=== PATIENT | male | born 1975 | race Caucasian/White ===

== ENCOUNTER 2019-12-23 08:14 | Outpatient (CLI) | payer OTHER, SELFPAY ==
[2019-12-23 08:33] LABS: Add Urine Microscopic? YES; Appearance Urine Clear (Clear); Bilirubin Urine Negative (Negative); Blood Urine 2+ (Negative); Color Urine Yellow (Yellow); Glucose Urine UA Negative (Negative); Ketones Urine Negative (Negative); Leukocyte Esterase Ur Negative (Negative); Nitrate Urine Negative (Negative); Protein Urine Negative (Negative); Specific Grav Ur >= 1.030 (1.010-1.020); pH Urine 5.5 (5.0-8.0)
[2019-12-23 08:33] LABS: Basophils Absolute Auto 0.05 K/mm3 (0.00-0.10); Basophils Percent Auto 0.6 % (0.0-1.0); Eosinophils Absolute Auto 0.37 K/mm3 (0.02-0.50); Eosinophils Percent Auto 4.7 % (1.0-6.0); Hematocrit 44.6 % (40.0-54.0); Hemoglobin 15.6 g/dL (14.0-18.0); Immature Granulocyte Absolute 0.03 K/mm3 (0.00-0.00); Immature Granulocyte Percent A 0.4 % (0.0-0.0); Lymphocytes Absolute Auto 2.55 K/mm3 (1.10-4.50); Lymphocytes Percent Auto 32.2 % (18.0-42.0); Mean Corpuscular Hemoglobin 30.8 pg (27.0-31.0); Mean Corpuscular Volume 88.1 fL (78.0-102.0); Mean Platelet Volume 10.9 fl (8.7-11.0); Monocytes Absolute Auto 0.53 K/mm3 (0.10-0.90); Monocytes Percent Auto 6.7 % (2.0-11.0); Neutrophils Absolute Auto 4.4 K/mm3 (1.7-7.2); Neutrophils Percent Auto 55.4 % (50.0-70.0); Platelet Count Result 232 K/mm3 (150-420); Red Blood Count 5.06 M/mm3 (4.70-6.10); Red Cell Distribution Width 12.3 % (11.6-14.4); White Blood Count 7.9 K/mm3 (4.8-10.8)
[2019-12-23 08:41] LABS: RBC Urine 21-50 /hpf (0-2); Squamous Epithelial Cell Urine Rare /hpf (Few); WBC Urine 0-3 /hpf (0-3)
[2019-12-23 08:46] LABS: Bacteria Urine Trace /hpf
[2019-12-23 10:01] LABS: Alanine Aminotransferase 41 U/L (16-63); Albumin Level 4.2 g/dL (3.4-5.0); Alkaline Phosphatase 90 U/L (46-116); Anion Gap 17.2 mmol/L (7-16); Aspartate Amino Transferase 23 U/L (15-37); Bilirubin,Total 0.9 mg/dL (0.00-1.00); Blood Urea Nitrogen 17 mg/dL (7-18); Carbon Dioxide 27 mmol/L (21-32); Chloride 104 mmol/L (98-108); Cholesterol 174 mg/dL (0-200); Estimated Glomerular Filt Rate > 60; Glucose 83 mg/dL (70-99); HDL Direct 51 mg/dL (40-60); LDL Cholesterol Calculated 111 mg/dL (<130); Osmolality Calculated 298 mOsm/kg (285-295); Potassium 4.2 mmol/L (3.5-5.1); Sodium 144 mmol/L (136-145); Thyroid Stimulating Hormone 2.29 uIU/mL (0.36-3.74); Total Protein 7.6 g/dL (6.4-8.2); Triglycerides 61 mg/dL (0-150)
== END 2019-12-23 08:15 | disposition home or self-care (01) ==
LOC: CHSLAB 08:19
PROVIDERS: PCP Internal Medicine; Visit Provider Internal Medicine
DX: Z00.00 Encounter for general adult medical examination without abnormal findings (principal)
CPT/HCPCS: 36415; 80053; 80061; 81001; 84443; 85025

== ENCOUNTER → 2020-07-19 10:34 | Outpatient (CLI) | payer OTHER, SELFPAY ==
--- NOTE | ~2020-07-19 | CT_ITS ---
EXAMINATION: CT abdomen pelvis wo/w con DATE: 07/19/2020 11:47 INDICATION: Microhematuria TECHNIQUE: Computed tomography (CT) of the abdomen and pelvis was performed without and subsequently with 130 cc Omnipaque 350 intravenous contrast. Automated exposure control and iterative reconstructi on technique were employed. Exam dose: 2355.12 mGy-cm total exam DLP. COMPARISON: None. FINDINGS: The lung bases are clear of infiltrate or consolidation. Normal heart size. No pericardial or pleural effusion. There is a small sliding hiatal hernia. There is postoperative change of the stomach. There is an approximately 5.5 x 6.5 x 7.5 mm lower pole nonobstructing right renal calculus. There is a pinpoint nonobstructing mid left renal calculus. There is an approximately 3.8 x 7.2 mm obstructing calculus of the left ureter at the L4-5 level, wit h moderately prominent proximal left hydroureteronephrosis. Normal appendix. No bowel obstruction, bowel wall thickening, pneumatosis or intraperitoneal free air . There is normal caliber of the abdominal aorta. No intraperitoneal or retroperitoneal or pelvic mass lesion or adenopathy or ascites. The prostate gland and urinary bladder are unremarkable. There is severe degenerative disc disease and mild retrolisthesis at L5-S1. IMPRESSION: 3.8 x 7.2 mm left ureteral obstructing calculus at L4-5 level with moderately prominent proximal left hydroureteronephrosis 5.5 x 6.5 x 7.5 mm lower pole nonobstructing right renal calculus Pinpoint nonobstructing mid left renal calculus Small sliding hiatal hernia Postoperative change of the stomach Reviewed, dictated and finalized at [facility]. Reviewed, dictated and finalized at location B.
--- NOTE | ~2020-07-19 | XR_ITS ---
XR abdomen/kub 1V DATE: 07/19/2020 10:56 INDICATION: Microhematuria TECHNIQUE: AP projection, 2 views COMPARISON: 07/19/2020 CT abdomen pelvis with and without IV contrast material 06/05/2018 KUB FINDINGS: Surgical clips of right upper quadrant, consistent with cholecystectomy. The psoas shadows are intact. No visceromegaly. No bowel obstruction. Degenerative disc disease at L5-S1. IMPRESSION: Status post cholecystectomy Reviewed, dictated and finalized at [facility]. Reviewed, dictated and finalized at location B. IMPRESSION: Status post cholecystectomy
[2020-07-19 11:00] LABS: Estimated Glomerular Filt Rate > 60
== END ==
PROVIDERS: Visit Provider Nurse Practitioner Adult Health
DX: R31.29 Other microscopic hematuria (principal); Z90.49 Acquired absence of other specified parts of digestive tract; K44.9 Diaphragmatic hernia without obstruction or gangrene; N20.2 Calculus of kidney with calculus of ureter
CPT/HCPCS: 74018; 74178; Q9967

== ENCOUNTER 2020-07-21 02:38 | Outpatient (CLI) | payer OTHER, SELFPAY ==
[2020-07-21 18:24] LABS: SARS-CoV-2 RNA PCR Negative
== END 2020-07-21 02:39 | disposition home or self-care (01) ==
LOC: ANHCOVIDDT 02:39
PROVIDERS: PCP Internal Medicine; Visit Provider Urology
DX: Z20.828 Contact with and (suspected) exposure to other viral communicable diseases (principal)
CPT/HCPCS: 87635; C9803; U0003

== ENCOUNTER 2020-07-23 00:29 | Day surgery (SDC) | payer OTHER, SELFPAY ==
[2020-07-21 08:27] VITALS: BMI 43.0
[2020-07-23] VITALS (7 sets, daily range): BP systolic 117–149; BP diastolic 57–102; PULSE 72–83; RESP 14–20; TEMP 36.4–36.5; O2SAT 96–100
--- NOTE | ~2020-07-23 | XR_ITS ---
EXAMINATION: XR retrograde pyelo w/stent LT EXAM DATE: 07/23/2020 12:33 INDICATION: Left ureteral stone. TECHNIQUE: Fluoroscopy used during XR retrograde pyelo w/stent LT performed by Dr. Orestes garcia MD. The DAP for this procedure was 1.1 mGym2. FINDINGS: Images demonstrate cannulation, injection of the left ureter, mild to moderate left hydron ephrosis or a left-sided double-J ureteral stent was placed. Correlate with procedure note. IMPRESSION: Mild to moderate left hydronephrosis. Stent in position. Reviewed, dictated and finalized at location A.
--- NOTE | 2020-07-23 10:43 | WPDHPUPDATE1 ---
History and Physical Update Update Date/Time: 07/23/20 10:43 History and Physical has been reviewed, including an updated exam of the patient. There are NO changes in the patient's condition. Risks, benefits, and alternatives have been discussed and questions answered. Patient agrees to proceed with procedure. Plan for cystoscopy, left retrograde, left ureteroscopy with holmium laser, stone extraction, stent placement
--- NOTE | 2020-07-23 11:14 | ECG_ITS ---
Measurements Intervals [place] Rate: 73 P: 22 UT: 181 QRS: -34 QRSD: 113 T: 50 QT: 386 QTc: 428 Interpretive Statements SINUS RHYTHM WITH SINUS ARRHYTHMIA LEFT AXIS DEVIATION INTRAVENTRICULAR CONDUCTION DELAY DELAYED PRECORDIAL R/S TRANSITION BASELINE ARTIFACT- I, III, AVR, AVL, V1 BORDERLINE ECG Electronically Signed On 07-23-2020 11:28:01 CDT by Darwin Peacock D.O.
--- NOTE | 2020-07-23 11:24 | WPDANESEPPF ---
Anes - Initial Pre Proc Eval Procedure: Operation Date: 07/23/20 13:00 Proposed Procedures p Cystoscopy, Left Ureteroscopy, Left Stone Extraction, Left Stent Placement, Possible Left Retrograde Pyelogram - Orestes Wheeler MD s Possible Holmium Laser Procedure - Orestes Wheeler MD Date/Time: 07/23/20 11:24 Surgeon: Orestes Wheeler MD Pre Op Diagnosis: Left Ureteral Stone Patient Data Age: 45 Gender: M Height: 5 ft 10 in Weight: 136 kg Allergies Allergy/AdvReac Type Severity Reaction Status Date / Time Clam Allergy Unknown Nausea Uncoded 07/21/20 08:21 Home Medications Medication Instructions Recorded Confirmed Type magnesium oxide 500 mg tablet 500 mg PO DAILY 12/29/19 07/21/20 History pyridoxine (vitamin B6) 100 mg 100 mg PO DAILY 12/29/19 07/21/20 History tablet verapamil 360 mg 24 hr 360 mg PO DAILY #1 cap 12/29/19 07/21/20 Rx capsule,extended release losartan 25 mg PO DAILY 07/21/20 07/21/20 History Patient hx anesthesia problems: none Family hx anesthesia problems: none [facility] Past Medical History Medical History (Updated 07/23/20 @ 11:24 by Pedro Marion MD) Hematemesis Hypertension Nausea & vomiting Obesity, morbid, BMI 40.0-49.9 JAMES (obstructive sleep apnea) Surgical History Surgical History Gastric bypass status for obesity Social History Social History Smoking status: Never smoker Alcohol intake: never Living arrangements: with family Anes - Eval Final PreProcedure Day of Procedure 07/23/20 11:24 Patient weight: morbidly obese Heart: regular rate and rhythm Lungs: clear to auscultation Airway: Mallampati scale class II and other (chipped front tooth) Neurological: alert and oriented Last oral intake: >/= 8 hours ASA classification: III Emergent: no Anesthetic plan: proceed Anesthesia type and monitoring: general LMA and standard monitoring Informed Consent: The patient's anesthetic plan and its attendant risks and benefits were discussed with the patient/family/POA. Questions were solicited and answers provided to the satisfaction of the patient/family/POA.
[2020-07-23] MEDS: LACTATED RINGERS 1,000 ML 30 ML IV CONT ×2 (11:25→12:46)
[2020-07-23] MEDS: ceFAZolin 3 GM/D5W 100 ML 100 ML IVPB (11:48)
[2020-07-23] MEDS: KETOROLAC 30 MG/ML VIAL (*BKC) IV PUSH (12:23)
[2020-07-23] MEDS: LIDOCAINE HCL 2% GEL UROJET 10 ML PKG MUCOUS MEM (12:29)
--- NOTE | 2020-07-23 12:31 | P.OP_ITS ---
Procedure Note - Detailed Date of procedure: 07/23/20 Pre-op diagnosis: Left Ureteral Stone Post-op diagnosis: same Procedure performed: Cystoscopy, left retrograde pyelogram, left ureteroscopy with holmium laser, left stone extraction, left ureteral stent placement 4.8 Sammarinese contour Description of procedure: Patient was taken to the operative suite and correctly identified. Once anesthesia was obtained he was placed in the dorsal lithotomy position and prepped and draped usual sterile fashion. Twenty-two Sammarinese scope was inserted into the urethra. The left ureteral orifice was can with a guidewire. The ureteral access sheath was placed. Mini flexible ureteral scope was inserted. The stone was too large to retrieve 1 piece. Using a 273 micron fiber we fragmented the stone in multiple pieces. Largest stone fragments were retrieved and sent for analysis. Reinspection revealed no residual stone calculi. Pyelogram was then performed to confirm placement of the stent. 4.8 Sammarinese contour stent was then placed with the proximal end coiled in the left renal pelvis and the distal in the bladder. 2% viscous lidocaine was inserted into urethra and patient is taken recovery stable condition. He will follow up in a week's time for stent removal. If develops any problems he will call us so we can deal with appropriately. Anesthesia: GLMA Surgeon: Orestes Wheeler MD Drains: Yes Packing: No Pathology: yes Complications: No immediate complications Condition: stable Disposition: PACU
[2020-07-23] MEDS: fentaNYL CITRATE INJ (*CRX) 100 MCG/2 ML VIAL 25 MCG IV PUSH (13:09)
== END 2020-07-23 14:20 | disposition home or self-care (01) ==
PROVIDERS: PCP Internal Medicine; Visit Provider Urology
PROC: (CPT 52352; principal; 2020-07-23 13:00)
PROC: (CPT 52356; 2020-07-23 13:00)
DX: N13.2 Hydronephrosis with renal and ureteral calculous obstruction (principal); I10 Essential (primary) hypertension; G47.33 Obstructive sleep apnea (adult) (pediatric); E66.01 Morbid (severe) obesity due to excess calories; Z68.41 Body mass index [BMI] 40.0-44.9, adult
CPT/HCPCS: 52356; 74420; 82365; 88300; 93005; A9270; C1758; C1769; C1894; C2617; J0690; J1100; J1885; J2250; J2405; J3010; J7120; Q9966

== ENCOUNTER 2020-08-03 09:26 | Outpatient (CLI) | payer OTHER, SELFPAY ==
--- NOTE | ~2020-08-03 | XR_ITS ---
EXAMINATION: XR abdomen/kub 1V INDICATION: Microscopic hematuria TECHNIQUE: Supine views of the abdomen were obtained on 2 radiographs. COMPARISON: 07/19/2020 FINDINGS: A right internal ureteral stent has been placed in expected position. The previously identi fied stone of the left mid ureter is not definitely seen. There is a 6 mm stone in the lower pole of the right kidney. Pelvic phleboliths are noted. The bowel gas pattern is normal. Cholecystectomy clip s are noted in the right upper quadrant. IMPRESSION: 1. Interval treatment or passage of the previously described left ureteral stone. Left internal urete ral stent in expected position. Reviewed, dictated and finalized at location A. IMPRESSION: 1. Interval treatment or passage of the previously described left ureteral ston e. Left internal ureteral stent in expected position.
== END 2020-08-03 09:27 | disposition home or self-care (01) ==
PROVIDERS: PCP Internal Medicine; Visit Provider Nurse Practitioner Adult Health
DX: R31.29 Other microscopic hematuria (principal); Z87.442 Personal history of urinary calculi
CPT/HCPCS: 74018

== ENCOUNTER 2020-10-21 18:46 | Emergency (ER) | payer OTHER, SELFPAY ==
--- NOTE | ~2020-10-21 | XR_ITS ---
EXAMINATION: XR chest 1V portable INDICATION: Diffuse chest tightness, cough, shortness of breath TECHNIQUE: Portable AP chest at 1929 hours COMPARISON: 10/25/2016 FINDINGS: There are minimal left basilar airspace opacities. No pleural effusion or pneumothorax is i dentified. The cardiomediastinal silhouette is normal. IMPRESSION: 1. Left basilar airspace opacities, consistent with atelectasis versus pneumonia. Reviewed, dictated and finalized at location A. [employer] IMPRESSION: 1. Left basilar airspace opacities, consistent with atelectasis versus pneumoni a.
--- NOTE | 2020-10-21 19:03 | ECG_ITS ---
Measurements Intervals [place] Rate: 122 P: 48 MI: 161 QRS: -61 QRSD: 94 T: 53 QT: 307 QTc: 438 Interpretive Statements SINUS TACHYCARDIA ATRIAL PREMATURE COMPLEXES LEFT ANTERIOR FASCICULAR BLOCK BASELINE ARTIFACT- II, III, AVR, AVL, AVF, V1-V6 ABNORMAL ECG Electronically Signed On 10-22-2020 8:16:07 [employer] by Darwin Peacock D.O.
[2020-10-21 19:05] VITALS: BP 154/107; PULSE 130; RESP 20; TEMP 36.3; O2SAT 97
--- NOTE | 2020-10-21 19:09 | ED.SOB ---
HPI - SOB/Dyspnea General Chief Complaint: Shortness of Breath/Dyspnea Stated Complaint: . Time Seen by Provider: 10/21/20 19:09 Source: patient Mode of arrival: ambulatory Limitations: no limitations History of Present Illness HPI Narrative: 45-year-old man comes in today complaining of 2 days of body aches, cough, growing shortness of breath and, starting this afternoon, having chest pressure. Chest pressure has been fairly constant is worse with movement. He has had dry heaves, diarrhea no bloody stools, blood in his vomitus, dysuria, hematuria, headache, fever or syncope. SO recently diagnosed with Covid-19 MD elicited complaint: shortness of breath, cough and chest pain Onset (ago): day(s) (2) Timing: constant Severity: moderate Exacerbating factors: exertion Relieving factors: rest Associated symptoms: chest pain, cough and lightheadedness Treatment prior to arrival: none Related Data Home oxygen amount: none Home Medications Medication Instructions Recorded Confirmed losartan 25 mg PO DAILY 07/21/20 10/21/20 Allergies Allergy/AdvReac Type Severity Reaction Status Date / Time Clam Allergy Unknown Nausea Uncoded 10/21/20 19:13 Review of Systems Constitutional: Constitutional: Denies chills, Reports fatigue and Denies fever(s) Eyes: Eyes: Denies change in vision and Denies photophobia ENT: Denies dysphagia, Denies nasal congestion and Denies sore throat Cardiovascular: Cardiovascular: Reports chest pain and Denies radiating jaw, neck or arm pain Respiratory: Respiratory: Reports cough and Reports dyspnea Gastrointestinal: Gastrointestinal: Denies abdominal pain, Reports diarrhea, Reports nausea and Reports vomiting Genitourinary: Genitourinary: Denies hematuria, Denies dysuria and Denies urinary frequency Musculoskeletal: Musculoskeletal: Denies back pain, Reports myalgias, Denies arthralgias and Denies joint swelling Integumentary/Breasts: Skin/Breast: Denies pruritus, Denies erythema and Denies rash Neurologic: Denies vertigo, Denies dizziness and Denies syncope Hematologic/Lymphatic: Hematologic/Lymphatic: Denies easy bleeding and Denies easy bruising Allergic/Immunologic: Allergic/Immunologic: Denies lip swelling and Denies tongue swelling PMFSH Past Medical History Medical History Hematemesis Hypertension Nausea & vomiting Obesity, morbid, BMI 40.0-49.9 JAMES (obstructive sleep apnea) Urolithiasis Surgical History Surgical History Gastric bypass status for obesity Hx of tonsillectomy Social History Social History (Updated 10/21/20 @ 19:33 by Jenaro Bennett MD) Smoking status: Never smoker Alcohol intake: never Substance use: never Living arrangements: with family Gender identity (if verbalized by the patient): Male Exam Const: General: alert Nutritional Appearance: obese Orientation/consciousness: patient oriented x3 Limitations: no limitations Other: mild acute distress HENMT: Head: normal to inspection Ears: external ears normal, TM's normal bilaterally and EAC's normal General nose exam: Normal nares present Face and sinus: normal facial exam Mouth: Yes moist mucous membranes Throat: posterior oropharynx normal Eyes: Conjunctivae: conjunctivae normal Pupils: Equal, round and reactive pupils present EOM: EOMs intact bilaterally Resp: Effort & Inspection: normal respiratory effort, not labored and tachypneic (mildly) Auscultation: clear to auscultation bilaterally, no rales, no rhonchi and no wheezes Cardio: Rate: regular rate and tachycardic GI: GI Palp: Yes Soft to palpation, No Tenderness to palpation present (GI) and No Guarding due to palpation present (GI) Auscultation: normal bowel sounds Skin: General skin exam: normal color, no jaundice and no pallor Rashes: no rashes Neuro: General: patient oriented x3, moves all extremities,
[2020-10-21] MEDS: ASPIRIN 81 MG CHEWABLE TABLET 324 MG PO (19:25)
[2020-10-21] MEDS: SODIUM CHLORIDE 0.9% IV 1,000 ML 999 ML IV CONT ×2 (19:34→20:40)
[2020-10-21] MEDS: ONDANSETRON INJ 4 MG/2 ML VIAL IV PUSH (19:35)
[2020-10-21 19:37] VITALS: PULSE 121
[2020-10-21] MEDS: METOPROLOL TARTRATE INJ 5 MG/5 ML VIAL IV PUSH (19:37)
[2020-10-21 19:39] VITALS: BP 164/116; PULSE 117; RESP 20; O2SAT 97
[2020-10-21 20:00] VITALS: BP 157/102; PULSE 99; RESP 20; O2SAT 95
[2020-10-21 20:01] LABS: Basophils Absolute Auto 0.02 K/mm3 (0.00-0.10); Basophils Percent Auto 0.2 % (0.0-1.0); Eosinophils Absolute Auto 0.02 K/mm3 (0.02-0.50); Eosinophils Percent Auto 0.2 % (1.0-6.0); Hematocrit 47.4 % (40.0-54.0); Hemoglobin 16.4 g/dL (14.0-18.0); Immature Granulocyte Absolute 0.03 K/mm3 (0.00-0.00); Immature Granulocyte Percent A 0.3 % (0.0-0.0); Lymphocytes Absolute Auto 1.77 K/mm3 (1.10-4.50); Lymphocytes Percent Auto 20.4 % (18.0-42.0); Mean Corpuscular HGB Conc 34.6 g/dL (32.0-36.0); Mean Corpuscular Hemoglobin 30.6 pg (27.0-31.0); Mean Corpuscular Volume 88.4 fL (78.0-102.0); Mean Platelet Volume 10.3 fl (8.7-11.0); Monocytes Absolute Auto 0.65 K/mm3 (0.10-0.90); Monocytes Percent Auto 7.5 % (2.0-11.0); Neutrophils Absolute Auto 6.2 K/mm3 (1.7-7.2); Neutrophils Percent Auto 71.4 % (50.0-70.0); Platelet Count Result 213 K/mm3 (150-420); Red Blood Count 5.36 M/mm3 (4.70-6.10); Red Cell Distribution Width 13.1 % (11.6-14.4); White Blood Count 8.7 K/mm3 (4.8-10.8)
[2020-10-21 20:13] LABS: INR 0.9; Partial Thromboplastin Time 25.1 SEC (23.90-30.70); Prothrombin Time 10.5 Seconds (9.50-12.10)
[2020-10-21 20:18] LABS: Influenza Control Valid (Valid); SARS-CoV-2 Ag Positive (Negative)
[2020-10-21 20:19] LABS: Alanine Aminotransferase 66 U/L (16-63); Albumin Level 4.1 g/dL (3.4-5.0); Alkaline Phosphatase 138 U/L (46-116); Anion Gap 9 mmol/L (8-16); Aspartate Amino Transferase 56 U/L (15-37); Blood Urea Nitrogen 16 mg/dL (7-18); Calcium 9.2 mg/dL (8.5-10.1); Carbon Dioxide 27 mmol/L (21-32); Chloride 103 mmol/L (98-108); D Dimer 0.52 mg/L (0.19-0.50); Estimated CRCL calculation 89 ml/min; Estimated Glomerular Filt Rate 59; Glucose 101 mg/dL (70-99); Osmolality Calculated 289 mOsm/kg (285-295); Potassium 3.9 mmol/L (3.5-5.1); Sodium 139 mmol/L (136-145); Total Protein 8.1 g/dL (6.4-8.2)
[2020-10-21 20:20] LABS: Troponin I 7.9 ng/L (0.00-60.4)
[2020-10-21 21:40] VITALS: BP 156/108; PULSE 103; RESP 20; O2SAT 98
== END 2020-10-21 21:45 | disposition home or self-care (01) ==
PROVIDERS: Emergency Provider Emergency Medicine; PCP Internal Medicine
DX: U07.1 COVID-19 (principal); E86.0 Dehydration
CPT/HCPCS: 36415; 71045; 80053; 84484; 85025; 85380; 85610; 85730; 87426; 87804; 93005; 96361; 96374; 96375; 99284; A9270; C9803; J2405; J7030

== ENCOUNTER 2021-04-26 12:33 | Outpatient (CLI) | payer OTHER, SELFPAY ==
--- NOTE | ~2021-04-26 | XR_ITS ---
XR abdomen/kub 1V 04/26/2021 12:49 Indication: Left renal stone Procedure: KUB Comparison: Comparison to multiple prior studies sequentially, with oldest reviewed study dated Findings: There is a 10 mm right ureteral stone at the L5 level. Bowel gas pattern nonobstructive. Th ere are cholecystectomy clips. There are pelvic phleboliths. No acute osseous abnormality. Impression: 1: Right proximal ureteral stone at the L5 level measuring 1 cm. Reviewed, dictated and finalized at location A. Impression: 1: Right proximal ureteral stone at the L5 level measuring 1 cm.
== END 2021-04-26 12:34 | disposition home or self-care (01) ==
LOC: ANHIMG 12:38
PROVIDERS: PCP Internal Medicine; Visit Provider Urology
DX: N20.2 Calculus of kidney with calculus of ureter (principal)
CPT/HCPCS: 74018

== ENCOUNTER 2021-04-29 02:17 | Day surgery (SDC) | payer OTHER, SELFPAY ==
[2021-04-28 10:55] VITALS: BMI 39.6
[2021-04-29] VITALS (8 sets, daily range): BP systolic 110–145; BP diastolic 64–93; PULSE 63–76; RESP 12–18; TEMP 36.4–37.1; O2SAT 95–100
--- NOTE | ~2021-04-29 | XR_ITS ---
XR abdomen/kub 1V DATE: 04/29/2021 06:35 INDICATION: Lithotripsy TECHNIQUE: AP projection, 2 views COMPARISON: 04/26/2021 KUB / CT abdomen pelvis without and subsequently with IV contrast material 07/19/2020 KUB FINDINGS: Approximately 5 x 9 mm calcification overlies the right ureter at the lower L4 level. This likely corresponds to a calcified calculus of the lower pole the right kidney on 07/19/2020, now situa stacey in the right ureter. No other apparent urinary tract calcification is noted. (Noncontrast CT abdomen pelvis examination wo uld be more sensitive for detection of urinary tract stones.) No bowel obstruction is evident. The psoas shadows are intact. IMPRESSION: Approximately 5 x 9 mm calcified right ureteral calculus at lower L4 level Reviewed, dictated and finalized at Location A. Reviewed, dictated and finalized at location A. IMPRESSION: Approximately 5 x 9 mm calcified right ureteral calculus at lower L 4 level
[2021-04-29] MEDS: LACTATED RINGERS 1,000 ML 30 ML IV CONT (07:21)
--- NOTE | 2021-04-29 07:28 | WPDHPUPDATE1 ---
History and Physical Update Update Date/Time: 04/29/21 07:28 History and Physical has been reviewed, including an updated exam of the patient. There are NO changes in the patient's condition. Risks, benefits, and alternatives have been discussed and questions answered. Patient agrees to proceed with procedure. Proceed with cysto, right retrograde, right ureteroscopy with stone extraction, stent placement.
[2021-04-29 07:36] LABS: Partial Thromboplastin Time 28.3 SECONDS (22.3-36.8); Prothrombin Time 13.3 Seconds (11.1-14.7)
--- NOTE | 2021-04-29 08:13 | WPDANESEPPF ---
Anes - Initial Pre Proc Eval Procedure: Operation Date: 04/29/21 08:30 Proposed Procedures p Right Extracorporeal Shock Wave Lithotripsy - Orestes Wheeler MD Date/Time: 04/29/21 08:13 Surgeon: Orestes Wheeler MD Pre Op Diagnosis: ureteral stone Patient Data Age: 46 Gender: M Height: 1.78 m Weight: 125.45 kg Allergies Allergy/AdvReac Type Severity Reaction Status Date / Time No Known Allergies Allergy Verified 04/28/21 10:36 Home Medications Medication Instructions Recorded Confirmed Type losartan 25 mg PO HS 07/21/20 04/28/21 History Multi For Him (no iron) 1 tab-cap PO DAILY 04/28/21 04/28/21 History alprazolam 0.25 mg PO PRN 04/28/21 04/28/21 History escitalopram oxalate 20 mg PO HS 04/28/21 04/28/21 History verapamil 360 mg PO HS 04/28/21 04/28/21 History Laboratory Tests 04/29/21 07:04 PT 13.3 Seconds Seconds (11.1-14.7) INR 1.0 APTT 28.3 SECONDS SECONDS (22.3-36.8) Patient hx anesthesia problems: none Family hx anesthesia problems: none PMFSH Past Medical History Medical History Hematemesis Hypertension Nausea & vomiting Obesity, morbid, BMI 40.0-49.9 JAMES (obstructive sleep apnea) Urolithiasis Surgical History Surgical History Gastric bypass status for obesity Hx of tonsillectomy Social History Social History (Updated 10/21/20 @ 19:33 by Jenaro Bennett MD) Smoking status: Never smoker Alcohol intake: never Substance use: never Living arrangements: with family Gender identity (if verbalized by the patient): Male Spiritual care concerns: No Anes - Eval Final PreProcedure Day of Procedure 04/29/21 08:13 Patient weight: morbidly obese Heart: regular rate and rhythm Lungs: clear to auscultation Airway: Mallampati scale class II Neurological: alert and oriented Last oral intake: >/= 8 hours ASA classification: III Emergent: no Anesthetic plan: proceed Anesthesia type and monitoring: general LMA and standard monitoring Informed Consent: The patient's anesthetic plan and its attendant risks and benefits were discussed with the patient/family/POA. Questions were solicited and answers provided to the satisfaction of the patient/family/POA.
--- NOTE | 2021-04-29 08:23 | WPDHPUPDATE1 ---
History and Physical Update Update Date/Time: 04/29/21 08:23 History and Physical has been reviewed, including an updated exam of the patient. There are NO changes in the patient's condition. Risks, benefits, and alternatives have been discussed and questions answered. Patient agrees to proceed with procedure. Proceed with right eswl
[2021-04-29] MEDS: ceFAZolin 2 GM/D5W 50 ML 2 GM/50 ML BAG IVPB (08:30)
--- NOTE | 2021-04-29 09:11 | W.PM.PROC2 ---
Procedure Note - Detailed Date of Procedure 04/29/21 Pre-op Diagnosis ureteral stone Post-op Diagnosis same Procedure Performed ESWL right ureteral calculus Surgeon Orestes Wheeler MD Anesthesia general Description of Procedure patient is taken the operative suite correctly identified. Once anesthesia was obtained stone was localized in both planes. Three thousand shocks was given to the stones in the right ureter. There appeared to be good fragmentation. Patient is taken recovery stable condition. He will follow up in 10-14 days with KUB. Drains No Packing No Pathology none sent Complications No immediate complications Condition stable Disposition PACU
--- NOTE | 2021-04-29 09:42 | SUR.PHASEI ---
0930- awake, denies presence of pain when asked.
[2021-04-29] MEDS: fentaNYL CITRATE INJ (*CRX) 100 MCG/2 ML VIAL 25 MCG IV PUSH (09:52)
[2021-04-29] MEDS: oxyCODONE HCL (*CRX) 5 MG TAB IR PO (11:03)
== END 2021-04-29 11:10 | disposition home or self-care (01) ==
PROVIDERS: PCP Internal Medicine; Visit Provider Urology
PROC: (CPT 50590; principal; 2021-04-29 08:30)
DX: N20.2 Calculus of kidney with calculus of ureter (principal); K92.0 Hematemesis; G47.33 Obstructive sleep apnea (adult) (pediatric); Z98.84 Bariatric surgery status; E66.01 Morbid (severe) obesity due to excess calories; Z68.41 Body mass index [BMI] 40.0-44.9, adult; Z46.6 Encounter for fitting and adjustment of urinary device; Z96.0 Presence of urogenital implants; I10 Essential (primary) hypertension
CPT/HCPCS: 50590; 36415; 74018; 85610; 85730; A9270; J0690; J1100; J2250; J2405; J2704; J3010; J7120

== ENCOUNTER 2021-05-30 12:53 | Outpatient (CLI) | payer OTHER, SELFPAY ==
--- NOTE | ~2021-05-30 | XR_ITS ---
EXAMINATION: XR abdomen/kub 1V DATE: 05/30/2021 13:19 INDICATION: Left renal stone. TECHNIQUE: A supine view of the abdomen on 2 radiographs was obtained. COMPARISON: 04/29/2021 FINDINGS: Residual 5 mm stone fragment or fragments in similar position in the proximal to mid right ureter pro jecting over the right transverse process of L4. Similar pattern of multiple phleboliths in the pelvi s. Cholecystectomy clips in the right upper quadrant. Normal bowel gas pattern. IMPRESSION: 1. Residual 5 mm stone fragment or fragments in the proximal to mid right ureter. Reviewed, dictated and finalized at location A. IMPRESSION: 1. Residual 5 mm stone fragment or fragments in the proximal to mid right urete r.
== END 2021-05-30 12:54 | disposition home or self-care (01) ==
PROVIDERS: PCP Internal Medicine; Visit Provider Urology
DX: N20.0 Calculus of kidney (principal)
CPT/HCPCS: 74018

== ENCOUNTER 2021-06-03 16:05 | Outpatient (CLI) | payer OTHER, SELFPAY ==
--- NOTE | 2021-06-03 16:08 | ECG_ITS ---
Measurements Intervals [place] Rate: 87 P: 38 UT: 186 QRS: -20 QRSD: 105 T: 3 QT: 350 QTc: 422 Interpretive Statements SINUS RHYTHM BORDERLINE R WAVE PROGRESSION, ANTERIOR LEADS BORDERLINE T WAVE ABNORMALITY- INFERIOR LEADS BASELINE ARTIFACT- II, III, AVR, AVL, AVF, V4-V6 BORDERLINE ECG Electronically Signed On 06-03-2021 20:21:19 CDT by Darwin Peacock D.O.
== END 2021-06-03 16:06 | disposition home or self-care (01) ==
LOC: CHSCARD 16:08
PROVIDERS: PCP Internal Medicine; Referring Provider Anesthesiology; Visit Provider Urology
DX: N20.1 Calculus of ureter (principal)
CPT/HCPCS: 87086; 93005

== ENCOUNTER 2021-06-07 00:55 | Day surgery (SDC) | payer OTHER, SELFPAY ==
[2021-06-03 14:52] VITALS: BMI 38.5
[2021-06-07] VITALS (9 sets, daily range): BP systolic 116–152; BP diastolic 72–98; PULSE 61–74; RESP 12–18; TEMP 36.3–36.5; O2SAT 97–100
--- NOTE | ~2021-06-07 | XR_ITS ---
EXAMINATION: XR retrograde pyelo w/stent RT DATE: 06/07/2021 10:58 INDICATION: Right internal ureteral stent placement TECHNIQUE: Fluoroscopic images from a right internal ureteral stent placement are submitted for leatha lockwood 32 seconds of fluoroscopy time. 6 fluoroscopic images. FINDINGS: There is a right double-J internal ureteral stent projecting in expected position, with proximal [place] loop at the level of the renal pelvis and distal loop in the pelvis within the bladder lumen. IMPRESSION: 1. Right internal ureteral stent placement. Please refer to real-time procedural findings for richard mcclelland. Reviewed, dictated and finalized at location A. IMPRESSION: 1. Right internal ureteral stent placement. Please refer to real-time procedu ral findings for details.
--- NOTE | 2021-06-07 08:02 | WPDHPUPDATE1 ---
History and Physical Update Update Date/Time: 06/07/21 08:02 History and Physical has been reviewed, including an updated exam of the patient. There are NO changes in the patient's condition. Risks, benefits, and alternatives have been discussed and questions answered. Patient agrees to proceed with procedure. Proceed with cystoscopy, right retrograde pyelogram, right ureteroscopy with stone extraction, possible laser, stent placement
[2021-06-07] MEDS: LACTATED RINGERS 1,000 ML 30 ML IV CONT (08:49)
--- NOTE | 2021-06-07 09:10 | WPDANESEPPF ---
Anes - Initial Pre Proc Eval Procedure: Operation Date: 06/07/21 10:00 Proposed Procedures p Cystoscopy Right Ureteroscopy, Possible Retrograde Pyelogram, Stone Extraction, Stent Placement, - Orestes Wheeler MD s Possible Holmium Laser Procedure - Orestes Wheeler MD Date/Time: 06/07/21 09:10 Surgeon: Orestes Wheeler MD Pre Op Diagnosis: right ureteral stone Patient Data Age: 46 Gender: M Height: 1.78 m Weight: 122 kg Allergies Allergy/AdvReac Type Severity Reaction Status Date / Time No Known Allergies Allergy Verified 04/29/21 08:27 Home Medications Medication Instructions Recorded Confirmed Type losartan 25 mg PO HS 07/21/20 06/03/21 History Multi For Him (no iron) 1 tab-cap PO DAILY 04/28/21 06/03/21 History alprazolam 0.25 mg PO PRN 04/28/21 06/03/21 History escitalopram oxalate 20 mg PO HS 04/28/21 06/03/21 History verapamil 360 mg PO HS 04/28/21 06/03/21 History Patient hx anesthesia problems: none Family hx anesthesia problems: none PMFSH Past Medical History Medical History Hematemesis Hypertension Nausea & vomiting Obesity, morbid, BMI 40.0-49.9 JAMES (obstructive sleep apnea) Urolithiasis Surgical History Surgical History Gastric bypass status for obesity Hx of tonsillectomy Social History Social History Smoking status: Never smoker Alcohol intake: never Substance use: never Substance use type: does not use Gender identity (if verbalized by the patient): Male Spiritual care concerns: No Anes - Eval Final PreProcedure Day of Procedure 06/07/21 09:10 Patient weight: morbidly obese Heart: regular rate and rhythm Lungs: clear to auscultation Airway: Mallampati scale class II Neurological: alert and oriented Last oral intake: >/= 8 hours ASA classification: III Emergent: no Anesthetic plan: proceed Anesthesia type and monitoring: general LMA and standard monitoring Informed Consent: The patient's anesthetic plan and its attendant risks and benefits were discussed with the patient/family/POA. Questions were solicited and answers provided to the satisfaction of the patient/family/POA.
[2021-06-07] MEDS: ceFAZolin 3 GM/D5W 100 ML 100 ML IVPB (10:22)
[2021-06-07] MEDS: LIDOCAINE HCL 2% GEL UROJET 10 ML PKG MUCOUS MEM (10:40)
--- NOTE | 2021-06-07 10:57 | W.PM.PROC2 ---
Procedure Note - Detailed Date of Procedure 06/07/21 Pre-op Diagnosis right ureteral stone Post-op Diagnosis same Procedure Performed Cystoscopy, right retrograde pyelogram, right ureteroscopy with holmium laser, stone extraction, right ureteral stent placement 4.8 Barbadian contour Surgeon Orestes Wheeler MD Anesthesia general Description of Procedure Patient is taken to the operative suite and correctly identified. Once anesthesia was obtained was placed in dorsal lithotomy position and prepped and draped usual sterile fashion. Nineteen Barbadian scope was inserted into the bladder. There is no tumors noted. The right ureteral orifice was cannulated with a guidewire. We dilated the OR orifice using an 8/10 dilator. Rigid ureteral scope was then inserted. The stone was visualized but was too large to grasp in 1 piece. Using an escape basket we placed around the stone and then used a 273 micron fiber to fragment stone in multiple pieces. The largest stones were sent for analysis. Reinspection revealed no residual calculi. Pyelogram was then performed to confirm placement of the stent. 4.8 Barbadian contour stent was then placed with the proximal end coiled in the renal pelvis and the distal end in the bladder. Bladder was drained. 2% viscous lidocaine was inserted into the urethra patient was taken recovery stable condition. He will follow up in a week's time for stent removal. Drains Yes Packing No Pathology yes Complications No immediate complications Condition stable Disposition PACU
[2021-06-07] MEDS: fentaNYL CITRATE INJ (*CRX) 100 MCG/2 ML VIAL 25 MCG IV PUSH ×4 (11:17→11:43)
[2021-06-07] MEDS: oxyCODONE HCL (*CRX) 5 MG TAB IR PO (12:14)
== END 2021-06-07 12:30 | disposition home or self-care (01) ==
PROVIDERS: PCP Internal Medicine; Visit Provider Urology
PROC: (CPT 52352; principal; 2021-06-07 10:00)
PROC: (CPT 52356; 2021-06-07 10:00)
DX: N20.1 Calculus of ureter (principal); I10 Essential (primary) hypertension; G47.33 Obstructive sleep apnea (adult) (pediatric); E66.01 Morbid (severe) obesity due to excess calories; Z68.39 Body mass index [BMI] 39.0-39.9, adult; Z98.84 Bariatric surgery status
CPT/HCPCS: 52356; 74420; 82365; 88300; A9270; C1758; C1769; C2617; J0690; J1100; J2250; J2405; J2704; J3010; J7120; Q9966

== ENCOUNTER 2021-08-10 11:44 | Emergency (ER) | payer OTHER, SELFPAY ==
--- NOTE | 2021-08-10 11:51 | ECG_ITS ---
Measurements Intervals [place] Rate: 75 P: 2 MO: 190 QRS: -32 QRSD: 96 T: 15 QT: 391 QTc: 438 Interpretive Statements SINUS RHYTHM LEFT AXIS DEVIATION BORDERLINE R WAVE PROGRESSION, ANTERIOR LEADS BASELINE ARTIFACT- II, III, AVF BORDERLINE ECG Electronically Signed On 08-10-2021 12:57:41 CDT by Darwin Peacock D.O.
--- NOTE | 2021-08-10 11:55 | ED.GENADULT ---
HPI - General Adult General Chief complaint: Alcohol Stated complaint: ambulane Source: patient and family Mode of arrival: ambulatory Limitations: no limitations History of Present Illness HPI narrative: Fabio is a 46M with a PMH of ureteral stones, obesity s/p gastric bypass, HTN that presented to the ED via EMS after reportedly drinking and taking Xanex and with SI. Fabio has been suffering from depression and PTSD and troubles with his spouse. He hit a low today and drank some 151 this morning. When his returned he said that he didn't care if he lived or so she called the ambulance. Currently he denies any thoughts of hurting himself or anyone else. He has an alprazolam Rx but denies taking any. Related Data Home Medications Medication Instructions Recorded Confirmed losartan 25 mg PO HS 07/21/20 06/07/21 Multi For Him (no iron) 1 tab-cap PO DAILY 04/28/21 06/07/21 alprazolam 0.25 mg PO PRN 04/28/21 06/07/21 escitalopram oxalate 20 mg PO HS 04/28/21 06/07/21 verapamil 360 mg PO HS 04/28/21 06/07/21 Allergies Allergy/AdvReac Type Severity Reaction Status Date / Time No Known Allergies Allergy Verified 06/07/21 09:14 Review of Systems Constitutional: Constitutional: Reports no additional constitutional complaints Eyes: Eyes: Reports no additional eye complaints ENT: Reports system reviewed and no additional complaints, except as documented Cardiovascular: Cardiovascular: Reports no additional cardiovascular complaints Respiratory: Respiratory: Reports no additional respiratory complaints Gastrointestinal: Gastrointestinal: Reports no additional gastrointestinal complaints Genitourinary: Genitourinary: Reports no additional male genitourinary complaints Musculoskeletal: Musculoskeletal: Reports no additional musculoskeletal complaints Integumentary/Breasts: Skin/Breast: Reports system reviewed and no additional complaints, except as docu Neurologic: Reports system reviewed and no additional complaints, except as documented Psychiatric: Psychiatric: Reports anxiety and Reports depression Endocrine: Endocrine: Reports no additional endocrine complaints Hematologic/Lymphatic: Hematologic/Lymphatic: Reports no additional hematologic/lymphatic complaints Allergic/Immunologic: Allergic/Immunologic: Reports no additional allergic/immunologic complaints [facility] Past Medical History Medical History Hematemesis Hypertension Nausea & vomiting Obesity, morbid, BMI 40.0-49.9 JAMES (obstructive sleep apnea) Urolithiasis Surgical History Surgical History Gastric bypass status for obesity Hx of tonsillectomy Social History Social History Smoking status: Never smoker Alcohol intake: never Substance use: never Substance use type: does not use Gender identity (if verbalized by the patient): Male Spiritual care concerns: No Exam Const: General: no acute distress and alert Orientation/consciousness: patient oriented x3 HENMT: Head: normal to inspection Other: normocephalic, atraumatic Eyes: Conjunctivae: conjunctivae normal Pupils: Equal, round and reactive pupils present Neck: Neck: normal visual inspection Chest: Chest palpation & inspection: normal inspection of the chest Resp: Effort & Inspection: normal respiratory effort Auscultation: clear to auscultation bilaterally Cardio: Rate: regular rate Rhythm: regular rhythm GI: Inspection: non-distended GI Palp: Yes Soft to palpation, No Tenderness to palpation present (GI) and No Guarding due to palpation present (GI) Back/Spine/Pelvis: Back: no CVA tenderness Skin: General skin exam: normal color Neuro: General: patient oriented x3, moves all extremities and CN's II-XI intact bilaterally Extrem: General: normal to inspection Psych: Appearance: dishevele
[2021-08-10 12:00] VITALS: BP 138/89; PULSE 83; RESP 18; TEMP 36.6; O2SAT 99
[2021-08-10 12:34] LABS: Amphetamine Screen Urine Negative (Negative); Barbiturate Screen Urine Negative (Negative); Benzodiazepines Screen Urine Negative (Negative); Cannabinoid Screen Urine Negative (Negative); Cocaine Screen Urine Negative (Negative); Methadone Screen Urine Negative (Negative); Opiate Screen Urine Negative (Negative); Phencyclidine Screen Urine Negative (Negative)
[2021-08-10 12:42] LABS: Alanine Aminotransferase 65 U/L (16-63); Albumin Level 3.8 g/dL (3.4-5.0); Alkaline Phosphatase 140 U/L (46-116); Anion Gap 12 mmol/L (8-16); Aspartate Amino Transferase 43 U/L (15-37); Bilirubin,Total 0.7 mg/dL (0.00-1.00); Blood Urea Nitrogen 10 mg/dL (7-18); Calcium 8.4 mg/dL (8.5-10.1); Carbon Dioxide 27 mmol/L (21-32); Chloride 104 mmol/L (98-108); Estimated CRCL calculation 89 ml/min; Estimated Glomerular Filt Rate > 60; Glucose 104 mg/dL (70-99); Osmolality Calculated 295 mOsm/kg (285-295); Potassium 3.3 mmol/L (3.5-5.1); Salicylate 0.9 mg/dL (2.8-20.0); Sodium 143 mmol/L (136-145); Thyroid Stimulating Hormone 0.69 uIU/mL (0.36-3.74); Total Protein 7.4 g/dL (6.4-8.2)
[2021-08-10 12:43] LABS: Acetaminophen < 2 ug/mL (10-30); Ethanol 239 mg/dL (0-6)
--- NOTE | 2021-08-10 12:45 | PC.NURSE ---
Lab called with Blood Alcohol of 239
[2021-08-10 17:20] LABS: Ethanol 161 mg/dL (0-6)
--- NOTE | 2021-08-10 18:07 | PC.NURSE ---
Juli with [facility] at bedside.
[2021-08-10 19:05] VITALS: BP 137/99; PULSE 97; RESP 20; TEMP 36.9; O2SAT 97
== END 2021-08-10 19:07 | disposition home or self-care (01) ==
PROVIDERS: Emergency Provider Family Medicine; PCP Internal Medicine
DX: F10.129 Alcohol abuse with intoxication, unspecified (principal); F32.A Depression, unspecified
CPT/HCPCS: 36415; 80053; 80307; 84443; 93005; 99282; 99283

== ENCOUNTER 2022-10-18 08:12 | Outpatient (CLI) | payer OTHER, SELFPAY ==
[2022-10-18 08:30] LABS: Basophils Absolute Auto 0.04 K/mm3 (0.00-0.10); Basophils Percent Auto 0.5 % (0.0-1.0); Eosinophils Absolute Auto 0.39 K/mm3 (0.02-0.50); Eosinophils Percent Auto 4.5 % (1.0-6.0); Hematocrit 42.9 % (40.0-54.0); Hemoglobin 14.8 g/dL (14.0-18.0); Immature Granulocyte Absolute 0.04 K/mm3 (0.00-0.00); Immature Granulocyte Percent A 0.5 % (0.0-0.0); Lymphocytes Absolute Auto 2.24 K/mm3 (1.10-4.50); Mean Corpuscular HGB Conc 34.5 g/dL (32.0-36.0); Mean Corpuscular Hemoglobin 31.8 pg (27.0-31.0); Mean Corpuscular Volume 92.3 fL (78.0-102.0); Mean Platelet Volume 10.5 fl (8.7-11.0); Monocytes Absolute Auto 0.63 K/mm3 (0.10-0.90); Monocytes Percent Auto 7.3 % (2.0-11.0); Neutrophils Absolute Auto 5.3 K/mm3 (1.7-7.2); Neutrophils Percent Auto 61.2 % (50.0-70.0); Platelet Count Result 207 K/mm3 (150-420); Red Blood Count 4.65 M/mm3 (4.70-6.10); Red Cell Distribution Width 12.8 % (11.6-14.4); White Blood Count 8.6 K/mm3 (4.8-10.8)
[2022-10-18 08:33] LABS: Add Urine Microscopic? YES; Appearance Urine Clear (Clear); Bilirubin Urine Negative (Negative); Blood Urine Trace-Intact (Negative); Color Urine Yellow (Yellow); Glucose Urine UA Negative (Negative); Ketones Urine Negative (Negative); Leukocyte Esterase Ur Negative (Negative); Nitrate Urine Negative (Negative); Protein Urine Negative (Negative); Specific Grav Ur >= 1.030 (1.010-1.020); Urobilinogen Urine 0.2 mg/dL (0.2-1.0)
[2022-10-18 08:38] LABS: Bacteria Urine None seen /hpf; Hemoglobin A1C 5.6 % (<5.7); Mucus Urine Few /lpf; RBC Urine 0-2 /hpf (0-2); Squamous Epithelial Cell Urine Rare /hpf (Few); WBC Urine None seen /hpf (0-3)
[2022-10-18 09:20] LABS: Alanine Aminotransferase 81 U/L (16-63); Alkaline Phosphatase 97 U/L (46-116); Anion Gap 8 mmol/L (8-16); Aspartate Amino Transferase 40 U/L (15-37); Bilirubin,Total 0.6 mg/dL (0.00-1.00); Blood Urea Nitrogen 14 mg/dL (7-18); Carbon Dioxide 31 mmol/L (21-32); Chloride 104 mmol/L (98-108); Cholesterol 178 mg/dL (0-200); Estimated Glomerular Filt Rate > 60; Glucose 112 mg/dL (70-99); HDL Direct 70 mg/dL (40-60); LDL Cholesterol Calculated 96 mg/dL (<130); Osmolality Calculated 297 mOsm/kg (285-295); Potassium 4.1 mmol/L (3.5-5.1); Sodium 143 mmol/L (136-145); Thyroid Stimulating Hormone 2.29 uIU/mL (0.36-3.74); Total Protein 7.3 g/dL (6.4-8.2); Triglycerides 62 mg/dL (0-150)
== END 2022-10-18 08:13 | disposition home or self-care (01) ==
LOC: CHSLAB 08:15
PROVIDERS: PCP Internal Medicine
DX: I10 Essential (primary) hypertension (principal)
CPT/HCPCS: 36415; 80053; 80061; 81001; 83036; 84443; 85025

== ENCOUNTER 2022-11-07 09:02 | Outpatient (CLI) | payer OTHER, SELFPAY ==
--- NOTE | ~2022-11-07 | XR_ITS ---
XR knee RT 3V DATE: 11/07/2022 10:11 INDICATION: Chronic medial and anterior knee pain TECHNIQUE: AP, lateral and sunrise views COMPARISON: None FINDINGS: No fracture or dislocation or joint effusion. Joint spaces are well preserved. Slight peria rticular spurring of the patella. No radiopaque intra-articular loose body or chondrocalcinosis. IMPRESSION: Slight patellofemoral osteoarthritis. Reviewed, dictated and finalized at location L. OCK MAKER
--- NOTE | ~2022-11-07 | XR_ITS ---
XR knee LT 3V DATE: 11/07/2022 10:10 INDICATION: Chronic medial knee pain TECHNIQUE: AP, lateral, sunrise views COMPARISON: None FINDINGS: No fracture or dislocation or joint effusion. No periosteal reaction or bone destruction. J oint spaces appear well preserved. No radiopaque intra-articular loose body or chondrocalcinosis. IMPRESSION: No significant abnormality Reviewed, dictated and finalized at location L. T CAN ROUTER IMPRESSION: No significant abnormality
--- NOTE | ~2022-11-07 | XR_ITS ---
XR chest 2V DATE: 11/07/2022 10:11 INDICATION: Dyspnea for 4 months TECHNIQUE: 2 views COMPARISON: 10/21/2020 portable AP chest FINDINGS: Normal heart size. No hilar or mediastinal enlargement. No pulmonary infiltrate or consolid ation, pleural effusion or pulmonary vascular congestion or pneumothorax is detected. Surgical clips overlie the upper abdomen on lateral view, likely due to cholecystectomy. IMPRESSION: No active cardiopulmonary disease Reviewed, dictated and finalized at location L. L ENGINEERING TECHNICIAN
--- NOTE | 2022-11-07 09:30 | ECG_ITS ---
Measurements Intervals [place] Rate: 79 P: 16 NV: 187 QRS: 1 QRSD: 108 T: -9 QT: 365 QTc: 420 Interpretive Statements SINUS RHYTHM BORDERLINE R WAVE PROGRESSION, ANTERIOR LEADS BORDERLINE T WAVE ABNORMALITY- INFERIOR LEADS BORDERLINE ECG COMPARED TO ECG 08/10/2021 12:25:42 NO SIGNIFICANT CHANGES Electronically Signed On 11-07-2022 9:53:33 TOOL GRINDER SET UP OPERATOR GEAR by Darwin Peacock D.O.
[2022-11-08 09:51] LABS: Basophils Absolute Auto 0.06 K/mm3 (0.00-0.10); Basophils Percent Auto 0.5 % (0.0-1.0); Eosinophils Absolute Auto 0.37 K/mm3 (0.02-0.50); Eosinophils Percent Auto 3.3 % (1.0-6.0); Hematocrit 47.1 % (40.0-54.0); Hemoglobin 15.6 g/dL (14.0-18.0); Immature Granulocyte Absolute 0.02 K/mm3 (0.00-0.00); Immature Granulocyte Percent A 0.2 % (0.0-0.0); Lymphocytes Absolute Auto 2.42 K/mm3 (1.10-4.50); Lymphocytes Percent Auto 21.8 % (18.0-42.0); Mean Corpuscular HGB Conc 33.1 g/dL (32.0-36.0); Mean Corpuscular Volume 96.5 fL (78.0-102.0); Mean Platelet Volume 11.7 fl (8.7-11.0); Monocytes Absolute Auto 0.62 K/mm3 (0.10-0.90); Monocytes Percent Auto 5.6 % (2.0-11.0); Neutrophils Absolute Auto 7.6 K/mm3 (1.7-7.2); Neutrophils Percent Auto 68.6 % (50.0-70.0); Platelet Count Result 259 K/mm3 (150-420); Red Blood Count 4.88 M/mm3 (4.70-6.10); Red Cell Distribution Width 12.5 % (11.6-14.4); White Blood Count 11.1 K/mm3 (4.8-10.8)
[2022-11-08 10:03] LABS: Alanine Aminotransferase 71 U/L (16-63); Albumin Level 4.4 g/dL (3.4-5.0); Alkaline Phosphatase 123 U/L (46-116); Anion Gap 8 mmol/L (8-16); Aspartate Amino Transferase 34 U/L (15-37); Bilirubin,Total 0.5 mg/dL (0.00-1.00); Blood Urea Nitrogen 13 mg/dL (7-18); Calcium 9.5 mg/dL (8.5-10.1); Carbon Dioxide 29 mmol/L (21-32); Chloride 102 mmol/L (98-108); Estimated Glomerular Filt Rate > 60; Glucose 103 mg/dL (70-99); NT Pro B Type Natriuretic Pept 25 pg/mL (0-125); Osmolality Calculated 288 mOsm/kg (285-295); Potassium 4.2 mmol/L (3.5-5.1); Sodium 139 mmol/L (136-145); Total Protein 7.8 g/dL (6.4-8.2)
[2022-11-11 03:18] LABS: Hepatitis A Antibody IgM Nonreactive; Hepatitis B Core Antibody Nonreactive (Nonreactive); Hepatitis B Surface Antigen Nonreactive (Nonreactive); Hepatitis C Signal to Cutoff 0.01 ratio (<1.00); Hepatitis C Virus Antibody Nonreactive (Nonreactive)
== END 2022-11-07 09:03 | disposition home or self-care (01) ==
LOC: CHSLAB 09:06
PROVIDERS: PCP Internal Medicine; Visit Provider Internal Medicine
DX: I10 Essential (primary) hypertension (principal); R06.00 Dyspnea, unspecified; R94.5 Abnormal results of liver function studies; M25.569 Pain in unspecified knee; M17.11 Unilateral primary osteoarthritis, right knee
CPT/HCPCS: 36415; 71046; 73562; 80053; 80074; 83880; 85025; 93005

== ENCOUNTER 2022-11-21 10:18 | Outpatient (CLI) | payer OTHER, SELFPAY | END 2022-11-21 10:19 | disposition home or self-care (01) | LOC: CHSCARD 10:21 | PROVIDERS: PCP Internal Medicine; Visit Provider Internal Medicine | DX: R06.02 Shortness of breath (principal) | CPT/HCPCS: 94060; 94726; 94729 ==

== ENCOUNTER 2023-06-07 08:03 | Outpatient (CLI) | payer OTHER, SELFPAY ==
[2023-06-07 08:22] LABS: Basophils Absolute Auto 0.05 K/mm3 (0.00-0.10); Basophils Percent Auto 0.6 % (0.0-1.0); Eosinophils Percent Auto 1.2 % (1.0-6.0); Hematocrit 43.3 % (40.0-54.0); Immature Granulocyte Absolute 0.02 K/mm3 (0.00-0.00); Immature Granulocyte Percent A 0.2 % (0.0-0.0); Lymphocytes Absolute Auto 1.96 K/mm3 (1.10-4.50); Lymphocytes Percent Auto 24.4 % (18.0-42.0); Mean Corpuscular HGB Conc 34.6 g/dL (32.0-36.0); Mean Corpuscular Hemoglobin 31.4 pg (27.0-31.0); Mean Corpuscular Volume 90.6 fL (78.0-102.0); Mean Platelet Volume 10.8 fl (8.7-11.0); Monocytes Absolute Auto 0.47 K/mm3 (0.10-0.90); Monocytes Percent Auto 5.9 % (2.0-11.0); Neutrophils Absolute Auto 5.4 K/mm3 (1.7-7.2); Neutrophils Percent Auto 67.7 % (50.0-70.0); Platelet Count Result 273 K/mm3 (150-420); Red Blood Count 4.78 M/mm3 (4.70-6.10); Red Cell Distribution Width 12.8 % (11.6-14.4)
[2023-06-07 09:01] LABS: Alanine Aminotransferase 52 U/L (16-63); Albumin Level 4.3 g/dL (3.4-5.0); Alkaline Phosphatase 157 U/L (46-116); Anion Gap 13 mmol/L (8-16); Aspartate Amino Transferase 37 U/L (15-37); Bilirubin,Total 1.4 mg/dL (0.00-1.00); Blood Urea Nitrogen 16 mg/dL (7-18); Calcium 9.6 mg/dL (8.5-10.1); Carbon Dioxide 26 mmol/L (21-32); Chloride 102 mmol/L (98-108); Cholesterol 189 mg/dL (0-200); Estimated Glomerular Filt Rate > 60; Glucose 112 mg/dL (70-99); HDL Direct 60 mg/dL (40-60); LDL Cholesterol Calculated 111 mg/dL (<130); Osmolality Calculated 294 mOsm/kg (285-295); Potassium 3.9 mmol/L (3.5-5.1); Sodium 141 mmol/L (136-145); Thyroid Stimulating Hormone 1.67 uIU/mL (0.36-3.74); Total Protein 7.7 g/dL (6.4-8.2); Triglycerides 91 mg/dL (0-150)
== END 2023-06-07 08:04 | disposition home or self-care (01) ==
LOC: CHSLAB 08:04
PROVIDERS: PCP Internal Medicine; Visit Provider Internal Medicine
DX: I10 Essential (primary) hypertension (principal); E78.5 Hyperlipidemia, unspecified
CPT/HCPCS: 36415; 80053; 80061; 84443; 85025

== ENCOUNTER 2023-11-20 00:33 | Day surgery (SDC) | payer OTHER, SELFPAY ==
[2023-10-24 10:49] VITALS: BMI 43.2
--- NOTE | 2023-11-16 12:36 | SUR.PREOP ---
Patient called regarding upcoming procedure. Message left on pt's voicemail regarding appointment times.
[2023-11-20 09:49] VITALS: BP 138/82; PULSE 75; RESP 18; TEMP 36.4; O2SAT 98
[2023-11-20] MEDS: LACTATED RINGERS 1,000 ML 150 ML IV CONT (09:58)
--- NOTE | 2023-11-20 10:37 | P.PNAN_ITS ---
Anes - Initial Pre Proc Eval Procedure: Operation Date: 11/20/23 11:00 Proposed Procedures p Screening Colonoscopy - Med David MD Date/Time: 11/20/23 10:37 Surgeon: Med David MD Pre Op Diagnosis: neoplasm screening Patient Data Age: 48 Gender: M Height: 1.78 m Weight: 136.4 kg Last Vital Signs Temp 97.5 F L 11/20/23 09:49 Pulse 75 11/20/23 09:49 Resp 18 11/20/23 09:49 BP 138/82 11/20/23 09:49 Pulse Ox 98 11/20/23 09:49 O2 Del Method Room Air 11/20/23 09:49 Allergies Allergy/AdvReac Type Severity Reaction Status Date / Time No Known Allergies Allergy Verified 11/20/23 09:48 Home Medications Medication Instructions Recorded Confirmed Type Multi For Him (no iron) 1 tab-cap PO DAILY 04/28/21 10/24/23 History alprazolam 0.25 mg tablet 0.25 mg PO PRN PRN Anxiety 04/28/21 10/24/23 History escitalopram oxalate 20 mg tablet 20 mg PO HS 04/28/21 10/24/23 History verapamil 360 mg 24 hr 360 mg PO HS 04/28/21 10/24/23 History capsule,extended release lamotrigine 25 mg tablet 25 mg PO DAILY 10/24/23 10/24/23 History olmesartan 5 mg tablet 20 mg PO DAILY 10/24/23 10/24/23 History Patient hx anesthesia problems: none Family hx anesthesia problems: none Results Review: All pre-operative results and documents have been reviewed as part of the pre-operative evaluation. [facility] Past Medical History Medical History Hematemesis Hypertension Nausea & vomiting Obesity, morbid, BMI 40.0-49.9 JAMES (obstructive sleep apnea) Urolithiasis Surgical History Surgical History Gastric bypass status for obesity Hx of tonsillectomy Social History Social History Smoking status: Never smoker Alcohol intake: never Substance use: never Substance use type: does not use Living arrangements: other Additional living arrangements comments: with sp Gender identity (if verbalized by the patient): Male Spiritual care concerns: No Anes - Eval Final PreProcedure Day of Procedure 11/20/23 10:37 Patient weight: morbidly obese Heart: regular rate and rhythm Lungs: clear to auscultation Airway: Mallampati scale class II Neurological: alert and oriented Last oral intake: >/= 8 hours ASA classification: III Emergent: no Anesthetic plan: proceed Anesthesia type and monitoring: general GIVS and standard monitoring Results Review: All pre-operative results and documents have been reviewed as part of the pre- operative evaluation. Informed Consent: The patient's anesthetic plan and its attendant risks and benefits were discussed with the patient/family/POA. Questions were solicited and answers provided to the satisfaction of the patient/family/POA.
--- NOTE | 2023-11-20 10:43 | PM.HPGS ---
History of Present Illness History of Present Illness Consent: Risks, benefits, and alternatives have been discussed and questions answered. Patient agrees to proceed with procedure. Chief complaint: neoplasm screening Narrative: Jorge Cotter is a 48 year old male here for first screening colonoscopy Review of Systems Constitutional: Constitutional: Denies headache(s) and Denies weakness Eyes: Eyes: Denies blurry vision ENT: Reports Normal hearing present, Denies headache(s) and Denies neck pain Cardiovascular: Cardiovascular: Denies chest pain and Denies dyspnea Respiratory: Respiratory: Denies dyspnea Gastrointestinal: Gastrointestinal: Reports no additional gastrointestinal complaints Genitourinary: Genitourinary: Denies dysuria Musculoskeletal: Musculoskeletal: Denies neck pain Integumentary/Breasts: Skin/Breast: Denies dry skin Neurologic: Reports Normal hearing present, Denies headache(s) and Denies weakness Psychiatric: Psychiatric: Denies anxiety Endocrine: Endocrine: Denies change in body appearance Hematologic/Lymphatic: Hematologic/Lymphatic: Denies easy bleeding Allergic/Immunologic: Allergic/Immunologic: Denies urticaria [facility] Past Medical History Medical History (Updated 11/20/23 @ 10:43 by Med David MD) Colon cancer screening Hematemesis Hypertension Nausea & vomiting Obesity, morbid, BMI 40.0-49.9 JAMES (obstructive sleep apnea) Urolithiasis Surgical History Surgical History Gastric bypass status for obesity Hx of tonsillectomy Social History Social History Smoking status: Never smoker Alcohol intake: never Substance use: never Substance use type: does not use Living arrangements: other Additional living arrangements comments: with sp Gender identity (if verbalized by the patient): Male Spiritual care concerns: No Meds Home Medications and Allergies Home Medications Medication Instructions Recorded Confirmed Type Multi For Him (no iron) 1 tab-cap PO DAILY 04/28/21 10/24/23 History alprazolam 0.25 mg tablet 0.25 mg PO PRN PRN Anxiety 04/28/21 10/24/23 History escitalopram oxalate 20 mg tablet 20 mg PO HS 04/28/21 10/24/23 History verapamil 360 mg 24 hr 360 mg PO HS 04/28/21 10/24/23 History capsule,extended release lamotrigine 25 mg tablet 25 mg PO DAILY 10/24/23 10/24/23 History olmesartan 5 mg tablet 20 mg PO DAILY 10/24/23 10/24/23 History Allergies Allergy/AdvReac Type Severity Reaction Status Date / Time No Known Allergies Allergy Verified 11/20/23 09:48 Vital Signs Vital Signs - 24 hr 11/20/23 09:49 Temperature 97.5 F L Pulse Rate 75 Respiratory Rate 18 Blood Pressure 138/82 Pulse Oximetry 98 Oxygen Delivery Room Air Exam Const: General: comfortable and no acute distress HENMT: Face/Nose/Sinus: Normal nares present Eyes: General: appearance normal, both eyes and all related structures Neck: Neck: no JVD Resp: Auscultation: clear to auscultation bilaterally Cardio: Rate: regular rate Rhythm: regular rhythm GI: Inspection: non-distended GI Palp: Yes Soft to palpation Skin: General skin exam: normal color Neuro: General: gait normal Speech: normal speech Extrem: General: normal to inspection Psych: Mental Status: mental status grossly normal Assessment and Plan Assessment and plan (1) Colon cancer screening: Code(s): Z12.11 - Encounter for screening for malignant neoplasm of colon Status: Acute Assessment and Plan: colonoscopy
[2023-11-20 11:06] VITALS: BP 109/76; PULSE 63; RESP 16; O2SAT 97
[2023-11-20 11:16] VITALS: BP 103/62; PULSE 79; RESP 16; O2SAT 97
[2023-11-20 11:26] VITALS: BP 115/82; PULSE 72; RESP 14; O2SAT 98
== END 2023-11-20 11:40 | disposition home or self-care (01) ==
PROVIDERS: PCP Internal Medicine; Visit Provider Internal Medicine Gastroenterology
PROC: 0DJD8ZZ Inspection of Lower Intestinal Tract, Via Natural or Artificial Opening Endoscopic (ICD-10-PCS; CPT 45378; principal; 2023-11-20 11:00)
DX: Z12.11 Encounter for screening for malignant neoplasm of colon (principal); D12.0 Benign neoplasm of cecum; K57.30 Diverticulosis of large intestine without perforation or abscess without bleeding; I10 Essential (primary) hypertension; E66.01 Morbid (severe) obesity due to excess calories; Z68.41 Body mass index [BMI] 40.0-44.9, adult; G47.33 Obstructive sleep apnea (adult) (pediatric)
CPT/HCPCS: 45385; 88305; J2704; J7120

== ENCOUNTER 2024-05-12 07:04 | Outpatient (CLI) | payer OTHER, SELFPAY ==
[2024-05-12 08:04] LABS: Alanine Aminotransferase 57 U/L (16-63); Albumin Level 3.9 g/dL (3.4-5.0); Alkaline Phosphatase 112 U/L (46-116); Anion Gap 9 mmol/L (4-12); Aspartate Amino Transferase 31 U/L (15-37); Bilirubin,Total 0.5 mg/dL (0.00-1.00); Blood Urea Nitrogen 13 mg/dL (7-18); Calcium 8.9 mg/dL (8.5-10.1); Carbon Dioxide 27 mmol/L (21-32); Chloride 103 mmol/L (98-108); Estimated Glomerular Filt Rate > 60; Glucose 93 mg/dL (70-99); Osmolality Calculated 288 mOsm/kg (285-295); Sodium 139 mmol/L (136-145); Total Protein 7.3 g/dL (6.4-8.2)
== END 2024-05-12 07:05 | disposition home or self-care (01) ==
LOC: CHSLAB 07:07
PROVIDERS: PCP Internal Medicine
DX: Z79.899 Other long term (current) drug therapy (principal)
CPT/HCPCS: 36415; 80053

== ENCOUNTER 2024-07-14 05:30 | Emergency (ER) | payer OTHER, SELFPAY ==
--- NOTE | ~2024-07-14 | CT_ITS ---
Non-contrast CT scan of the Abdomen and Pelvis Clinical indication: Left flank pain Technique: 2.5 mm axial scans were obtained through the abdomen and pelvis without intravenous or or al contrast. Dose reduction technique was used on this scan by utilizing automated exposure control a nd iterative reconstruction technique. The dose-length product (DLP) was 736.99 mGy-cm. COMPARISON: 07/19/2020 Findings: Images through the lung bases reveal no abnormalities. There is a 6 mm distal left ureteral stone. There is moderate left hydronephrosis, especially proxima lly. There is an additional 6 mm nonobstructing left lower pole renal stone. No right renal or right ureteral stone. No right hydronephrosis. The liver, spleen, pancreas, and adrenals appear normal. Cholecystectomy clips are present. There is no aortic aneurysm. There is no evidence of bowel obstruction. There is evidence of prior bariatric surgery. Images through the pelvis were performed. There is no evidence of ascites or lymphadenopathy. Urinary bladder unremarkable. No pelvic mass seen. Impression: 6 mm distal left ureteral stone with moderate left hydronephrosis. Additional 6 mm nonobstructing lef t lower pole renal stone. Reviewed, dictated and finalized at location . Impression: 6 mm distal left ureteral stone with moderate left hydronephrosis. Additional 6 mm nonobstructing left lower pole renal stone.
[2024-07-14 05:39] VITALS: BP 158/113; PULSE 114; RESP 22; TEMP 36.8; O2SAT 97
--- NOTE | 2024-07-14 05:50 | PC.NURSE ---
patient transported to ct
[2024-07-14] MEDS: ONDANSETRON INJ 4 MG/2 ML VIAL IV PUSH (05:57)
[2024-07-14] MEDS: KETOROLAC 30 MG/ML VIAL (*BKC) IM (05:57)
[2024-07-14] MEDS: SODIUM CHLORIDE 0.9% IV 1,000 ML 999 ML IV CONT (05:57)
--- NOTE | 2024-07-14 06:00 | PC.NURSE ---
urine given to lab. lab at the bedside to draw blood
--- NOTE | 2024-07-14 06:02 | PC.NURSE ---
patient reports pain 8/10 at this time. states pain comes in waves.
[2024-07-14 06:11] LABS: Add Urine Microscopic? YES; Appearance Urine Clear (Clear); Bilirubin Urine Negative (Negative); Blood Urine 3+ (Negative); Color Urine Light Yellow (Yellow); Glucose Urine UA Negative (Negative); Ketones Urine Negative (Negative); Leukocyte Esterase Ur Negative LEU/UL (Negative); Nitrate Urine Negative (Negative); Protein Urine Negative (Negative); Specific Grav Ur >= 1.030 (1.010-1.020); pH Urine 5.5 (5.0-8.0)
[2024-07-14 06:12] LABS: Hematocrit 40.5 % (40.0-54.0); Hemoglobin 13.5 g/dL (14.0-18.0); Mean Corpuscular HGB Conc 33.3 g/dL (32-36); Mean Corpuscular Hemoglobin 29.5 pg (27.0-31.0); Mean Corpuscular Volume 88.6 fL (78.0-102.0); Mean Platelet Volume 9.9 fl (8.7-11.0); Platelet Count Result 249 K/mm3 (150-420); Red Blood Count 4.57 M/mm3 (4.70-6.10); Red Cell Distribution Width 15.8 % (11.6-14.4); White Blood Count 9.9 K/mm3 (4.8-10.8)
--- NOTE | 2024-07-14 06:12 | PC.NURSE ---
Dr Tavares at the bedside
--- NOTE | 2024-07-14 06:14 | WPDEDEXPGENP ---
HPI - General Ped General Chief complaint: Urogenital-Male Stated complaint: Rafy Ramirez Time Seen by Provider: 07/14/24 05:39 Source: patient Mode of arrival: ambulatory Limitations: no limitations History of Present Illness HPI narrative: 49-year-old white male with history kidney stones multiple have had any ink left lower quadrant pain off and on for the past 5 days. This morning it increased to a 10 over 10 burning pain similar to his previous kidney stones unable to get in a comfortable position. He is not taking anything for pain. was diaphoretic and had some nausea without vomiting this morning. He has a sensation like he has to have a bowel movement and void but when he does this morning it does not change anything otherwise he has no problems voiding or stooling no diarrhea or constipation no blood in his stool or bleeding anywhere. He denies any cough fever sore throat runny nose lumps or bumps or swelling testicle pain or pain elsewhere. He rates his pain as a 8/10 now after Toradol. Denies any rash or itching weakness or fatigue or numbness or Problems eating or drinking or any other complaints. Past medical history: Multiple kidney stones, nightmares, posttraumatic stress disorder hypertension. Related Data Home Medications Medication Instructions Recorded Confirmed Multi For Him (no iron) 1 tab-cap PO DAILY 04/28/21 07/14/24 alprazolam 0.25 mg tablet 0.25 mg PO PRN PRN Anxiety 04/28/21 07/14/24 verapamil 360 mg 24 hr 360 mg PO HS 04/28/21 07/14/24 capsule,extended release olmesartan 5 mg tablet 20 mg PO DAILY 10/24/23 07/14/24 prazosin 1 mg capsule 1 mg PO DAILY 07/14/24 07/14/24 Allergies Allergy/AdvReac Type Severity Reaction Status Date / Time No Known Allergies Allergy Verified 11/20/23 09:48 Pediatric Review of Systems All systems ED: reviewed and negative except as stated PMF Past Medical History Medical History (Updated 07/15/24 @ 00:00 by Daniel Hilario) Colon cancer screening Hematemesis Hypertension Nausea & vomiting Obesity, morbid, BMI 40.0-49.9 JAMES (obstructive sleep apnea) Urolithiasis Surgical History Surgical History Gastric bypass status for obesity Hx of tonsillectomy Social History Social History Smoking status: Never smoker Alcohol intake: never Substance use: never Substance use type: does not use Living arrangements: other Additional living arrangements comments: with sp Gender identity (if verbalized by the patient): Male Spiritual care concerns: No Pediatric Exam Narrative: Physical exam: White male patient with no apparent distress.? Blood pressure 158/113 pulse 114 respirations 22 afebrile O2 sat 97% on room air. Head normocephalic, atraumatic.? Eyes conjunctiva pink sclera nonicteric.? Extraocular movements are intact.? Ears externally normal.? Oropharynx is clear with moist mucous membranes without exudates.? Neck is supple nontender no lymphadenopathy.? Back is nontender.? Lungs are clear.? Heart is regular rate and rhythm without murmurs gallops or rubs.? Chest wall nontender. Abdomen is soft and nontender no hepatosplenomegaly or masses no CVA tenderness no abdominal bruits.? Penis and testes were normal no inguinal hernias. Extremities no cyanosis clubbing or edema.? Skin is warm and dry without rashes or lesions.? Neurological patient is alert and oriented x4.? Motor and sensory grossly intact.? Gait is normal. Course Vital Signs Vital signs: Vital Signs Temperature 36.8 C 07/14/24 05:39 Pulse Rate 114 H 07/14/24 05:39 Respiratory Rate 22 H 07/14/24 05:39 Blood Pressure 158/113 H 07/14/24 05:39 Pulse Oximetry 97 07/14/24 05:39 Oxygen Delivery Room Air 07/14/24 05:39 Temperature 36.8 C 07/14/24 05:39 Pulse Rate 106 H 07/14/24 06:18 Respiratory Rate 20 07/14/24 06:18 Blood Pres
[2024-07-14 06:18] VITALS: BP 145/98; PULSE 106; RESP 20; O2SAT 98
[2024-07-14 06:19] LABS: Bacteria Urine Trace /hpf; RBC Urine 21-50 /hpf (0-2); WBC Urine None seen /hpf (0-3)
[2024-07-14 06:28] LABS: Alanine Aminotransferase 48 U/L (16-63); Alkaline Phosphatase 102 U/L (46-116); Anion Gap 12 mmol/L (4-12); Aspartate Amino Transferase 37 U/L (15-37); Bilirubin,Total 0.4 mg/dL (0.00-1.00); Blood Urea Nitrogen 15 mg/dL (7-18); Calcium 8.5 mg/dL (8.5-10.1); Carbon Dioxide 25 mmol/L (21-32); Chloride 104 mmol/L (98-108); Estimated CRCL calculation 82 ml/min; Estimated Glomerular Filt Rate 56; Glucose 100 mg/dL (70-99); Osmolality Calculated 292 mOsm/kg (285-295); Potassium 4.1 mmol/L (3.5-5.1); Sodium 141 mmol/L (136-145); Total Protein 7.6 g/dL (6.4-8.2)
--- NOTE | 2024-07-14 06:43 | PC.NURSE ---
dr belcher at the bedside
[2024-07-14] MEDS: ONDANSETRON HCL ODT 4 MG TABLET PO (06:52)
[2024-07-14] MEDS: HYDROcodone/acetaminophen (*CRX) 7.5-325 MG TABLET 1 TAB PO (06:57)
== END 2024-07-14 07:05 | disposition home or self-care (01) ==
PROVIDERS: Emergency Provider Emergency Medicine; PCP Internal Medicine
DX: N20.1 Calculus of ureter (principal); N20.0 Calculus of kidney; I10 Essential (primary) hypertension; Z79.899 Other long term (current) drug therapy
CPT/HCPCS: 36415; 74176; 80053; 81001; 85027; 96361; 96372; 96374; 99284; A9270; J1885; J2405; J7030

== ENCOUNTER 2024-07-21 08:05 | Outpatient (CLI) | payer OTHER, SELFPAY ==
--- NOTE | ~2024-07-21 | XR_ITS ---
XR abdomen/kub 1V Ordering provider: Shabnam Teixeira PA-C History: . Hx of kidney stones, 2 stones X 1 week, only passed one . Comparison: None. FINDINGS: BOWEL: Nonobstructive bowel gas pattern. ORGANOMEGALY: None. SIGNIFICANT PATHOLOGIC CALCIFICATIONS: None. OTHER: No free air is seen under the diaphragm. IMPRESSION: NO ACUTE ABDOMINAL FINDINGS. Reviewed, dictated and finalized at location A.
== END 2024-07-21 08:06 | disposition home or self-care (01) ==
LOC: CHSIMG 08:07
PROVIDERS: PCP Internal Medicine; Visit Provider Physician Assistant
DX: N20.0 Calculus of kidney (principal)
CPT/HCPCS: 74018

== ENCOUNTER 2024-08-15 15:31 | Emergency (ER) | payer OTHER, SELFPAY ==
--- NOTE | ~2024-08-15 | CT_ITS ---
CT abdomen pelvis wo con Ordering provider: Barrington Blackwell MD History: 49 years Male with . LT FLANK PAIN,KNOWN LT KIDNEY STONE . Comparison: July 14, 2024 Technique: CT abdomen and pelvis without IV and without oral contrast. Automated exposure control and iterative reconstruction technique were employed. The dose-length product was 1549.13 mGy-cm. Findings: VISUALIZED LOWER CHEST: Normal. UPPER ABDOMINAL ORGANS: Liver: Mild fat infiltration. Gallbladder: Normal. Spleen: Normal. Stomach/duodenum: Postoperative changes of the stomach.. Pancreas: Normal. Adrenals: Normal. Kidneys: stone in the left kidney lower pole unchanged. Previously seen stone in the left lower ureter is not demonstrated. No hydronephrotic changes seen bilaterally. Hypodensity in the right kidney lower pole most likely a cyst. Ultrasound confirmation advised. PELVIC ORGANS: The bladder is . BOWEL AND MESENTERY: Colon: No evidence of diverticulitis. Normal appendix. Small Bowel: Normal. No obstruction. Peritoneum/mesentery: No free air or free fluid. No mesenteric lymphadenopathy. RETROPERITONEUM: Normal aorta. No retroperitoneal lymphadenopathy. MUSCULOSKELETAL: Superficial soft tissues: The superficial soft tissues are normal. Bones: Age appropriate degenerative changes of the spine. IMPRESSION: 1. No evidence of appendicitis, diverticulitis or intestinal obstruction. 2. Left kidney stone. 3. Previously seen left lower ureteric stone is not demonstrated at this time. Reviewed, dictated and finalized at location A.
[2024-08-15 15:33] VITALS: BP 154/109; PULSE 119; RESP 18; TEMP 36.3; O2SAT 97
--- NOTE | 2024-08-15 15:42 | ED.ABDPAIN ---
HPI - Abdominal Pain General Chief Complaint: Urogenital-Male Stated Complaint: flank pain Time Seen by Provider: 08/15/24 15:35 Source: patient Mode of arrival: ambulatory Limitations: no limitations History of Present Illness HPI narrative: Patient is a 49-year-old male with left flank pain last night. He is not having any pain at this time. He has history of kidney stones on the left. He passed stone a few months ago. Primary doctor sent into the ER for further workup with pain last night. Blood in the urine last night. MD elicited complaint: abdominal pain Pertinent past history: kidney stones Onset (ago): day(s) (1) Pain Consistency: now resolved Location: L flank Severity: mild Pain scale (0-10): 3 Quality: sharp Radiation: none Migration to: no migration Exacerbating factors: nothing Relieving factors: nothing Context: confirms history of similar episodes and confirms other ( History of kidney stones) Associated symptoms: denies other symptoms Related Data Home Medications Medication Instructions Recorded Confirmed Multi For Him (no iron) 1 tab-cap PO DAILY 04/28/21 08/15/24 alprazolam 0.25 mg tablet 0.25 mg PO PRN PRN Anxiety 04/28/21 08/15/24 verapamil 360 mg 24 hr 360 mg PO HS 04/28/21 08/15/24 capsule,extended release olmesartan 5 mg tablet 20 mg PO DAILY 10/24/23 08/15/24 prazosin 1 mg capsule 1 mg PO DAILY 07/14/24 08/15/24 Allergies Allergy/AdvReac Type Severity Reaction Status Date / Time No Known Allergies Allergy Verified 08/15/24 15:37 Review of Systems Review of Systems: All systems reviewed & are unremarkable except as noted in HPI and below Constitutional: Constitutional: Reports no additional constitutional complaints Eyes: Eyes: Reports no additional eye complaints ENT: Reports system reviewed and no additional complaints, except as documented Cardiovascular: Cardiovascular: Reports no additional cardiovascular complaints Respiratory: Respiratory: Reports no additional respiratory complaints Gastrointestinal: Gastrointestinal: Reports no additional gastrointestinal complaints Genitourinary: Genitourinary: Reports no additional male genitourinary complaints Musculoskeletal: Musculoskeletal: Reports no additional musculoskeletal complaints Integumentary/Breasts: Skin/Breast: Reports system reviewed and no additional complaints, except as docu Neurologic: Reports system reviewed and no additional complaints, except as documented Psychiatric: Psychiatric: Reports no additional psychiatric complaints Endocrine: Endocrine: Reports no additional endocrine complaints Hematologic/Lymphatic: Hematologic/Lymphatic: Reports no additional hematologic/lymphatic complaints Allergic/Immunologic: Allergic/Immunologic: Reports no additional allergic/immunologic complaints PMFSH Past Medical History Medical History Colon cancer screening Hematemesis Hypertension Nausea & vomiting Obesity, morbid, BMI 40.0-49.9 JAMES (obstructive sleep apnea) Urolithiasis Surgical History Surgical History Gastric bypass status for obesity Hx of tonsillectomy Social History Social History Smoking status: Never smoker Alcohol intake: never Substance use: never Substance use type: does not use Living arrangements: other Additional living arrangements comments: with sp Gender identity (if verbalized by the patient): Male Spiritual care concerns: No Exam Const: General: healthy appearing Nutritional Appearance: well nourished Orientation/consciousness: patient oriented x3 HENMT: Head: normal to inspection Ears: external ears normal Face/Nose/Sinus: Normal external nose present Eyes: Conjunctivae: conjunctivae normal Pupils: Equal, round and reactive pupils present EOM: EOMs intact bilaterally Neck: Neck: normal visual inspection Chest: Chest palpation & inspection: normal inspection of the chest Resp: Effort & Inspection: normal respiratory effort and not labored Auscultation: clear to auscultation bilaterally and no crackles Cardio: Rate: regular rate Rhythm: regular rhythm Heart sounds: no murmurs GI: Inspection: non-distended GI Palp: Yes Soft to palpation, No Tenderness to palpation present (GI) and No Guarding due to palpation present (GI) Auscultation: normal bowel sounds : General: Yes bladder normal to palpation Back/Spine/Pelvis: Back: no CVA tenderness Skin: General skin exam: normal color Rashes: no rashes Wounds: no wounds Neuro: General: patient oriented x3 Cranial nerves: Yes Nystagmus not present Speech: normal speech Extrem: General: normal to inspection Psych: Mental Status: mental status grossly normal Affect: normal affect Attitude: cooperative Course Vital Signs Vital signs: Vital Signs Temperature 36.3 C L 08/15/24 15:33 Pulse Rate 119 H 08/15/24 15:33 Respiratory Rate 18 08/15/24 15:33 Blood Pressure 154/109 H 08/15/24 15:33 Pulse Oximetry 97 08/15/24 15:33 Oxygen Delivery Room Air 08/15/24 15:33 Temperature 36.3 C L 08/15/24 15:33 Pulse Rate 119 H 08/15/24 15:33 Respiratory Rate 18 08/15/24 15:33 Blood Pressure 154/109 H 08/15/24 15:33 Pulse Oximetry 97 08/15/24 15:33 Oxygen Delivery Room Air 08/15/24 15:33 MDM - Abdominal Pain MDM Narrative Medical decision making narrative: patient is a 49-year-old male with left flank pain last night and history of kidney stones. He is here for further workup from his primary medical doctor. We will do a kidney stone workup. It appears patient has passed the kidney stone. No further workup needed at this time. Lab Data Attestation: I reviewed the patient's lab results. 08/15/24 16:25 08/15/24 16:25 Labs: Lab Results 08/15/24 08/15/24 Range/Units 16:15 16:25 WBC 11.0 H (4.8-10.8) K/mm3 RBC 4.77 (4.70-6.10) M/mm3 Hgb 15.0 (14.0-18.0) g/dL Hct 42.5 (40.0-54.0) % MCV 89.1 (78.0-102.0) fL MCH 31.4 H (27.0-31.0) pg MCHC 35.3 (32-36) g/dL RDW 13.9 (11.6-14.4) % Plt Count 264 (150-420) K/mm3 MPV 10.0 (8.7-11.0) fl Immature Gran % (Auto) 0.2 H (0.0-0.0) % Neut % (Auto) 68.3 (50.0-70.0) % Lymph % (Auto) 20.9 (18.0-42.0) % [place] % (Auto) 9.6 (2.0-11.0) % Eos % (Auto) 0.2 L (1.0-6.0) % Baso % (Auto) 0.8 (0.0-1.0) % Lymph # (Auto) 2.30 (1.10-4.50) K/mm3 [place] # (Auto) 1.06 H (0.10-0.90) K/mm3 Eos # (Auto) 0.02 (0.02-0.50) K/mm3 Baso # (Auto) 0.09 (0.00-0.10) K/mm3 Abs Immat Gran (auto) 0.02 H (0.00-0.00) K/mm3 Absolute Neuts (auto) 7.52 H (1.70-7.20) K/mm3 Absolute Nucleated RBC 0.00 (0.00-0.00) K/mm3 Nucleated RBC % 0.0 (0-0.0) % Sodium 140 (136-145) mmol/L Potassium 3.6 (3.5-5.1) mmol/L Chloride 101 (98-108) mmol/L Carbon Dioxide 25 (21-32) mmol/L Anion Gap 14 H (4-12) mmol/L BUN 7 (7-18) mg/dL Creatinine 1.19 (0.70-1.30) mg/dL Estim Creat Clear Calc 92 ml/min Estimated GFR > 60 (59 - ) Glucose 124 H (70-99) mg/dL Calculated Osmolality 289 (285-295) mOsm/kg Calcium 9.9 (8.5-10.1) mg/dL Total Bilirubin 0.7 (0.00-1.00) mg/dL AST 41 H (15-37) U/L ALT 51 (16-63) U/L Alkaline Phosphatase 100 (46-116) U/L Total Protein 8.0 (6.4-8.2) g/dL Albumin 3.9 (3.4-5.0) g/dL Urine Color Yellow (Yellow) Urine Appearance Clear (Clear) Urine pH 6.0 (5.0-8.0) Ur Specific [place] 1.025 H (1.010-1.020) Urine Protein Trace H (Negative) Urine Glucose (UA) Trace H (Negative) Urine Ketones Trace H (Negative) Ur Blood (Man) 3+ H (Negative) Urine Nitrate Negative (Negative) Urine Bilirubin Negative (Negative) Urine Urobilinogen 1.0 (0.2-1.0) mg/dL Leukocyte Esterase Rfl Negative (Negative) NATE/UL Urine RBC 21-50 H (0-2) /hpf Urine WBC None seen (0-3) /hpf Ur Squamous Epith Cells Rare (Few) /hpf Urine Bacteria Trace (None) /hpf Imaging Data Attestation: I personally reviewed and interpreted this imaging study as follows: Radiologist's impression: ITS Impressions Abdomen/Pelvis CT 08/15/24 15:55 IMPRESSION: 1. No evidence of appendicitis, diverticulitis or intestinal obstruction. 2. Left kidney stone. 3. Previously seen left lower ureteric stone is not demonstrated at this time. Discharge Plan Discharge Clinical Impression: Kidney stone Patient Disposition: Home, Self-Care Condition: Stable Instructions: Kidney Stones (ED) Prescriptions: No Action prazosin 1 mg capsule 1 mg PO DAILY tamsulosin [Flomax] 0.4 mg capsule 0.4 mg PO DAILY Qty: 30 0RF ondansetron 4 mg tablet,disintegrating 4 mg PO Q4H PRN (Reason: nausea and vomiting) Qty: 14 0RF Rx Instructions: give 1st dose 30min before emetogenic chemo hydrocodone-acetaminophen 7.5-325 mg tablet 1 tablet PO QID PRN (Reason: pain) Qty: 15 0RF Multi For Him (no iron) 1 tab-cap PO DAILY verapamil 360 mg capsule,ext rel. pellets 24 hr 360 mg PO HS alprazolam 0.25 mg tablet 0.25 mg PO PRN PRN (Reason: Anxiety) olmesartan 5 mg tablet 20 mg PO DAILY Follow-up/Referrals: Gerald Coronado MD [Primary Care Provider] - Time of Disposition: 16:49
[2024-08-15 16:29] LABS: Basophils Absolute Auto 0.09 K/mm3 (0.00-0.10); Basophils Percent Auto 0.8 % (0.0-1.0); Eosinophils Absolute Auto 0.02 K/mm3 (0.02-0.50); Eosinophils Percent Auto 0.2 % (1.0-6.0); Hematocrit 42.5 % (40.0-54.0); Immature Granulocyte Absolute 0.02 K/mm3 (0.00-0.00); Immature Granulocyte Percent A 0.2 % (0.0-0.0); Lymphocytes Percent Auto 20.9 % (18.0-42.0); Mean Corpuscular HGB Conc 35.3 g/dL (32-36); Mean Corpuscular Hemoglobin 31.4 pg (27.0-31.0); Mean Corpuscular Volume 89.1 fL (78.0-102.0); Monocytes Absolute Auto 1.06 K/mm3 (0.10-0.90); Monocytes Percent Auto 9.6 % (2.0-11.0); Neutrophils Absolute Auto 7.52 K/mm3 (1.70-7.20); Neutrophils Percent Auto 68.3 % (50.0-70.0); Platelet Count Result 264 K/mm3 (150-420); Red Blood Count 4.77 M/mm3 (4.70-6.10); Red Cell Distribution Width 13.9 % (11.6-14.4)
[2024-08-15 16:33] LABS: Add Urine Microscopic? YES; Appearance Urine Clear (Clear); Bilirubin Urine Negative (Negative); Blood Urine 3+ (Negative); Color Urine Yellow (Yellow); Glucose Urine UA Trace (Negative); Ketones Urine Trace (Negative); Leukocyte Esterase Ur Negative LEU/UL (Negative); Nitrate Urine Negative (Negative); Protein Urine Trace (Negative); Specific Grav Ur 1.025 (1.010-1.020)
[2024-08-15 16:39] LABS: Bacteria Urine Trace /hpf; RBC Urine 21-50 /hpf (0-2); Squamous Epithelial Cell Urine Rare /hpf (Few); WBC Urine None seen /hpf (0-3)
[2024-08-15 16:41] LABS: Alanine Aminotransferase 51 U/L (16-63); Albumin Level 3.9 g/dL (3.4-5.0); Alkaline Phosphatase 100 U/L (46-116); Anion Gap 14 mmol/L (4-12); Aspartate Amino Transferase 41 U/L (15-37); Bilirubin,Total 0.7 mg/dL (0.00-1.00); Blood Urea Nitrogen 7 mg/dL (7-18); Calcium 9.9 mg/dL (8.5-10.1); Carbon Dioxide 25 mmol/L (21-32); Chloride 101 mmol/L (98-108); Estimated CRCL calculation 92 ml/min; Estimated Glomerular Filt Rate > 60; Glucose 124 mg/dL (70-99); Osmolality Calculated 289 mOsm/kg (285-295); Potassium 3.6 mmol/L (3.5-5.1); Sodium 140 mmol/L (136-145)
[2024-08-15 17:02] VITALS: BP 158/126; PULSE 115; RESP 16; TEMP 36.3; O2SAT 98
== END 2024-08-15 17:02 | disposition home or self-care (01) ==
PROVIDERS: Emergency Provider Emergency Medicine; PCP Internal Medicine
DX: N20.0 Calculus of kidney (principal); I10 Essential (primary) hypertension; Z79.899 Other long term (current) drug therapy
CPT/HCPCS: 36415; 74176; 80053; 81001; 85025; 99284

== ENCOUNTER 2024-09-22 11:51 | Emergency (ER) | payer OTHER, SELFPAY ==
[2024-09-22] VITALS (26 sets, daily range): BP systolic 117–124; BP diastolic 64–98; PULSE 95–118; RESP 20; TEMP 36.6–36.7; O2SAT 91–100
--- NOTE | ~2024-09-22 | XR_ITS ---
EXAMINATION: XR chest 2V DATE: 09/22/2024 12:37 INDICATION: Cough. Upper respiratory infection. TECHNIQUE: Frontal and lateral views of the chest were obtained. COMPARISON: Chest 2 views 11/07/22 FINDINGS: There is no pneumonia, pleural effusion, or pneumothorax. The heart size is normal. There a re surgical clips in the abdomen. IMPRESSION: 1. No acute cardiopulmonary disease. Reviewed, dictated and finalized at location A. 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
--- NOTE | 2024-09-22 12:24 | ED_ITS ---
HPI - SOB/Dyspnea General Chief Complaint: Shortness of Breath/Dyspnea Stated Complaint: shortness of breath Source: patient Mode of arrival: ambulatory Limitations: no limitations History of Present Illness HPI Narrative: 49 years old white male came to the ED by private car complaining of shortness of breath on exertion, feeling tired and weak, started few days ago. Patient report having upper respiratory infection symptoms started 9 days ago include sore throat, coughing, wheezing, shortness of breath, nasal and postnasal discharge, was seen by his family physician and started on doxycycline and Z- John. Patient finish post courses yesterday and still feeling tired and weak. He denies any fever or chills or nausea or vomiting or chest pain. History of hypertension, hyperlipidemia, does not smoke or drink or use drugs. Does not take anti-platelet or anticoagulant medication. Patient is telling me that his son had pneumonia over 10 days ago and his daughter diagnosed of pneumonia 4 days ago. Patient main complaint at this time is shortness of breath with light activities Patient is not on anticoagulant or anti-platelet medications. Related Data Home Medications Medication Instructions Recorded Confirmed Multi For Him (no iron) 1 tab-cap PO DAILY 04/28/21 09/22/24 alprazolam 0.25 mg tablet 1 mg PO BID PRN Anxiety 04/28/21 09/22/24 verapamil 360 mg 24 hr 360 mg PO HS 04/28/21 09/22/24 capsule,extended release olmesartan 5 mg tablet 20 mg PO DAILY 10/24/23 09/22/24 prazosin 1 mg capsule 1 mg PO DAILY 07/14/24 09/22/24 desvenlafaxine succinate 100 mg 125 mg PO DAILY 09/22/24 09/22/24 tablet,extended release 24 hr hydroxyzine pamoate 50 mg capsule 50 mg PO HS 09/22/24 09/22/24 ramelteon 8 mg tablet 8 mg PO HS 09/22/24 09/22/24 trazodone 100 mg tablet 100 mg PO HS 09/22/24 09/22/24 Allergies Allergy/AdvReac Type Severity Reaction Status Date / Time No Known Allergies Allergy Verified 08/15/24 15:37 Review of Systems Review of Systems: All systems reviewed & are unremarkable except as noted in HPI and below PMFSH Past Medical History Medical History Colon cancer screening Hematemesis Hypertension Nausea & vomiting Obesity, morbid, BMI 40.0-49.9 JAMES (obstructive sleep apnea) Urolithiasis Surgical History Surgical History Gastric bypass status for obesity Hx of tonsillectomy Social History Social History Smoking status: Never smoker Alcohol intake: never Substance use: never Substance use type: does not use Living arrangements: other Additional living arrangements comments: with sp Gender identity (if verbalized by the patient): Male Spiritual care concerns: No Exam Narrative: General appearance: Well-developed, well-nourished Skin: Normal color Head: Normocephalic, nontraumatic Eyes: Clear conjunctiva ENT: Oropharynx normal, ears normal, nose normal Neck: Supple, nontender Chest and respiratory: Airway patent, no respiratory distress, no accessory muscle use Heart: Regular rate/rhythm Abdomen: Soft, nontender, no organomegaly, quiet bowel sounds Vascular: Normal peripheral pulses, normal capillary refill. Musculoskeletal: Normal range of motion, nontender back Neurologic: Alert and oriented ?3, KITCHEN MANAGER is normal as tested, no gross motor deficit Course Consultations Consultation #1: Anne /hospitalist nurse-practitioner would like to get CT scan of the abdomen and pelvis before accepting patient transfer. Patient denies any nausea, vomiting, abdominal pain or back pain. there is no indications for CT abdomen and pelvis at this time. I did call Dr. Montgomery, who requested that the nurse practitioner to give him a call for discussion. Date: 09/22/24 Time: 17:06 Vital Signs Vital signs: Vital Signs Temperature 36.7 C 09/22/24 11:54 Pulse Rate 118 H 09/22/24 11:54 Respiratory Rate 20 09/22/24 11:54 Blood Pressure 122/98 H 09/22/24 11:54 Pulse Oximetry 100 09/22/24 11:54 Oxygen Delivery Room Air 09/22/24 11:54 Temperature 36.6 C 09/22/24 17:53 Pulse Rate 95 09/22/24 17:53 Respiratory Rate 20 09/22/24 17:53 Blood Pressure 117/64 09/22/24 17:53 Pulse Oximetry 100 09/22/24 17:53 Oxygen Delivery Room Air 09/22/24 17:53 MDM - SOB/Dyspnea MDM Narrative Medical decision making narrative: Patient presents with upper respiratory viral infection symptoms And shortness of breath on exertion Vital signs on arrival showed tachycardia at 118 beats per minute, Physical examination showing pale skin, tachycardia, rectal exam dark blackish stools, guaiac positive Differential diagnosis include anemia, GI bleed, electrolyte imbalance, dehydration, congestive heart failure, pulmonary embolism, pneumonia, respiratory viral infection blood workup today showed hemoglobin 8.0 compared to August 15, [id number], Patient tested negative for COVID, flu and RSV Chest x-ray showed no acute abnormalities Differential Diagnosis Differential diagnosis: Likely other (Respiratory viral infection, pneumonia, bronchitis, congestive heart failure, pulmonary embolism) Medical Records Attestation: I reviewed the patient's medical records. Lab Data Attestation: I reviewed the patient's lab results. 09/22/24 13:21 09/22/24 13:21 Labs: Lab Results 09/22/24 09/22/24 09/22/24 Range/Units 12:34 13:21 13:47 WBC 8.6 (4.8-10.8) K/mm3 RBC 2.45 L (4.70-6.10) M/mm3 Hgb 8.0 L (14.0-18.0) g/dL Hct 22.9 L (40.0-54.0) % MCV 93.5 (78.0-102.0) fL MCH 32.7 H (27.0-31.0) pg MCHC 34.9 (32-36) g/dL RDW 13.8 (11.6-14.4) % Plt Count 215 (150-420) K/mm3 MPV 9.3 (8.7-11.0) fl Immature Gran % (Auto) 0.9 H (0.0-0.0) % Neut % (Auto) 58.5 (50.0-70.0) % Lymph % (Auto) 27.8 (18.0-42.0) % [place] % (Auto) 11.6 H (2.0-11.0) % Eos % (Auto) 0.6 L (1.0-6.0) % Baso % (Auto) 0.6 (0.0-1.0) % Lymph # (Auto) 2.38 (1.10-4.50) K/mm3 [place] # (Auto) 0.99 H (0.10-0.90) K/mm3 Eos # (Auto) 0.05 (0.02-0.50) K/mm3 Baso # (Auto) 0.05 (0.00-0.10) K/mm3 Abs Immat Gran (auto) 0.08 H (0.00-0.00) K/mm3 Absolute Neuts (auto) 5.01 (1.70-7.20) K/mm3 Absolute Nucleated RBC 0.00 (0.00-0.00) K/mm3 Nucleated RBC % 0.0 (0-0.0) % PT 10.6 (9.50-12.1) Seconds INR 1.0 APTT 22.7 L (23.9-30.70) Sec D-Dimer 0.27 (0.19-0.50) mg/L Sodium 136 (136-145) mmol/L Potassium 4.3 (3.5-5.1) mmol/L Chloride 101 (98-108) mmol/L Carbon Dioxide 30 (21-32) mmol/L Anion Gap 5 (4-12) mmol/L BUN 38 H (7-18) mg/dL Creatinine 1.77 H (0.70-1.30) mg/dL Estim Creat Clear Calc 62 ml/min Estimated GFR 41 L (59 - ) Glucose 112 H (70-99) mg/dL Calculated Osmolality 292 (285-295) mOsm/kg Calcium 9.2 (8.5-10.1) mg/dL Total Bilirubin 0.8 (0.00-1.00) mg/dL AST 73 H (15-37) U/L ALT 66 H (16-63) U/L Alkaline Phosphatase 65 (46-116) U/L Troponin I 18.1 (0.00-60.4) ng/L NT-Pro-B Natriuret Pep 89 (0-125) pg/mL Total Protein 6.2 L (6.4-8.2) g/dL Albumin 3.0 L (3.4-5.0) g/dL Stool Occult Blood Positive A (Negative) Influenza A (RT-PCR) Negative (Negative) Influenza B (RT-PCR) Negative (Negative) RSV (RT-PCR) Negative (Negative) SARS-CoV-2 RNA (RT-PCR) Negative (Negative) Imaging Data Radiologist's impression: Impressions Chest X-Ray 09/22/24 12:42 IMPRESSION: 1. No acute cardiopulmonary disease. ECG Data EKG #1: Attestation: I personally reviewed and interpreted this ECG as follows: ECG completion date: 09/22/24 Interpretation: sinus tachycardia at 100 beats per minute with occasional PVCs, poor R-wave progression, septal myocardial infarction of indeterminate age, left axis deviation, abnormal EKG Critical Care Time Critical Care Time Critical Care Time: No Discharge Plan Discharge Clinical Impression: Acute dyspnea, Anemia, GI bleed Patient Disposition: Acute Care Hospital Condition: Stable Additional Instructions: transferred to [facility] Prescriptions: No Action prazosin 1 mg capsule 1 mg PO DAILY hydroxyzine pamoate 50 mg capsule 50 mg PO HS trazodone 100 mg tablet 100 mg PO HS ramelteon 8 mg tablet 8 mg PO HS desvenlafaxine succinate 100 mg tablet extended release 24 hr 125 mg PO DAILY Multi For Him (no iron) 1 tab-cap PO DAILY verapamil 360 mg capsule,ext rel. pellets 24 hr 360 mg PO HS alprazolam 0.25 mg tablet 1 mg PO BID PRN (Reason: Anxiety) olmesartan 5 mg tablet 20 mg PO DAILY Follow-up/Referrals: UNKNOWN,DOCTOR [Non-Staff] -
--- NOTE | 2024-09-22 13:07 | ECG_ITS ---
Test Date: 2024-09-22 13:17:20 Measurements Intervals [place] Rate: 100 P: 47 IN: 166 QRS: -24 QRSD: 96 T: 31 QT: 348 QTc: 450 Interpretive Statements SINUS TACHYCARDIA WITH OCCASIONAL VENTRICULAR PREMATURE COMPLEXES WITH OCCASIONAL SUPRAVENTRICULAR PREMATURE COMPLEXES BORDERLINE LEFT AXIS DEVIATION [QRS AXIS < -20] No previous ECG available for comparison Electronically Signed On 09-23-2024 14:55:36 PIPE FITTER SUPERVISOR MAINTENANCE by Celine Smith M.D.
[2024-09-22 13:15] LABS: SARS-CoV-2 RNA PCR Negative (Negative)
[2024-09-22 13:21] LABS: Influenza A QL RT-PCR Negative (Negative); Influenza B QL RT-PCR Negative (Negative); RSV RNA, RT-PCR Negative (Negative)
[2024-09-22 13:28] LABS: Basophils Absolute Auto 0.05 K/mm3 (0.00-0.10); Basophils Percent Auto 0.6 % (0.0-1.0); Eosinophils Absolute Auto 0.05 K/mm3 (0.02-0.50); Eosinophils Percent Auto 0.6 % (1.0-6.0); Hematocrit 22.9 % (40.0-54.0); Immature Granulocyte Absolute 0.08 K/mm3 (0.00-0.00); Immature Granulocyte Percent A 0.9 % (0.0-0.0); Lymphocytes Absolute Auto 2.38 K/mm3 (1.10-4.50); Lymphocytes Percent Auto 27.8 % (18.0-42.0); Mean Corpuscular HGB Conc 34.9 g/dL (32-36); Mean Corpuscular Hemoglobin 32.7 pg (27.0-31.0); Mean Corpuscular Volume 93.5 fL (78.0-102.0); Mean Platelet Volume 9.3 fl (8.7-11.0); Monocytes Absolute Auto 0.99 K/mm3 (0.10-0.90); Monocytes Percent Auto 11.6 % (2.0-11.0); Neutrophils Absolute Auto 5.01 K/mm3 (1.70-7.20); Neutrophils Percent Auto 58.5 % (50.0-70.0); Platelet Count Result 215 K/mm3 (150-420); Red Blood Count 2.45 M/mm3 (4.70-6.10); Red Cell Distribution Width 13.8 % (11.6-14.4); White Blood Count 8.6 K/mm3 (4.8-10.8)
[2024-09-22 13:43] LABS: D Dimer 0.27 mg/L (0.19-0.50); Partial Thromboplastin Time 22.7 Sec (23.9-30.70); Prothrombin Time 10.6 Seconds (9.50-12.1)
--- NOTE | 2024-09-22 13:50 | PC.NURSE ---
stool sample sent to lab
[2024-09-22 13:51] LABS: Alanine Aminotransferase 66 U/L (16-63); Alkaline Phosphatase 65 U/L (46-116); Anion Gap 5 mmol/L (4-12); Aspartate Amino Transferase 73 U/L (15-37); Bilirubin,Total 0.8 mg/dL (0.00-1.00); Blood Urea Nitrogen 38 mg/dL (7-18); Calcium 9.2 mg/dL (8.5-10.1); Carbon Dioxide 30 mmol/L (21-32); Chloride 101 mmol/L (98-108); Estimated CRCL calculation 62 ml/min; Estimated Glomerular Filt Rate 41; Glucose 112 mg/dL (70-99); NT Pro B Type Natriuretic Pept 89 pg/mL (0-125); Osmolality Calculated 292 mOsm/kg (285-295); Potassium 4.3 mmol/L (3.5-5.1); Sodium 136 mmol/L (136-145); Total Protein 6.2 g/dL (6.4-8.2)
[2024-09-22 13:53] LABS: Troponin I 18.1 ng/L (0.00-60.4)
[2024-09-22 13:54] LABS: Occult Blood Positive (Negative)
== END 2024-09-22 19:11 | disposition short-term general hospital (02) ==
PROVIDERS: Emergency Provider Emergency Medicine; PCP Internal Medicine
DX: D64.9 Anemia, unspecified (principal); K92.2 Gastrointestinal hemorrhage, unspecified; R06.00 Dyspnea, unspecified; Z79.899 Other long term (current) drug therapy; Z20.822 Contact with and (suspected) exposure to COVID-19
CPT/HCPCS: 36415; 71046; 80053; 82272; 83880; 84484; 85025; 85380; 85610; 85730; 87637; 93005; 99285

== ENCOUNTER 2024-09-22 19:56 | Inpatient (IN) | payer OTHER, SELFPAY ==
[2024-09-22 19:44] VITALS: BP 118/82; PULSE 97; RESP 20; TEMP 36.2; O2SAT 96; BMI 38.9
[2024-09-22 20:04] VITALS: PULSE 97; BMI 39.4
--- NOTE | 2024-09-22 20:04 | ADMGEN ---
This patient, Jorge Cotter, was admitted to IMU Room 206-02. Patient/family oriented to hospital policies and general routines including ID bracelet, bed and alarms, visiting hours, pain management, procedures, bathroom and other care routines, personal items, smoking policy, room service/diet, and visiting hours. Information on how to activate the Rapid Response Team has been discussed. Patient/Family are encouraged to report perceived risks to care and to ask questions if they do not understand what they are told or what they should do.
--- NOTE | 2024-09-22 20:34 | PC.NURSE ---
Admission report to [facility] Santamaria.
[2024-09-22 22:00] VITALS: PULSE 102
[2024-09-22 23:46] VITALS: O2SAT 98
[2024-09-23] VITALS (23 sets, daily range): BP systolic 90–134; BP diastolic 54–89; PULSE 73–100; RESP 16–20; TEMP 36.6–37.5; O2SAT 92–100
--- NOTE | 2024-09-23 00:33 | PM.IMHP ---
H&P: HPI History of Present Illness Date/Time: 09/23/24 00:33 Chief Complaint: 1. Fatigue 2. Melena Narrative: Jorge Cotter is a 49 yo M with a mHx significant for obesity, HTN, JAMES, PTSD, depression w/Anxiety Over the last 10-14 days, he had developed malaise, fatigue and dyspnea on exertion; he on visiting an outpatient health center was placed on Azithromycin and Doxycycline with minimal to no effect; with his symptoms aggravated by exertion, alleviated by rest; associated with melenic stools, anorexia, somnolence and poor performance of her ADLs. He denies previous similar experience, dysuria, flank pain, fevers, chills, nausea or vomiting. 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 Transferred from [place] [facility], Jorge Cotter will be admitted, evaluated and managed for acute blood loss anemia 2/2 GIB Review of Systems Constitutional: Constitutional: Reports fatigue, Denies night sweats and Denies weakness Eyes: Eyes: Reports no additional eye complaints ENT: Reports Normal hearing present, Denies dysphagia, Denies epistaxis, Denies nasal congestion and Denies nasal discharge Cardiovascular: Cardiovascular: Denies chest pain, Denies leg edema and Denies lightheadedness Respiratory: Respiratory: Reports no additional respiratory complaints Gastrointestinal: Gastrointestinal: Reports melena and Denies vomiting Genitourinary: Genitourinary: Denies flank pain, Denies urinary frequency, Denies urinary hesitancy and Denies urinary incontinence Musculoskeletal: Musculoskeletal: Denies no additional musculoskeletal complaints Neurologic: Denies Abnormal speech present, Denies abnormal gait, Denies confusion, Denies vertigo and Denies headache(s) Psychiatric: Psychiatric: Reports no additional psychiatric complaints PMFSH Past Medical History Medical History Colon cancer screening Hematemesis Hypertension Nausea & vomiting Obesity, morbid, BMI 40.0-49.9 JAMES (obstructive sleep apnea) Urolithiasis Surgical History Surgical History Gastric bypass status for obesity Hx of tonsillectomy Family History Family History (Updated 09/22/24 @ 20:14 by Lyric Lobato RN) Mother Pulmonary embolism Cardiac arrest Father Pulmonary embolism Cardiac arrest Social History Social History Smoking status: Never smoker Alcohol intake: never Substance use: never Substance use type: does not use Do You Feel Safe in your Home?: Yes Lack of Transportation: No Lack of Food: Never True Current Housing: I Have Housing Concerned About Future Housing: No Difficulty Paying Gas/Electric Bills: No Difficulty Paying for Meds: No Currently Unemployed: No Education: Master's Degree or Higher Difficulty w/ Childcare or Family Care: No Living arrangements: other Additional living arrangements comments: with sp Gender identity (if verbalized by the patient): Male Spiritual care concerns: No Meds Home Medications and Allergies Home Medications Medication Instructions Recorded Confirmed Type alprazolam 0.25 mg tablet 1 mg PO BID PRN Anxiety 04/28/21 09/22/24 History verapamil 360 mg 24 hr 360 mg PO DAILY 04/28/21 09/22/24 History capsule,extended release olmesartan 5 mg tablet 20 mg PO DAILY 10/24/23 09/22/24 History prazosin 1 mg capsule 1 mg PO HS 07/14/24 09/22/24 History desvenlafaxine succinate 100 mg 125 mg PO HS 09/22/24 09/22/24 History tablet,extended release 24 hr hydroxyzine pamoate 50 mg capsule 50 mg PO HS 09/22/24 09/22/24 History ramelteon 8 mg tablet 8 mg PO HS 09/22/24 09/22/24 History trazodone 100 mg tablet 100 mg PO HS 09/22/24 09/22/24 History Allergies Allergy/AdvReac Type Severity Reaction Status Date / Time No Known Allergies Allergy Verified 09/22/24 20:22 Vital Signs Vital Signs - 24 hr 09/22/24 19:44 09/22/24 20:04 09/22/24 22:00 Temperature 97.2 F L Pulse Rate 97 97 102 H Respiratory Rate 20 Blood Pressure 118/82 Pulse Oximetry 96 Oxygen Delivery 09/22/24 23:46 09/23/24 00:00 09/23/24 00:00 Temperature 98.1 F Pulse Rate 80 100 Respiratory Rate 16 Blood Pressure 111/72 Pulse Oximetry 98 100 Oxygen Delivery Room Air Exam Const: General: comfortable and no acute distress HENMT: Face/Nose/Sinus: Normal nares present Mouth: Yes moist mucous membranes Eyes: General: appearance normal, both eyes and all related structures Sclera: sclerae normal EOM: EOMs intact bilaterally Neck: Neck: supple Thyroid: thyroid normal Resp: Effort & Inspection: normal respiratory effort Auscultation: clear to auscultation bilaterally Cardio: Rate: regular rate Rhythm: regular rhythm GI: Inspection: distended GI Palp: Yes Soft to palpation Auscultation: normal bowel sounds Skin: General skin exam: normal color Neuro: General: gait normal Extrem: General: normal to inspection, no edema and no pedal edema Psych: Mental Status: mental status grossly normal Affect: Anxious affect present Assessment and Plan Assessment and plan (1) Acute blood loss anemia: Code(s): D62 - Acute posthemorrhagic anemia Status: Acute (2) Gastrointestinal hemorrhage with melena: Code(s): K92.1 - Melena Status: Acute (3) Acute renal insufficiency: Code(s): N28.9 - Disorder of kidney and ureter, unspecified Status: Acute Plan Acute and Principal conditions 1. Acute blood loss anemia 2. Symptomatic anemia 3. Melena 4. Probable UGiB; probable Doxycycline induced injury 5. Acute renal insufficiency IVFs; Type and screen; Transfuse 1U PRBC Monitor Hb with goal >7 GI consulted CTA abdomen if Hb continues to drop Avoid nephrotoxins; monitor renal function Chronic and Stable conditions 1. Recurrent depression w/Anxiety. 2. Hypertension. on [place] 3. Obesity, BMI 39 4. Insomnia. on Ramelteon, Trazodone 5. PTSD. on Prazosin 6. JAMES. on CPAP Code status. Full Nutrition. NPO VTE prophylaxis. SCDs; holding pharmacologic VTE till cleared Hospitalist MIPS Advance Care Plan I have confirmed that the patient's Advanced Care Plan is present, code status is documented, or surrogate decision maker is listed in patient medical record.: Yes Medication Reconciliation I have utilized all available resources to obtain, update and review the patients current medications (includes all prescriptions, OTC, herbals, cannabis, and nutritional supplements).: Yes
[2024-09-23 00:47] LABS: Hematocrit 21.8 % (42.0-52.0); Hemoglobin 7.4 g/dL (14.0-18.0)
[2024-09-23] MEDS: SODIUM CHLORIDE 0.9% IV 1,000 ML 100 ML IV CONT ×3 (01:05→20:41)
[2024-09-23] MEDS: PANTOPRAZOLE SODIUM IV 80 MG in SODIUM CHLORIDE 0.9% IV 500 ML 50 MG IV CONT ×3 (01:07→22:01)
[2024-09-23 05:05] LABS: Basophils Absolute Auto 0.1 K/mm3 (0.0-0.1); Basophils Percent Auto 0.7 % (0.2-1.2); Eosinophils Absolute Auto 0.1 K/mm3 (0-0.3); Eosinophils Percent Auto 1.4 % (0-4.4); Immature Granulocyte Absolute 0.11 K/mm3 (0.00-0.031); Immature Granulocyte Percent A 1.5 % (0-0.5); Lymphocytes Absolute Auto 2.39 K/mm3 (0.9-3.2); Lymphocytes Percent Auto 33.5 % (18.3-44.2); Mean Corpuscular HGB Conc 32.3 g/dl (32-36); Mean Corpuscular Hemoglobin 31.6 pg (26-34); Mean Corpuscular Volume 97.6 fl (80-100); Mean Platelet Volume 10.1 fl (7.4-10.4); Monocytes Absolute Auto 0.9 K/mm3 (0.1-0.6); Monocytes Percent Auto 12.5 % (2.6-8.5); Neutrophils Absolute Auto 3.6 K/mm3 (1.3-6.7); Neutrophils Percent Auto 50.4 % (45.5-73.1); Nucleated Red Blood Cells Perc 0.3 % (0.0-0.2); Platelet Count Result 191 k/mm3 (150-375); Red Blood Count 2.06 M/mm3 (4.6-6.20); Red Cell Distribution Width 13.9 % (11.5-14.5); White Blood Count 7.1 K/mm3 (4.5-10.0)
[2024-09-23 05:08] LABS: Hematocrit 20.1 % (42.0-52.0); Hemoglobin 6.5 g/dL (14.0-18.0)
[2024-09-23 05:25] LABS: Alanine Aminotransferase 53 U/L (6-50); Albumin Level 2.9 g/dL (3.5-5.1); Alkaline Phosphatase 52 U/L (38-126); Anion Gap 2 mmol/L (4-12); Aspartate Amino Transferase 88 U/L (17-59); Bilirubin,Total 0.9 mg/dL (0.2-1.3); Blood Urea Nitrogen 37 mg/dL (9-20); Calcium 8.6 mg/dL (8.4-10.2); Carbon Dioxide 29 mmol/L (22-30); Chloride 103 mmol/L (98-107); Estimated CRCL calculation 73 ml/min; Estimated Glomerular Filt Rate 50; Glucose 92 mg/dL (65-110); Potassium 4.3 mmol/L (3.4-5.0); Sodium 134 mmol/L (137-145)
--- NOTE | 2024-09-23 07:17 | WPDGICN ---
Assessment and Plan Assessment and plan (1) Gastrointestinal hemorrhage with melena: Code(s): K92.1 - Melena Status: Acute Assessment and Plan: Patient with acute blood loss probably from an upper gastrointestinal source. Differential diagnosis includes peptic ulcer disease related to H pylori vs. anastomotic ulcer(s) in the gastro jejunal bypass which could occur year later. BUN/creatinine ratio is suggestive of an upper source as well. Will wait for transfusion to be given and will keep patient monitored. Will schedule EGD for tomorrow. Keep PPI IV and pt NPO. (2) Acute blood loss anemia: Code(s): D62 - Acute posthemorrhagic anemia Status: Acute GI Consult Note Consult date/time: 09/23/24 07:17 HPI: Jorge Cotter is a 49 year old male with a history of [place] en Y gastric bypass in 2018, sleep apnea and HTN. He was in his usual state of health until 2 weeks ago when he had an upper respiratory infection, with fever, nasal congestion, cough and general malaise. He was prescribed antibiotics including doxycycline, but denies any aspirin or NSAIDS. However, he noticed black stools which he atributed to antibiotics. He continued to have malaise and got progressively worse, to the point that he was having orthostatic symptoms, weakness and dyspnea on minimal efforts. He was found to have a Hb of around 6 and was advised to come to the hospital. He denies hematemesis, nausea, abdominal pain or hematoquezia. Review of Systems Review of Systems: All systems reviewed & are unremarkable except as noted in HPI and below PMFSH Past Medical History Medical History Colon cancer screening Hematemesis Hypertension Nausea & vomiting Obesity, morbid, BMI 40.0-49.9 JAMES (obstructive sleep apnea) Urolithiasis Surgical History Surgical History Gastric bypass status for obesity Hx of tonsillectomy Family History Family History (Updated 09/22/24 @ 20:14 by Lyric Lobato RN) Mother Pulmonary embolism Cardiac arrest Father Pulmonary embolism Cardiac arrest Social History Social History Smoking status: Never smoker Alcohol intake: never Substance use: never Substance use type: does not use Do You Feel Safe in your Home?: Yes Lack of Transportation: No Lack of Food: Never True Current Housing: I Have Housing Concerned About Future Housing: No Difficulty Paying Gas/Electric Bills: No Difficulty Paying for Meds: No Currently Unemployed: No Education: Master's Degree or Higher Difficulty w/ Childcare or Family Care: No Living arrangements: other Additional living arrangements comments: with sp Gender identity (if verbalized by the patient): Male Spiritual care concerns: No Meds Home Medications and Allergies Home Medications Medication Instructions Recorded Confirmed Type alprazolam 0.25 mg tablet 1 mg PO BID PRN Anxiety 04/28/21 09/22/24 History verapamil 360 mg 24 hr 360 mg PO DAILY 04/28/21 09/22/24 History capsule,extended release olmesartan 5 mg tablet 20 mg PO DAILY 10/24/23 09/22/24 History prazosin 1 mg capsule 1 mg PO HS 07/14/24 09/22/24 History desvenlafaxine succinate 100 mg 125 mg PO HS 09/22/24 09/22/24 History tablet,extended release 24 hr hydroxyzine pamoate 50 mg capsule 50 mg PO HS 09/22/24 09/22/24 History ramelteon 8 mg tablet 8 mg PO HS 09/22/24 09/22/24 History trazodone 100 mg tablet 100 mg PO HS 09/22/24 09/22/24 History Allergies Allergy/AdvReac Type Severity Reaction Status Date / Time No Known Allergies Allergy Verified 09/22/24 20:22 Vital Signs Vital Signs - 24 hr 09/22/24 19:44 09/22/24 20:04 09/22/24 22:00 Temperature 97.2 F L Pulse Rate 97 97 102 H Respiratory Rate 20 Blood Pressure 118/82 Pulse Oximetry 96 Oxygen Delivery 09/22/24 23:46 09/23/24 00:00 09/23/24 00:00 Temperature 98.1 F Pulse Rate 80 100 Respiratory Rate 16 Blood Pressure 111/72 Pulse Oximetry 98 100 Oxygen Delivery Room Air 09/23/24 01:50 09/23/24 02:00 09/23/24 04:00 Temperature Pulse Rate 98 84 98 Respiratory Rate 16 Blood Pressure Pulse Oximetry 97 Oxygen Delivery Room Air 09/23/24 04:00 09/23/24 04:00 09/23/24 06:00 Temperature 97.8 F Pulse Rate 87 87 79 Respiratory Rate 16 Blood Pressure 108/66 Pulse Oximetry 99 Oxygen Delivery Exam Const: General: comfortable and no acute distress HENMT: Face/Nose/Sinus: Normal nares present Mouth: Yes moist mucous membranes Eyes: General: appearance normal, both eyes and all related structures Sclera: sclerae normal EOM: EOMs intact bilaterally Neck: Neck: supple Thyroid: thyroid normal Resp: Effort & Inspection: normal respiratory effort Auscultation: clear to auscultation bilaterally Cardio: Rate: regular rate Rhythm: regular rhythm GI: Inspection: distended GI Palp: Yes Soft to palpation Auscultation: normal bowel sounds Skin: General skin exam: normal color Neuro: General: gait normal Extrem: General: normal to inspection, no edema and no pedal edema Psych: Mental Status: mental status grossly normal Affect: Anxious affect present Results Labs 09/23/24 04:03 09/23/24 04:03 Labs: Short CBC 09/23/24 09/23/24 Range/Units 00:25 04:03 WBC 7.1 (4.5-10.0) K/mm3 Hgb 7.4 L 6.5 L* (14.0-18.0) g/dL Hct 21.8 L 20.1 L* (42.0-52.0) % Plt Count 191 (150-375) k/mm3 [facility] 09/23/24 04:03 Sodium 134 L Potassium 4.3 Chloride 103 Carbon Dioxide 29 BUN 37 H Creatinine 1.50 H Glucose 92 Calcium 8.6 Liver Function 09/23/24 Range/Units 04:03 Total Bilirubin 0.9 (0.2-1.3) mg/dL AST 88 H (17-59) U/L ALT 53 H (6-50) U/L Alkaline Phosphatase 52 (38-126) U/L Albumin 2.9 L (3.5-5.1) g/dL
[2024-09-23] MEDS: SODIUM CHLORIDE 0.9% IV 250 ML 30 ML IV CONT (08:45)
[2024-09-23] MEDS: TUBING, BLOOD PLUM PUMP TUBING 1 EACH XX (09:16)
[2024-09-23] MEDS: VERAPAMIL HCL 180 MG TABLET ER 360 MG PO (09:16)
[2024-09-23] MEDS: OLMESARTAN MEDOXOMIL 20 MG TABLET PO (09:16)
[2024-09-23] MEDS: ALPRAZolam (*CRX) 0.5 MG TABLET 1 MG PO (09:19)
[2024-09-23 14:32] LABS: Hematocrit 22.9 % (42.0-52.0); Hemoglobin 7.8 g/dL (14.0-18.0)
--- NOTE | 2024-09-23 17:10 | P.PNIM_ITS ---
Progress Note: A&P Assessment and Plan (1) Acute blood loss anemia: Code(s): D62 - Acute posthemorrhagic anemia Status: Acute (2) Gastrointestinal hemorrhage with melena: Code(s): K92.1 - Melena Status: Acute (3) Acute renal insufficiency: Code(s): N28.9 - Disorder of kidney and ureter, unspecified Status: Acute Plan Acute and Principal conditions 1. Acute blood loss anemia 2. Symptomatic anemia 3. Melena 4. Probable UGiB; probable Doxycycline induced injury 5. Acute renal insufficiency IVFs; Type and screen; Transfuse 1U PRBC Monitor Hb with goal >7 GI consulted CTA abdomen if Hb continues to drop Avoid nephrotoxins; monitor renal function Chronic and Stable conditions 1. Recurrent depression w/Anxiety. 2. Hypertension. on [place] 3. Obesity, BMI 39 4. Insomnia. on Ramelteon, Trazodone 5. PTSD. on Prazosin 6. JAMES. on CPAP Code status. Full Nutrition. NPO VTE prophylaxis. SCDs; holding pharmacologic VTE till cleared Subjective Date/time seen: 09/23/24 17:10 Interval history: Transfused 1 U PRBC. Repeat HgB shows 7.8. EGD tomorrow. Denies taking any NSAIDs. Remote history of taking aspirin. Patient also denies hematochezia or hematemesis. Review of Systems Constitutional: Constitutional: Reports fatigue, Denies headache(s), Denies night sweats and Denies weakness Eyes: Eyes: Reports no additional eye complaints ENT: Reports Normal hearing present, Denies dysphagia, Denies vertigo, Denies headache(s), Denies epistaxis, Denies nasal congestion and Denies nasal discharge Cardiovascular: Cardiovascular: Denies chest pain, Denies leg edema and Denies lightheadedness Respiratory: Respiratory: Reports no additional respiratory complaints Gastrointestinal: Gastrointestinal: Reports melena, Denies dysphagia and Denies vomiting Genitourinary: Genitourinary: Denies flank pain, Denies urinary frequency, Denies urinary hesitancy and Denies urinary incontinence Musculoskeletal: Musculoskeletal: Denies no additional musculoskeletal complaints and Denies abnormal gait Neurologic: Reports Normal hearing present, Denies Abnormal speech present, Denies abnormal gait, Denies confusion, Denies vertigo, Denies headache(s) and Denies weakness Psychiatric: Psychiatric: Reports no additional psychiatric complaints and Denies confusion Endocrine: Endocrine: Reports fatigue Exam Const: General: comfortable and no acute distress; No confusion Orientation/consciousness: No confusion HENMT: Face/Nose/Sinus: Normal nares present Mouth: Yes moist mucous membranes Eyes: General: appearance normal, both eyes and all related structures Sclera: sclerae normal EOM: EOMs intact bilaterally Neck: Neck: supple Thyroid: thyroid normal Resp: Effort & Inspection: normal respiratory effort Auscultation: clear to auscultation bilaterally Cardio: Rate: regular rate Rhythm: regular rhythm GI: Inspection: distended Auscultation: normal bowel sounds Skin: General skin exam: normal color Neuro: General: gait normal and No confusion Cranial nerves: Yes Normal hearing present Speech: No Abnormal speech present Extrem: General: normal to inspection, no edema and no pedal edema Psych: Mental Status: mental status grossly normal Affect: Anxious affect present Objective Data Vital Signs Vital Signs: Vital Signs - 24 hr 09/22/24 19:44 09/22/24 20:04 09/22/24 22:00 Temperature 97.2 F L Pulse Rate 97 97 102 H Respiratory Rate 20 Blood Pressure 118/82 Pulse Oximetry 96 Oxygen Delivery 09/22/24 23:46 09/23/24 00:00 09/23/24 00:00 Temperature 98.1 F Pulse Rate 80 100 Respiratory Rate 16 Blood Pressure 111/72 Pulse Oximetry 98 100 Oxygen Delivery Room Air 09/23/24 01:50 09/23/24 02:00 09/23/24 04:00 Temperature Pulse Rate 98 84 98 Respiratory Rate 16 Blood Pressure Pulse Oximetry 97 Oxygen Delivery Room Air 09/23/24 04:00 09/23/24 04:00 09/23/24 06:00 Temperature 97.8 F Pulse Rate 87 87 79 Respiratory Rate 16 Blood Pressure 108/66 Pulse Oximetry 99 Oxygen Delivery 09/23/24 08:00 09/23/24 09:10 09/23/24 09:25 Temperature 98.2 F 98.3 F 98.2 F Pulse Rate 94 85 98 Respiratory Rate 16 18 20 Blood Pressure 119/69 118/72 120/89 Pulse Oximetry 94 92 99 Oxygen Delivery 09/23/24 09:47 09/23/24 10:25 09/23/24 10:59 Temperature 98.2 F 98.2 F 98 F Pulse Rate 92 93 91 Respiratory Rate 18 18 18 Blood Pressure 100/74 90/59 L 103/63 Pulse Oximetry 98 98 98 Oxygen Delivery 09/23/24 11:25 09/23/24 11:25 09/23/24 08:00 Temperature 98.4 F 98.4 F Pulse Rate 86 86 96 Respiratory Rate 16 16 Blood Pressure 106/60 106/60 Pulse Oximetry 98 98 Oxygen Delivery 09/23/24 12:30 09/23/24 16:00 Temperature 98.6 F 98.1 F Pulse Rate 87 89 Respiratory Rate 18 16 Blood Pressure 101/54 L 107/63 Pulse Oximetry 97 98 Oxygen Delivery Intake/Output Intake/Output: Intake & Output 09/20/24 09/21/24 09/22/24 09/23/24 23:59 23:59 23:59 23:59 Intake Total 1107.5 Output Total 875 Balance 232.5 Meds/Results Medications: Active Medications Generic Name Dose Route Start Last Admin Trade Name Freq PRN Reason Stop Dose Admin Acetaminophen 650 mg 09/23/24 00:32 Acetaminophen 325 Mg Tablet PO Q4H PRN Mild Pain (1-3) or Fever Alprazolam 1 mg 09/23/24 05:46 09/23/24 09:19 Alprazolam (*Crx) 0.5 Mg Tablet PO 1 mg BID PRN Administration Anxiety Desvenlafaxine Succinate 100 mg 09/23/24 21:00 Desvenlafaxine Succinate 50 Mg Tab.Er.24h PO 10/23/24 20:59 HS DOLORES Hydroxyzine Pamoate 50 mg 09/23/24 21:00 Hydroxyzine Pamoate 25 Mg Capsule PO HS DOLORES Pantoprazole Sodium 80 mg/ 500 mls @ 50 mls/hr 09/23/24 00:30 09/23/24 09:16 Sodium Chloride IV CONT 50 mls/hr .Q10H DOLORES Administration Sodium Chloride 1,000 mls @ 100 mls/hr 09/23/24 00:35 09/23/24 01:05 Normal Saline Iv IV CONT 100 mls/hr .Q10H DOLORES Administration Miscellaneous Information 0 each 09/23/24 00:01 09/23/24 09:24 Ramelteon 8mg Nonform Can Pt Bring From Home? XX 10/23/24 00:00 Not Given CLARIFY DOLORES Non-Formulary Medication 8 mg 09/23/24 21:00 Ramelteon PO 10/23/24 20:59 HS [facility] Nonformulary Drug ( 1 each 09/23/24 21:00 Desvenlafaxine 25mg) BY MOUTH 10/23/24 20:59 HS [facility] Olmesartan 20 mg 09/23/24 09:00 09/23/24 09:16 Olmesartan Medoxomil 20 Mg Tablet PO 20 mg DAILY [facility] Administration Ondansetron HCl 4 mg 09/23/24 00:32 Ondansetron Inj 4 Mg/2 Ml Vial IV PUSH Q6H PRN Nausea And Vomiting Prazosin HCl 1 mg 09/23/24 21:00 Prazosin Hcl 1 Mg Capsule PO HS [facility] Trazodone HCl 100 mg 09/23/24 21:00 Trazodone Hcl 50 Mg Tablet PO HS [facility] Verapamil HCl 360 mg 09/23/24 09:00 09/23/24 09:16 Verapamil Hcl 180 Mg Tablet Er PO 360 mg DAILY DOLORES Administration Labs Labs: Laboratory Results - last 24 hr 09/23/24 09/23/24 09/23/24 00:24 00:25 04:03 WBC 7.1 RBC 2.06 L Hgb 7.4 L 6.5 L* Hct 21.8 L 20.1 L* MCV 97.6 MCH 31.6 MCHC 32.3 RDW 13.9 Plt Count 191 MPV 10.1 Immature Gran % (Auto) 1.5 H Neut % (Auto) 50.4 Lymph % (Auto) 33.5 [place] % (Auto) 12.5 H Eos % (Auto) 1.4 Baso % (Auto) 0.7 Lymph # (Auto) 2.39 [place] # (Auto) 0.9 H Eos # (Auto) 0.1 Baso # (Auto) 0.1 Abs Immat Gran (auto) 0.11 H Absolute Neuts (auto) 3.6 Absolute Nucleated RBC 0.020 H Nucleated RBC % 0.3 H Sodium 134 L Potassium 4.3 Chloride 103 Carbon Dioxide 29 Anion Gap 2 L BUN 37 H Creatinine 1.50 H Estim Creat Clear Calc 73 Estimated GFR 50 L Glucose 92 Calcium 8.6 Total Bilirubin 0.9 AST 88 H ALT 53 H Alkaline Phosphatase 52 Total Protein 5.0 L Albumin 2.9 L Blood Type AB Positive Antibody Screen Negative Crossmatch See Detail 09/23/24 14:22 WBC RBC Hgb 7.8 L Hct 22.9 L MCV MCH MCHC RDW Plt Count MPV Immature Gran % (Auto) Neut % (Auto) Lymph % (Auto) [place] % (Auto) Eos % (Auto) Baso % (Auto) Lymph # (Auto) [place] # (Auto) Eos # (Auto) Baso # (Auto) Abs Immat Gran (auto) Absolute Neuts (auto) Absolute Nucleated RBC Nucleated RBC % Sodium Potassium Chloride Carbon Dioxide Anion Gap BUN Creatinine Estim Creat Clear Calc Estimated GFR Glucose Calcium Total Bilirubin AST ALT Alkaline Phosphatase Total Protein Albumin Blood Type Antibody Screen Crossmatch Hospitalist MIPS Advance Care Plan I have confirmed that the patient's Advanced Care Plan is present, code status is documented, or surrogate decision maker is listed in patient medical record.: Yes Medication Reconciliation I have utilized all available resources to obtain, update and review the patients current medications (includes all prescriptions, OTC, herbals, cannabis, and nutritional supplements).: Yes
[2024-09-23] MEDS: traZODone HCL 50 MG TABLET 100 MG PO (20:42)
[2024-09-23] MEDS: PRAZOSIN HCL 1 MG CAPSULE PO (20:42)
[2024-09-23] MEDS: DESVENLAFAXINE SUCCINATE 50 MG TAB.ER.24H 100 MG PO (20:42)
[2024-09-23] MEDS: hydrOXYzine pamoate 25 MG CAPSULE 50 MG PO (20:43)
[2024-09-24] VITALS (14 sets, daily range): BP systolic 106–151; BP diastolic 59–89; PULSE 62–112; RESP 16–22; TEMP 35.8–37.1; O2SAT 97–100
[2024-09-24 04:58] LABS: Basophils Percent Auto 0.6 % (0.2-1.2); Eosinophils Absolute Auto 0.1 K/mm3 (0-0.3); Eosinophils Percent Auto 1.6 % (0-4.4); Hematocrit 23.2 % (42.0-52.0); Hemoglobin 7.8 g/dL (14.0-18.0); Lymphocytes Absolute Auto 1.63 K/mm3 (0.9-3.2); Lymphocytes Percent Auto 32.4 % (18.3-44.2); Mean Corpuscular HGB Conc 33.6 g/dl (32-36); Mean Corpuscular Hemoglobin 32.8 pg (26-34); Mean Corpuscular Volume 97.5 fl (80-100); Mean Platelet Volume 9.5 fl (7.4-10.4); Monocytes Absolute Auto 0.6 K/mm3 (0.1-0.6); Monocytes Percent Auto 12.5 % (2.6-8.5); Neutrophils Absolute Auto 2.6 K/mm3 (1.3-6.7); Neutrophils Percent Auto 50.9 % (45.5-73.1); Platelet Count Result 194 k/mm3 (150-375); Red Blood Count 2.38 M/mm3 (4.6-6.20); Red Cell Distribution Width 15.2 % (11.5-14.5)
[2024-09-24 05:17] LABS: Alanine Aminotransferase 58 U/L (6-50); Albumin Level 2.9 g/dL (3.5-5.1); Alkaline Phosphatase 56 U/L (38-126); Anion Gap 4 mmol/L (4-12); Aspartate Amino Transferase 94 U/L (17-59); Bilirubin,Total 1.1 mg/dL (0.2-1.3); Blood Urea Nitrogen 19 mg/dL (9-20); Calcium 8.4 mg/dL (8.4-10.2); Carbon Dioxide 25 mmol/L (22-30); Chloride 106 mmol/L (98-107); Estimated CRCL calculation 98 ml/min; Estimated Glomerular Filt Rate > 60; Glucose 82 mg/dL (65-110); Potassium 3.7 mmol/L (3.4-5.0); Sodium 135 mmol/L (137-145)
[2024-09-24] MEDS: SODIUM CHLORIDE 0.9% IV 1,000 ML 100 ML IV CONT (06:46)
[2024-09-24] MEDS: VERAPAMIL HCL 180 MG TABLET ER 360 MG PO (08:08)
[2024-09-24] MEDS: OLMESARTAN MEDOXOMIL 20 MG TABLET PO (08:09)
[2024-09-24] MEDS: ALPRAZolam (*CRX) 0.5 MG TABLET 1 MG PO (08:11)
[2024-09-24] MEDS: PANTOPRAZOLE SODIUM IV 80 MG in SODIUM CHLORIDE 0.9% IV 500 ML 50 MG IV CONT (08:33)
[2024-09-24] MEDS: LACTATED RINGERS 1,000 ML 150 ML IV CONT (09:12)
--- NOTE | 2024-09-24 09:47 | P.PNAN_ITS ---
Anes - Initial Pre Proc Eval Procedure: Operation Date: 09/24/24 14:00 Proposed Procedures p Esophagogastroduodenoscopy - Shahid Cornejo MD Date/Time: 09/24/24 09:47 Surgeon: Matthew Francois MD Pre Op Diagnosis: GI Bleed Patient Data Age: 49 Gender: M Height: 1.78 m Weight: 124.8 kg Last Vital Signs Temp 35.8 C L 09/24/24 09:07 Pulse 112 H 09/24/24 09:07 Resp 16 09/24/24 09:07 BP 133/82 09/24/24 09:07 Pulse Ox 100 09/24/24 09:07 O2 Del Method Room Air 09/24/24 09:07 Allergies Allergy/AdvReac Type Severity Reaction Status Date / Time No Known Allergies Allergy Verified 09/22/24 20:22 Home Medications Medication Instructions Recorded Confirmed Type alprazolam 0.25 mg tablet 1 mg PO BID PRN Anxiety 04/28/21 09/22/24 History verapamil 360 mg 24 hr 360 mg PO DAILY 04/28/21 09/22/24 History capsule,extended release olmesartan 5 mg tablet 20 mg PO DAILY 10/24/23 09/22/24 History prazosin 1 mg capsule 1 mg PO HS 07/14/24 09/22/24 History desvenlafaxine succinate 100 mg 125 mg PO HS 09/22/24 09/22/24 History tablet,extended release 24 hr hydroxyzine pamoate 50 mg capsule 50 mg PO HS 09/22/24 09/22/24 History ramelteon 8 mg tablet 8 mg PO HS 09/22/24 09/22/24 History trazodone 100 mg tablet 100 mg PO HS 09/22/24 09/22/24 History Laboratory Tests 09/23/24 09/23/24 09/24/24 00:24 14:22 04:39 WBC 5.0 K/mm3 (4.5-10.0) RBC 2.38 L M/mm3 (4.6-6.20) Hgb 7.8 L g/dL 7.8 L g/dL (14.0-18.0) (14.0-18.0) Hct 22.9 L % 23.2 L % (42.0-52.0) (42.0-52.0) MCV 97.5 fl (80-100) MCH 32.8 pg (26-34) MCHC 33.6 g/dl (32-36) RDW 15.2 H % (11.5-14.5) Plt Count 194 k/mm3 (150-375) MPV 9.5 fl (7.4-10.4) Immature Gran % (Auto) 2.0 H % (0-0.5) Neut % (Auto) 50.9 % (45.5-73.1) Lymph % (Auto) 32.4 % (18.3-44.2) [place] % (Auto) 12.5 H % (2.6-8.5) Eos % (Auto) 1.6 % (0-4.4) Baso % (Auto) 0.6 % (0.2-1.2) Lymph # (Auto) 1.63 K/mm3 (0.9-3.2) [place] # (Auto) 0.6 K/mm3 (0.1-0.6) Eos # (Auto) 0.1 K/mm3 (0-0.3) Baso # (Auto) 0.0 K/mm3 (0.0-0.1) Abs Immat Gran (auto) 0.10 H K/mm3 (0.00-0.031) Absolute Neuts (auto) 2.6 K/mm3 (1.3-6.7) Absolute Nucleated RBC 0.000 K/mm3 (0.0-0.012) Nucleated RBC % 0.0 % (0.0-0.2) Sodium 135 L mmol/L (137-145) Potassium 3.7 mmol/L (3.4-5.0) Chloride 106 mmol/L (98-107) Carbon Dioxide 25 mmol/L (22-30) Anion Gap 4 mmol/L (4-12) BUN 19 D mg/dL (9-20) Creatinine 1.10 mg/dL (0.7-1.3) Estim Creat Clear Calc 98 ml/min Estimated GFR > 60 (59 - ) Glucose 82 mg/dL (65-110) Calcium 8.4 mg/dL (8.4-10.2) Total Bilirubin 1.1 mg/dL (0.2-1.3) AST 94 H U/L (17-59) ALT 58 H U/L (6-50) Alkaline Phosphatase 56 U/L (38-126) Total Protein 6.0 L g/dL (6.3-8.2) Albumin 2.9 L g/dL (3.5-5.1) Crossmatch See Detail Patient hx anesthesia problems: none Family hx anesthesia problems: none Results Review: All pre-operative results and documents have been reviewed as part of the pre- operative evaluation. [facility] Past Medical History Medical History Colon cancer screening Hematemesis Hypertension Nausea & vomiting Obesity, morbid, BMI 40.0-49.9 JAMES (obstructive sleep apnea) Urolithiasis Surgical History Surgical History Gastric bypass status for obesity Hx of tonsillectomy Family History Family History Mother Pulmonary embolism Cardiac arrest Father Pulmonary embolism Cardiac arrest Social History Social History Smoking status: Never smoker Alcohol intake: never Substance use: never Substance use type: does not use Do You Feel Safe in your Home?: Yes Lack of Transportation: No Lack of Food: Never True Current Housing: I Have Housing Concerned About Future Housing: No Difficulty Paying Gas/Electric Bills: No Difficulty Paying for Meds: No Currently Unemployed: No Education: Master's Degree or Higher Difficulty w/ Childcare or Family Care: No Living arrangements: other Additional living arrangements comments: with sp Gender identity (if verbalized by the patient): Male Spiritual care concerns: No Anes - Eval Final PreProcedure Day of Procedure 09/24/24 09:47 Patient weight: morbidly obese Heart: tachycardia Lungs: clear to auscultation Airway: Mallampati scale class II Neurological: alert and oriented Last oral intake: >/= 8 hours ASA classification: IV Emergent: no Anesthetic plan: proceed Anesthesia type and monitoring: general GIVS and standard monitoring Results Review: All pre-operative results and documents have been reviewed as part of the pre- operative evaluation. Informed Consent: The patient's anesthetic plan and its attendant risks and benefits were discussed with the patient/family/POA. Questions were solicited and answers provided to the satisfaction of the patient/family/POA.
--- NOTE | 2024-09-24 09:58 | WPDGIPROGNO ---
Progress Note: A&P Assessment and Plan (1) Gastrointestinal hemorrhage with melena: Code(s): K92.1 - Melena Status: Acute Plan The patient is deemed a good candidate for the procedure. Consent signed. Will proceed. Subjective Date/time seen: 09/24/24 09:58 Interval history: Patient feels much better after blood transfusion. He is here for EGD, there was no further melena hematemesis or even any stool output. Objective Data Vital Signs Vital Signs: Vital Signs - 24 hr 09/23/24 10:25 09/23/24 10:59 09/23/24 11:25 Temperature 98.2 F 98 F 98.4 F Pulse Rate 93 91 86 Respiratory Rate 18 18 16 Blood Pressure 90/59 L 103/63 106/60 Pulse Oximetry 98 98 98 Oxygen Delivery 09/23/24 11:25 09/23/24 12:30 09/23/24 16:00 Temperature 98.4 F 98.6 F 98.1 F Pulse Rate 86 87 89 Respiratory Rate 16 18 16 Blood Pressure 106/60 101/54 L 107/63 Pulse Oximetry 98 97 98 Oxygen Delivery 09/23/24 10:00 09/23/24 12:00 09/23/24 14:00 Temperature Pulse Rate 92 83 84 Respiratory Rate Blood Pressure Pulse Oximetry Oxygen Delivery 09/23/24 16:00 09/23/24 18:00 09/23/24 19:52 Temperature Pulse Rate 86 87 87 Respiratory Rate 16 Blood Pressure Pulse Oximetry 98 Oxygen Delivery Room Air 09/23/24 20:00 09/23/24 20:00 09/23/24 22:35 Temperature 99.5 F Pulse Rate 93 92 73 Respiratory Rate 16 Blood Pressure 128/86 Pulse Oximetry 100 Oxygen Delivery 09/23/24 22:00 09/23/24 23:33 09/24/24 00:00 Temperature 98.5 F Pulse Rate 93 89 89 Respiratory Rate 16 16 Blood Pressure 134/59 L Pulse Oximetry 98 98 Oxygen Delivery Room Air 09/24/24 00:00 09/24/24 02:00 09/24/24 04:00 Temperature Pulse Rate 91 83 83 Respiratory Rate 16 Blood Pressure Pulse Oximetry 98 Oxygen Delivery Room Air 09/24/24 04:00 09/24/24 04:00 09/24/24 06:00 Temperature 98.4 F Pulse Rate 92 88 85 Respiratory Rate 18 Blood Pressure 115/59 L Pulse Oximetry 98 Oxygen Delivery 09/24/24 07:59 09/24/24 09:07 Temperature 98.3 F 96.5 F L Pulse Rate 94 112 H Respiratory Rate 20 16 Blood Pressure 151/89 H 133/82 Pulse Oximetry 97 100 Oxygen Delivery Room Air Intake/Output Intake/Output: Intake & Output 09/21/24 09/22/24 09/23/24 09/24/24 23:59 23:59 23:59 23:59 Intake Total 2914.2 1620 Output Total 1375 1000 Balance 1539.2 620 Meds/Results Medications: Active Medications Generic Name Dose Route Start Last Admin Trade Name Freq PRN Reason Stop Dose Admin Acetaminophen 650 mg 09/23/24 00:32 Acetaminophen 325 Mg Tablet PO Q4H PRN Mild Pain (1-3) or Fever Alprazolam 1 mg 09/23/24 05:46 09/24/24 08:11 Alprazolam (*Crx) 0.5 Mg Tablet PO 1 mg BID PRN Administration Anxiety Desvenlafaxine Succinate 100 mg 09/23/24 21:00 09/23/24 20:42 Desvenlafaxine Succinate 50 Mg Tab.Er.24h PO 10/23/24 20:59 100 mg HS DOLORES Administration Hydroxyzine Pamoate 50 mg 09/23/24 21:00 09/23/24 20:43 Hydroxyzine Pamoate 25 Mg Capsule PO 50 mg HS DOLORES Administration Pantoprazole Sodium 80 mg/ 500 mls @ 50 mls/hr 09/23/24 00:30 09/24/24 08:33 Sodium Chloride IV CONT 50 mls/hr .Q10H DOLORES Administration Sodium Chloride 1,000 mls @ 100 mls/hr 09/23/24 00:35 09/24/24 06:46 Normal Saline Iv IV CONT 100 mls/hr .Q10H DOLORES Administration Lactated Ringer's 1,000 mls @ 150 mls/hr 09/24/24 09:10 09/24/24 09:12 Lr - Lactated Ringers Iv IV CONT 150 mls/hr .Q6H40M DOLORES Administration Miscellaneous Information 0 each 09/23/24 00:01 09/23/24 09:24 Ramelteon 8mg Nonform Can Pt Bring From Home? XX 10/23/24 00:00 Not Given [facility] Non-Formulary Medication 8 mg 09/23/24 21:00 Ramelteon PO 10/23/24 20:59 HS [facility] Nonformulary Drug ( 1 each 09/23/24 21:00 09/23/24 22:34 Desvenlafaxine 25mg) BY MOUTH 10/23/24 20:59 Not Given HS [facility] Olmesartan 20 mg 09/23/24 09:00 09/24/24 08:09 Olmesartan Medoxomil 20 Mg Tablet PO 20 mg DAILY DOLORES Administration Ondansetron HCl 4 mg 09/23/24 00:32 Ondansetron Inj 4 Mg/2 Ml Vial IV PUSH Q6H PRN Nausea And Vomiting Prazosin HCl 1 mg 09/23/24 21:00 09/23/24 20:42 Prazosin Hcl 1 Mg Capsule PO 1 mg HS [facility] Administration Trazodone HCl 100 mg 09/23/24 21:00 09/23/24 20:42 Trazodone Hcl 50 Mg Tablet PO 100 mg HS [facility] Administration Verapamil HCl 360 mg 09/23/24 09:00 09/24/24 08:08 Verapamil Hcl 180 Mg Tablet Er PO 360 mg DAILY DOLORES Administration Labs Labs: Laboratory Results - last 24 hr 09/23/24 09/23/24 09/24/24 00:24 14:22 04:39 WBC 5.0 RBC 2.38 L Hgb 7.8 L 7.8 L Hct 22.9 L 23.2 L MCV 97.5 MCH 32.8 MCHC 33.6 RDW 15.2 H Plt Count 194 MPV 9.5 Immature Gran % (Auto) 2.0 H Neut % (Auto) 50.9 Lymph % (Auto) 32.4 [place] % (Auto) 12.5 H Eos % (Auto) 1.6 Baso % (Auto) 0.6 Lymph # (Auto) 1.63 [place] # (Auto) 0.6 Eos # (Auto) 0.1 Baso # (Auto) 0.0 Abs Immat Gran (auto) 0.10 H Absolute Neuts (auto) 2.6 Absolute Nucleated RBC 0.000 Nucleated RBC % 0.0 Sodium 135 L Potassium 3.7 Chloride 106 Carbon Dioxide 25 Anion Gap 4 BUN 19 D Creatinine 1.10 Estim Creat Clear Calc 98 Estimated GFR > 60 Glucose 82 Calcium 8.4 Total Bilirubin 1.1 AST 94 H ALT 58 H Alkaline Phosphatase 56 Total Protein 6.0 L Albumin 2.9 L Crossmatch See Detail
--- NOTE | 2024-09-24 10:29 | WPDGIPROGNO ---
Progress Note: A&P Assessment and Plan (1) Peptic ulcer: Code(s): K27.9 - Peptic ulcer, site unspecified, unspecified as acute or chronic, without hemorrhage or perforation Status: Acute Assessment and Plan: See EGD report. Patient can take regular diet from now. Biopsies for H pylori is still pending. We can follow those as an outpatient and treat accordingly if positive. Suggest giving 500 mg of Venofer prior to discharge, and administer an equal 2nd dose in 2 weeks in the outpatient infusion center. The patient could be safely discharged on pantoprazole 40 mg b.i.d. for 8 weeks. We can follow him up in our clinic as outpatient. Subjective Date/time seen: 09/24/24 10:29 Objective Data Vital Signs Vital Signs: Vital Signs - 24 hr 09/23/24 10:59 09/23/24 11:25 09/23/24 11:25 Temperature 98 F 98.4 F 98.4 F Pulse Rate 91 86 86 Respiratory Rate 18 16 16 Blood Pressure 103/63 106/60 106/60 Pulse Oximetry 98 98 98 Oxygen Delivery 09/23/24 12:30 09/23/24 16:00 09/23/24 12:00 Temperature 98.6 F 98.1 F Pulse Rate 87 89 83 Respiratory Rate 18 16 Blood Pressure 101/54 L 107/63 Pulse Oximetry 97 98 Oxygen Delivery 09/23/24 14:00 09/23/24 16:00 09/23/24 18:00 Temperature Pulse Rate 84 86 87 Respiratory Rate Blood Pressure Pulse Oximetry Oxygen Delivery 09/23/24 19:52 09/23/24 20:00 09/23/24 20:00 Temperature 99.5 F Pulse Rate 87 93 92 Respiratory Rate 16 16 Blood Pressure 128/86 Pulse Oximetry 98 100 Oxygen Delivery Room Air 09/23/24 22:35 09/23/24 22:00 09/23/24 23:33 Temperature 98.5 F Pulse Rate 73 93 89 Respiratory Rate 16 Blood Pressure 134/59 L Pulse Oximetry 98 Oxygen Delivery 09/24/24 00:00 09/24/24 00:00 09/24/24 02:00 Temperature Pulse Rate 89 91 83 Respiratory Rate 16 Blood Pressure Pulse Oximetry 98 Oxygen Delivery Room Air 09/24/24 04:00 09/24/24 04:00 09/24/24 04:00 Temperature 98.4 F Pulse Rate 83 92 88 Respiratory Rate 16 18 Blood Pressure 115/59 L Pulse Oximetry 98 98 Oxygen Delivery Room Air 09/24/24 06:00 09/24/24 07:59 09/24/24 09:07 Temperature 98.3 F 96.5 F L Pulse Rate 85 94 112 H Respiratory Rate 20 16 Blood Pressure 151/89 H 133/82 Pulse Oximetry 97 100 Oxygen Delivery Room Air 09/24/24 08:00 Temperature Pulse Rate 81 Respiratory Rate Blood Pressure Pulse Oximetry Oxygen Delivery Intake/Output Intake/Output: Intake & Output 09/21/24 09/22/24 09/23/24 09/24/24 23:59 23:59 23:59 23:59 Intake Total 2914.2 1792.5 Output Total 1375 1000 Balance 1539.2 792.5 Meds/Results Medications: Active Medications Generic Name Dose Route Start Last Admin Trade Name Freq PRN Reason Stop Dose Admin Acetaminophen 650 mg 09/23/24 00:32 Acetaminophen 325 Mg Tablet PO Q4H PRN Mild Pain (1-3) or Fever Alprazolam 1 mg 09/23/24 05:46 09/24/24 08:11 Alprazolam (*Crx) 0.5 Mg Tablet PO 1 mg BID PRN Administration Anxiety Desvenlafaxine Succinate 100 mg 09/23/24 21:00 09/23/24 20:42 Desvenlafaxine Succinate 50 Mg Tab.Er.24h PO 10/23/24 20:59 100 mg HS DOLORES Administration Hydroxyzine Pamoate 50 mg 09/23/24 21:00 09/23/24 20:43 Hydroxyzine Pamoate 25 Mg Capsule PO 50 mg HS DOLORES Administration Pantoprazole Sodium 80 mg/ 500 mls @ 50 mls/hr 09/23/24 00:30 09/24/24 08:33 Sodium Chloride IV CONT 50 mls/hr .Q10H DOLORES Administration Sodium Chloride 1,000 mls @ 100 mls/hr 09/23/24 00:35 09/24/24 06:46 Normal Saline Iv IV CONT 100 mls/hr .Q10H DOLORES Administration Lactated Ringer's 1,000 mls @ 150 mls/hr 09/24/24 09:10 09/24/24 10:21 Lr - Lactated Ringers Iv IV CONT 150 mls/hr .Q6H40M DOLORES Titration Miscellaneous Information 0 each 09/23/24 00:01 09/23/24 09:24 Ramelteon 8mg Nonform Can Pt Bring From Home? XX 10/23/24 00:00 Not Given [facility] Non-Formulary Medication 8 mg 09/23/24 21:00 Ramelteon PO 10/23/24 20:59 HS [facility] Nonformulary Drug ( 1 each 09/23/24 21:00 09/23/24 22:34 Desvenlafaxine 25mg) BY MOUTH 10/23/24 20:59 Not Given HS [facility] Olmesartan 20 mg 09/23/24 09:00 09/24/24 08:09 Olmesartan Medoxomil 20 Mg Tablet PO 20 mg DAILY DOLORES Administration Ondansetron HCl 4 mg 09/23/24 00:32 Ondansetron Inj 4 Mg/2 Ml Vial IV PUSH Q6H PRN Nausea And Vomiting Prazosin HCl 1 mg 09/23/24 21:00 09/23/24 20:42 Prazosin Hcl 1 Mg Capsule PO 1 mg HS DOLORES Administration Trazodone HCl 100 mg 09/23/24 21:00 09/23/24 20:42 Trazodone Hcl 50 Mg Tablet PO 100 mg HS DOLORES Administration Verapamil HCl 360 mg 09/23/24 09:00 09/24/24 08:08 Verapamil Hcl 180 Mg Tablet Er PO 360 mg DAILY DOLORES Administration Labs Labs: Laboratory Results - last 24 hr 09/23/24 09/23/24 09/24/24 00:24 14:22 04:39 WBC 5.0 RBC 2.38 L Hgb 7.8 L 7.8 L Hct 22.9 L 23.2 L MCV 97.5 MCH 32.8 MCHC 33.6 RDW 15.2 H Plt Count 194 MPV 9.5 Immature Gran % (Auto) 2.0 H Neut % (Auto) 50.9 Lymph % (Auto) 32.4 [place] % (Auto) 12.5 H Eos % (Auto) 1.6 Baso % (Auto) 0.6 Lymph # (Auto) 1.63 [place] # (Auto) 0.6 Eos # (Auto) 0.1 Baso # (Auto) 0.0 Abs Immat Gran (auto) 0.10 H Absolute Neuts (auto) 2.6 Absolute Nucleated RBC 0.000 Nucleated RBC % 0.0 Sodium 135 L Potassium 3.7 Chloride 106 Carbon Dioxide 25 Anion Gap 4 BUN 19 D Creatinine 1.10 Estim Creat Clear Calc 98 Estimated GFR > 60 Glucose 82 Calcium 8.4 Total Bilirubin 1.1 AST 94 H ALT 58 H Alkaline Phosphatase 56 Total Protein 6.0 L Albumin 2.9 L Crossmatch See Detail
[2024-09-24] MEDS: IRON SUCROSE COMPLEX 400 MG, IRON SUCROSE COMPLEX 100 MG in SODIUM CHLORIDE 0.9% IV 250 ML 78.57 MG IVPB (11:48)
--- NOTE | 2024-09-24 17:01 | P.DS_ITS ---
DS: Admitting Diagnosis Discharge Date 09/24/2024 Admitting Diagnosis Low hemoglobin DS: Discharge Diagnosis Discharge Diagnosis (1) Acute blood loss anemia: Code(s): D62 - Acute posthemorrhagic anemia Status: Acute Assessment and Plan: Please refer to hospital course for brief summary (2) Gastrointestinal hemorrhage with melena: Code(s): K92.1 - Melena Status: Acute (3) Acute renal insufficiency: Code(s): N28.9 - Disorder of kidney and ureter, unspecified Status: Acute Plan Please refer to hospital course for brief summary Acute and Principal conditions 1. Acute blood loss anemia 2. Symptomatic anemia 3. Melena 4. Probable UGiB; probable Doxycycline induced injury 5. Acute renal insufficiency IVFs; Type and screen; Transfuse 1U PRBC Monitor Hb with goal >7 GI consulted CTA abdomen if Hb continues to drop Avoid nephrotoxins; monitor renal function Chronic and Stable conditions 1. Recurrent depression w/Anxiety. 2. Hypertension. on [place] 3. Obesity, BMI 39 4. Insomnia. on Ramelteon, Trazodone 5. PTSD. on Prazosin 6. JAMES. on CPAP Code status. Full Nutrition. NPO VTE prophylaxis. SCDs; holding pharmacologic VTE till cleared DS: Summary Hospital Course Hospital Course: Jorge Cotter is a 49 yo M with a mHx significant for obesity, HTN, JAMES, PTSD, depression w/Anxiety Over the last 10-14 days, he had developed malaise, fatigue and dyspnea on exertion; he on visiting an outpatient health center was placed on Azithromycin and Doxycycline with minimal to no effect; with his symptoms aggravated by exertion, alleviated by rest; associated with melenic stools, anorexia, somnolence and poor performance of her ADLs. He denies previous similar experience, dysuria, flank pain, fevers, chills, nausea or vomiting. During the course of hospitalization patient received 1 unit of packed red blood cells. Patient underwent EGD please refer to the full report. Patient was identified ulcers. H pylori biopsy still pending. After the EGD patient received IV Venofer 500 mg. Advised to administer any Quill 2nd dose in 2 weeks in the outpatient infusion center. Patient needs to take pantoprazole 40 mg p.o. b.i.d. for 8 weeks and needs follow-up with the GI in a week upon discharge. Patient is to follow-up with the PCP upon week discharge and check his hemoglobin as well. Status at Discharge Cognitive/behavioral status at discharge: Stable Time Spent with Patient Time attestation: Total time spent providing and/or coordinating discharge services: 45 minute Exam Const: General: comfortable and no acute distress; No confusion Orientation/consciousness: No confusion HENMT: Face/Nose/Sinus: Normal nares present Mouth: Yes moist mucous membranes Eyes: General: appearance normal, both eyes and all related structures Sclera: sclerae normal EOM: EOMs intact bilaterally Neck: Neck: supple Thyroid: thyroid normal Resp: Effort & Inspection: normal respiratory effort Auscultation: clear to auscultation bilaterally Cardio: Rate: regular rate Rhythm: regular rhythm GI: Inspection: distended Auscultation: normal bowel sounds Skin: General skin exam: normal color Neuro: General: gait normal and No confusion Cranial nerves: Yes Normal hearing present Speech: No Abnormal speech present Extrem: General: normal to inspection, no edema and no pedal edema Psych: Mental Status: mental status grossly normal Affect: Anxious affect present DS: Data Data Completed and Pending Pending studies at discharge: Pending at discharge 09/24/24 10:18 Surgical [PTH] Routine Labs on day of discharge: Labs from last 24 hours 09/24/24 04:39 WBC 5.0 RBC 2.38 L Hgb 7.8 L Hct 23.2 L MCV 97.5 MCH 32.8 MCHC 33.6 RDW 15.2 H Plt Count 194 MPV 9.5 Immature Gran % (Auto) 2.0 H Neut % (Auto) 50.9 Lymph % (Auto) 32.4 [place] % (Auto) 12.5 H Eos % (Auto) 1.6 Baso % (Auto) 0.6 Lymph # (Auto) 1.63 [place] # (Auto) 0.6 Eos # (Auto) 0.1 Baso # (Auto) 0.0 Abs Immat Gran (auto) 0.10 H Absolute Neuts (auto) 2.6 Absolute Nucleated RBC 0.000 Nucleated RBC % 0.0 Sodium 135 L Potassium 3.7 Chloride 106 Carbon Dioxide 25 Anion Gap 4 BUN 19 D Creatinine 1.10 Estim Creat Clear Calc 98 Estimated GFR > 60 Glucose 82 Calcium 8.4 Total Bilirubin 1.1 AST 94 H ALT 58 H Alkaline Phosphatase 56 Total Protein 6.0 L Albumin 2.9 L Discharge Plan Discharge Attending physician on discharge: Edson Avila Consulting providers: Ron Mccain Discharging Clinician: Edson Avila Patient Disposition: Home, Self-Care Activity: as tolerated Diet: other - see discharge instructions Discharge Instructions: Avoid spicy food. Patient received Venofer (IV Iron) and advised to get equal 2nd dose in 2 weeks in the outpatient infusion center. Patient needs to follow-up with the PCP and GI within 1 week upon discharge and check his hemoglobin. Patient can see Dr. Armas the electrolytic etcher if necessary. Patient Instructions: Antibiotic Form, Pain Management (DC) Stand Alone Forms: General Discharge Information Follow-up/Referrals: Gerald Coronado MD [Primary Care Provider] - 1 Week (Patient received IV Venofer and advised to get the 2nd dose in 2 weeks in the outpatient infusion center) Shahid Cornejo MD [Physician] - 2 Weeks Discharge Medications: New pantoprazole 40 mg tablet,delayed release (DR/EC) 40 mg PO BID Qty: 60 0RF Continued prazosin 1 mg capsule 1 mg PO HS hydroxyzine pamoate 50 mg capsule 50 mg PO HS trazodone 100 mg tablet 100 mg PO HS ramelteon 8 mg tablet 8 mg PO HS desvenlafaxine succinate 100 mg tablet extended release 24 hr 125 mg PO HS verapamil 360 mg capsule,ext rel. pellets 24 hr 360 mg PO DAILY alprazolam 0.25 mg tablet 1 mg PO BID PRN (Reason: Anxiety) olmesartan 5 mg tablet 20 mg PO DAILY Date of admission: 09/23/24 00:01 Primary Care Provider: Gerald Coronado Admitting Provider: Matthew Francois Attending physician on admission: Matthew Francois Condition: Stable
--- NOTE | 2024-09-25 13:46 | WPDANESPN ---
Anes - Prog Note Post-Op Date/Time: 09/25/24 13:46 Cardiovascular status: normal Respiratory status: normal Airway patency: baseline Mental status: baseline Post-Op hydration status: normal Vital Signs: Last Vital Signs Temp 37.1 C 09/24/24 16:27 Pulse 90 09/24/24 16:27 Resp 20 09/24/24 16:27 BP 123/80 09/24/24 16:27 Pulse Ox 98 09/24/24 16:27 O2 Del Method Room Air 09/24/24 16:00 Pain Score (VAS): 0 I/O: Intake & Output 09/24/24 09/25/24 09/25/24 23:59 07:59 15:59 Intake Total 440 Balance 440 Laboratory Tests 09/24/24 04:39 09/24/24 04:39 Post-procedural complaints: none Patient Feedback: Patient satisfied with anesthetic care.
== END 2024-09-24 17:27 | disposition home or self-care (01) | DRG 378 ==
PROVIDERS: Internal Medicine Gastroenterology; Admitting Provider Internal Medicine; PCP Internal Medicine; Visit Provider General Practice
PROC: 0DJ08ZZ Inspection of Upper Intestinal Tract, Via Natural or Artificial Opening Endoscopic (ICD-10-PCS; CPT 43235; principal; 2024-09-24 14:00)
DX: K92.1 Melena (principal); D62 Acute posthemorrhagic anemia; K28.9 Gastrojejunal ulcer, unspecified as acute or chronic, without hemorrhage or perforation; K29.30 Chronic superficial gastritis without bleeding; T36.4X5A Adverse effect of tetracyclines, initial encounter; I10 Essential (primary) hypertension; E66.01 Morbid (severe) obesity due to excess calories; G47.33 Obstructive sleep apnea (adult) (pediatric); F43.10 Post-traumatic stress disorder, unspecified; F41.8 Other specified anxiety disorders; G47.00 Insomnia, unspecified; N28.9 Disorder of kidney and ureter, unspecified; Z68.39 Body mass index [BMI] 39.0-39.9, adult; Z98.84 Bariatric surgery status
CPT/HCPCS: 36415; 36430; 80053; 85014; 85018; 85025; 86850; 86900; 86901; 86920; 88305; 94002; A9270; J1756; J2003; J2470; J2704; J7030; J7040; J7050; J7120; P9016

== ENCOUNTER 2024-10-03 16:16 | Outpatient (CLI) | payer OTHER, SELFPAY ==
[2024-10-03 16:43] LABS: Hematocrit 27.8 % (40.0-54.0); Mean Corpuscular HGB Conc 32.4 g/dL (32-36); Mean Corpuscular Hemoglobin 30.7 pg (27.0-31.0); Mean Corpuscular Volume 94.9 fL (78.0-102.0); Mean Platelet Volume 9.8 fl (8.7-11.0); Platelet Count Result 446 K/mm3 (150-420); Red Blood Count 2.93 M/mm3 (4.70-6.10); Red Cell Distribution Width 14.5 % (11.6-14.4); White Blood Count 7.7 K/mm3 (4.8-10.8)
[2024-10-03 17:18] LABS: Alanine Aminotransferase 61 U/L (16-63); Albumin Level 3.2 g/dL (3.4-5.0); Alkaline Phosphatase 93 U/L (46-116); Anion Gap 11 mmol/L (4-12); Aspartate Amino Transferase 45 U/L (15-37); Bilirubin,Total 0.4 mg/dL (0.00-1.00); Blood Urea Nitrogen 12 mg/dL (7-18); Carbon Dioxide 23 mmol/L (21-32); Chloride 107 mmol/L (98-108); Estimated Glomerular Filt Rate > 60; Ferritin 99 ng/mL (26-388); Glucose 136 mg/dL (70-99); Iron 18 ug/dL (65-175); Osmolality Calculated 293 mOsm/kg (285-295); Percent Iron Saturation 6 % (12-57); Potassium 4.3 mmol/L (3.5-5.1); Sodium 141 mmol/L (136-145); Total Protein 6.2 g/dL (6.4-8.2)
--- OUTSIDE RECORDS SUMMARY | 2024-10-07 04:42 | XMS_ITS | Encounter Summary ---
Author Organization [facility] Address [address] [place] [address] Care Team Providers Care Dictating Transcribing Machine Servicer Name Role Phone Unavailable Primary Care Provider Unavailabl e Reason for Visit * Reason Comments Post-Op 1 mo rygb Encounter Details Date Type Department Care Team (Late st Contact Info) Description 03/19/2018 12:30 PM CDT Office Visit [facility] Weight Management Services [id number] [place] [address] Ira Navarrete, [facility] [address] [address] Bariatric surgery status (Primary Dx); Morbid obesity (HCC) Social History Tobacco Use Types Packs/Day Years Used Date Smoking Tobacco: Never Smokeless Tobacco: Never Alcohol Use Standard Drinks/Week Comments No 0 (1 standard drink = 0.6 oz pur e alcohol) Sex and Gender Information Value Date Recorded Sex Assigned at Not on file Gender Identity Not on file Sexual Orientation Not on file documented as of this encounter Last Filed Vital Signs Vital Sign Reading Time Taken Comments Blood Pressure 125/86 03/19/2018 12:33 PM CDT Pulse 69 03/19/2018 12:33 PM CDT Temperature - - Respiratory Rate - - Oxygen Saturation - - Inhaled Oxygen Concentration - - Weight 127.5 kg (281 lb) 03/19/2018 12:33 PM CDT Height 177.8 cm (5' 10 ) 03/19/2018 12:33 PM CDT Body Mass Index 40.32 03/19/2018 12:33 PM CDT documented in this encounter Functional Status Functional Status Response Date of Assess ment Is person deaf or have serious hearing difficult y? No 02/13/2018 Is person blind or have serious difficulty seein g? No 02/13/2018 Does person have serious dif ficulty walking/climbing stairs? No 02/13/2018 Does person have difficulty dressing/bathing? No 02/13/2018 Does person have difficulty doing errands alone? No 02/13/2018 Cognitive Status Response Date of Assessm ent Does person have difficulty concentrating/remembering/making decisions? No 02/13/2018 documented as of this encounter Patient Instructions * Patient Instructions* Ira Navarrete, LAYOUT OPERATOR-ZIPPER MACHINE OPERATOR - 03/19/2018 12:49 PM CDT POST OPERATIVE VISIT INSTRUCTIONS 1 Month Dietary ?? Journaling helps keep you honest and on track! Calculate your protein grams every day. ?? It is important that you are learning to eat to live and not live to eat. Food likely does not give you as much pleasure as it has in the past. Eating protein is not optional. Failure to follow the guidelines laid out in your dietary booklet can result in serious health problems. ?? For Cortez en-Y divided gastric bypass patients; females should have a minimum of 60 grams per day, men 80 grams of protein per day. You should be able to tolerate anywhere from 2 bites to 1/2 cup of food per meal. At least half of your meal should be protein. If you cannot keep fluids down, please contact our office. ?? For adjustable gastric band patients; you should be eating your protein first. ?? You should be getting 64 ounces of water per day. Liquids from your protein supplementation can count toward your fluid goals. ?? Advance diet as outlined in your nutrition booklet. Do not advance any faster than what has beenrecommended. ?? Limit coffee to 1 to 2 cups per day. ?? Meals should take a minimum of 30 minutes to consume. ?? Do not graze on cheese, peanut butter and nuts to meet your protein goals. ?? Drink liquid protein between meals for hunger. For band patients, protein bars are acceptable. ?? Dietary indiscretion can be fatal. Contact our office if this occurs. Vitamins ?? Use only vitamins recommended by our program. Please refer back to your booklet and handouts forthe most current list. Exercise ?? There are no restrictions of any kind. ?? Take one more step tomorrow than what you took today. ?? If you have not started resistance activity do so. Muscle mass will help you burn calories more efficiently. Behavior Modification ?? Make a list of behaviors that got you here in the first place. Put that list in a place you visit often. ?? Please don't weigh daily or monthly. Weighing once a week is a healthy habit. Wound Care ?? You may swim and take tub baths provided all of your incisions are healed. General Medical ?? If you begin finding your CPAP on the floor in the mornings, please contact your PCP to have a second night sleep study completed. It is possible that you need to have the pressures within your machine reduced. You should not stop wearing your CPAP without consulting your doctor. ?? Your pain levels should be greatly improved. If they are not, please let us know. ?? Vomiting is not normal. If you cannot attribute vomiting to something that you have done, pleasenotify our office. ?? For females control is strongly recommended for the first 18 months after surgery. Medications--General Information ?? You do not have to crush your pills. Please take whole pills. ?? If the pill is large, cut it into 2 pieces. ?? You may take a couple of small pills at a time. ?? You should not vomit after taking medications. If this consistently occurring, please notify ouroffice. Ulcer Prevention ?? Ulcer medications should be taken for a minimum of 6 months after surgery. ?? DO NOT SMOKE. If you return to smoking notify our office immediately. Blood Pressure Medication ?? If you consistently find yourself getting light headed when you go from a laying positions to a sitting position OR from a sitting position to a standing position, contact your primary care physician for a medication adjustment. Diabetic Medication ?? Continue to monitor your blood sugars as previously required. ?? Once your fasting blood sugar is less than 120 mg/dl for 3 consecutive mornings please notify your primary care physician for a medication adjustment. Psychiatric Medication ?? If not restarted, please do so immediately. ?? If you do not feel well controlled on your current medication regimen, please call your primary care physician or psychiatrist for a medication adjustment. Follow-up ?? For a Cortez-en-Y divided gastric bypass, vertical sleeve gastrectomy or revision your next appointment will be in 2 months. ?? Adjustable gastric band patients will be directed to the next appropriate band fill clinic. documented in this encounter Progress Notes * Ira Navarrete APRN-CNP - 03/19/2018 12:45 PM CDT 1 Month Bariatric Surgery Follow up Date of Surgery: 02/13/2018 Laparoscopic Cortez en Y gastric bypass 2. Laparoscopic adhesiolysis, 30 min (Neli) Initial weight: 310 Today's weight: 281 Total weight loss: 29 IBW: 180 EBW: 130 % of EBW loss: 7% Jorge Cotter is here today for a 1 month postoperative follow up visit. He is doing ok overall. He is still having some RUQ abdominal pain with movement or lifting. 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 Discussedthat he should not return to work until 6 weeks after surgery to allow for additional healing of the abdomen from surgery. Patient may return to work with no restrictions on March 29, 2018. Patient to continue 15 lb lifting restriction until 03/29/18 He is getting in most of his protein and all of his fluids He is not having any N/V, reflux, or abdominal pain He is moving his bowels normally. He has had increased bloating and gas with milk and some of his shakes. Portions are about 1/2 cup per meal. He is tolerating phase 2 foods well. He denies dysphagia Patient has been taken off of lisinopril Review of symptoms as above, rest of the systems were reviewed and are negative. BP 125/86 Pulse 69 Ht 5' 10 (1.778 m) Wt 281 lb (127.5 kg) BMI 40.32 kg/m2 Current Outpatient Prescriptions Medication ??? cyclobenzaprine (FLEXERIL) 10 MG tablet ??? HYDROcodone-acetaminophen 7.5-325 MG/15ML solution ??? senna-docusate (SENOKOT-S) 8.6-50 MG tablet ??? pantoprazole EC (PROTONIX) 40 MG tablet ??? [place]-3 Fatty Acids (FISH OIL PO) ??? Verapamil HCl CR 360 MG ??? divalproex DR (DEPAKOTE) 250 MG tablet ??? ALPRAZolam (XANAX) 0.25 MG tablet ??? SUMAtriptan Succinate 6 MG/0.5ML ??? Multiple Vitamin (MULTI VITAMIN PO) ??? magnesium 500 MG tablet ??? pyridoxine (VITAMIN B-6) 100 MG tablet No current facility-administered medications for this visit. Past Medical History: Diagnosis Date ??? Anesthesia complication difficulty waking ??? 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 HTN (hypertension) ??? Kidney stones ??? Migraines ??? Sleep apnea CPAP Review of Systems: HEENT: Normal Cardiovascular: Normal Respiratory: Normal Gastrointestinal: Normal Genitourinary: Normal Musculoskeletal: Right sided abdominal discomfort with lifting or movement Skin / Breast / Axillae: Normal Endocrine: Normal Allergic / Immuno: Normal Neuro / Psych: Normal Has the patient been readmitted to the hospital since the last follow up ? No Has the patient had any post bariatric surgical operations or interventions performed since the last follow up? No Physical Exam: General: Awake, alert, oriented to person,place and time. In no distress Neck: Supple, no JVD Lungs: Clear to ascultation, no wheezes or crackles Heart: RRR, S1S2 Abdomen: Soft, nontender, no hernias, BS + X all four quad Extremities: No edema x4, no erythema Assessment / Plan: S/P Laparoscopic Cortez en Y gastric bypass 2. Laparoscopic adhesiolysis, 30 min: Morbid Obesity: Discussed phase 3 diet and advancing through the phases as directed, discussed portions, protein, exercise, keeping a food journal JAMES: continued on CPAP HTN: He has been taken off of lisinopril Diet: Continue with 60 gms of protein, 64 oz fluid daily Eat slowly, taking 30 minutes to finish a meal Drink liquid protein between meals for hunger Follow dietary restrictions and progress through the diet phases as instructed Support Groups: Encouraged to attended Vitamins: Continue with bariatric multivitamin, - Ca with D, [id number] mg daily - prilosec 20 mg daily Exercise: No restrictions General medical: continue to follow up with your PCP for medication adjustments if needed. Labs: Will be checked at 6 months, 1 year and then annually Follow up: In 5 months with routine labs or PRN Total time of visit: 15 minutes documented in this encounter Plan of Treatment Not on file documented as of this encounter Visit Diagnoses Diagnosis Bariatric surgery status- Primary Morbid obesity (HCC) Morbid obesity documented in this encounter
--- OUTSIDE RECORDS SUMMARY | 2024-10-07 04:42 | XMS_ITS | Encounter Summary ---
Author Organization [facility] Address [address] [place] [address] Care Team Providers Care Dwarf Tree Grower Name Role Phone Unavailable Primary Care Provider Unavailabl e Reason for Visit * Reason Comments Post-Op 1 wk po rygb Encounter Details Date Type Department Care Team (Late st Contact Info) Description 02/20/2018 9:45 AM CDT Office Visit [facility] Weight Management Services [id number] [address] Ira Navarrete, BARTENDER SERVERSA[facility] [address] [address] Bariatric surgery status (Primary Dx); [...] Sign Reading Time Taken Comments Blood Pressure 132/82 02/20/2018 9:46 AM CDT Pulse 78 02/20/2018 9:46 AM CDT Temperature - - Respiratory Rate - - Oxygen Saturation - - Inhaled Oxygen Concentration - - Weight 133.8 kg (295 lb) 02/20/2018 9:46 AM CDT Height 177.8 cm (5' 10 ) 02/20/2018 9:46 AM CDT Body Mass Index 42.33 02/20/2018 9:46 AM CDT documented in this encounter Functional Status [...] Patient Instructions * Patient Instructions* Ira Navarrete, BARTENDER SERVER-AUTOMOBILE SERVICE STATION MANAGER - 02/20/2018 10:22 AM CDT POST OPERATIVE VISIT INSTRUCTIONS 1 WEEK Dietary ?? Journaling helps keep you honest and on track! Calculate your protein grams every day. ?? For Cortez en-Y divided gastric bypass patients; females should have a minimum of 60 grams per day, men 80 grams of protein per day. ?? For adjustable gastric band patients; you should be eating your protein first. ?? You should be getting 64 ounces of water per day. Liquids from your protein supplementation can count toward your fluid goals. ?? Advance diet as outlined in your nutrition booklet. ?? Limit coffee to 1 to 2 cups per day. ?? Meals should take a minimum of 30 minutes to consume. ?? Once you can start eating don't graze on cheese, peanut butter and nuts to meet your protein goals. ?? Drink liquid protein between meals for hunger. ?? Dietary indiscretion can be fatal. Contact our office if this occurs. Vitamins ?? Use only vitamins recommended by our program. Please refer back to your booklet and handouts forthe most current list. Exercise ?? There are no restrictions of any kind. ?? Take one more step tomorrow than what you took today. Behavior Modification ?? Make a list of behaviors that got you here in the first place. Put that list in a place you visit often. ?? Please don't weigh daily or monthly. Weighing once a week is a healthy habit. Wound Care ?? No swimming or tub baths until we see you again. ?? As long as you have drainage, keep your incision site covered as you have been. ?? Continue to remove the bandage and get soap and water over your drain site in the shower. ?? No peroxide or antibiotic ointment to any of the incision sites. ?? Once the drainage has stopped, please leave the wound open to air. ?? Look for pus, redness, warmth or food particulate at the drain site until it closes up. Contact us immediately should this occur. ?? Call us for a temperature greater than 100.5. General Medical ?? You should restart your CPAP no later than 3 weeks from now. If you are having difficulty sleeping you may restart it now. ?? Rest and pain medicine should help alleviate pain, if it does not, please let us know. ?? Vomiting is not normal. If you cannot attribute vomiting to something that you have done, pleasenotify our office. ?? For females control is strongly recommended for the first 18 months after surgery. ?? Support groups are helpful and important in dealing with your disease, please attend them. Medications--General Information ?? You do not have to crush your pills. Please take whole pills, if smaller than a regular size aspirin. ?? If the pill is large, cut it into 2 pieces. You may take a couple of small pills at a time. ?? If you feel the pulling and stretching on the pouch when you take your pills that is ok. Take fewer pills at a time or consume less water the next time you take your medicines. Walking will also help medications to go through the pouch. ?? You should not vomit after taking medications. Ulcer Prevention ?? Ulcer medications should be [...] monitor your blood sugars as previously required. Once your fasting blood sugar is less [...] revision your next appointment will be in 3 weeks. ?? Adjustable gastric band patients will be directed to the next appropriate band fill clinic. documented in this encounter Progress Notes * Ira Navarrete APRN-CNP - 02/20/2018 10:18 AM CDT Bariatric Surgery Clinic Note Jorge Cotter Previous Procedure: Laparoscopic Cortez en Y gastric bypass 2. Laparoscopic adhesiolysis, 30 min (Neli) Date of Procedure: 02/13/2018 Initial Weight: 310 Todays Weight: 295 Weight Lost: 15 IBW: 180 EBW: 130 % of EBW loss 12% Subjective: Patient is here today for their 1 week post surgery follow up He reports overall he is doing well He is getting in all of his fluids and protein He has started on the recommended daily vitamins as instructed He denies any fevers, CP or SOB He denies any nausea, vomiting or reflux. He continues to have right sided abdominal pain-worse at night with laying down and repositioning. He has tried tylenol, but this did not help. He took his last dose of pain medications last night. He is asking for a refill. Will trial Flexeril as needed. He is to call if this does not seem to help. He has had some constipation. Taking Senokot-S BID and has tried MOM. He used an enema yesterday and this seemed to help Has been taken off of lisinopril/HCTZ Data Vitals: 02/20/18 0946 BP: 132/82 Pulse: 78 Weight: 295 lb (133.8 kg) MEDICATIONS FOR CURRENT ENCOUNTER: ?? SCHEDULED MEDICATIONS: ?? No current facility-administered medications for this visit. ?? CONTINUOUS MEDICATIONS: ?? No current facility-administered medications for this visit. ?? PRN MEDICATIONS: ?? No current facility-administered medications for this visit. Recent Labs Component Name 02/15/18 0510 02/14/18 0602 02/13/18 1036 01/29/18 1058 SODIUM 141 135* - 141 POTASSIUM 4.1 3.8 4.1 3.9 CHLORIDE 105 100 - 104 CO2 29 29 - 30 BUN 14 21 - 22* CREATININE 1.00 1.20 - 1.20 GLUCOSE 107* 106 - 86 CALCIUM 8.5 8.6 - 9.7 Recent Labs Component Name 02/15/18 0510 02/14/18 1316 02/14/18 0602 01/29/18 1058 WBC 8.2 - 10.5 8.2 HGB 13.4 13.3 12.7 15.0 HCT 39.4 37.7 37.4 44.2 PLTCOUNT 194 - 196 225 Physical Exam A+O x 3, NAD CTA B/L RRR ABD soft, ND, NT, incisions C/D/I, no e/o hernias Neg BLE edema Assessment/Plan: Pt s/p Laparoscopic Cortez en Y gastric bypass 2. Laparoscopic adhesiolysis, 30 min Patient is to advance to phase 2 of the diet Patient is to advance activity to include light cardio,light weights and no heavy lifting over 15 lbs for the next 3 weeks until seen in the office. Patient is to continue on the recommended daily vitamins, chewable MVI or patient is to open up capsule. He is to continue on the calcium citrate and this is to be powder . Patient is to follow up with PCP in 1-2 week Patient is to RTC in 3 weeks or PRN. ION Ventura documented in this encounter Plan of Treatment Not on file documented as of this encounter Visit Diagnoses Diagnosis Bariatric surgery status- Primary Morbid obesity (HCC) Morbid obesity documented in this encounter
--- OUTSIDE RECORDS SUMMARY | 2024-10-07 04:42 | XMS_ITS | Encounter Summary ---
Author Organization [facility] Address [address] [place] [address] Care Team Providers Care Night Club Manager Name Role Phone Unavailable Primary Care Provider Unavailabl e Encounter Details Date Type Department Care Team (Late st Contact Info) Description 01/29/2018 12:00 PM CDT Office Visit [facility] Weight Management Services [address] [place] [id number] Morbid obesity (HCC) (Primary Dx) Social History Tobacco Use Types Packs/Day Years Used Date Smoking Tobacco: Never Smokeless Tobacco: Never Alcohol Use Standard Drinks/Week Comments No 0 (1 standard drink = 0.6 oz pur e alcohol) Sex and Gender Information Value Date Recorded Sex Assigned at Not on file Gender Identity Not on file Sexual Orientation Not on file documented as of this encounter Progress Notes * Tory Crump - 01/29/2018 3:02 PM CDT Patient has completed the following the educational class with the Health Educator and/or another qualified S staff. Reviewed items include: 1. Surgical risk factors 2. Pre-operative high protein liquid diet and rationale reviewed 3. Reviewed topic of weight gain at pre op class visit: that this may result in: completing more dietary education or increasing the number of weeks for the high protein liquid diet and /or worst case scenario,surgery cancellation and have another consult with the surgeon. 4. Pre-operative bathing instructions with antibacterial wash as directed by SEC 5. Required items to bring with patient day of surgery 6. Pre-operative admission 7. Operating room process 8. Recovery room process 9. Post-operative care on the nursing floor 10. Discharge instruction for home care: ambulation, IS, activity level 11. Phase 1 and 2 diet discussed 12. Vitamin supplements 13. Follow up appointments scheduled- 1 week, 1 month and 6 month 14. Support group, Facebook and resources discussed 15. When to call the office, Signs and symptoms of complications provided and the numbers to call. 16. Weight Managements Surgical Pre-operative Questionnaire reviewed discussed and collected 17. Weight Managements contract reviewed, signed and collected. 18. ENERGY questionnaire distributed to those whom it applies, signed and collected 19. Information on Medic Alert bracelet in binder discussed. 20. Discussed causes of nausea, vomiting and dumping 21. ENERGY protocol discussed and questions answered. Surgery date and pre op diet reviewed individually with patient. Instructed to get [facility] appointment as soon as possible, if not already completed- notified patient of failure to get labs could postpone surgery. Pt denies questions at this time. Pt is given contact information for the [facility] Weight Management Services to call for any questions orconcerns. Supplement samples offered documented in this encounter Plan of Treatment Not on file documented as of this encounter Visit Diagnoses Diagnosis Morbid obesity (HCC)- Primary Morbid obesity documented in this encounter
--- OUTSIDE RECORDS SUMMARY | 2024-10-07 04:42 | XMS_ITS | Encounter Summary ---
Author Organization [facility] Address [address] [place] [address] Care Team Providers Care Maintenance Apprentice Name Role Phone Unavailable Primary Care Provider Unavailabl e Reason for Visit * Reason Onset Date Comments Surgery Scheduling 01/09/2018 Encounter Details Date Type Department Care Team ([facility] st Contact Info) Description 01/09/2018 Telephone [facility] [id number] [facility] [address] [place] [address] Shravan Quinteros MD [address] [facility] [address] [place], [place] [id number] Surgery Scheduling Social History Tobacco Use Types Packs/Day Years Used Date Smoking Tobacco: Never Smokeless Tobacco: Never Alcohol Use Standard Drinks/Week Comments No 0 (1 standard drink = 0.6 oz pur e alcohol) Sex and Gender Information Value Date Recorded Sex Assigned at Not on file Gender Identity Not on file Sexual Orientation Not on file documented as of this encounter Miscellaneous Notes * Telephone Encounter - Elaine Oneill RN - 01/09/2018 10:31 AM CDT Called to discuss surgery dates and verify surgery type with patient. Patient is now scheduled for laparoscopic conversion to RnY by Dr Quinteros on 02/13/18 at [facility]. Patient to schedule SEC appointmentfor evaluation and testing, given centralized scheduling phone number: [phone]. Patient is scheduled to attend preoperative education class presented by bariatric team on 01/29/18. Instructed of 1 week liquid diet requirement- to start 02/06/18 . Instructed patient to start bariatric MVI with liquid diet or 1 week before surgery. Reminded pt to stop any blood thinners to include plavix, asa, coumadin, omega3, fish oil, NSAIDS 5-7 days prior to surgery, except for prescribed daily dose of asa 81mg. Instructed pt to write 1- 4 (or 5 if needs 2nd consult) 1. Surgery date 02/13/18 2. Pre op class date 01/29/18 3. SEC date to be made by pt 4. Pre op liquid diet start date 02/06/18 *5. 2nd consult if required 01/29/18 Pt denies questions at this time. documented in this encounter Plan of Treatment Not on file documented as of this encounter Visit Diagnoses Not on filedocumented in this encounter
--- OUTSIDE RECORDS SUMMARY | 2024-10-07 04:42 | XMS_ITS | Clinical Summary ---
Author Organization [facility] Address [address] [place] [address] Care Team Providers Care Seo Specialist Name Role Phone Gerald Coronado MD Primary Care Provider [phone] Source Comments [facility],non-owned Affiliates and Associated Physician Practices is amultiple site organization consisting of ambulatory clinics and hospital sitesin [place], [place], [place] and [place]. This disclosure is being madepursuant to the Care Everywhere program and may not contain all information available regarding this patient. Last updated 18.[facility] Allergies No known active allergies Medications * Be aware that medications may not be up to date on this document. Alwaysverify current medications with the patient. Medication Sig Dispensed Refills Start Date End Date Status Verapamil HCl CR 360 MG Take 360 mg by mouth once daily 6 08/27/[address] (DEPAKOTE) 250 MG tablet Take 250 mg by mouth 2 times daily 0 08/27/2017 Active ALPRAZolam (XANAX) 0.25 MG tablet Take 0.25 mg by mouth as needed (Only takes when flying) 2 06/06/2017 Active SUMAtriptan Succinate 6 MG/0.5ML INJECT 1 CARTRIDGE NEEDED FOR MIGRAINE. MAY REPEAT IN 1 HOUR IF NEEDED. MAX 2/24 HOURS 3 06/06/2017 Active Multiple Vitamin (MULTI VITAMIN PO) Take 1 tablet by mouth once daily Active magnesium 500 MG tablet Take 500 mg by mouth once daily Active pyridoxine (VITAMIN B-6) 100 MG tablet Take 100 mg by mouth once daily Active [place]-3 Fatty Acids (FISH OIL PO) Take 1,000 mg by mouth once daily Active HYDROcodone-acetami nophen 7.5-325 MG/15ML solution Take 10 mL by mouth every 4 hours as needed for Pain 240 mL 02/14/2018 Active Additional Information Patient not taking.Reported on 03/19/2018 senna-docusate (SENOKOT-S) 8.6-50 MG tablet Take 1 tablet by mouth 2 times daily 02/14/2018 Active Additional Information Patient not taking.Reported on 03/19/2018 pantoprazole EC (PROTONIX) 40 MG tablet Take 40 mg by mouth once daily Active cyclobenzaprine (FLEXERIL) 10 MG tablet Take 1 tablet by mouth 3 times daily as needed for Muscle Spasms 15 tablet 02/20/2018 Active Additional Information Patient not taking.Reported on 03/19/2018 Active Problems Problem Noted Date Diagnosed Date Morbid obesity with BMI of 40.0-44.9, adult 01/21 Family History Medical History Relation Name Comments CAD (Coronary Artery Disease) Father ID Hypertension Father Relation Name Status Comments Father Social History Tobacco Use Types Packs/Day Years Used Date Smoking Tobacco: Never Smokeless Tobacco: Never Alcohol Use Standard Drinks/Week Comments No 0 (1 standard drink = 0.6 oz pur e alcohol) Sex and Gender Information Value Date Recorded Sex Assigned at Not on file Gender Identity Not on file Sexual Orientation Not on file Last Filed Vital Signs Vital Sign Reading Time Taken Comments Blood Pressure 119/76 10/02/2018 10:34 AM 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 Pulse 96 10/02/2018 10:34 AM 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 OPERATOR Temperature 36.4 ??C (97.5 ??F) 02/15/2018 1 0:53 AM CDT Respiratory Rate 18 02/15/2018 10:5 3 AM CDT Oxygen Saturation 97% 02/15/2018 10: 53 AM CDT Inhaled Oxygen Concentration - - Weight 117.4 kg (258 lb 12.8 oz) 2017 10:34 AM 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 OPERATOR Height 177.8 cm (5' 10 ) 10/02/2018 10: 34 AM 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 OPERATOR Body Mass Index 37.13 10/02/2018 10:34 AM 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 OPERATOR Plan of Treatment Health Maintenance Due Date Last Done Comments DREW (AGES 45-75) - COLON CA SCREENING 1977 COLON MONITORING 1977 COLONOSCOPY - COLON CA SCREENING 1977 CT COLONOGRAPHY - COLON CA SCREENING 1977 Colorectal Cancer Screening 1977 FIT - COLON CA SCREENING 1977 FLEX SIG - COLON CA SCREENING 1977 LIPID TESTING 1977 HIV SCREENING 1992 HEPATITIS C SCREENING 03/06/1995 DTAP/TDAP/TD VACCINES (1 - Tdap) 1996 HEPATITIS B VACCINE (1 of 3 - 19+ 3-dose series) 1996 SCREENING FOR DIABETES 02/15/2021 8, 02/14/2018, 02/13/2018, Additional history exists DEPRESSION SCREENING 10/22/2023 COVID-19 VACCINE ( - 2023- season) 2024 INFLUENZA VACCINE (#1) 2024 09/04/2016 ZOSTER VACCINE (1 of 2) 2027 HIB VACCINE Aged Out No longer eligi ble based on patient's age to complete this topic HPV VACCINE Aged Out No longer eligi ble based on patient's age to complete this topic MENINGOCOCCAL VACCINE Aged Out No melody alberto eligible based on patient's age to complete this topic PNEUMOCOCCAL VACCINE Aged Out No long er eligible based on patient's age to complete this topic Procedures Procedure Name Priority Date/Time Associated Diagnosis Comments BASIC METABOLIC PANEL (CALCIUM TOTAL) AM Draw 02/15/2018 5:10 AM CDT from Last 3 Months or Most Recently Relevant to Health Maintenance Results * (ABNORMAL) BASIC METABOLIC PANEL (CALCIUM TOTAL) (02/15/2018 5:10 AM CDT) Pathologist [facility] Glucose 107(H) 74 - 106 mg/dL 02/15/2018 5:42 AM CDT [facility] Sodium 141 136 - 145 mmol/L 02/15/2018 5:42 AM CDT [facility] Potassium 4.1 3.5 - 5.1 mmol/L 02/15/2018 5:42 AM CDT [facility] Chloride 105 98 - 107 mmol/L 02/15/2018 5:42 AM CDT [facility] CO2 29 22 - 31 mmol/L 02/15/2018 5:42 AM CDT [facility] Calcium 8.5 8.5 - 10.1 mg/dL 02/15/2018 5:42 AM CDT [facility] Anion Gap 7(L) 8 - 16 mmol/L 02/15/2018 5:42 AM CDT [facility] BUN 14 7 - 21 mg/dL 02/15/2018 5:42 AM CDT [facility] Creatinine 1.00 0.50 - 1.30 mg/dL 02/15/2018 5:42 AM CDT [facility] eGFR by MDRD >60 >60 mL/min/1.7 3m2 02/15/2018 5:42 AM CDT [facility] eGFR by MDRD >60 >60 mL/min/1.7 3m2 02/15/2018 5:42 AM CDT [facility] Blood BLOOD SPECIMEN / Unknown Venipuncture / Unknown 02/15/2018 5:10 AM CDT 02/15/2018 5:24 AM CDT Shravan Quinteros MD LAB - CHEMISTRY LAURA AVILA [facility] Organization Address City/State/[facility] Co de Phone Number [facility] [address] [place] [address] from Last 3 Months or Most Recently Relevant to Health Maintenance Advance Directives * Full Code (Latest Code Status on File) Date Activated Date Inactivated Comments 02/13/2018 8:46 PM 02/15/2018 1:20 PM Care Teams Seo Specialist Relationship Specialty Start Date End Date Gerald Coronado MD [address] [place] [address] PCP - General 06/21/21
--- OUTSIDE RECORDS SUMMARY | 2024-10-07 04:42 | XMS_ITS | Encounter Summary ---
Author Organization [facility] Address [address] [address] Care Team Providers Care Historic Sites Supervisor Name Role Phone Unavailable Primary Care Provider Unavailabl e Reason for Visit * Reason Onset Date Comments Diet 02/07/2018 Encounter Details Date Type Department Care Team (Late st Contact Info) Description 02/07/2018 Telephone [facility] Nutrition Services [address] [place] [id number]/DILL[place] Diet Social History Tobacco Use Types Packs/Day Years [...] encounter Miscellaneous Notes * Telephone Encounter - Ira Rowell RD/DILLAN - 02/07/2018 11:30 AM CDT Called patient to check on status of the pre-operative high protein liquid diet for 1 week prior tothe scheduled Weight Loss [place] surgery planned for 02/13/18. Reviewed the pre-operative high protein liquid diet, recommended bariatric vitamins per the Weight Loss [place], and the daily fluidrequirement of 64 ounces. Patient drank 2 Premier shakes and 3 Windsor shakes yesterday along with broth and water. He is taking the Procare MVI and Upcal calcium citrate. Patient verbalized understanding. documented in this encounter Plan of Treatment Not on file documented as of this encounter Visit Diagnoses Not on filedocumented in this encounter
--- OUTSIDE RECORDS SUMMARY | 2024-10-07 04:42 | XMS_ITS | Encounter Summary ---
Author Organization [facility] Address [address] [place] [address] Care Team Providers Care Proposal Consultant Name Role Phone Unavailable Primary Care Provider Unavailabl e Encounter Details Date Type Department Care Team (Latest Contact Info) Description 01/29/2018 10:29 AM CDT - 01/29/2018 11:59 PM CDT [facility] [address] [place] [address] Shravan Quinteros MD [address] [place] [address] Discharge Disposition: Home or Self Care Social History Tobacco Use Types Packs/Day Years Used Date Smoking Tobacco: Never Smokeless Tobacco: Never Alcohol Use Standard Drinks/Week Comments No 0 (1 standard drink = 0.6 oz pur e alcohol) Sex and Gender Information Value Date Recorded Sex Assigned at Not on file Gender Identity Not on file Sexual Orientation Not on file documented as of this encounter Medications at Time of Discharge Medication Sig Dispensed Refills Start Date End Date ALPRAZolam (XANAX) 0.25 MG tablet Take 0.25 mg by mouth as needed (Only takes when flying) 2 06/06/2017 divalproex (DEPAKOTE) 250 MG tablet Take 250 mg by mouth 2 times daily 0 08/27/2017 HYDROcodone-acetaminop hen 7.5-325 MG/15ML solution Take 10 mL by mouth every 4 hours as needed for Pain 240 mL 02/14/2018 magnesium 500 MG tablet Take 500 mg by mouth once daily Multiple Vitamin (MULTI VITAMIN PO) Take 1 tablet by mouth once daily [place]-3 Fatty Acids (FISH OIL PO) Take 1,000 mg by mouth once daily pantoprazole EC (PROTONIX) 40 MG tablet Take 40 mg by mouth once daily pyridoxine (VITAMIN B-6) 100 MG tablet Take 100 mg by mouth once daily senna-docusate (SENOKOT-S) 8.6-50 MG tablet Take 1 tablet by mouth 2 times daily 02/14/2018 SUMAtriptan Succinate 6 MG/0.5ML INJECT 1 CARTRIDGE NEEDED FOR MIGRAINE. MAY REPEAT IN 1 HOUR IF NEEDED. MAX 2/24 HOURS 3 06/06/2017 Verapamil HCl CR 360 MG Take 360 mg by mouth once daily 6 08/27/2017 lisinopril-hydroCHLORO thiazide (PRINZIDE; ZESTORETIC) 20-12.5 MG tablet Take 1 tablet by mouth once daily 05/27/2017 02/15/2018 oxyCODONE-acetaminophe n (PERCOCET) 5-325 MG tablet Take 1-2 tablets by mouth every 4 hours as needed for Pain 45 tablet 10/03/2017 02/12/2018 documented as of this encounter Plan of Treatment Not on file documented as of this encounter Procedures Procedure Name Priority Date/Time Associated Diagnosis Comments VITAMIN B1 Routine 01/29/2018 10:58 AM CDT Preop examination CBC W AUTO DIFFERENTIAL Routine 01/29/2018 10:58 AM CDT Preop examination COMPREHENSIVE METABOLIC PANEL Routine 01/29/2018 10:58 AM CDT Preop examination VITAMIN B12 Routine 01/29/2018 10:58 AM CDT Preop examination documented in this encounter Results * VITAMIN B12 (01/29/2018 10:58 AM CDT) Pathologist [facility] Vitamin B12 649 211 - 911 pg/mL 01/29/2018 1:29 PM CDT [facility] Blood BLOOD SPECIMEN / Unknown Venipuncture / Unknown 01/29/2018 10:58 AM CDT 01/29/2018 12:40 PM CDT Shravan Quinteros MD LAB - CHEMISTRY LAURA AVILA Performing Organization Address [facility]/ZIP Co de Phone Number [facility] [address] [place] [address] * VITAMIN B1 (01/29/2018 10:58 AM CDT) Pathologist [facility] Vitamin B1 Whole Blood 171.3 66.5 - 200.0 nmol/L 02/01/2018 4:15 AM CDT [facility] ([facility]) Comment: This test was developed and its performance characteristics determined by [facility]. It has not been cleared or approved by the Food and Drug Administration. Blood BLOOD SPECIMEN / Unknown Venipuncture / Unknown 01/29/2018 10:58 AM CDT 01/29/2018 12:41 PM CDT Narrative [facility] ([facility]) - 02/01/2018 4:15 AM CDT Performed at: ??01 - [address] ??[id number] Supervisor [employer]: Baldomero Mack MD, Phone: ??[phone] Shravan Quinteros MD LAB - CHEMISTRY LAURA AVILA Performing Organization Address [facility] Co de Phone Number [facility] ([facility]) [address] [place] [address] * (ABNORMAL) COMPREHENSIVE METABOLIC PANEL (01/29/2018 10:58 AM CDT) [facility] Glucose 86 74 - 106 mg/dL 01/29/2018 1:06 PM CDT [facility] Sodium 141 136 - 145 mmol/L 01/29/2018 1:06 PM CDT [facility] Potassium 3.9 3.5 - 5.1 mmol/L 01/29/2018 1:06 PM CDT [facility] Chloride 104 98 - 107 mmol/L 01/29/2018 1:06 PM CDT [facility] CO2 30 22 - 31 mmol/L 01/29/2018 1:06 PM CDT [facility] Calcium 9.7 8.5 - 10.1 mg/dL 01/29/2018 1:06 PM CDT [facility] Anion Gap 7(L) 8 - 16 mmol/L 01/29/2018 1:06 PM CDT [facility] BUN 22(H) 7 - 21 mg/dL 01/29/2018 1:06 PM CDT [facility] Creatinine 1.20 0.50 - 1.30 mg/dL 01/29/2018 1:06 PM CDT [facility] Alkaline Phosphatase 65 38 - 126 U/L 01/29/2018 1:06 PM CDT [facility] ALT 48 13 - 61 U/L 01/29/2018 1:06 PM CDT [facility] AST 21 5 - 40 U/L 01/29/2018 1:06 PM CDT [facility] Protein Total 7.9 6.4 - 8.2 gm/dL 01/29/2018 1:06 PM CDT [facility] Albumin 4.0 3.4 - 5.0 gm/dL 01/29/2018 1:06 PM CDT [facility] Bilirubin Total 0.9 0.2 - 1.0 mg/dL 01/29/2018 1:06 PM CDT [facility] eGFR by MDRD >60 >60 mL/min/1.7 3m2 01/29/2018 1:06 PM CDT [facility] eGFR by MDRD >60 >60 mL/min/1.7 3m2 01/29/2018 1:06 PM CDT [facility] Blood BLOOD SPECIMEN / Unknown Venipuncture / Unknown 01/29/2018 10:58 AM CDT 01/29/2018 12:40 PM CDT Shravan Quinteros MD LAB - CHEMISTRY LAURA AIVLA [facility] Organization Address City/State/ZIP Co de Phone Number [facility] [address] [place] [address] * CBC W AUTO DIFFERENTIAL (01/29/2018 10:58 AM CDT) WBC 8.2 4.4 - 10.7 x10E9/L 01/29/2018 12:46 PM CDT [facility] WBC Corrected x10E9/L 01/29/2018 12:46 PM CDT [facility] RBC 4.93 3.80 - 5.40 x10E12/L 01/29/2018 12:46 PM CDT [facility] Hemoglobin 15.0 12.0 - 17.6 gm/dL 01/29/2018 12:46 PM CDT [facility] Hematocrit 44.2 35.2 - 51.7 % 01/29/2018 12:46 PM CDT [facility] MCV 89.7 80.7 - 98.3 fl 01/29/2018 12:46 PM CDT [facility] MCH 30.4 26.7 - 34.0 pg 01/29/2018 12:46 PM CDT [facility] MCHC 33.9 30.8 - 35.9 gm/dL 01/29/2018 12:46 PM CDT [facility] Platelet Count 225 153 - 416 x10E9/L 01/29/2018 12:46 PM CDT [facility] RDW-CV 12.4 12.1 - 14.9 % 01/29/2018 12:46 PM CDT [facility] MPV 11.2 9.4 - 12.9 fl 01/29/2018 12:46 PM CDT [facility] Neutrophils % 51.1 44.0 - 73.0 % 01/29/2018 12:46 PM CDT [facility] Lymphocytes % 38.0 20.0 - 43.0 % 01/29/2018 12:46 PM CDT [facility] Monocytes % 8.0 5.0 - 13.0 % 01/29/2018 12:46 PM CDT [facility] Eosinophils % 2.1 0.0 - 6.0 % 01/29/2018 12:46 PM CDT [facility] Basophils % 0.6 0.0 - 2.0 % 01/29/2018 12:46 PM CDT [facility] Immature Granulocytes 0.2 0 - 1 % 01/29/2018 12:46 PM CDT [facility] Neutrophil Absolute 4.17 2.01 - 7.14 x10E9/L 01/29/2018 12:46 PM CDT [facility] Lymphocytes Absolute 3.10 1.07 - 3.94 x10E9/L 01/29/2018 12:46 PM CDT [facility] Monocytes Absolute 0.65 0.26 - 1.07 x10E9/L 01/29/2018 12:46 PM CDT [facility] Eosinophils Absolute 0.17 0 - 0.47 x10E9/L 01/29/2018 12:46 PM CDT [facility] Basophils Absolute 0.05 0 - 0.08 x10E9/L 01/29/2018 12:46 PM CDT [facility] Immature Granulocytes Absolute 0.02 0.00 - 0.06 x10E9/L 01/29/2018 12:46 PM CDT [facility] nRBC Auto 0 /100 WBC 01/29/2018 12:46 PM CDT [facility] Blood BLOOD SPECIMEN / Unknown Venipuncture / Unknown 01/29/2018 10:58 AM CDT 01/29/2018 12:40 PM CDT Shravan Quinteros MD LAB - HEMATOLOGY ORD ERABLES Performing Organization Address City/State/[facility] Co de Phone Number [facility] [address] [place] [address] documented in this encounter Visit Diagnoses Diagnosis Preop examination- Primary Preoperative examination, unspecified documented in this encounter
--- OUTSIDE RECORDS SUMMARY | 2024-10-07 04:42 | XMS_ITS | Referral Summary ---
Author Organization [facility] Address [address] [place] [address] Care Team Providers Care Audio/Video Engineer Name Role Phone Gerald Coronado MD Primary Care Provider Source Comments [facility],non-owned Affiliates and Associated Physician Practices is amultiple site organization consisting of ambulatory clinics and hospital sitesin [place], [place], [place] and [place]. This disclosure is being madepursuant to the Care Everywhere program and may not contain all information available regarding this patient. 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 No 02/13/2018 Plan of Treatment Not on file Procedures Procedure Name Priority Date/Time Associated Diagnosis Comments BASIC METABOLIC PANEL (CALCIUM TOTAL) AM Draw 02/15/2018 5:10 AM CDT from Last 3 Months or Most Recently Relevant to Health Maintenance Results * (ABNORMAL) BASIC METABOLIC PANEL (CALCIUM TOTAL) (02/15/2018 5:10 AM CDT) [facility] Glucose 107(H) 74 - 106 mg/dL 02/15/2018 5:42 AM CDT [facility] Sodium 141 136 - 145 mmol/L 02/15/2018 5:42 AM CDT [facility] Potassium 4.1 3.5 - 5.1 mmol/L 02/15/2018 5:42 AM CDT [facility] Chloride 105 98 - 107 mmol/L 02/15/2018 5:42 AM CDT [facility] CO2 29 22 - 31 mmol/L 02/15/2018 5:42 AM CDT [facility] Calcium 8.5 8.5 - 10.1 mg/dL 02/15/2018 5:42 AM CDT [facility] Anion Gap 7(L) 8 - 16 mmol/L 02/15/2018 5:42 AM CDT [facility] BUN 14 7 - 21 mg/dL 02/15/2018 5:42 AM CDT [facility] Creatinine 1.00 0.50 - 1.30 mg/dL 02/15/2018 5:42 AM CDT [facility] eGFR by MDRD >60 >60 mL/min/1.7 3m2 02/15/2018 5:42 AM CDT [facility] eGFR by MDRD >60 >60 mL/min/1.7 3m2 02/15/2018 5:42 AM CDT [facility] Blood BLOOD SPECIMEN / Unknown Venipuncture / Unknown 02/15/2018 5:10 AM CDT 02/15/2018 5:24 AM CDT Shravan Quinteros MD LAB - CHEMISTRY LAURA AVILA [facility] Organization Address City/State/ZIP Co de Phone Number [facility] [address] [place] [address] from Last 3 Months or Most Recently Relevant to Health Maintenance Advance Directives * Full Code (Latest Code Status on File) Date Activated Date Inactivated Comments 02/13/2018 8:46 PM 02/15/2018 1:20 PM Care Teams Audio/Video Engineer Relationship Specialty Start Date End Date Gerald Coronado MD [address] [place] [address] PCP - General 06/21/21
--- OUTSIDE RECORDS SUMMARY | 2024-10-07 04:42 | XMS_ITS | Patient Health Summary ---
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 This disclosure is being madepursuant to the Care Everywhere program and may not contain all information available regarding this patient. Last updated 18.[facility] Allergies No known active allergies Medications * Be aware that medications may not be up to date on this document. Alwaysverify current medications with the patient. * Verapamil HCl CR 360 MG(Started 08/27/2017) Take 360 mg by mouth once daily 6 refills left * divalproex DR (DEPAKOTE) 250 MG tablet(Started 08/27/2017) Take 250 mg by mouth 2 times daily * ALPRAZolam (XANAX) 0.25 MG tablet(Started 06/06/2017) Take 0.25 mg by mouth as needed (Only takes when flying) 2 refills left * SUMAtriptan Succinate 6 MG/0.5ML(Started 06/06/2017) INJECT 1 CARTRIDGE NEEDED FOR MIGRAINE. MAY REPEAT IN 1 HOUR IF NEEDED. MAX 2/24 HOURS 3 refills left * Multiple Vitamin (MULTI VITAMIN PO) Take 1 tablet by mouth once daily * magnesium 500 MG tablet Take 500 mg by mouth once daily * pyridoxine (VITAMIN B-6) 100 MG tablet Take 100 mg by mouth once daily * [place]-3 Fatty Acids (FISH OIL PO) Take 1,000 mg by mouth once daily * HYDROcodone-acetaminophen 7.5-325 MG/15ML solution(Started 02/14/2018) Take 10 mL by mouth every 4 hours as needed for Pain * senna-docusate (SENOKOT-S) 8.6-50 MG tablet(Started 02/14/2018) Take 1 tablet by mouth 2 times daily * pantoprazole EC (PROTONIX) 40 MG tablet Take 40 mg by mouth once daily * cyclobenzaprine (FLEXERIL) 10 MG tablet(Started 02/20/2018) Take 1 tablet by mouth 3 times daily as needed for Muscle Spasms Active Problems Problem Noted Date Diagnosed Date [...] Comments Blood Pressure 119/76 10/02/2018 10:34 AM [facility] Pulse 96 10/02/2018 10:34 AM [facility] Temperature 36.4 ??C (97.5 ??F) 02/15/2018 1 0:53 AM CDT Respiratory Rate 18 02/15/2018 10:5 3 AM CDT Oxygen Saturation 97% 02/15/2018 10: 53 AM CDT Inhaled Oxygen Concentration - - Weight 117.4 kg (258 lb 12.8 oz) 2017 10:34 AM [facility] Height 177.8 cm (5' 10 ) 10/02/2018 10: 34 AM [facility] Body Mass Index 37.13 10/02/2018 10:34 AM [facility] Procedures * VITAMIN B1 PLASMA(Performed 10/17/2018) * PTH INTACT(Performed 10/17/2018) Performed for Bariatric surgery status, Class 2 obesity with body mass index (BMI) of 37.0 to 37.9 in adult, unspecified obesity type, unspecified whether serious comorbidity present, Vitamin deficiency, Mineral deficiency, Vitamin D deficiency, Intestinal malabsorption, unspecified type (HCC) * MAGNESIUM BLOOD(Performed 10/17/2018) Performed for Bariatric surgery status, Class 2 obesity with body mass index (BMI) of 37.0 to 37.9 in adult, unspecified obesity type, unspecified whether serious comorbidity present, Vitamin deficiency, Mineral deficiency, Vitamin D deficiency, Intestinal malabsorption, unspecified type (HCC) * IRON BLOOD(Performed 10/17/2018) Performed for Bariatric surgery status, Class 2 obesity with body mass index (BMI) of 37.0 to 37.9 in adult, unspecified obesity type, unspecified whether serious comorbidity present, Vitamin deficiency, Mineral deficiency, Vitamin D deficiency, Intestinal malabsorption, unspecified type (HCC) * FOLATE RBC(Performed 10/17/2018) Performed for Bariatric surgery status, Class 2 obesity with body mass index (BMI) of 37.0 to 37.9 in adult, unspecified obesity type, unspecified whether serious comorbidity present, Vitamin deficiency, Mineral deficiency, Vitamin D deficiency, Intestinal malabsorption, unspecified type (HCC) * FERRITIN(Performed 10/17/2018) Performed for Bariatric surgery status, Class 2 obesity with body mass index (BMI) of 37.0 to 37.9 in adult, unspecified obesity type, unspecified whether serious comorbidity present, Vitamin deficiency, Mineral deficiency, Vitamin D deficiency, Intestinal malabsorption, unspecified type (HCC) * COPPER BLOOD(Performed 10/17/2018) Performed for Bariatric surgery status, Class 2 obesity with body mass index (BMI) of 37.0 to 37.9 in adult, unspecified obesity type, unspecified whether serious comorbidity present, Vitamin deficiency, Mineral deficiency, Vitamin D deficiency, Intestinal malabsorption, unspecified type (HCC) * MAGNESIUM BLOOD(Performed 02/15/2018) * PHOSPHORUS BLOOD(Performed 02/15/2018) * CBC W AUTO DIFFERENTIAL(Performed 02/15/2018) * BASIC METABOLIC PANEL (CALCIUM TOTAL)(Performed 02/15/2018) * HGB HCT PANEL(Performed 02/14/2018) * FL FLUORO UPPER GI TRACT + KUB(Performed 02/14/2018) Performed for H/O gastric bypass * VITAMIN D 25-HYDROXY(Performed 02/14/2018) * CBC W AUTO DIFFERENTIAL(Performed 02/14/2018) * BASIC METABOLIC PANEL (CALCIUM TOTAL)(Performed 02/14/2018) * HOME CPAP/BIPAP FOR HOSP USE: NOCTURNAL 02(Performed 02/14/2018) * GLUCOSE - POINT OF CARE(Performed 02/13/2018) * LAPAROSCOPIC GASTRIC BYPASS(Performed 02/13/2018) * HOME CPAP/BIPAP FOR HOSP USE: NOCTURNAL 02(Performed 02/13/2018) * HOME CPAP/BIPAP FOR HOSP USE: NOCTURNAL 02(Performed 02/13/2018) * POTASSIUM BLOOD(Performed 02/13/2018) Performed for Preop examination * VITAMIN B12(Performed 01/29/2018) Performed for Preop examination * VITAMIN B1(Performed 01/29/2018) Performed for Preop examination * COMPREHENSIVE METABOLIC PANEL(Performed 01/29/2018) Performed for Preop examination * CBC W AUTO DIFFERENTIAL(Performed 01/29/2018) Performed for Preop examination * ENDOTRACHEAL TUBE NOTE(Performed 10/03/2017) * LAPAROSCOPIC REMOVAL/REPLACEMENT GASTRIC BAND(Performed 10/03/2017) * EKG 12-LEAD(Performed 10/03/2017) Performed for Pre-op testing * BASIC METABOLIC PANEL (CALCIUM TOTAL)(Performed 10/03/2017) Performed for Pre-op testing * PATHOLOGY TISSUE EXAM (STL)(Performed 09/20/2017) Performed for Diagnosis unknown * EGD(Performed 09/20/2017) * HELICOBACTER PYLORI UREASE (STL)(Performed 09/20/2017) Performed for Diagnosis unknown * ESOPHAGOSCOPY/ESOPHAGOGASTRODUODENOSCOPY WITH DILATION(Performed 09/20/2017) Results * VITAMIN B1 PLASMA (10/17/2018 8:30 AM [facility]) Vitamin B1 16 8 - 30 nmol/L [facility] Comment: Vitamin supplementation within 24 hours prior to blood draw may affect the accuracy of results. This test was developed and its analytical performance characteristics have been determined by [facility]. It has not been cleared or approved by FDA. This assay has been validated pursuant to the CLIA regulations and is used for clinical purposes. Test Performed at: [facility] [address] ??[id number] DEEPAK VEGA MD,PHD 10/17/2018 8:30 AM [facility] 10/18/2018 3:48 AM [facility] Ira Navarrete STEAM PRESS OPERATOR-CREDIT COLLECTIONS SPECIALIST LAB - JOEY CLAUS ORDERABLES [facility] [address] [place] [address] * PTH INTACT (10/17/2018 8:30 AM [facility]) PTH Intact TNP pg/mL [facility] Comment: * Test not performed. ?* * No suitable specimen received. * Test Performed at: [facility] [address] [place] ??[id number] NACHO CASTLE DO,MPH Blood BLOOD SPECIMEN / Unknown 10/17/2018 8:30 AM [facility] 10/18/2018 3:48 AM [facility] Ira Cindy Navarrete STEAM PRESS OPERATOR-CREDIT COLLECTIONS SPECIALIST LAB - JOEY CLAUS ORDERABLES Performing Organization Address [facility] de Phone Number [facility] [phone] [place] [address] * COPPER BLOOD (10/17/2018 8:30 AM [facility]) Pathologist [facility] Copper 127 70 - 175 mcg/dL [facility] Comment: This test was developed and its analytical performance characteristics have been determined by [facility]. It has not been cleared or approved by the US Food and Drug Administration. This assay has been validated pursuant to the CLIA regulations and is used for clinical purposes. Test Performed at: [facility] [address] [place], [place] ??[id number] DEEPAK VEGA MD,PHD Blood BLOOD SPECIMEN / Unknown 10/17/2018 8:30 AM [facility] 10/18/2018 3:48 AM [facility] Ira Parrishchantel Navarrete STEAM PRESS OPERATOR-CREDIT COLLECTIONS SPECIALIST LAB - JOEY CLAUS ORDERABLES Performing Organization Address [facility] Co de Phone Number [facility] [phone] [place] [address] * FOLATE RBC (10/17/2018 8:30 AM [facility]) Folate RBC 557 >280 ng/mL RBC [facility] Comment: Test Performed at: [place] ??[phone] NACHO CASTLE DO,MPH Blood BLOOD SPECIMEN / Unknown 10/17/2018 8:30 AM [facility] 10/18/2018 3:48 AM [facility] Ira White Rosalba STEAM PRESS OPERATOR-CREDIT COLLECTIONS SPECIALIST LAB - JOEY CLAUS ORDERABLES Performing Organization Address [facility] Co de Phone Number [facility] [phone] [place] [address] * MAGNESIUM BLOOD (10/17/2018 8:30 AM [facility]) Only the most recent of2 resultswithin the time period is included. Magnesium 2.2 1.5 - 2.5 mg/dL [facility] Comment: Test Performed at: [place] ??[phone] NACHO CASTLE DO,MPH Blood BLOOD SPECIMEN / Unknown 10/17/2018 8:30 AM [facility] 10/18/2018 3:48 AM [facility] Ira White Rosalba STEAM PRESS OPERATOR-CREDIT COLLECTIONS SPECIALIST LAB - JOEY CLAUS ORDERABLES Performing Organization Address [facility] Co de Phone Number [facility] [phone] [place] [address] * IRON BLOOD (10/17/2018 8:30 AM [facility]) Iron 137 50 - 180 mcg/dL [facility] Comment: Test Performed at: [place] ??[phone] NACHO CASTLE DO,MPH Blood BLOOD SPECIMEN / Unknown 10/17/2018 8:30 AM [facility] 10/18/2018 3:48 AM [facility] Ira White Rosalba STEAM PRESS OPERATOR-CREDIT COLLECTIONS SPECIALIST LAB - JOEY CLAUS ORDERABLES Performing Organization Address City/[facility] Co de Phone Number [facility] [phone] [place] [address] * FERRITIN (10/17/2018 8:30 AM [facility]) Pathologist [facility] Ferritin 45 20 - 380 ng/mL [facility] Comment: Test Performed at: [facility] [address] [place] ??[phone] NACHO CASTLE DO,MPH Blood BLOOD SPECIMEN / Unknown 10/17/2018 8:30 AM [facility] 10/18/2018 3:48 AM [facility] Ira White Rosalba STEAM PRESS OPERATOR-CREDIT COLLECTIONS SPECIALIST LAB - JOEY CLAUS ORDERABLES [facility] [address] [place] [address] * CBC W AUTO DIFFERENTIAL (02/15/2018 5:10 AM CDT) Only the most recent of3 resultswithin the time period is included. Pathologist [facility] WBC 8.2 4.4 - 10.7 x10E9/L 02/15/2018 5:35 AM CDT [facility] WBC Corrected x10E9/L 02/15/2018 5:35 AM CDT [facility] RBC 4.43 3.80 - 5.40 x10E12/L 02/15/2018 5:35 AM CDT [facility] Hemoglobin 13.4 12.0 - 17.6 gm/dL 02/15/2018 5:35 AM CDT [facility] Hematocrit 39.4 35.2 - 51.7 % 02/15/2018 5:35 AM CDT [facility] MCV 88.9 80.7 - 98.3 fl 02/15/2018 5:35 AM CDT [facility] MCH 30.2 26.7 - 34.0 pg 02/15/2018 5:35 AM CDT [facility] MCHC 34.0 30.8 - 35.9 gm/dL 02/15/2018 5:35 AM CDT [facility] Platelet Count 194 153 - 416 x10E9/L 02/15/2018 5:35 AM CDT [facility] RDW-CV 12.3 12.1 - 14.9 % 02/15/2018 5:35 AM CDT [facility] MPV 11.4 9.4 - 12.9 fl 02/15/2018 5:35 AM CDT [facility] Neutrophils % 64.6 44.0 - 73.0 % 02/15/2018 5:35 AM CDT [facility] Lymphocytes % 22.0 20.0 - 43.0 % 02/15/2018 5:35 AM CDT [facility] Monocytes % 9.4 5.0 - 13.0 % 02/15/2018 5:35 AM CDT [facility] Eosinophils % 3.4 0.0 - 6.0 % 02/15/2018 5:35 AM CDT [facility] Basophils % 0.4 0.0 - 2.0 % 02/15/2018 5:35 AM CDT [facility] Immature Granulocytes 0.2 0 - 1 % 02/15/2018 5:35 AM CDT [facility] Neutrophil Absolute 5.26 2.01 - 7.14 x10E9/L 02/15/2018 5:35 AM CDT [facility] Lymphocytes Absolute 1.79 1.07 - 3.94 x10E9/L 02/15/2018 5:35 AM CDT [facility] Monocytes Absolute 0.77 0.26 - 1.07 x10E9/L 02/15/2018 5:35 AM CDT [facility] Eosinophils Absolute 0.28 0 - 0.47 x10E9/L 02/15/2018 5:35 AM CDT [facility] Basophils Absolute 0.03 0 - 0.08 x10E9/L 02/15/2018 5:35 AM CDT [facility] Immature Granulocytes Absolute 0.02 0.00 - 0.06 x10E9/L 02/15/2018 5:35 AM CDT [facility] nRBC Auto 0 /100 WBC 02/15/2018 5:35 AM CDT [facility] Blood BLOOD SPECIMEN / Unknown Venipuncture / Unknown 02/15/2018 5:10 AM CDT 02/15/2018 5:23 AM CDT Shravan Quinteros MD LAB - HEMATOLOGY ORD ERABLES [facility] [address] [place] [address] * (ABNORMAL) BASIC METABOLIC PANEL (CALCIUM TOTAL) (02/15/2018 5:10 AM CDT) Only the most recent of3 resultswithin the time period is included. Glucose 107(H) 74 - 106 mg/dL 02/15/2018 5:42 AM CDT [facility] Sodium 141 136 - 145 mmol/L 02/15/2018 5:42 AM CDT [facility] Potassium 4.1 3.5 - 5.1 mmol/L 02/15/2018 5:42 AM CDT [facility] Chloride 105 98 - 107 mmol/L 02/15/2018 5:42 AM CDT [facility] CO2 29 22 - 31 mmol/L 02/15/2018 5:42 AM CDT [facility] Calcium 8.5 8.5 - 10.1 mg/dL 02/15/2018 5:42 AM CDT [facility] Anion Gap 7(L) 8 - 16 mmol/L 02/15/2018 5:42 AM CDT [facility] BUN 14 7 - 21 mg/dL 02/15/2018 5:42 AM CDT [facility] Creatinine 1.00 0.50 - 1.30 mg/dL 02/15/2018 5:42 AM CDT [facility] eGFR by MDRD >60 >60 mL/min/1.7 3m2 02/15/2018 5:42 AM CDT [facility] eGFR by MDRD >60 >60 mL/min/1.7 3m2 02/15/2018 5:42 AM CDT [facility] Blood BLOOD SPECIMEN / Unknown Venipuncture / Unknown 02/15/2018 5:10 AM CDT 02/15/2018 5:24 AM CDT Shravan Quinteros MD LAB - CHEMISTRY LAURA AVILA [facility] [address] [place] [address] * PHOSPHORUS BLOOD (02/15/2018 5:10 AM CDT) Phosphorus 2.5 2.5 - 4.9 mg/dL 02/15/2018 5:42 AM CDT [facility] Blood BLOOD SPECIMEN / Unknown Venipuncture / Unknown 02/15/2018 5:10 AM CDT 02/15/2018 5:24 AM CDT Shan Owen MD LAB - CHEMISTRY ORDChantel AVILA Performing Organization Address [facility]/ZIP Co de Phone Number [facility] [address] [place] [address] * HGB HCT PANEL (02/14/2018 1:16 PM CDT) Pathologist [facility] Hemoglobin 13.3 12.0 - 17.6 gm/dL 02/14/2018 1:22 PM CDT [facility] Hematocrit 37.7 35.2 - 51.7 % 02/14/2018 1:22 PM CDT [facility] Blood BLOOD SPECIMEN / Unknown Venipuncture / Unknown 02/14/2018 1:16 PM CDT 02/14/2018 1:20 PM CDT Ira Cindy Navarrete STEAM PRESS OPERATOR-CREDIT COLLECTIONS SPECIALIST LAB - HEM ATOLOGY ORDERABLES Performing Organization Address [facility] Co de Phone Number [facility] [address] [place] [address] * FL FLUORO UPPER GI TRACT + KUB (02/14/2018 11:58 AM CDT) Anatomical Region Laterality Modality Abdomen Radiographic Tish ging 02/14/2018 2:36 PM CDT Impressions 02/14/2018 2:37 PM CDT No evidence of ??leak or obstruction. Narrative 02/14/2018 2:37 PM CDT Fluoroscopic upper GI with KUB Indication: Morbid obesity, status post Cortez-en-Y gastric bypass surgery, gastric leak. Findings: Multiple fluoroscopic images of the upper GI tract were obtained following ingestion of water-soluble oral contrast media. There is no evidence of leak. There is prompt emptying into the jejunal anastomosis. The total fluoroscopy time was 41 seconds. 2 fluoroscopic images were obtained. Cineradiography was also performed. Procedure Note Dolores Wallace MD - 02/14/2018 Fluoroscopic upper GI with KUB Indication: Morbid obesity, status post Cortez-en-Y gastric bypass surgery, gastric leak. Findings: Multiple fluoroscopic images of the upper GI tract were obtained following ingestion of water-soluble oral contrast media. There is no evidence of leak. There is prompt emptying into the jejunal anastomosis. The total fluoroscopy time was 41 seconds. 2 fluoroscopic images were obtained. Cineradiography was also performed. IMPRESSION No evidence of leak or obstruction. Shravan Quinteros MD FLUOROSCOPY ORDERABL ES * VITAMIN D 25-HYDROXY (02/14/2018 6:02 AM CDT) Pathologist [facility] Vitamin D, 25 Hydroxy 36.34 30 - 100 ng/mL 02/14/2018 10:19 AM CDT [facility] Blood BLOOD SPECIMEN / Unknown Venipuncture / Unknown 02/14/2018 6:02 AM CDT 02/14/2018 6:09 AM CDT Narrative [facility] - 02/14/2018 10:19 AM CDT Vitamin D Status: ?Deficiency ? <20 ? ng/mL ?Insufficiency ?? 20-30 ??ng/mL ?Sufficiency ? 30-100 ng/mL ?Toxicity ? >100 ?ng/mL Shravan Quinteros MD LAB - CHEMISTRY [place]el [facility] Performing Organization Address City/State/[facility] Co de Phone Number [facility] [address] [place] [address] * GLUCOSE - POINT OF CARE (02/13/2018 4:18 PM CDT) [facility] Glucose WB/POC 98 70 - 106 mg/dL 02/14/2018 7:46 AM CDT [facility] Blood BLOOD SPECIMEN / Unknown 02/13/2018 4:18 PM CDT 02/14/2018 7:46 AM CDT Shravan Quinteros MD LAB - POINT OF CARE ORDERABLES Performing Organization Address City/[facility]/ZIP Co de Phone Number [facility] [address] [place] [address] * POTASSIUM BLOOD (02/13/2018 10:36 AM CDT) [facility] Potassium 4.1 3.5 - 5.1 mmol/L 02/13/2018 11:13 AM CDT [facility] Blood BLOOD SPECIMEN / Unknown Venipuncture / Unknown 02/13/2018 10:36 AM CDT 02/13/2018 10:56 AM CDT Jojo Gaytan DO LAB - CHEMISTRY LAURA AVILA Performing Organization Address [facility] Co de Phone Number [facility] [address] [place] [address] * VITAMIN B1 (01/29/2018 10:58 AM CDT) [facility] Vitamin B1 Whole Blood 171.3 66.5 - 200.0 nmol/L 02/01/2018 4:15 AM CDT [facility] ([facility]) Comment: This test was developed and its performance characteristics determined by [facility]. It has not been cleared or approved by the Food and Drug Administration. Blood BLOOD SPECIMEN / Unknown Venipuncture / Unknown 01/29/2018 10:58 AM CDT 01/29/2018 12:41 PM CDT Narrative [facility] ([facility]) - 02/01/2018 4:15 AM CDT Performed at: ??01 - [facility] ??[id number] [facility] Specialist: Nacho Mack MD, Phone: ??[phone] Shravan Quinteros MD LAB - CHEMISTRY LAURA AVILA Performing Organization Address City/[facility] Co de Phone Number [facility] ([facility]) [address] [place] [address] * (ABNORMAL) COMPREHENSIVE METABOLIC PANEL (01/29/2018 10:58 AM CDT) [facility] Glucose 86 74 - 106 mg/dL 01/29/2018 1:06 PM CDT [facility] Sodium 141 136 - 145 mmol/L 01/29/2018 1:06 PM CDT [facility] Potassium 3.9 3.5 - 5.1 mmol/L 01/29/2018 1:06 PM CDT [facility] Chloride 104 98 - 107 mmol/L 01/29/2018 1:06 PM CDT [facility] CO2 30 22 - 31 mmol/L 01/29/2018 1:06 PM CDT [facility] Calcium 9.7 8.5 - 10.1 mg/dL 01/29/2018 1:06 PM [facility] Anion Gap 7(L) 8 - 16 mmol/L 01/29/2018 1:06 PM T [facility] BUN 22(H) 7 - 21 mg/dL 01/29/2018 1:06 PM CDT [facility] Creatinine 1.20 0.50 - 1.30 mg/dL 01/29/2018 1:06 PM [facility] Alkaline Phosphatase 65 38 - 126 U/L 01/29/2018 1:06 PM CDT [facility] ALT 48 13 - 61 U/L 01/29/2018 1:06 PM T [facility] AST 21 5 - 40 U/L 01/29/2018 1:06 PM T [facility] Protein Total 7.9 6.4 - 8.2 gm/dL 01/29/2018 1:06 PM T [facility] Albumin 4.0 3.4 - 5.0 gm/dL 01/29/2018 1:06 PM T [facility] Bilirubin Total 0.9 0.2 - 1.0 mg/dL 01/29/2018 1:06 PM CDT [facility] eGFR by MDRD >60 >60 mL/min/1.7 3m2 01/29/2018 1:06 PM T [facility] eGFR by MDRD >60 >60 mL/min/1.7 3m2 01/29/2018 1:06 PM [facility] Blood BLOOD SPECIMEN / Unknown Venipuncture / Unknown 01/29/2018 10:58 AM CDT 01/29/2018 12:40 PM CDT Shravan Quinteros MD LAB - CHEMISTRY LAURA AVILA [facility] Organization Address City/State/ZIP Co de Phone Number [facility] [address] [place] [address] * VITAMIN B12 (01/29/2018 10:58 AM CDT) Vitamin B12 649 211 - 911 pg/mL 01/29/2018 1:29 PM CDT [facility] Blood BLOOD SPECIMEN / Unknown Venipuncture / Unknown 01/29/2018 10:58 AM CDT 01/29/2018 12:40 PM CDT Shravan Quinteros MD LAB - CHEMISTRY LAURA AVILA Performing Organization Address [facility] de Phone Number [facility] [address] [place] [address] * EKG 12-LEAD (10/03/2017 7:36 AM [facility]) Ventricular Rate 75 BPM [facility] Atrial Rate 75 BPM [facility] P-R Interval 178 ms [facility] QRS Duration ms 112 ms [facility] Q-T Interval ms 376 ms [facility] QTC Calculation (Bezet) 419 ms [facility] Calculated P [place] 3 degrees [facility] Calculated R [place] -24 degrees [facility] Calculated T [place] 10 degrees [facility] Interpretation EKG Normal sinus rhythm Normal ECG No previous ECGs available Confirmed by ELISABETH THOMPSON, [facility] ([id number]) on 10/04/2017 12:10:30 PM [facility] 10/03/2017 7:36 AM [facility] 10/04/2017 12:10 PM [facility] Jojo Gaytan DO ECG ORDERABLES Performing Organization Address [facility] Co de Phone Number [facility] MUSE * GROSS + MICRO EXAM (STL) (09/20/2017 8:28 AM [facility]) Case Report Surgical Pathology Report ? Case: [id number] ? Authorizing Provider: ??Shravan Quinteros MD ?Collected: ? 09/20/2017 08:28 AM ? Ordering Location: ? [facility]OSCOPY [facility] ?Received: ?09/20/2017 09:08 AM ? Pathologist: ? Jermaine Liz MD ? Specimens: ?? A) - Antrum Biopsy ? B) - Esophageal Biopsy, Z line ? 09/21/2017 3:22 PM [facility] Final Diagnosis 1. Gastric endoscopic biopsy: -- No significant abnormality 2. Esophagus, endoscopic biopsy: -- Acute and chronic esophagitis, moderate -- Negative for dysplasia -- No fungal organisms detected AB/na 09/21/2017 3:22 PM [facility] Gross Description The specimens are received fixed in formalin in 2 containers. Both containers are labeled with the patient's name, Jorge Cotter. Specimen A, antrum biopsy consists of 1 soft pink-babin tissue fragment measuring 0.3 cm in greatest dimension The specimen is submitted in toto in cassette A1. Specimen B, esophageal Z line biopsy consists of 1 soft pink-babin tissue fragment measuring 0.5 cm in greatest dimension The specimen is submitted in toto in cassette B1. /vishnu 09/21/2017 3:22 PM [facility] Microscopic Description The gastric biopsy shows gastric body mucosa without significant inflammation. There are no goblet cells and no dysplasia is seen. The H. Pylori immunostain is negative for microorganisms. The esophageal biopsy consists of acanthotic and inflamed squamous mucosa. No columnar mucosa is seen or detected by PAS-Alcian Blue stain. The inflammation is acute and chronic and moderate. Intraepithelial eosinophils are not seen. No convincing dysplasia is found. There are no viral cytopathic changes. The fungal stain is negative for microorganisms. Focally, there appears to be some ulcer exudate although the mucosal fragments themselves in the biopsy do not appear to be ulcerated. AB/na 09/21/2017 3:22 PM [facility] Disclaimer All histochemical and/or immunohistochemical results are interpreted with controls that demonstrate appropriate staining reactions before reporting results. Note on use of immunocytochemistry reagents: This test was developed and its performance characteristic determined by [facility], Department of Laboratory Medicine. It has not been cleared or approved by the U.S. Food and Drug Administration (FDA). The FDA has determined that such clearance or approval is not necessary. The test is used for clinical purpose. It should not be regarded as investigational or for research. This laboratory is certified to perform high complexity testing. 09/21/2017 3:22 PM [facility] Embedded Images 09/21/2017 3:22 PM [facility] Pathology/Cytology GASTRIC ANTRAL BIOPSY SPECIMEN / Unknown 09/20/2017 8:28 AM [facility] 09/20/2017 9:08 AM [facility] Miscellaneous samples (specimen) ESOPHAGEAL BIOPSY SPECIMEN / Unknown 09/20/2017 8:28 AM [facility] 09/20/2017 9:08 AM [facility] Shravan Quinteros MD LAB - PATHOLOGY/CYTO LOGY ORDERABLES [facility] [address] [place] [address] * EGD (09/20/2017 8:27 AM [facility]) Narrative [facility] ENDOSCOPY - 09/20/2017 8:27 AM [facility] Shravan Quinteros MD ? 09/20/2017 ??8:27 AM [facility] Operative Report OPERATIVE REPORT PATIENT:Jorge Cotter MR#: ADMIT DATE: 09/20/2017 ??7:06 AM [facility]#: DATE OF SURGERY: 09/20/2017 : 1975 PHYSICIAN: Shravan Quinteros MD 42 yrs Body mass index is 41.7 kg/(m^2). PREOPERATIVE DIAGNOSES: Dysphagia n/v POSTOPERATIVE DIAGNOSES: SAME Gastric band prolapse LA grade A esophagitis gastritis Surgeon: Shravan Quinteros MD PAD MACHINE FEEDER: none PROCEDURES PERFORMED: Esophagogastroduodenoscopy w/ biopsy of antrum and Z line ANESTHESIA: MAC by anesthesia department PROCEDURE: The patient was brought to the GI suite and placed in standard position. MAC anesthesia was administered. The gastroscope was inserted into the oral pharynx and passed through the upper esophagus then advanced to the GE junction and into the stomach pouch. The Z line was identified at 40 cm. There was no hiatal hernia present. The scope was further advanced through the pylorus into the second portion of the duodenum. The scope was then brought back into the stomach which was thoroughly inspected showing mild gastritis. Biopsies were taken for ??JUVENTINO testing and ?? H and E. The scope was then retroflexed. The band was visualized. There was no erosion present. The scope was then brought back to the level of the GE junction above the band. The GE junction also was examined. There was LA grade A evidence of inflammatory changes and biopsy taken. The distal esophagus showed no dilation present. The stomach above the band was inspected. There was moderate slip/prolapse present with tight os to band. There were 5 cm of stomach above the uppermost aspect of the band. The gastroscope was withdrawn examining the esophagus during removal. The patient tolerated the procedure well and was taken to recovery room in stable condition. COMPLICATIONS: None. Plan: unfill now. Proceed with verification of insurance coverage for band removal and then LRYGB after 3 monts Shravan Quinteros MD ?? Shravan Quinteros MD GI PROCEDURE ORDERAB LES [facility] [place] [address] * HELICOBACTER PYLORI UREASE (STL) (09/20/2017 8:25 AM [facility]) Helicobacter pylori Urease Initial Negative Negative 09/21/2017 5:41 PM [facility] Helicobacter pylori Urease Final Negative Negative 09/21/2017 5:41 PM [facility] Comment:This is an appended report. These results have been appended to a previously preliminary verified report. 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
--- OUTSIDE RECORDS SUMMARY | 2024-10-07 04:42 | XMS_ITS | Encounter Summary ---
Author Organization [facility] Address [address] [place] [address] Care Team Providers Care Cat Cracker Operator Name Role Phone Unavailable Primary Care Provider Unavailabl e Reason for Visit * Reason Comments Post-Op 6 mo rygb Encounter Details Date Type Department Care Team (Late st Contact Info) Description 10/02/2018 10:45 AM BRACELET FORMER Office Visit [facility] Management Services [id number] [place] [id number] Ira Navarrete, DISTRICT WIRE CHIEF-[facility] [id number] [facility] [address] [place] [address] Bariatric surgery status (Primary Dx); Class 2 obesity with body mass index (BMI) of 37.0 to 37.9 in adult, unspecified obesity type, unspecified whether serious comorbidity present; Vitamin deficiency; Mineral deficiency; Vitamin D deficiency; Intestinal malabsorption, unspecified type (HCC) Social History Tobacco Use Types Packs/Day [...] Comments Blood Pressure 119/76 10/02/2018 10:34 AM BRACELET FORMER Pulse 96 10/02/2018 10:34 AM BRACELET FORMER Temperature - - Respiratory Rate - - Oxygen Saturation - - Inhaled Oxygen Concentration - - Weight 117.4 kg (258 lb 12.8 oz) 2017 10:34 AM BRACELET FORMER Height 177.8 cm (5' 10 ) 10/02/2018 10: 34 AM BRACELET FORMER Body Mass Index 37.13 10/02/2018 10:34 AM BRACELET FORMER documented in this encounter Functional Status Functional [...] Patient Instructions * Patient Instructions* Ira Navarrete, DISTRICT WIRE CHIEF-MINESWEEPING OFFICER - 10/02/2018 11:32 AM BRACELET FORMER POST OPERATIVE VISIT INSTRUCTIONS 6 Months Dietary ?? Journaling helps keep you honest and on track! Calculate your protein grams every day. Females should have a minimum of 60 grams per day and men 80 grams per day. ?? It is important that you are learning to eat to live and not live to eat. Food likely does not give you as much pleasure as it has in the past. Eating protein is not optional. Failure to follow the guidelines laid out in your dietary booklet can result in serious health problems. ?? You should be getting close to tolerating 1 cup of food per meal. At least half of your meal should be protein. You will notice that you can eat more soft foods (carbohydrates) than protein. Please be sure you are meeting your protein goals first before adding in many carbohydrates. ?? You should be getting 64 ounces of water per day. ?? Limit coffee to 1 to 2 cups per day. ?? Meals should take a minimum of 30 minutes to consume. ?? Do not graze on cheese, peanut butter and nuts to meet your protein goals. ?? Drink liquid protein between meals for hunger. Protein bars are acceptable, however, make sure they are not high in carbohydrates. For a list of acceptable supplements, please see the tick eradicator. For band patients, protein bars are recommended. ?? May have gum and popcorn. Vitamins ?? A current list of our vitamin recommendations will be provided to you at your request. Our recommendations do periodically change, if it is not provided at the time of your visit, please request an updated list at your next visit. Exercise ?? There are no restrictions of any kind. ?? Take one more step tomorrow than what you took today. ?? If you find your weight loss slowing, consider changing your exercise routine. As your cardiovascular health improves, cross training will help you through any plateaus you may incur. Behavior Modification ?? Visit the list of behaviors that helped contribute to your morbid obesity. Assess yourself or visit with a friend on a regular basis to assure that the bad habits are not returning to your daily lives. ?? Continue weighing weekly. General Medical ?? If you begin finding your CPAP on the floor in the mornings, please contact your PCP to have a second night sleep study completed. It is possible that you need to have the pressures within your machine reduced. You should not stop wearing your CPAP without consulting your doctor. ?? Vomiting is not normal. If you cannot attribute vomiting to something that you have done, pleasenotify our office. ?? For females control is strongly recommended for the first 18 months after surgery. ?? Support groups are helpful and important in dealing with your disease, please attend them. ?? Average weight loss is 1 to 2 pounds per week. Expect plateaus. Medications--General Information ?? You should be able to tolerate your medications without difficulty. ?? You should not vomit after taking medications. If this consistently occurring, please notify ouroffice. Ulcer Prevention ?? DO NOT SMOKE. If your return to smoking notify our office immediately. ?? DO NOT TAKE NSAIDS. ?? LIMIT ALCOHOL. Blood Pressure Medication ?? If you consistently find yourself getting light headed when you go from a laying positions to a sitting position OR from a sitting position to a standing position, contact your primary care physician for a medication adjustment. Diabetic Medication ?? Once your fasting blood sugar is less than 120 mg/dl for 3 consecutive mornings please notify your primary care physician for a medication adjustment. Psychiatric Medication ?? If you do not feel well controlled on your current medication regimen, please call your primary care physician or psychiatrist for a medication adjustment. ?? Depression after weight loss surgery is not uncommon even if you have never had problems with itin the past. If you are experiencing problems, please contact someone for assistance. Follow-up ?? For a Cortez-en-Y divided gastric bypass, vertical sleeve gastrectomy or revision your next appointment will be in 6 months. Please notify us if you have any problems before your next appointment. ?? Have labs drawn 2 weeks before your next visit. ELET FORMER documented in this encounter Progress Notes * Ira Navarrete APRN-CNP - 10/02/2018 11:22 AM CST Bariatric Surgery Clinic Note Jorge Cotter CC: morbid obesity Previous Procedure: Laparoscopic Cortez en Y gastric bypass 2. Laparoscopic adhesiolysis, 30 min (Neli) Date of Procedure: 02/13/2018 Initial Weight: 310 Last Weight: 281 Todays Weight: Weight: 258 lb 12.8 oz (117.4 kg); Body mass index is 37.13 kg/(m^2). Total Weight Loss: 52 IBW: 180 lbs over ideal body weight from beginning wt: 130 %EBWL: 40%; BMI point reduction: 6 Subjective: Pt doing ok overall. Fell off track for a while and was snacking more and eating more unhealthy foods. He is now back on track and getting in all of his protein Dumping symptoms: none Adequate protein Adequate fluid Dietary History: Amount of food at time: 1 cup per meal; hunger b/w meals: sometimes Snacking: minimally-healthy protein-nuts; grazing: none Appropriate amount of carbs: minimal Food Journaling: yes Calories per day: average of about 1200 calories Exercise: minimal Taking appropriate vitamin regimen: yes ROS: Nausea or vomiting: no Abdominal pain: no Dysphagia: no; tolerates meat: yes Heartburn: no Constipation: no Night blindness: no Paraesthesias: no Comorbidities present: -HTN: off medications -Sleep Apnea: Continued on CPAP Has the patient been readmitted to the hospital since the last follow up ? No Has the patient had any post bariatric surgical operations or interventions performed since the last follow up? No Past Medical History: Diagnosis Date ??? Anesthesia complication difficulty waking ??? 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 HTN (hypertension) ??? Kidney stones ??? Migraines ??? Sleep apnea CPAP Outpatient Prescriptions Marked as Taking for the 10/02/18 encounter (Office Visit) with Ira Navarrete APRN-CNP Medication Sig ??? pantoprazole EC (PROTONIX) 40 MG tablet Take 40 mg by mouth once daily ??? Verapamil HCl CR 360 MG Take 360 mg by mouth once daily ??? divalproex DR (DEPAKOTE) 250 MG tablet Take 250 mg by mouth 2 times daily ??? Multiple Vitamin (MULTI VITAMIN PO) Take 1 tablet by mouth once daily ??? magnesium 500 MG tablet Take 500 mg by mouth once daily ??? pyridoxine (VITAMIN B-6) 100 MG tablet Take 100 mg by mouth once daily Data Physical Exam BP 119/76 Pulse 96 Ht 5' 10 (1.778 m) Wt 258 lb 12.8 oz (117.4 kg) BMI 37.13 kg/m2 A+O x 3, NAD Assessment/Plan: Pt s/p Laparoscopic Cortez en Y gastric bypass 2. Laparoscopic adhesiolysis, 30 min, 7 months post op -f/u in 5 months and annually -instructions given to pt -discuss food journaling and exercise -bariatric post op labs today Morbid Obesity: -Discussed protein, carbs, keeping a food journal, portions, making healthy food choices Diet: Encourage proper eating behaviors. Cont to follow dietary handbook Vitamins: Continue with prescribed regimen Exercise: Increase as tolerated General medical: continue to follow up with your PCP for medication adjustments if needed. Labs: Will be checked today, ordered, and annually. ION Ventura ELET FORMER documented in this encounter Plan of Treatment Scheduled Orders Name Type Priority Associated Diagnoses Orde r Schedule CBC W/O DIFFERENTIAL Lab Routine Bariatric surgery status Class 2 obesity with body mass index (BMI) of 37.0 to 37.9 in adult, unspecified obesity type, unspecified whether serious comorbidity present Vitamin deficiency Mineral deficiency Vitamin D deficiency Intestinal malabsorption, unspecified type (HCC) Ordered: 10/02/2018 COMPREHENSIVE METABOLIC PANEL Lab Routine Bariatric surgery status Class 2 obesity with body mass index (BMI) of 37.0 to 37.9 in adult, unspecified obesity type, unspecified whether serious comorbidity present Vitamin deficiency Mineral deficiency Vitamin D deficiency Intestinal malabsorption, unspecified type (HCC) Ordered: 10/02/2018 VITAMIN B1 Lab Routine Bariatric surgery status Class 2 obesity with body mass index (BMI) of 37.0 to 37.9 in adult, unspecified obesity type, unspecified whether serious comorbidity present Vitamin deficiency Mineral deficiency Vitamin D deficiency Intestinal malabsorption, unspecified type (HCC) Ordered: 10/02/2018 VITAMIN B12 Lab Routine Bariatric surgery status Class 2 obesity with body mass index (BMI) of 37.0 to 37.9 in adult, unspecified obesity type, unspecified whether serious comorbidity present Vitamin deficiency Mineral deficiency Vitamin D deficiency Intestinal malabsorption, unspecified type (HCC) Ordered: 10/02/2018 VITAMIN D 25-HYDROXY Lab Routine Bariatric surgery status Class 2 obesity with body mass index (BMI) of 37.0 to 37.9 in adult, unspecified obesity type, unspecified whether serious comorbidity present Vitamin deficiency Mineral deficiency Vitamin D deficiency Intestinal malabsorption, unspecified type (HCC) Ordered: 10/02/2018 ZINC BLOOD Lab Routine Bariatric surgery status Class 2 obesity with body mass index (BMI) of 37.0 to 37.9 in adult, unspecified obesity type, unspecified whether serious comorbidity present Vitamin deficiency Mineral deficiency Vitamin D deficiency Intestinal malabsorption, unspecified type (HCC) Ordered: 10/02/2018 VITAMIN A Lab Routine Bariatric surgery status Class 2 obesity with body mass index (BMI) of 37.0 to 37.9 in adult, unspecified obesity type, unspecified whether serious comorbidity present Vitamin deficiency Mineral deficiency Vitamin D deficiency Intestinal malabsorption, unspecified type (HCC) Ordered: 10/02/2018 VITAMIN E Lab Routine Bariatric surgery status Class 2 obesity with body mass index (BMI) of 37.0 to 37.9 in adult, unspecified obesity type, unspecified whether serious comorbidity present Vitamin deficiency Mineral deficiency Vitamin D deficiency Intestinal malabsorption, unspecified type (HCC) Ordered: 10/02/2018 VITAMIN K1 Lab Routine Bariatric surgery status Class 2 obesity with body mass index (BMI) of 37.0 to 37.9 in adult, unspecified obesity type, unspecified whether serious comorbidity present Vitamin deficiency Mineral deficiency Vitamin D deficiency Intestinal malabsorption, unspecified type (HCC) Ordered: 10/02/2018 documented as of this encounter Procedures Procedure Name Priority Date/Time Associated Diagnosis Comments PTH INTACT Routine 10/17/2018 8:30 AM BRACELET FORMER Bariatric surgery status Class 2 obesity with body mass index (BMI) of 37.0 to 37.9 in adult, unspecified obesity type, unspecified whether serious comorbidity present Vitamin deficiency Mineral deficiency Vitamin D deficiency Intestinal malabsorption, unspecified type (HCC) COPPER BLOOD Routine 10/17/2018 8:30 AM BRACELET FORMER Bariatric surgery status Class 2 obesity with body mass index (BMI) of 37.0 to 37.9 in adult, unspecified obesity type, unspecified whether serious comorbidity present Vitamin deficiency Mineral deficiency Vitamin D deficiency Intestinal malabsorption, unspecified type (HCC) FOLATE RBC Routine 10/17/2018 8:30 AM BRACELET FORMER Bariatric surgery status Class 2 obesity with body mass index (BMI) of 37.0 to 37.9 in adult, unspecified obesity type, unspecified whether serious comorbidity present Vitamin deficiency Mineral deficiency Vitamin D deficiency Intestinal malabsorption, unspecified type (HCC) MAGNESIUM BLOOD Routine 10/17/2018 8:30 AM BRACELET FORMER Bariatric surgery status Class 2 obesity with body mass index (BMI) of 37.0 to 37.9 in adult, unspecified obesity type, unspecified whether serious comorbidity present Vitamin deficiency Mineral deficiency Vitamin D deficiency Intestinal malabsorption, unspecified type (HCC) IRON BLOOD Routine 10/17/2018 8:30 AM BRACELET FORMER Bariatric surgery status Class 2 obesity with body mass index (BMI) of 37.0 to 37.9 in adult, unspecified obesity type, unspecified whether serious comorbidity present Vitamin deficiency Mineral deficiency Vitamin D deficiency Intestinal malabsorption, unspecified type (HCC) FERRITIN Routine 10/17/2018 8:30 AM BRACELET FORMER Bariatric surgery status Class 2 obesity with body mass index (BMI) of 37.0 to 37.9 in adult, unspecified obesity type, unspecified whether serious comorbidity present Vitamin deficiency Mineral deficiency Vitamin D deficiency Intestinal malabsorption, unspecified type (HCC) documented in this encounter Results * PTH INTACT (10/17/2018 8:30 AM BRACELET FORMER) PTH Intact TNP pg/mL [facility] Comment: * Test not performed. ?* * No suitable specimen received. * Test Performed at: [facility] [address] ??[phone] NACHO CASTLE DO,MPH Blood BLOOD SPECIMEN / Unknown 10/17/2018 8:30 AM BRACELET FORMER 10/18/2018 3:48 AM BRACELET FORMER Ira Navarrete DISTRICT WIRE CHIEF-MINESWEEPING OFFICER LAB - [facility] ORDERABLES Performing Organization Address [facility] de Phone Number [facility] [id number] [place] [address] * MAGNESIUM BLOOD (10/17/2018 8:30 AM BRACELET FORMER) Magnesium 2.2 1.5 - 2.5 mg/dL [facility] Comment: Test Performed at: [facility] [address] ??[phone] NACHO CASTLE DO,MPH Blood BLOOD SPECIMEN / Unknown 10/17/2018 8:30 AM BRACELET FORMER 10/18/2018 3:48 AM BRACELET FORMER Ira Navarrete APRN-MINESWEEPING OFFICER LAB - [facility] ORDERABLES Performing Organization Address [facility] [place] [address] * IRON BLOOD (10/17/2018 8:30 AM BRACELET FORMER) Iron 137 50 - 180 mcg/dL [facility] Comment: Test Performed at: [facility] ??[phone] NACHO CASTLE DO,MPH Blood BLOOD SPECIMEN / Unknown 10/17/2018 8:30 AM BRACELET FORMER 10/18/2018 3:48 AM BRACELET FORMER Ira Navarrete DISTRICT WIRE CHIEF-MINESWEEPING OFFICER LAB - [facility] ORDERABLES Performing Organization Address [facility] [place] [address] * FOLATE RBC (10/17/2018 8:30 AM BRACELET FORMER) Folate RBC 557 >280 ng/mL RBC [facility] Comment: Test Performed at: [facility] [place] [address] [place] ??[phone] NACHO CASTLE DO,MPH Blood BLOOD SPECIMEN / Unknown 10/17/2018 8:30 AM BRACELET FORMER 10/18/2018 3:48 AM BRACELET FORMER Ira Nvaarrete DISTRICT WIRE CHIEF-MINESWEEPING OFFICER LAB - [facility] ORDERABLES Performing Organization Address [facility] [place] [address] * FERRITIN (10/17/2018 8:30 AM BRACELET FORMER) Ferritin 45 20 - 380 ng/mL [facility] Comment: Test Performed at: [facility] [place] [address] [place] ??[phone] NACHO CASTLE DO,MPH Blood BLOOD SPECIMEN / Unknown 10/17/2018 8:30 AM BRACELET FORMER 10/18/2018 3:48 AM BRACELET FORMER Ira Navarrete DISTRICT WIRE CHIEF-MINESWEEPING OFFICER LAB - [facility] ORDERABLES Performing Organization Address [facility] [place] [address] * COPPER BLOOD (10/17/2018 8:30 AM BRACELET FORMER) Copper 127 70 - 175 mcg/dL [facility] Comment: This test was developed and its analytical performance characteristics have been determined by [facility]. It has not been cleared or approved by the [place] Food and Drug Administration. This assay has been validated pursuant to the CLIA regulations and is used for clinical purposes. Test Performed at: [facility] [id number] [place] [address] ??[phone] DEEPAK VEGA MD,PHD Blood BLOOD SPECIMEN / Unknown 10/17/2018 8:30 AM BRACELET FORMER 10/18/2018 3:48 AM BRACELET FORMER Ira Navarrete DISTRICT WIRE CHIEF-MINESWEEPING OFFICER LAB - [facility] ORDERABLES [facility] [address] [place] [address] documented in this encounter Visit Diagnoses Diagnosis Bariatric surgery status- Primary Class 2 obesity with body mass index (BMI) of 37.0 to 37.9 in adult, unspecified obesity type, unspecified whether serious comorbidity present Vitamin deficiency Unspecified vitamin deficiency Mineral deficiency Mineral deficiency, not elsewhere classified Vitamin D deficiency Intestinal malabsorption, unspecified type (HCC) documented in this encounter
--- OUTSIDE RECORDS SUMMARY | 2024-10-07 04:42 | XMS_ITS | Encounter Summary ---
Author Organization [facility] Address [address] [place] [address] Care Team Providers Care Wax Bleacher Name Role Phone Unavailable Primary Care Provider Unavailabl e Reason for Visit * Reason Comments Pre-op Consult consult Encounter Details Date Type Department Care Team ([facility] st Contact Info) Description 01/29/2018 9:40 AM CDT Office Visit [facility] [address] [facility] [address] [place], [place] [id number] Shravan Quinteros MD [address] [facility] [address] [place] [address] Morbid obesity with BMI of 40.0-44.9, adult (HCC) (Primary Dx); Complication of gastric banding Social History Tobacco Use Types Packs/Day Years [...] Sign Reading Time Taken Comments Blood Pressure 129/92 01/29/2018 9:39 AM CDT Pulse 76 01/29/2018 9:39 AM CDT Temperature - - Respiratory Rate - - Oxygen Saturation - - Inhaled Oxygen Concentration - - Weight 140.6 kg (310 lb) 01/29/2018 9:39 AM CDT Height 179.1 cm (5' 10.5 ) 01/29/2018 9:39 AM CD T Body Mass Index 43.85 01/29/2018 9:39 AM CDT documented in this encounter Progress Notes * Shravan Quinteros MD - 01/29/2018 10:13 AM CDT Bariatric Surgery Evaluation History and Physical Chief Complaint: Vomiting/dysphagia Height: 5' 10.5 (179.1 cm) Weight: (!) 310 lb (140.6 kg) BMI (Calculated): 43.84 HPI: Pt is a 42 y.o. yo male who presents after previous weight loss surgery interested in pursuingrevisional surgery for vomiting and dysphagia. These side effects have developed after the weight loss operation. Severity: Severe. Duration: 7 years, since Lap Band was placed. Medical conditions present initially included Benign Essential Hypertension, Dyspnea on exertion, Sleep apnea and Morbid Obesity. Pt has now developed or redeveloped multiple comorbid conditions that include Benign Essential Hypertension, Dyspnea on exertion, Multiple arthropathies, Sleep apnea and Morbid Obesity. Pt has now attained a BMI (Calculated): 43.84 and has developed complications and/or side effects from weight loss surgery. Referred by: Checked with insurance Prior weight loss surgery includes: Lap Band by Dr. Lindquist. Date of prior weight loss surgery: 2009 Highest weight: 327 lbs Lowest weight: 270 lbs Wt loss from weight loss surgery to current weight: 28 lbs Complications since weight loss surgery: started having vomiting since fluid was placed in the band, this occurs with liquids, soft foods, and solid foods. Vomiting and dysphagia usually occur in themorning and then able to tolerate foods better throughout the day Reoperations after weight loss surgery: none. Here for final visit. Denies changes, new problems to below history. Completed diet and mental health program Past Medical History: Diagnosis Date ??? Anesthesia complication difficulty waking ??? 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 HTN (hypertension) ??? Kidney stones ??? Migraines ??? Sleep apnea CPAP Past Surgical History: Procedure Laterality Date ? ? ADJ GASTRIC BAND & SUBCU PORT, LAP REMOVAL 10/03/2017 ??? ADJUSTABLE GASTRIC BAND, LAP PLACEMENT 2009 Dr. Lindquist ??? ADJUSTABLE GASTRIC BAND, LAP REMOVAL 10/03/2017 LAPAROSCOPIC GASTRIC BAND REMOVAL ??? Cholecystectomy [id number] ??? ENDOSCOPY, UPPER 09/20/2017 EGD WITH DILATION ??? Lithotripsy x2 ??? Tonsillectomy 2002 PATIENT MEDICAL HISTORY SCREENING: Diabetes............................................No Hypertension.....................................Yes Gastroesophageal reflux disease.....No Heartburn.........................................No Chest pain.........................................No Heart trouble......................................No Dyspnea on exertion.........................Yes mild Sleep apnea......................................Yes -snoring no -fatigued during day yes -falls asleep during normal daily activities no -stops breathing at night no Morbid Obesity..................................Yes Blood clots........................................No FAMILY HISTORY SCREENING: Blood clots........................................ No Outpatient Prescriptions Marked as Taking for the 01/29/18 encounter (Office Visit) with Quinteros, Shravan A, MD Medication Sig ??? ondansetron, disintegrating, (ZOFRAN ODT) 4 MG tablet Dissolve 1 tablet under the tongue every 6 hours as needed for Nausea/Vomiting Allow tablet to dissolve on the tongue ??? oxyCODONE-acetaminophen (PERCOCET) 5-325 MG tablet Take 1-2 tablets by mouth every 4 hours as needed for Pain ??? [place]-3 Fatty Acids (FISH OIL PO) Take 1,000 mg by mouth once daily ??? naproxen (NAPROSYN) 500 MG tablet Take by mouth as needed ??? Verapamil HCl CR 360 MG Take 360 mg by mouth once daily ??? lisinopril-hydroCHLOROthiazide (PRINZIDE; ZESTORETIC) 20-12.5 MG tablet Take 1 tablet by mouth once daily ??? divalproex DR (DEPAKOTE) 250 MG tablet Take 250 mg by mouth 2 times daily ??? ALPRAZolam (XANAX) 0.25 MG tablet Take 0.25 mg by mouth as needed Only takes when flying. ??? SUMAtriptan Succinate 6 MG/0.5ML INJECT 1 CARTRIDGE NEEDED FOR MIGRAINE. MAY REPEAT IN 1 HOUR IF NEEDED. MAX 2/24 HOURS ??? Multiple Vitamin (MULTI VITAMIN PO) ??? magnesium 500 MG tablet Take 500 mg by mouth once daily ??? pyridoxine (VITAMIN B-6) 100 MG tablet Take 100 mg by mouth once daily No Known Allergies Social History Smoking status: Never Smoker Smokeless status: Never Used Alcohol use: No Drug use: No Sexual activity: Not on file Family History Problem Relation Age of Onset ??? Hypertension Father ??? Coronary Artery Disease Father [place] Review of Systems: : neg urinary difficulties Cardiovascular: Denies chest pain, palpitations Respiratory: Neg sob, neg home oxygen use, + SOB with activity Physical Examination: VS: BP 129/92 Pulse 76 Ht 5' 10.5 (1.791 m) Wt 310 lb (140.6 kg) BMI 43.85 kg/m2 Constitutional: Well nourished, NAD CV: non tachy Resp: non labored Labs: na Risk / Benefits Risks and benefits were reviewed with patient including but not limited to: (prev d/w pt) Cortez-en-Y gastric bypass: , enteral leak, stricture or marginal ulcer, DVT/PE, hemorrhage, bowel obstructions, damage to organs, infection, malnutrition, vitamin deficiency necessitating life long use of vitamin supplementation, internal hernias, need for reoperation, requirement to be off NSAIDs for life, possibility for regaining weight or losing inadequate weight, etc. I also discussed the possible necessity of hiatal hernia repair.. Questions were answered. Pt expressed understanding of these risks. Bariatric Surgery Patient Education: The patient was/will be informed of other factors that are necessary to achieve resolution of symptoms in addition to surgery. I have informed the patient today of the different surgical procedures, as options for revisional weight loss surgery. It was/will be explained that bariatric surgery is part of the overall program which includes a low calorie nutritional program with nutritional and vitamin supplementation, a frequent and consistent exercise program and a social support program or network. The patient has had/will have the above discussions with multiple program team members including surgeon, dramatic director, bariatric nurse and mental health resource specialist teacher. Impression: Obesity (BMI: Body mass index is 43.85 kg/(m^2).) with above listed comorbidities with the following complications/side effects after weight loss surgery -morbid obesity -complications of adjustable gastric banding -dysphagia -n/v Plan: I previously discussed LRYGB as options for revisional weight loss surgery as treatment for failed prior weight loss surgical procedure and dysphagia and n/v as complications/side effects of weight loss surgery. After discussion and consideration pt has decided on the below course of treatment. LRYGB for weight loss surgery. Further preoperative workup/interventions include: -counselor at least once-done 3 Preop dramatic director visits-done 1 Counselor visit(s)-done Liquid Diet: Yes Liquid Protein Diet: Yes1 Week Patient's Weight Goal: 200 lbs Weight goal prior tosurgery: No Surgeon Assist: No Additional Testing: Yes Comments: EGD-complete Robot candidate: No Weigh at Class: No Shravan Quinteros MD 01/29/2018 documented in this encounter Plan of Treatment Not on file documented as of this encounter Visit Diagnoses Diagnosis Morbid obesity with BMI of 40.0-44.9, adult (HCC)- Primary Complication of gastric banding Other complications of gastric band procedure documented in this encounter
--- OUTSIDE RECORDS SUMMARY | 2024-10-07 04:42 | XMS_ITS | Encounter Summary ---
Author Organization [facility] Address [address] [place] [address] Care Team Providers Care Supervisor Fireworks Assembly Name Role Phone Unavailable Primary Care Provider Unavailabl e Reason for Visit * Auth/Cert Specialty Diagnoses / Procedures Referred By Jaime worley Referred To Contact Procedures LAPAROSCOPIC GASTRIC BYPASS Referral ID Status Reason Start Date Expiration Date Visits Re quested Visits Authorized [id number] 1 1 Encounter Details Date Type Department Care Team (Late st Contact Info) Description 02/13/2018 1:05 PM CDT Anesthesia Event [facility] - Perioperative Surgery [address] [place] [id number] Wyatt Bolden, DO [address] [facility] [address] [id number] Anesthesia Record Procedure Summary Procedure Name Responsible Anesthesiologist Anesthesia Start Time Anesthesia Stop Time LAPAROSCOPIC GASTRIC BYPASS AND INTROPERATIVE ENDO (Abdomen) 02/13/18 1305 02/13/18 1615 Events Date Time Event Comment 02/13/2018 1110 1305 An Start 1305 An Start Data 1305 PT Reassessment 1310 An Induction 1315 An Intubation 1346 Time Out Anesthesia part icipated in timeout at the time documented in the record by nursing 1551 An Emergence 1559 Extubation 1559 Electnc Sig 1607 an stop data 1607 ANPTO2 1615 An Stop Meds Name Total midazolam 2 mg/2mL injection 2 mg fentaNYL 100 mcg/2mL injection 200 mcg lidocaine 2% (PF) injection (20 mg/mL) 5 0 mg propofol 200 mg/20mL injection 200 mg ondansetron 4 mg/2mL injection 8 mg dexamethasone 4 mg/mL injection 8 mg ceFAZolin (ANCEF) 3,000 mg in 115 mL IVP B 3 g vecuronium 10 mg/10mL injection 10 mg ePHEDrine 50 mg/mL injection 10 mg diphenhydrAMINE 50 mg/mL injection 25 mg lactated ringers infusion 1,800 mL * Agents Name Exp. Sevoflurane O2 Air Insp. Sevoflurane * Blood No blood administrations on file. Lines, Drains, and Airways Type Details Placement Removal Procedural Site (Incision) 02/13/18; Abdomen; Laparoscopic; 02/15/18; 1815 02/13/18 0000 by Baldomero Burnett RN 02/15/18 1815 by Generic, Auto Release Urethral Catheter 02/13/18; Madi mc RN; Temperature probe; 16; Well; 02/13/18; 1603; Per protocol; Zaida Taylor, OUTDOOR STUDIES DIRECTOR 02/13/18 0000 by Baldomero Burnett RN 02/13/18 1603 by Jane Pickard RN Peripheral IV Date: 02/13/18; Time : 1057; Orientation: Right; Tolerance: Well 02/13/18 1057 by Mariya Adam RN 02/15/18 1130 by Alize Diaz RN ETT Date: 02/13/18; Time : 1315; Placed By: rgp; Vent: easy with oral airway mask; Induction: Standard IV; Blade Type: Moreno; Blade Size: 4; Laryngoscopy View: Grade 1 (full cords); Intubation Adjuncts: Stylet; Tube: Endotracheal Tube; Placement: Oral; Tube Type: Cuffed-inflated; Tube Size(mm): 8 MM; Depth of Insertion: 24 CM; Measured From: lips; Attempts: 1; Cuff Infated: Air; Cuff Vol(mL): 7 mL; Verified By: Direct visualization, Bilateral breath sounds, CO2 Monitor 02/13/18 1315 by Murali Zamora APRN-CRNA 02/13/18 1559 by Murali Zamora APRN-CRNA documented in this encounter Social History Tobacco Use Types Packs/Day Years Used Date Smoking Tobacco: Never Smokeless Tobacco: Never Alcohol Use Standard Drinks/Week Comments No 0 (1 standard drink = 0.6 oz pur e alcohol) Sex and Gender Information Value Date Recorded Sex Assigned at Not on file Gender Identity Not on file Sexual Orientation Not on file documented as of this encounter Progress Notes * [employer] Murali Akhtar, KEVIN-LAND MANAGEMENT FORESTER - 02/13/2018 4:14 PM CDT ANESTHESIA POSTOP EVALUATION NOTE Procedure: LAPAROSCOPIC GASTRIC BYPASS AND INTROPERATIVE ENDO (N/A Abdomen) Jorge Cotter is a 42 y.o. male Patient Vitals for the past 6 hrs: BP Temp Pulse Resp SpO2 SP02 Frequency O2 DEVICE Pain Scale/Observation Pain Rating Score #1 Functional Goal # Sedation Level Additional pain sites? 02/13/18 1039 147/86 97.4 ??F (36.3 ??C) 79 17 96 % Spot Check Room Air No/denies pain;N 0 6 1-Awake and alert No Anesthesia Type: general * No Diagnosis Codes entered * Postop Diagnosis: See Surgeon Note Mental Status: arousable Neuro Status: No numbess, tingling or visual disturbances Respiratory Function: natural Cardiac Function: stable Postop Pain: acceptable to the patient Postop Hydration: adequate Postop Nausea: none Assessment: no apparent anesthetic complications, patient tolerated procedure well and no evidence of recall Patient Disposition: Release from Anesthesia Care documented in this encounter Consult Notes * Noah Murali Akhtar, KEVIN-LAND MANAGEMENT FORESTER - 02/13/2018 11:09 AM CDT ANESTHESIA PREOPERATIVE EVALUATION NOTE Procedure: CONVERSION TO LAPAROSCOPIC ROUEN Y GASTRIC DIVIDED BYPASS POSSIBLE OPEN AND INTROPERATIVE ENDO (Abdomen) Vitals: Patient Vitals for the past 6 hrs: BP Temp Pulse Resp SpO2 SP02 Frequency O2 DEVICE Pain Scale/Observation Pain Rating Score #1 Functional Goal # Sedation Level Additional pain sites? 02/13/18 1039 147/86 97.4 ??F (36.3 ??C) 79 17 96 % Spot Check Room Air No/denies pain;N 0 6 1-Awake and alert No ANESTHESIA PRE-EVALUATION NOTE Physical Exam: Orientation: Orientation X3 Airway/Mallampati Score: III Mouth Opening Distance: 2.5 fingerwidths Neck ROM: full TM Distance: > 3 FB Teeth: poor dentition and chipped Heart: regular rate rhythm Lungs: normal Abdomen Exam: obese Review of Systems: History of anesthetic complications: No GERD: GERD: No Poor Exercise Tolerance: Yes Recent Chest Pain: No Shortness of Breath: No AICD/Pacemaker: No Renal Disease: No Diagnostic Tests: ECG(s) reviewed: Yes Lab(s) reviewed: Yes. Other Findings: Anesthesia pre op re evaluation by Murali Zamora APRN-JOSE ANTONIO 02/13/2018 12:28 PM ANESTHESIA PLAN ASA Score: 3 NPO Status: No solids since midnight and No liquids within 2 hours Anesthesia Plan: general Planned Induction: intravenous Planned Postop Destination: PACU Anesthetic plan was discussed with: patient Anesthetic Plan discussion was: Consented The patient's procedural Anesthetic Plan with discussed with the anesthesiologist. BMI, Height, Weight Tobacco History Estimated body mass index is 43.45 kg/(m^2) as calculated from the following: Height as of this encounter: 1.778 m (5' 10 ). Weight as of this encounter: 137.3 kg (302 lb 12.8 oz). History Smoking Status ??? Never Smoker Smokeless Tobacco ??? Never Used Alcohol History Drug History History Alcohol Use No History Drug Use No Outpatient Medications: Inpatient Medications: No current outpatient prescriptions on file. Current Facility-Administered Medications Medication Dose Last Dose ??? lactated ringers ??? ceFAZolin 3 g ??? metoclopramide 10 mg 10 mg at 02/13/18 1037 ??? scopolamine 1 mg 1 mg at 02/13/18 1037 ??? lactated ringers ??? lidocaine 0.5 mL 0.5 mL at 02/13/18 1037 Allergies: No Known Allergies Problem List: There are no active problems to display for this patient. Medical History: Past Medical History: Diagnosis Date ??? Anesthesia complication difficulty waking ??? 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 HTN (hypertension) ??? Kidney stones ??? Migraines ??? Sleep apnea CPAP Surgical History: Past Surgical History: Procedure Laterality Date ? ? ADJ GASTRIC BAND & SUBCU PORT, LAP REMOVAL 10/03/2017 ??? ADJUSTABLE GASTRIC BAND, LAP PLACEMENT 2009 Dr. Lindquist ??? ADJUSTABLE GASTRIC BAND, LAP REMOVAL 10/03/2017 LAPAROSCOPIC GASTRIC BAND REMOVAL ??? Cholecystectomy [id number] ??? ENDOSCOPY, UPPER 09/20/2017 EGD WITH DILATION ??? Lithotripsy x2 ??? Tonsillectomy 2002 Lab Tests: Recent Labs Component Name 01/29/18 1058 WBC 8.2 HGB 15.0 HCT 44.2 PLTCOUNT 225 Recent Labs Component Name 01/29/18 1058 SODIUM 141 POTASSIUM 3.9 CHLORIDE 104 CO2 30 BUN 22* CREATININE 1.20 Recent Labs Component Name 01/29/18 1058 GLUCOSE 86 CALCIUM 9.7 ALT 48 AST 21 No results for input(s): HCG in the last 31344 hours. documented in this encounter Miscellaneous Notes * Anesthesia Transfer of Care - Murali Zamora APRN-LAND MANAGEMENT FORESTER - 02/13/2018 4:15 PM CDT ANESTHESIA TRANSFER OF CARE NOTE Today's Date: 02/13/2018 Date of : 1975 Patient: Jorge Serranoalexandrojessica Procedure(s) with comments: LAPAROSCOPIC GASTRIC BYPASS AND INTROPERATIVE ENDO - LAPAROSCOPIC GASTRIC BYPASS AND INTROPERATIVE ENDO Surgeon(s): Primary: Shravan Quinteros MD Preop Diagnosis: * No Diagnosis Codes entered * * No Diagnosis Codes entered * . No Known Allergies Vitals: No data found. Lines, Drains, and Airways Type Details Placement Removal Peripheral IV 02/13/18; 1057; Right; Forearm; 20 Gauge; Anatomical Landmarks; 1; Injectable; Well 02/13/18 1057 by Mariya Adam RN ETT 02/13/18; 1315; rgp; easy with oral airway mask; Standard IV; Moreno; 4; Grade 1 (full cords); Stylet; Endotracheal Tube; Oral; Cuffed-inflated; 8 MM; 24 CM; lips; 1; Air; 7 mL; Direct visualization, Bilateral breath sounds, CO2 Monitor; 02/13/18; 1559 02/13/18 1315 by Murali Zamora, JULIO CLAND MANAGEMENT FORESTER 02/13/18 1559 by Murali Zamora APRN-CRNA Intraprocedure I/O Totals Intake I.V. 1800 mL Anesthesia Other Output Estimated Blood Loss 50 mL lactated ringers infusion Volume infused 1800 ml Patient Transfer Location: PACU Transport Airway: supplemental O2 and spontaneous respirations Complications: None Handoff Given? Yes Checklist or Protocol - The diaz handoff elements that must be included in the transfer of care checklist include: 1. Identification of patient. 2. Identification of responsible practitioner (PACU nurse or advanced practitioner). 3. Discussion of pertinent medical history. 4. Discussion of the surgical/procedure course (procedure, reason for surgery, procedure performed). 5. Intraoperative anesthetic management and issue/concerns. 6. Expectations/Plans for the early post-procedure period. 7. Opportunity for questions and acknowledgement of understanding of report from the receiving PACUteam. DIONI Moahmud documented in this encounter Plan of Treatment Not on file documented as of this encounter Visit Diagnoses Not on filedocumented in this encounter Administered Medications Inactive Administered Medications - up to 3 most recent administrations Medication Order MAR Action Action Date Dose Rate Site ceFAZolin (ANCEF) 3,000 mg in 115 mL IVPB 3,000 mg (3 g), at 230 mL/hr, Intravenous, PRE-OP ONCE, On Sun02/13/18 at 1036, Administer 30 minutes prior to surgical incision. Refrigerate, Indication for anti-infective therapy: Surgical prophylaxis, Site of anti-infective therapy: Other, Other site of infection (free text): Bariatric surgery, Pre-op $ Given 02/13/2018 1:10 PM CDT 3 g dexamethasone (DECADRON) injection PRN, Nausea/Vomiting, Starting on Sun02/13/18 at 1327, Until Sun02/13/18 at 1615, Anesthesia Intra-op $ Given 02/13/2018 1:27 PM CDT 8 mg diphenhydrAMINE (BENADRYL) injection PRN, Itching, Starting on Sun02/13/18 at 1411, Until Sun02/13/18 at 1615, Anesthesia Intra-op $ Given 02/13/2018 2:11 PM CDT 25 mg ePHEDrine injection PRN, Starting on Sun02/13/18 at 1410, Until Sun02/13/18 at 1615, Anesthesia Intra-op $ Given 02/13/2018 2:10 PM CDT 10 mg fentaNYL (PF) (SUBLIMAZE) injection PRN, Starting on Sun02/13/18 at 1307, Until Sun02/13/18 at 1615, Anesthesia Intra-op $ Given 02/13/2018 2:54 PM CDT 50 mcg $ Given 02/13/2018 1:07 PM CDT 150 mcg lactated ringers infusion at 20 mL/hr, Intravenous, PRE-OP CONTINUOUS, Starting on Sun02/13/18 at 1045, Until Sun02/13/18 at 2021, Pre-op $ New Bag/Syringe 02/13/2018 2:34 PM CDT $ New Bag/Syringe 02/13/2018 10:38 AM CDT 20 mL /hr lidocaine hcl (PF) (XYLOCAINE MPF) 2 % injection PRN, Starting on Sun02/13/18 at 1310, Until Sun02/13/18 at 1615, Anesthesia Intra-op $ Given 02/13/2018 1:10 PM CDT 50 mg midazolam (VERSED) injection PRN, Starting on Sun02/13/18 at 1305, Until Sun02/13/18 at 1615, Anesthesia Intra-op $ Given 02/13/2018 1:05 PM CDT 2 m g Ondansetron HCl (ZOFRAN) injection PRN, Nausea/Vomiting, Starting on Sun02/13/18 at 1530, Until Sun02/13/18 at 1615, Anesthesia Intra-op $ Given 02/13/2018 3:30 PM CDT 8 mg propofol (DIPRIVAN) injection PRN, Starting on Sun02/13/18 at 1310, Until Sun02/13/18 at 1615, Anesthesia Intra-op $ Given 02/13/2018 1:10 PM CDT 200 mg vecuronium (NORCURON) injection PRN, Starting on Sun02/13/18 at 1310, Until Sun02/13/18 at 1615, Anesthesia Intra-op $ Given 02/13/2018 1:10 PM CDT 10 mg documented in this encounter
--- OUTSIDE RECORDS SUMMARY | 2024-10-07 04:42 | XMS_ITS | Encounter Summary ---
Author Organization [facility] Address [address] [address] Care Team Providers Care Trial Lawyer Name Role Phone Unavailable Primary Care Provider Unavailabl e Encounter Details Date Type Department Care Team (Late st Contact Info) Description 10/17/2018 Orders Only [facility] Management Services [address] [facility] [address] [place] [address] Ira Navarrete, MARKETING SUPPORT COORDINATOR-WATER RESOURCE CONSULTANT [address] [facility] [address] [place] [address] Social History Tobacco Use Types Packs/Day Years Used Date Smoking Tobacco: Never Smokeless Tobacco: Never Alcohol Use Standard Drinks/Week Comments No 0 (1 standard drink = 0.6 oz pur e alcohol) Sex and Gender Information Value Date Recorded Sex Assigned at Not on file Gender Identity Not on file Sexual Orientation Not on file documented as of this encounter Functional Status Functional Status Response [...] No 02/13/2018 documented as of this encounter Plan of Treatment Not on file documented as of this encounter Procedures Procedure Name Priority Date/Time Associated Diagnosis Comments VITAMIN B1 PLASMA 10/17/2018 8:3 0 AM GARAGE DOOR INSTALLER documented in this encounter Results * VITAMIN B1 PLASMA (10/17/2018 8:30 AM GARAGE DOOR INSTALLER) Vitamin B1 16 8 - 30 nmol/L [facility] Comment: Vitamin supplementation within 24 hours prior to blood draw may affect the accuracy of results. This test was developed and its analytical performance characteristics have been determined by [facility]. It has not been cleared or approved by FDA. This assay has been validated pursuant to the CLIA regulations and is used for clinical purposes. Test Performed at: [facility] [address] ??[id number] DEEPAK VEGA MD,PHD 10/17/2018 8:30 AM GARAGE DOOR INSTALLER 10/18/2018 3:48 AM GARAGE DOOR INSTALLER Ira Navarrete MARKETING SUPPORT COORDINATOR-WATER RESOURCE CONSULTANT LAB - [facility] ORDERABLES [facility] [address] [place] [address] documented in this encounter Visit Diagnoses Not on filedocumented in this encounter
--- OUTSIDE RECORDS SUMMARY | 2024-10-07 04:42 | XMS_ITS | Encounter Summary ---
Author Organization [facility] Address [address] [place] [address] Care Team Providers Care Implementation Specialist Payroll Name Role Phone Unavailable Primary Care Provider Unavailabl e Reason for Visit * Auth/Cert Specialty Diagnoses / Procedures Referred By Jaime t Referred To Contact Procedures LAPAROSCOPIC GASTRIC BYPASS Referral ID Status Reason Start Date Expiration Date Visits Re quested Visits Authorized [id number] 1 1 Encounter Details Date Type Department Care Team (Late st Contact Info) Description 02/13/2018 12:30 PM CDT - 02/13/2018 3:20 PM CDT Surgery [facility] - Perioperative Surgery [address] [place] [id number] Shravan Quinteros MD [address] [facility] [address] [place] [id number] LAPAROSCOPIC GASTRIC BYPASS AND INTROPERATIVE ENDO Surgery Details Date/Time Status Location OR Service Patient Class Case Class Case Type Trauma Case? 02/13/2018 12:30 PM Posted [facility] MAIN OR OR 06 Bariatric Application Packager Admit Surgical Elective > 5 days Panel 1 Procedure LRB Anes Op Region Wound Class Comments LAPAROSCOPIC GASTRIC BYPASS AND INTROPERATIVE ENDO N/A General Abdomen Clean Contaminated LAPAROSCOPIC GASTRIC BYPASS AND INTROPERATIVE ENDO Surgeon Surgeon Role Service Panel Shravan Quinteros MD Primary Bariatric 1 documented in this encounter Social History Tobacco [...] Sign Reading Time Taken Comments Blood Pressure 113/59 02/15/2018 10:53 AM CDT Pulse 77 02/15/2018 10:53 AM CDT Temperature 36.4 ??C (97.5 ??F) 02/15/2018 1 0:53 AM CDT Respiratory Rate 18 02/15/2018 10:5 3 AM CDT Oxygen Saturation 97% 02/15/2018 10: 53 AM CDT Inhaled Oxygen Concentration - - Weight 137.3 kg (302 lb 12.8 oz) 2017 10:39 AM CDT Height 177.8 cm (5' 10 ) 02/13/2018 10: 39 AM CDT Body Mass Index 43.45 02/13/2018 10:39 AM CDT documented in this encounter Functional [...] No 02/13/2018 documented as of this encounter Discharge Summaries * Shravan Quinteros MD - 02/15/2018 12:15 PM CDT Bariatric Surgery Discharge Summary [facility] [address] [place] [address] Jorge Giovana Cotter Admission weight: Weight: (!) 302 lb 12.8 oz (137.3 kg) (02/13/18 1039) Most recent weight: Weight: (!) 302 lb 12.8 oz (137.3 kg) (02/13/18 1039) 02/15/2018 [id number] Date of admission: 02/13/2018 Discharge date: 02/15/2018 Discharge Diagnoses: Clinically Severe Obesity with multiple co-morbidities Body mass index is 43.45 kg/(m^2). Past Medical History: Diagnosis Date ??? Anesthesia complication difficulty waking ??? 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 HTN (hypertension) ??? Kidney stones ??? Migraines ??? Sleep apnea CPAP Principal Procedures Performed: 1. Laparoscopic Osiel en Y gastric bypass History and Hospital Course: The patient underwent the procedures noted above on the day of admission. Following surgery, the patient was taken from the operating room to the recovery room, and laterto hospital room. Vital signs were carefully monitored. The patient was started on a phase I bariatric diet. Patient tolerated diet well. The patient underwent an UGI study on POD 1 which demonstrated no evidence of gastric leak or obstruction. POD 1 labs demonstrated stable values. Pain medicationwas administered when indicated by either an oral or parenteral route. Additional assessments of the patient's vital signs, laboratory values and level of pain were performed throughout the patient's hospitalization. The patient was also followed by a hospitalist to manage comorbid conditions. Patient was kept overnight for additional monitoring. POD 2 labs demonstrated stable values. Vital signswere stable. On the day of discharge, the patient was instructed on diet and medication, as well ason wound care. The patient was given a prescription for pain medication and told to take a PPI daily. Showers were allowed, but the patient was told not to submerge in water. Finally, the patient wasinstructed to arrange for a follow-up appointment in seven to ten days, and to call if fever occurred, nausea persisted, emesis occurred or if there was excessive redenss at the wound sites. DISCHARGE INSTRUCTIONS: No lifting greater than 15 pounds for four weeks. To continue the exercising of legs to prevent DVT's, the patient is to walk every day. The patient is to call the office withnoted abnormal swelling or pain in legs, has a fever of 101 or greater, or noted drainage or redness from the incision site, or if the incision site becomes open in some fashion. DISCHARGE MEDICATIONS: See discharge instructions. Patient was instructed to take pills only if small, otherwise to crush them, as well as to refrain from taking any type of nonsteriodal anti-inflammatory medications. Condition: stable Discharge Disposition: Home Shravan Quinteros MD documented in this encounter Medications at Time of Discharge Medication Sig Dispensed Refills Start Date End Date ALPRAZolam (XANAX) 0.25 MG tablet Take 0.25 mg by mouth as needed (Only takes when flying) 2 06/06/[address] (DEPAKOTE) 250 MG tablet Take 250 mg by mouth 2 times daily 0 08/27/2017 HYDROcodone-acetaminophe n 7.5-325 MG/15ML solution Take 10 mL by mouth every 4 hours as needed for Pain 240 mL 02/14/2018 magnesium 500 MG tablet Take 500 mg by mouth once daily Multiple Vitamin (MULTI VITAMIN PO) Take 1 tablet by mouth once daily Essex-3 Fatty Acids (FISH OIL PO) Take 1,000 [...] mg by mouth once daily 6 08/27/2017 documented as of this encounter Progress Notes * Alize Diaz RN - 02/15/2018 11:37 AM CDT Shift Summary: Pt. Was seen by , for discharge today, seen by , ok to go home, incision intact, skin glue dry, no drainage noted, no infection, @ BS, discharge instruction given to pt, answered questions, prescription faxed, waiting for them to fill prescription, needs attended. * Alize Diaz RN - 02/15/2018 11:17 AM CDT Problem: Incision Care Goal: Incision remains intact with edges well approximated Mr. Cotter's incisions will remain intact during this admission. Outcome: Ongoing Jorge has incision intact, skin glue dry, no drainage noted. * Shan Owen MD - 02/15/2018 10:54 AM CDT [facility] Hospitalist Daily Progress Note 02/15/2018 Name: Jorge Cotter Admit Date: 02/13/2018 10:19 AM PCP: Gerald Coronado MD , Subjective: Denies f/c/n/v/sob. was in the room when patient was seen. Afebrile in the last 24 hours. Lisinopril/HCTZ discontinued on DC. BP is normal without it. Follow up with PCP in 1 week to see ifBP meds need to be adjusted. Discussed with patient and his . MEDICATIONS FOR CURRENT ENCOUNTER: SCHEDULED MEDICATIONS: Or acetaminophen (TYLENOL) solution 500 mg, Oral, q4h dextrose 5 % 500 mL with M.V.I. (MVI adult) 10 mL infusion, Intravenous, QDAY divalproex DR (DEPAKOTE) tablet 250 mg, Oral, BID HYDROcodone-acetaminophen 7.5-325 MG/15ML solution 15 mL, Oral, q4h iopamidol (ISOVUE 370) 76 % contrast, Oral, Contrast - Once metoclopramide (REGLAN) injection 10 mg, Intravenous, q6h ondansetron (ZOFRAN) injection 4 mg, Intravenous, q6h pantoprazole (PROTONIX) injection 40 mg, Intravenous, QDAY senna-docusate (SENOKOT-S) tablet 1 tablet, Oral, BID ?? verapamil CR (ISOPTIN-SR) tablet 360 mg, Oral, QDAY CONTINUOUS MEDICATIONS: ?? dextrose 5% and 0.45% NaCl with KCl 20 mEq infusion, Intravenous, Continuous PRN MEDICATIONS: ?? ALPRAZolam (XANAX) tablet 0.25 mg, Oral, PRN Objective: Physical Exam Vitals: 02/14/18 1904 02/15/18 0344 02/15/18 0658 02/15/18 1053 BP: 128/88 127/89 114/64 113/59 Pulse: 78 66 72 77 Resp: Temp: 98.3 ??F (36.8 ??C) 97.9 ??F (36.6 ??C) 98.6 ??F (37 ??C) 97.5 ??F (36.4 ??C) SpO2: 92% 95% 96% 97% Weight: GENERAL: no acute distress, laying on hospital bed is alert LUNGS: clear to auscultation bilaterally, Normal effort, No wheezes, rales or rhonchi heard HEART: RRR, no murmurs, rubs or gallops appreciated ABDOMEN: soft, appropriately tender,non-distended, no mass is palpable, no guarding or rebound EXTREMITIES: no clubbing, cyanosis or edema NEURO: moves all extremities, follows commands LABS:My review of labs, imaging, notes and other tests is significant for : see details in my assessment and plan Recent Labs Component Name 02/15/18 0510 02/14/18 1316 02/14/18 0602 01/29/18 1058 WBC 8.2 - 10.5 8.2 HGB 13.4 13.3 12.7 15.0 HCT 39.4 37.7 37.4 44.2 PLTCOUNT 194 - 196 225 Recent Labs Component Name 02/15/18 0510 02/14/18 0602 02/13/18 1036 01/29/18 1058 SODIUM 141 135* - 141 POTASSIUM 4.1 3.8 4.1 3.9 CHLORIDE 105 100 - 104 CO2 29 29 - 30 BUN 14 21 - 22* CREATININE 1.00 1.20 - 1.20 GLUCOSE 107* 106 - 86 CALCIUM 8.5 8.6 - 9.7 Assessment and Plan Morbid obesity status post laparoscopic Osiel-en-Y gastric bypass and laparoscopic adhesional lysis on 02/13/2018 - surgery was done by Dr. Quinteros - encourage ambulation - incentive spirometer - GI prophylaxis - PT/OT - pain control with bowel regimen. Hypertension - controlled - diuretics on hold. Continue other home medications. Discontinued on dc. - monitor, titrate meds as needed Migraine headache - continue prophylactic medicine - monitor Anxiety disorder - stable. Continue home medication DVT prophylaxis - consider chemoprophylaxis when okay with surgery Thanks for the consult. Will follow along. * AndrewcheyannejordanIra Cindy, WINDOW CLEANER-APPETIZER PACKER - 02/15/2018 7:15 AM CDT Bariatric Surgery Progress Note Jorge Cotter Admit Date: 02/13/2018 10:19 AM Hospital Day: 2 Procedure: Laparoscopic Osiel en Y gastric bypass 2. Laparoscopic adhesiolysis, 30 min POD#2 Overnight Events: None Subjective: Pain well controlled with medications, no nausea or emesis, ambulated, Tolerating Phase I diet well Denies CP or SOB + flatus, no BM Data Vitals: 02/14/18 1904 02/15/18 0344 02/15/18 0658 02/15/18 1053 BP: 128/88 127/89 114/64 113/59 Pulse: 78 66 72 77 Resp: Temp: 98.3 ??F (36.8 ??C) 97.9 ??F (36.6 ??C) 98.6 ??F (37 ??C) 97.5 ??F (36.4 ??C) SpO2: 92% 95% 96% 97% Weight: Intake/Output Summary (Last 24 hours) at 02/15/18 1503 Last data filed at 02/15/18 1129 Gross per 24 hour Intake 4641 ml Output 2795 ml Net 1846 ml No current facility-administered medications for this encounter. Current Outpatient Prescriptions Medication ??? HYDROcodone-acetaminophen 7.5-325 MG/15ML solution ??? senna-docusate (SENOKOT-S) 8.6-50 MG tablet ??? pantoprazole EC (PROTONIX) 40 MG tablet ??? Verapamil HCl CR 360 MG ??? divalproex DR (DEPAKOTE) 250 MG tablet ??? SUMAtriptan Succinate 6 MG/0.5ML ??? Multiple Vitamin (MULTI VITAMIN PO) ??? magnesium 500 MG tablet ??? Essex-3 Fatty Acids (FISH OIL PO) ??? ALPRAZolam (XANAX) 0.25 MG tablet ??? pyridoxine (VITAMIN B-6) 100 MG tablet Recent Labs Component Name 02/15/18 0510 02/14/18 [...] 37.4 44.2 PLTCOUNT 194 - 196 225 UGI: no e/o obstruction or leak Physical Exam A+O x 3, NAD CTA B/L RRR ABD soft, ND, appropriate TTP, incisions C/D/I Neg BLE edema Assessment/Plan: S/P Laparoscopic Osiel en Y gastric bypass 2. Laparoscopic adhesiolysis, 30 min POD #2 Neuro: PO pain control PULM: aggressive IS, ambulation, OOBTC CV: stable GI: Cont Phase I diet, PPI, UGI wnl FEN: wean IVF : adequate UOP HEME: stable H/H ID: afebrile, no abx DVT: cont SCD and heparin Dispo: D/C home, discharge instructions reviewed Ira Navarrete APRN-APPETIZER PACKER Associated attestation - Shravan Quinteros MD - 02/16/2018 10:03 AM CDT Seen and d/w sock knitter. Doing well. D/c home * Ludmila Mcdonnell RN - 02/15/2018 3:44 AM CDT Problem: Oxygenation/Respiratory Function Goal: Patient will achieve/maintains stable resp rate/effort Mr. Cotter will maintain stable respiratory status during this admission. Outcome: Ongoing On this shift Fabio's respiration remains even and non labored. Problem: Incision Care Goal: Incision remains intact with edges well approximated Mr. Cotter's incisions will remain intact during this admission. Outcome: Ongoing On this shift Jorge's incision remains CDI. * Tory Jones RN - 02/14/2018 5:32 PM CDT VSS, IV infusing, tolerating phase 1 diet, loratab for pain, voiding, will monitor.Tory Jones RN 02/14/2018 5:32 PM * Kamryn Rai RN - 02/14/2018 1:55 PM CDT A Chart Review has been conducted by Case Management. Based on current condition, will patient be able to return to prior living situation? yes-to returnhome Patient admitted for gastric bypass Anticipated discharge needs: Nursing Home Admissions Director and pharmacist will follow Barriers to discharge / additional discharge needs: none Additional comments: will follow up with [facility] Per Nursing Assessment Transportation (who): [employer]/Support: [employer]sman/Support Person - Relationship:: Gretchen- [employer] Craftsman person: [employer] Craftsman/Support Person Contact #: [phone] Home/Functional Status: Functional and Cognitive Status Is person deaf or have serious hearing difficulty?: No Is person blind or have serious difficulty seeing?: No Does person have serious difficulty walking/climbing stairs?: No Does person have difficulty dressing/bathing?: No Does person have difficulty doing errands alone?: No Does person have difficulty concentrating/remembering/making decisions?: No Equipment with patient: None Assistive Devices: None ?. Will continue to follow. For any questions or needs please contact: Sports Complex Attendant Name/Phone number: Kamryn Rai RN [phone] * Abbey Schmidt, PharmD - 02/14/2018 12:00 PM CDT Bariatric Surgery Pharmacy Service Subjective Jorge Cotter is a 42 y.o. male Height: 5' 10 (177.8 cm) Weight: (!) 137.3 kg (302 lb 12.8 oz) BMI (Calculated): 43.45 Type of Bariatric Surgery: LRYGB Recommendations Due to size restriction and absorption changes, it is recommend for the first four weeks postop, all medications be changed to liquid when possible, controlled release (CR/ER/XR, etc) products be changed to immediate release, and to crush medications larger than an aspirin or M&M. NSAIDS (otherthan aspirin for cardiac benefit) are not recommended post surgery in bariatric patients. Changes during inpatient admission -The following DR tablet can NOT be cut and administered and will require adjustment: divalproex DR(Depakote) 250 mg BID The patient takes for migraine prophylaxis. Please consider changing to divalproex (Depakote) sprinkles 125 mg capsules - 2 capsules BID (thesecan be opened and administered where as the 250 mg tablets can not be cut) -Recommend discontinuation of the following medications: fish oil (due to large size), lisinopril/hydrochlorothiazide (use lisinopril alone for BP support), verapamil (due to large size and current BP inpatient are controlled) If verapamil is continued, recommend to change to 120 mg IR TID -All other home medications can be safely swallowed whole due to small size, and do not require adjustment for this admission. Education performed -Discussed above recommendations. -Use of daily bariatric MVI + UpCal calcium packets three times daily. Separate MVI and calcium by 2 hours. -Use of daily PPI. Patient already has pantoprazole at home. -Importance of avoiding NSAIDs. Acetaminophen (Tylenol) should be the only OTC medication used for break-through pain. -Importance of avoiding any medications larger than the size of an aspirin or M&M. -Prescription pain medication + common side effects. Thank you for including pharmacy in the care of this patient, Abbey Schmidt PharmD 02/14/2018 12:00 PM * Abbey Schmidt PharmD - 02/14/2018 11:59 AM CDT [facility] Pharmacy Services Admission Medication Review Jorge Cotter is a 42 y.o. male I have reviewed patient's home medication list with the patient and the family. The medication listreview was in process and is now ready for re-review/order by physician. Medication List Revisions Medications added: pantoprazole (Protonix) Thank you for the opportunity to take part of Jorge Cotter's care. Abbey Schmidt PharmD * Bita Acosta RD/DILLAN - 02/14/2018 9:47 AM CDT Nutrition: Nutrition consult completed. Bariatric diet education and nutrition guidelines per [facility] discussed. See Education section for details. Diet order accuracy Current diet order: Bariatric Phase 1 Nutrition recommendation: agree with current nutrition order P.O.Intake for the past 48 hrs:No Data Recorded Height: 5' 10 (177.8 cm) Weight: (!) 302 lb 12.8 oz (137.3 kg) Body mass index is 43.45 kg/(m^2).BMI Range: Morbidly Obese Class 3 Laboratory values reviewed. Medications noted. No acute nutrition issues identified at this time. Recommendations: Continue Phase 1 diet Monitor nutrition per nutrition guidelines. * Shan Owen MD - 02/14/2018 9:20 AM CDT [facility] Hospitalist Daily Progress Note 02/14/2018 Name: Jorge Cotter Admit Date: 02/13/2018 10:19 AM PCP: Gerald Coronado MD , Subjective: No new complains. Denies f/c/n/v. Has passed gas. Walked today. Pain in good control. in room when patient was seen. Afebrile in the last 24 hours. MEDICATIONS FOR CURRENT ENCOUNTER: ?? SCHEDULED MEDICATIONS: ?? Or ?? acetaminophen (TYLENOL) solution 500 mg, Oral, q4h ?? dextrose 5 % 500 mL with M.V.I. (MVI adult) 10 mL infusion, Intravenous, QDAY ?? divalproex DR (DEPAKOTE) tablet 250 mg, Oral, BID ?? HYDROcodone-acetaminophen 7.5-325 MG/15ML solution 15 mL, Oral, q4h ?? iopamidol (ISOVUE 370) 76 % contrast, Intravenous, Contrast - Once ?? metoclopramide (REGLAN) injection 10 mg, Intravenous, q6h ?? ondansetron (ZOFRAN) injection 4 mg, Intravenous, q6h ?? pantoprazole (PROTONIX) injection 40 mg, Intravenous, QDAY ?? senna-docusate (SENOKOT-S) tablet 1 tablet, Oral, BID ?? verapamil CR (ISOPTIN-SR) tablet 360 mg, Oral, QDAY ?? [COMPLETED] ceFAZolin (ANCEF) 2,000 mg in 50 ml IVPB, Intravenous, q8h ?? [COMPLETED] ketorolac (TORADOL) injection 15 mg, Intravenous, q6h ?? [] scopolamine (TRANSDERM-SCOP) patch 1 mg, Transdermal, Once ?? CONTINUOUS MEDICATIONS: ?? dextrose 5% and 0.45% NaCl with KCl 20 mEq infusion, Intravenous, Continuous ?? PRN MEDICATIONS: ?? ALPRAZolam (XANAX) tablet 0.25 mg, Oral, PRN Objective: Physical Exam Vitals: 02/13/18 2223 02/13/18 2328 02/14/18 0349 02/14/18 0742 BP: 115/73 110/64 120/78 Pulse: 80 77 69 Resp: Temp: 97.4 ??F (36.3 ??C) 97.5 ??F (36.4 ??C) 98.2 ??F (36.8 ??C) SpO2: 97% 95% 97% Weight: GENERAL: no acute distress, laying on hospital bed is alert LUNGS: clear to auscultation bilaterally, Normal effort, No wheezes, rales or rhonchi heard HEART: RRR, no murmurs, rubs or gallops appreciated ABDOMEN: soft, appropriately tender,non-distended, no mass is palpable, no guarding or rebound EXTREMITIES: no clubbing, cyanosis or edema NEURO: moves all extremities, follows commands LABS:My review of labs, imaging, notes and other tests is significant for : see details in my assessment and plan Recent Labs Component Name 02/14/18 0602 01/29/18 1058 WBC 10.5 8.2 HGB 12.7 15.0 HCT 37.4 44.2 PLTCOUNT 196 225 Recent Labs Component Name 02/14/18 0602 02/13/18 1036 01/29/18 1058 10/03/17 0640 SODIUM 135* - 141 138 POTASSIUM 3.8 4.1 3.9 3.9 CHLORIDE 100 - 104 107 CO2 29 - 30 26 BUN 21 - 22* 17 CREATININE 1.20 - 1.20 1.30 GLUCOSE 106 - 86 100 CALCIUM 8.6 - 9.7 9.4 Assessment and Plan Morbid obesity status post laparoscopic Osiel-en-Y gastric bypass and laparoscopic adhesional lysis on 02/13/2018 - surgery was done by Dr. Quinteros - encourage ambulation - incentive spirometer - GI prophylaxis - PT/OT Hypertension - controlled - diuretics on hold. Continue other home medications - monitor, titrate meds as needed Migraine headache - continue prophylactic medicine - monitor Anxiety disorder - stable. Continue home medication DVT prophylaxis - consider chemoprophylaxis when okay with surgery Thanks for the consult. Will follow along. * Ira Navarrete APRN-APPETIZER PACKER - 02/14/2018 8:56 AM CDT Bariatric Surgery Progress Note Jorge Akhtar Vahe Admit Date: 02/13/2018 10:19 AM Hospital Day: 1 Procedure: Laparoscopic Osiel en Y gastric bypass 2. Laparoscopic adhesiolysis, 30 min POD#1 Overnight Events: None Subjective: Pain well controlled with medications, no nausea or emesis, ambulated, Tolerating Phase I diet ok, but not adequate Denies CP or SOB No flatus, no BM Data Vitals: 02/13/18 2223 02/13/18 2328 02/14/18 0349 02/14/18 0742 BP: 115/73 110/64 120/78 Pulse: 80 77 69 Resp: Temp: 97.4 ??F (36.3 ??C) 97.5 ??F (36.4 ??C) 98.2 ??F (36.8 ??C) SpO2: 97% 95% 97% Weight: Intake/Output Summary (Last 24 hours) at 02/14/18 0857 Last data filed at 02/14/18 0745 Gross per 24 hour Intake 4040 ml Output 1000 ml Net 3040 ml Current Facility-Administered Medications Medication ??? iopamidol (ISOVUE 370) 76 % contrast ??? senna-docusate (SENOKOT-S) tablet 1 tablet ??? dextrose 5 % 500 mL with M.V.I. (MVI adult) 10 mL infusion ??? dextrose 5% and 0.45% NaCl with KCl 20 mEq infusion ??? acetaminophen (TYLENOL) solution 500 mg Or ??? HYDROcodone-acetaminophen 7.5-325 MG/15ML solution 15 mL ??? ondansetron (ZOFRAN) injection 4 mg ??? pantoprazole (PROTONIX) injection 40 mg ??? scopolamine (TRANSDERM-SCOP) patch 1 mg ??? metoclopramide (REGLAN) injection 10 mg ??? ALPRAZolam (XANAX) tablet 0.25 mg ??? divalproex DR (DEPAKOTE) tablet 250 mg ??? verapamil CR (ISOPTIN-SR) tablet 360 mg Recent Labs Component Name 02/14/18 0602 02/13/18 1036 01/29/18 1058 10/03/17 0640 SODIUM 135* - 141 138 POTASSIUM 3.8 4.1 3.9 3.9 CHLORIDE 100 - 104 107 CO2 29 - 30 26 BUN 21 - 22* 17 CREATININE 1.20 - 1.20 1.30 GLUCOSE 106 - 86 100 CALCIUM 8.6 - 9.7 9.4 Recent Labs Component Name 02/14/18 0602 01/29/18 1058 WBC 10.5 8.2 HGB 12.7 15.0 HCT 37.4 44.2 PLTCOUNT 196 225 UGI: pending Physical Exam A+O x 3, NAD CTA B/L RRR ABD soft, ND, appropriate TTP, incisions C/D/I Neg BLE edema Assessment/Plan: S/P Laparoscopic Osiel en Y gastric bypass 2. Laparoscopic adhesiolysis, 30 min POD #1 Neuro: PO pain control PULM: aggressive IS, ambulation, OOBTC CV: stable GI: Cont Phase I diet, PPI, UGI pending FEN: wean IVF : adequate UOP HEME: hgb dropped from 15 to 12.7, will repeat at noon ID: afebrile, no abx DVT: cont SCD and heparin Dispo: Possible D/C home later today if oral intake adequate, continue with pain and nausea management, await UGI results, monitor oral intake, Dr. Quinteros to see Ira Navarrete APRN-APPETIZER PACKER Associated attestation - Shravan Quinteros MD - 02/14/2018 11:03 PM CDT Pt seen and d/w sock knitter. Hgb decreased pod 1. Repeat stable. UGI normal. Drinking well. Monitor overnight. Am cbc. If stable d/c home * Samia Guerrier RN - 02/14/2018 5:10 AM CDT Shift Summary: Up to walk. Lap sites WNL, abdomen soft. No complaints of pain or nausea. Needs improvement on intake, but tolerated the little bit he took in. * Samia Guerrier RN - 02/13/2018 8:49 PM CDT Problem: Oxygenation/Respiratory Function Goal: Patient will achieve/maintains stable resp rate/effort Mr. Cotter will maintain stable respiratory status during this admission. Outcome: Ongoing Mr. Cotter will utilize incentive spirometry during this shift. Problem: Incision Care Goal: Incision remains intact with edges well approximated Mr. Cotter's incisions will remain intact during this admission. Outcome: Ongoing Mr. Cotter's incisions will remain intact during this shift. documented in this encounter H&P Notes * Shravan Quinteros MD - 02/12/2018 8:53 PM CDT Bariatric Surgery Evaluation History and Physical ?? Chief Complaint: Vomiting/dysphagia ?? Height: 5' 10.5 (179.1 cm) Weight: (!) 310 lb (140.6 kg) BMI (Calculated): 43.84 ?? HPI: Pt is a 42 y.o. yo [...] and/or side effects from weight loss surgery. ?? Referred by: Checked with insurance ?? Prior weight loss surgery includes: Lap Band [...] day Reoperations after weight loss surgery: none. ?? Here for final visit. Denies changes, new problems to below history. Completed diet and mental health program ?? Past Medical History: Diagnosis Date ??? Anesthesia complication ? difficulty waking ??? Anxiety ? when flying ??? HTN (hypertension) ? Kidney stones ? Migraines ? Sleep apnea ? CPAP ?? Past Surgical History: Procedure Laterality Date ? ? ADJ GASTRIC BAND & SUBCU PORT, LAP REMOVAL ?? 10/03/2017 ??? ADJUSTABLE GASTRIC BAND, LAP PLACEMENT ?? 2009 ?? Dr. Lindquist ??? ADJUSTABLE GASTRIC BAND, LAP REMOVAL ?? 10/03/2017 ?? LAPAROSCOPIC GASTRIC BAND REMOVAL ??? Cholecystectomy ?? [id number] ??? ENDOSCOPY, UPPER ?? 09/20/2017 ?? EGD WITH DILATION ??? Lithotripsy ? x2 ??? Tonsillectomy ?? 2002 ? PATIENT MEDICAL HISTORY SCREENING: Diabetes............................................No Hypertension.....................................Yes Gastroesophageal reflux disease.....No Heartburn.........................................No Chest pain.........................................No Heart trouble......................................No Dyspnea on exertion.........................Yes mild Sleep apnea......................................Yes -snoring no -fatigued during day yes -falls asleep during normal daily activities no -stops breathing at night no Morbid Obesity..................................Yes Blood clots........................................No ?? FAMILY HISTORY SCREENING: Blood clots........................................ No Outpatient Prescriptions Marked as Taking for the 01/29/18 encounter (Office Visit) with Shravan Quinteros MD Medication Sig ??? ondansetron, disintegrating, (ZOFRAN ODT) 4 MG tablet Dissolve 1 tablet under the tongue every 6 hours as needed for Nausea/Vomiting Allow tablet to dissolve on the tongue ??? oxyCODONE-acetaminophen (PERCOCET) 5-325 MG tablet Take 1-2 tablets by mouth every 4 hours as needed for Pain ??? Essex-3 Fatty Acids (FISH OIL PO) Take 1,000 [...] HOURS ??? Multiple Vitamin (MULTI VITAMIN PO) ? magnesium 500 MG tablet Take 500 mg by mouth once daily ??? pyridoxine (VITAMIN B-6) 100 MG tablet Take 100 mg by mouth once daily ?? No Known Allergies ? Social History Smoking status: Never Smoker ?? Smokeless status: Never Used Alcohol use: No Drug use: No Sexual activity: Not on file ? Family History Problem Relation Age of Onset ??? Hypertension Father ? Coronary Artery Disease Father ? [place] ? Review of Systems: : neg urinary difficulties Cardiovascular: Denies chest pain, palpitations Respiratory: Neg sob, neg home oxygen use, + SOB with activity ? Physical Examination: VS: BP 129/92 Pulse 76 Ht 5' 10.5 (1.791 m) Wt 310 lb (140.6 kg) BMI 43.85 kg/m2 Constitutional: Well nourished, NAD CV: non tachy Resp: non labored Labs: na ?? Risk / Benefits Risks and benefits were reviewed with patient including but not limited to: (prev d/w pt) Osiel-en-Y gastric bypass: , enteral leak, stricture or [...] answered. Pt expressed understanding of these risks. ?? Bariatric Surgery Patient Education: The patient was/will [...] and a social support program or network. ?? The patient has had/will have the above discussions with multiple program team members including surgeon, broom man, bariatric nurse and mental health special order jeweler. ?? Impression: Obesity (BMI: Body mass index is 43.85 kg/(m^2).) with above listed comorbidities with the following complications/side effects after weight loss surgery -morbid obesity -complications of adjustable gastric banding -dysphagia -n/v ?? Plan: I previously discussed LRYGB as options for revisional weight loss surgery as treatment for failed prior weight loss surgical procedure and dysphagia and n/v as complications/side effects of weight loss surgery. After discussion and consideration pt has decided on the below course of treatment. ?? LRYGB with intraoperative endoscopy for weight loss surgery. Further preoperative workup/interventions include: ?? -counselor at least once-done 3 Preop broom man visits-done 1 Counselor visit(s)-done ?? Liquid Diet: Yes Liquid Protein Diet: Yes1 Week Patient's Weight Goal: 200 lbs Weight goal prior tosurgery: No Surgeon Assist: No Additional Testing: Yes ?? Comments: EGD-complete Robot candidate: No Weigh at Class: No ?? Shravan Quinteros MD 01/29/2018 documented in this encounter Consult Notes * Angelica Gustafson APRN-APPETIZER PACKER - 02/13/2018 11:56 PM CDT Initial Hospitalist Consult Note Date of Consult: 02/14/2018 Patient's Primary Care Physician: Gerald Coronado MD Physician Requesting Consult: Shravan Quinteros MD Reason for Consultation: Evaluation of patient's medical problems, which include hypertension, obesity, migraine , JAMES, Kidney stones, anxiety Name: Jorge Cotter Age: 42 y.o. Race: Sex: male Chief Complaint/History of Present Illness Pt is a 42 y.o. male with a hx of morbid obesity who presents for surgical tx. Pt has attempted multiple weight loss regimens in the past including medical, exercise and dietary without terminal make up operator success. Pt with significant comorbid conditions that have been progressive and now negatively affecting his health. Patient underwent a successful Lap gastric sleeve under general anaesthesia. No immediate complications. Pain is adequately controlled. Patient is awake and alert. No complaints of abdominal pain, nausea or vomiting, chest pain or shortness of breath. No change of appetite. No recent fevers or chills. No headache or blurred vision. No numbness or tingling in extremities. No weight gain or loss. No falls, seizures or loss of consciousness . No cough with expectoration. No diplopia, tinnitus. Mood is stable. No Bowel or bladder incontinence. No new leg swelling rash. No dysuria, hematuria , urgency of frequency of micturition. Past Medical History: Diagnosis Date ??? Anesthesia [...] 10/03/2017 LAPAROSCOPIC GASTRIC BAND REMOVAL ??? Cholecystectomy [id number] ??? ENDOSCOPY, UPPER 09/20/2017 EGD WITH DILATION ??? Gastric Bypass 02/13/2018 WITH EGD ??? Lithotripsy x2 ??? Tonsillectomy 2003 Family History Problem Relation Age of Onset ??? Hypertension Father ??? Coronary Artery Disease Father [place] Social History Occupational History ??? Not on file. Social History Main Topics ??? Smoking status: Never Smoker ??? Smokeless tobacco: Never Used ??? Alcohol use No ??? Drug use: No ??? Sexual activity: Not on file Prescriptions Prior to Admission Medication Sig Dispense Refill ??? Verapamil HCl CR 360 MG Take 360 mg by mouth once daily 6 ??? lisinopril-hydroCHLOROthiazide (PRINZIDE; ZESTORETIC) 20-12.5 MG tablet Take 1 tablet by mouth once daily ??? divalproex DR (DEPAKOTE) 250 MG tablet Take 250 mg by mouth 2 times daily 0 ??? SUMAtriptan Succinate 6 MG/0.5ML INJECT 1 CARTRIDGE NEEDED FOR MIGRAINE. MAY REPEAT IN 1 HOUR IF NEEDED. MAX 2/24 HOURS 3 ??? Multiple Vitamin (MULTI VITAMIN PO) ??? magnesium 500 MG tablet Take 500 mg by mouth once daily ??? Essex-3 Fatty Acids (FISH OIL PO) Take 1,000 mg by mouth once daily ??? ALPRAZolam (XANAX) 0.25 MG tablet Take 0.25 mg by mouth as needed Only takes when flying. 2 ??? pyridoxine (VITAMIN B-6) 100 MG tablet Take 100 mg by mouth once daily No Known Allergies Review of Systems A comprehensive 14 review of systems was negative except as described in HPI. Exam Vitals: 02/13/18 2105 02/13/18 2145 02/13/18 2223 02/13/18 2328 BP: 118/81 126/79 115/73 110/64 Pulse: 82 75 80 77 Resp: 16 16 16 16 Temp: 97.8 ??F (36.6 ??C) 97.6 ??F (36.4 ??C) 97.4 ??F (36.3 ??C) 97.5 ??F (36.4 ??C) SpO2: 98% 92% 97% 95% Weight: General appearance: alert, cooperative, no distress Skin: No pallor or decreased turgor. HEENT. Normal Sclera. Normal oropharyngeal mucosa. No thrush. Heart: regular rhythm, normal S1 and S2, without murmurs, rubs or gallops Lungs: breath sounds normal and symmetric; no rales or wheezes Abdomen: obese, non-tender, non-distended, surgical site clean/dry/intact Extremities: no clubbing, cyanosis or edema REFRIGERATOR GLAZIER. Alert and oriented x 3. Cranial nerves 2-12 grossly normal. Power tone all 4 extremeties normal Data I have reviewed the patient's labs and the review is significant for: Recent Labs Component Name 01/29/18 1058 WBC 8.2 HGB 15.0 HCT 44.2 PLTCOUNT 225 Recent Labs Component Name 02/13/18 1036 01/29/18 1058 10/03/17 0640 SODIUM - 141 138 POTASSIUM 4.1 3.9 3.9 CHLORIDE - 104 107 CO2 - 30 26 BUN - 22* 17 CREATININE - 1.20 1.30 GLUCOSE - 86 100 CALCIUM - 9.7 9.4 Assessment and Plan Records available in chart ( paper and electronic) were reviewed. Home medications were reviewed 1. Post-op Day 0 Follow post op orders. DVT prophylaxis to continue with SCD and chemoprophylaxis per surgeon preference - Heparin 5000 units subcutaneously bid. Encouraged ambulation. Incentive spirometry at bedside. As tolerated. GI prophylaxis to continue with H2 blockers or Proton Pump inhibitors continue Iv antibiotics -HTN:Contiue home dose verapamil and ACEI with HCTZ -Anxiety:stable -JAMES: continue home CPAP -Migraine: Continue home dose Depakote as needed -Obesity : BMI 43.45 s/p lap gastric sleeve Plastic Boat Buffer provided regarding life style modifications Treatment plan discussed with patient at bedside. All questions were answered. Orders placed in chart. CC: Gerald Coronado MD, Shravan Quinteros MD documented in this encounter OR Notes * Operative - Shravan Quinteros MD - 02/13/2018 4:15 PM CDT [facility] Operative Report OPERATIVE REPORT PATIENT: Jorge Cotter MR#: [id number] ADMIT DATE: 02/13/2018 ACCT#: DATE OF SURGERY: 02/13/2018 : 1975 PHYSICIAN: Shravan Quinteros MD 42 y.o. Body mass index is: Body mass index is 43.45 kg/(m^2). PREOPERATIVE DIAGNOSES: Morbid Obesity, Body mass index is 43.45 kg/(m^2). Past Medical History: Diagnosis Date ??? Anesthesia complication difficulty waking ??? 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 HTN (hypertension) ??? Kidney stones ??? Migraines ??? Sleep apnea CPAP POSTOPERATIVE DIAGNOSES: SAME Abdominal adhesions PROCEDURES PERFORMED: 1. Laparoscopic Osiel en Y gastric bypass 2. Laparoscopic adhesiolysis, 30 min SURGEON: Shravan Quinteros MD DIGITAL DIRECTOR: MOISES Sutherland ANESTHESIA: General endotracheal. OPERATIVE FINDINGS: neg leak test. No hiatal hernia. Moderate amount of adhesions with 30 min or additional 30% of operative time required for adhesiolysis. Therefore modifier 22 should be added PROCEDURE: The patient was brought to the operating suite and placed under general endotracheal anesthesia. Pt was prepped and draped in the usual sterile fashion. A small incision was made above andto left of umbilicus. An optical 5 mm trocar was inserted under direct visualization. No injury to underlying contents was visualized. Pneumoperitoneum was created to 15 mmHg. Exparel was injected into preperitoneal space laterally along bilateral costal margins and abdominal jean baptiste and in the area of future 12 mm trocar site to provide preperitoneal nerve block and long acting pain control. Additional trocars inserted included two 5 mm trocars along right and left abdominal jean baptiste and 12 mm trocar to right of umbilicus. The patient was now placed in steep reverse Trendelenburg position. Adhesiolysis was performed to allow for visualization of hiatus and examination of the anterior stomach. A full-length Ethibond suture was passed through the apex of the right francis and and secured creating suspension suture lines for retraction of the left liver lobe. The angle of His was dissected bluntly without difficulty. Thehiatus was inspected. A hiatal hernia was not present. The gastric calibration tube was advanced and identified within the lumen of the stomach. With the aid of the anesthesiologist the calibration tube was moved up and down the upper segment of stomach along the lesser curve. The tube was used to approximate a distance of 5 cm from the hiatus for the length of the future gastric pouch. The Ligasure was then used to take down a limited amount of the gastrohepatic membrane along the lesser curve. Blunt dissection was then performed to create a retrogastric tunnel. The laparoscopic linear stapler (purple load) was then advanced into the retrogastric tunnel to the location that was the inferior edge of the gastric pouch and then fired to create a 4 cm wide gastric pouch. Additional retrogastric dissection was performed to the previously dissected angle of His. Additional firings of the linear stapler were performed extending towards the left francis of the diaphragm utilizing the gastric tube as a guide. Each load was covered with buttress material. The final staple firing was at the angle of his completely excluding the fundus of the stomach and being careful to not leave any redundantgastric fundus. There was no evidence of bleeding at the gastric staple line. The omentum was elevated at its inferior edge and divided with a Ligasure to the level of the transverse colon. The transverse colon mesentery was elevated and ligament of Treitz identified. Beginning at the ligament of Treitz, the proximal jejunum was run for appropriate length to allow the futureRoux limb to adequately reach the later formed gastric pouch and the small bowel was then divided with the linear stapler (babin load on [employer]omat[employer] powered stapler) and appropriate amount of mesentery taken down with the Ligasure. The distal stump of the transected jejunum was run distally for another 150 cm and brought to the previous proximal staple line with a 2-0 silk stay suture. Using Ligasure, enterotomies were created in each limb of the bowel, and [id number] anastomosis was performed using a white load linear stapler. The enterotomy was closed in 2 layers with 3-0 Vicryl sutures liningup the small bowel thereby preventing twisting of the anastomosis and potential obstruction. The mesenteric defect was closed with a running 2-0 silk suture beginning at base of mesentery extending to the small bowel. The proximal Osiel limb was then brought up and placed adjacent to the gastric pouch. An end to end anastomosis was created. A 3-0 vicryl suture was then used to create the outer andposterior suture layer of the gastrojejunostomy. The Ligasure was then used to create gastrotomy which as made about 12 mm in size. The Ligasure was used to create an enterotomy at the corresponding location of the osiel limb. The calibration tube was then withdrawn to just proximal to the gastrotomy. A 3-0 vicryl suture was then used to create the posterior inner layer of the two layered gastrojejunostomy anastomosis moving laterally to medially. Another 3-0 vicryl suture was used to complete the inner layer of the anastomosis, again beginning laterally and moving medially joining the previously placed inner layer. The initial outer 3-0 vicryl suture was then used to complete the outer layer of the anastomosis, thereby completing the 2 layered anastomosis. The calibration tube was advanced with only mild through the anastomosis. The patient was placed in the supine position. The gastrojejunal anastomosis and pouch were submerged under saline solution and the calibration tube was withdrawn to just proximal to the newly formed GJ anastomosis for preparation of the leak test. Oxygen was insufflated at 1 liter per minute with the Osiel limb clamped distally. There was no evidence of air bubbles indicating no anastomotic leak. The staple lines were covered with Tisseal for hemostasis.One area on gastric remnant had e/o arterial bleeding and this was controlled with 3-0 vicryl suture. The irrigation fluid was suctioned. A 2-0 silk suture was then used to approximate the transversemesocolon to the adjacent mesentery of the Osiel limb to obliterate Morales's space. The 12 mm trocar site was then closed with a transfascial 0-vicryl suture under direct visualization. The liver retractor suture was then removed. Trocars were removed under direct visualization after relief of pneumoperitoneum. Skin incisions were closed with subcuticular 4-0 Monocryl suture followed by Dermabond for dressing. Patient was taken to recovery room in good condition. EBL: 25 ml Specimen: none Implants: None Complications: None. Shravan Quinteros MD documented in this encounter Plan of Treatment Scheduled Orders Name Type Priority Associated Diagnoses Orde r Schedule OXYGEN WITH TITRATION PROTOCOL Respiratory Care Routine ONCE for 1 Occurrences starting 02/13/2018 until 02/13/2018 documented as of this encounter Procedures Procedure Name Priority Date/Time Associated Diagnosis Comments CBC W AUTO DIFFERENTIAL AM Draw 02/15/2018 5:10 AM CDT BASIC METABOLIC PANEL (CALCIUM TOTAL) AM Draw 02/15/2018 5:10 AM CDT PHOSPHORUS BLOOD Routine 02/15/2018 5:10 AM CDT MAGNESIUM BLOOD Routine 02/15/2018 5:10 AM CDT HGB HCT PANEL Timed 02/14/2018 1:16 PM CDT FL FLUORO UPPER GI TRACT + KUB Routine 02/14/2018 11:58 AM CDT H/O gastric bypass VITAMIN D 25-HYDROXY AM Draw 02/14/2018 6:02 AM CDT CBC W AUTO DIFFERENTIAL AM Draw 02/14/2018 6:02 AM CDT BASIC METABOLIC PANEL (CALCIUM TOTAL) AM Draw 02/14/2018 6:02 AM CDT HOME CPAP/BIPAP FOR HOSP USE: NOCTURNAL 02 Routine 02/14/2018 12:02 AM CDT GLUCOSE - POINT OF CARE Routine 02/13/2018 4:18 PM CDT LAPAROSCOPIC GASTRIC BYPASS 02/13/2018 12:55 PM CDT HOME CPAP/BIPAP FOR HOSP USE: NOCTURNAL 02 Routine 02/13/2018 10:43 AM CDT HOME CPAP/BIPAP FOR HOSP USE: NOCTURNAL 02 Routine 02/13/2018 10:43 AM CDT POTASSIUM BLOOD STAT 02/13/2018 10:36 AM CDT Preop examination documented in this encounter Results * MAGNESIUM BLOOD (02/15/2018 5:10 AM CDT) Magnesium 2.1 1.6 - 2.6 mg/dL 02/15/2018 5:42 AM CDT [facility] Blood BLOOD SPECIMEN / Unknown Venipuncture / Unknown 02/15/2018 5:10 AM CDT 02/15/2018 5:24 AM CDT Shan Owen MD LAB - CHEMISTRY LAURA AVILA [facility] [address] [place] [address] * PHOSPHORUS BLOOD (02/15/2018 5:10 AM CDT) Pathologist [facility] Phosphorus 2.5 2.5 - 4.9 mg/dL 02/15/2018 5:42 AM CDT [facility] Blood BLOOD SPECIMEN / Unknown Venipuncture / Unknown 02/15/2018 5:10 AM CDT 02/15/2018 5:24 AM CDT Shan Owen MD LAB - CHEMISTRY LAURA AVILA Performing Organization Address [facility] Co de Phone Number [facility] [address] [place], [place] [id number] * CBC W AUTO DIFFERENTIAL (02/15/2018 5:10 AM CDT) Pathologist [facility] WBC 8.2 4.4 - 10.7 x10E9/L 02/15/2018 5:35 AM CDT [facility] WBC Corrected x10E9/L 02/15/2018 5:35 AM CDT [facility] RBC 4.43 3.80 - 5.40 x10E12/L 02/15/2018 5:35 AM CDT [facility] Hemoglobin 13.4 12.0 - 17.6 gm/dL 02/15/2018 5:35 AM CDT [facility] Hematocrit 39.4 35.2 - 51.7 % 02/15/2018 5:35 AM CDT [facility] MCV 88.9 80.7 - 98.3 fl 02/15/2018 5:35 AM CDT [facility] MCH 30.2 26.7 - 34.0 pg 02/15/2018 5:35 AM CDT [facility] MCHC 34.0 30.8 - 35.9 gm/dL 02/15/2018 5:35 AM CDT [facility] Platelet Count 194 153 - 416 x10E9/L 02/15/2018 5:35 AM CDT [facility] RDW-CV 12.3 12.1 - 14.9 % 02/15/2018 5:35 AM CDT [facility] MPV 11.4 9.4 - 12.9 fl 02/15/2018 5:35 AM CDT [facility] Neutrophils % 64.6 44.0 - 73.0 % 02/15/2018 5:35 AM CDT [facility] Lymphocytes % 22.0 20.0 - 43.0 % 02/15/2018 5:35 AM CDT [facility] Monocytes % 9.4 5.0 - 13.0 % 02/15/2018 5:35 AM CDT [facility] Eosinophils % 3.4 0.0 - 6.0 % 02/15/2018 5:35 AM CDT [facility] Basophils % 0.4 0.0 - 2.0 % 02/15/2018 5:35 AM CDT [facility] Immature Granulocytes 0.2 0 - 1 % 02/15/2018 5:35 AM CDT [facility] Neutrophil Absolute 5.26 2.01 - 7.14 x10E9/L 02/15/2018 5:35 AM CDT [facility] Lymphocytes Absolute 1.79 1.07 - 3.94 x10E9/L 02/15/2018 5:35 AM CDT [facility] Monocytes Absolute 0.77 0.26 - 1.07 x10E9/L 02/15/2018 5:35 AM CDT [facility] Eosinophils Absolute 0.28 0 - 0.47 x10E9/L 02/15/2018 5:35 AM CDT [facility] Basophils Absolute 0.03 0 - 0.08 x10E9/L 02/15/2018 5:35 AM CDT [facility] Immature Granulocytes Absolute 0.02 0.00 - 0.06 x10E9/L 02/15/2018 5:35 AM CDT [facility] nRBC Auto 0 /100 WBC 02/15/2018 5:35 AM CDT [facility] Blood BLOOD SPECIMEN / Unknown Venipuncture / Unknown 02/15/2018 5:10 AM CDT 02/15/2018 5:23 AM CDT Shravan Quinteros MD LAB - HEMATOLOGY ORD ERABLES [facility] [address] [place] [address] * (ABNORMAL) BASIC METABOLIC PANEL (CALCIUM TOTAL) (02/15/2018 5:10 AM CDT) Glucose 107(H) 74 - 106 mg/dL 02/15/2018 5:42 AM CDT [facility] Sodium 141 136 - 145 mmol/L 02/15/2018 5:42 AM CDT [facility] Potassium 4.1 3.5 - 5.1 mmol/L 02/15/2018 5:42 AM CDT [facility] Chloride 105 98 - 107 mmol/L 02/15/2018 5:42 AM CDT [facility] CO2 29 22 - 31 mmol/L 02/15/2018 5:42 AM CDT [facility] Calcium 8.5 8.5 - 10.1 mg/dL 02/15/2018 5:42 AM CDT [facility] Anion Gap 7(L) 8 - 16 mmol/L 02/15/2018 5:42 AM CDT [facility] BUN 14 7 - 21 mg/dL 02/15/2018 5:42 AM CDT [facility] Creatinine 1.00 0.50 - 1.30 mg/dL 02/15/2018 5:42 AM CDT [facility] eGFR by MDRD >60 >60 mL/min/1.7 3m2 02/15/2018 5:42 AM CDT [facility] eGFR by MDRD >60 >60 mL/min/1.7 3m2 02/15/2018 5:42 AM CDT [facility] Blood BLOOD SPECIMEN / Unknown Venipuncture / Unknown 02/15/2018 5:10 AM CDT 02/15/2018 5:24 AM CDT Shravan Quinteros MD LAB - CHEMISTRY LAURA AVIAL [facility] Organization Address City/State/ZIP Co de Phone Number [facility] [address] [place] [address] * HGB HCT PANEL (02/14/2018 1:16 PM CDT) Hemoglobin 13.3 12.0 - 17.6 gm/dL 02/14/2018 1:22 PM CDT [facility] Hematocrit 37.7 35.2 - 51.7 % 02/14/2018 1:22 PM CDT [facility] Blood BLOOD SPECIMEN / Unknown Venipuncture / Unknown 02/14/2018 1:16 PM CDT 02/14/2018 1:20 PM CDT Ira Navarrete WINDOW CLEANER-APPETIZER PACKER LAB - HEM ATOLOGY ORDERABLES [facility] [address] [place] [address] * FL FLUORO UPPER GI TRACT + KUB (02/14/2018 11:58 AM CDT) Anatomical Region Laterality Modality Abdomen Radiographic Tish ging 02/14/2018 2:36 PM CDT Impressions 02/14/2018 2:37 PM CDT No evidence of ??leak or obstruction. Narrative 02/14/2018 2:37 PM CDT Fluoroscopic upper GI with KUB Indication: Morbid obesity, status post Osiel-en-Y gastric bypass surgery, gastric leak. Findings: Multiple [...] with KUB Indication: Morbid obesity, status post Osiel-en-Y gastric bypass surgery, gastric leak. Findings: Multiple [...] VITAMIN D 25-HYDROXY (02/14/2018 6:02 AM CDT) Vitamin D, 25 Hydroxy 36.34 30 - 100 ng/mL 02/14/2018 10:[address] [facility] Blood BLOOD SPECIMEN / Unknown Venipuncture / Unknown 02/14/2018 6:02 AM CDT 02/14/2018 6:[address] [facility] - 02/14/2018 10:19 AM CDT Vitamin D Status: ?Deficiency ? <20 ? ng/mL ?Insufficiency ?? 20-30 ??ng/mL ?Sufficiency ? 30-100 ng/mL ?Toxicity ? >100 ?ng/mL Shravan Quinteros MD LAB - CHEMISTRY LAURA AVILA [facility] [address] [place], [place] [id number] * CBC W AUTO DIFFERENTIAL (02/14/2018 6:02 AM CDT) [facility] WBC 10.5 4.4 - 10.7 x10E9/L 02/14/2018 6:17 AM CDT [facility] WBC Corrected x10E9/L 02/14/2018 6:17 AM CDT [facility] RBC 4.22 3.80 - 5.40 x10E12/L 02/14/2018 6:17 AM CDT [facility] Hemoglobin 12.7 12.0 - 17.6 gm/dL 02/14/2018 6:17 AM CDT [facility] Hematocrit 37.4 35.2 - 51.7 % 02/14/2018 6:17 AM CDT [facility] MCV 88.6 80.7 - 98.3 fl 02/14/2018 6:17 AM CDT [facility] MCH 30.1 26.7 - 34.0 pg 02/14/2018 6:17 AM CDT [facility] MCHC 34.0 30.8 - 35.9 gm/dL 02/14/2018 6:17 AM CDT [facility] Platelet Count 196 153 - 416 x10E9/L 02/14/2018 6:17 AM CDT [facility] RDW-CV 12.2 12.1 - 14.9 % 02/14/2018 6:17 AM CDT [facility] MPV 11.2 9.4 - 12.9 fl 02/14/2018 6:17 AM CDT [facility] Neutrophils % 63.1 44.0 - 73.0 % 02/14/2018 6:17 AM CDT [facility] Lymphocytes % 26.0 20.0 - 43.0 % 02/14/2018 6:17 AM CDT [facility] Monocytes % 9.8 5.0 - 13.0 % 02/14/2018 6:17 AM CDT [facility] Eosinophils % 0.6 0.0 - 6.0 % 02/14/2018 6:17 AM CDT [facility] Basophils % 0.3 0.0 - 2.0 % 02/14/2018 6:17 AM CDT [facility] Immature Granulocytes 0.2 0 - 1 % 02/14/2018 6:17 AM CDT [facility] Neutrophil Absolute 6.60 2.01 - 7.14 x10E9/L 02/14/2018 6:17 AM CDT [facility] Lymphocytes Absolute 2.72 1.07 - 3.94 x10E9/L 02/14/2018 6:17 AM CDT [facility] Monocytes Absolute 1.03 0.26 - 1.07 x10E9/L 02/14/2018 6:17 AM CDT [facility] Eosinophils Absolute 0.06 0 - 0.47 x10E9/L 02/14/2018 6:17 AM CDT [facility] Basophils Absolute 0.03 0 - 0.08 x10E9/L 02/14/2018 6:17 AM CDT [facility] Immature Granulocytes Absolute 0.02 0.00 - 0.06 x10E9/L 02/14/2018 6:17 AM CDT [facility] nRBC Auto 0 /100 WBC 02/14/2018 6:17 AM CDT [facility] Blood BLOOD SPECIMEN / Unknown Venipuncture / Unknown 02/14/2018 6:02 AM CDT 02/14/2018 6:09 AM CDT Shravan Quinteros MD LAB - HEMATOLOGY ORD ERABLES [facility] [address] [place] [address] * (ABNORMAL) BASIC METABOLIC PANEL (CALCIUM TOTAL) (02/14/2018 6:02 AM CDT) Glucose 106 74 - 106 mg/dL 02/14/2018 6:34 AM CDT [facility] Sodium 135(L) 136 - 145 mmol/L 02/14/2018 6:34 AM CDT [facility] Potassium 3.8 3.5 - 5.1 mmol/L 02/14/2018 6:34 AM CDT [facility] Chloride 100 98 - 107 mmol/L 02/14/2018 6:34 AM CDT [facility] CO2 29 22 - 31 mmol/L 02/14/2018 6:34 AM CDT [facility] Calcium 8.6 8.5 - 10.1 mg/dL 02/14/2018 6:34 AM CDT [facility] Anion Gap 6(L) 8 - 16 mmol/L 02/14/2018 6:34 AM CDT [facility] BUN 21 7 - 21 mg/dL 02/14/2018 6:34 AM CDT [facility] Creatinine 1.20 0.50 - 1.30 mg/dL 02/14/2018 6:34 AM CDT [facility] eGFR by MDRD >60 >60 mL/min/1.7 3m2 02/14/2018 6:34 AM CDT [facility] eGFR by MDRD >60 >60 mL/min/1.7 3m2 02/14/2018 6:34 AM CDT [facility] Blood BLOOD SPECIMEN / Unknown Venipuncture / Unknown 02/14/2018 6:02 AM CDT 02/14/2018 6:09 AM CDT Shravan Quinteros MD LAB - CHEMISTRY LAURA AVILA [facility] [address] [place] [address] * GLUCOSE - POINT OF CARE (02/13/2018 4:18 PM CDT) Glucose WB/POC 98 70 - 106 mg/dL 02/14/2018 7:46 AM CDT [facility] Blood BLOOD SPECIMEN / Unknown 02/13/2018 4:18 PM CDT 02/14/2018 7:46 AM CDT Shravan Quinteros MD LAB - POINT OF CARE ORDERABLES Performing Organization Address City/[facility] Co de Phone Number [facility] [id number] [place] [address] * POTASSIUM BLOOD (02/13/2018 10:36 AM CDT) Potassium 4.1 3.5 - 5.1 mmol/L 02/13/2018 11:13 AM CDT [facility] Blood BLOOD SPECIMEN / Unknown Venipuncture / Unknown 02/13/2018 10:36 AM CDT 02/13/2018 10:56 AM CDT Jojo Gaytan DO LAB - CHEMISTRY LAURA AVILA Performing Organization Address [facility] Co de Phone Number [facility] [address] [place] [address] documented in this encounter Visit Diagnoses Not on filedocumented in this encounter Administered Medications Inactive Administered Medications - up to 3 most recent administrations Medication Order MAR Action Action Date Dose Rate Site 0.9% NaCl injection PRN, Starting on Sun02/13/18 at 1357, Until Sun02/13/18 at 1610, Intra-op $ Given 02/13/2018 1:57 PM CDT 40 mL Operative Site 0.9% nacl irrigation solution PRN, Starting on Sun02/13/18 at 1357, Until Sun02/13/18 at 1610, Intra-op $ Given 02/13/2018 1:57 PM CDT 1,000 mL Operative Site acetaminophen (TYLENOL) solution 500 mg 500 mg, Oral, EVERY 4 HOURS, 2190 doses, First dose on Sun02/14/18 at 0000, Last dose on Sun02/13/19 at 2000, Use acetaminophen for mild pain or hydrocodone/acetaminop hen for moderate/severe pain every 4 hours scheduled., Post-op bupivacaine liposome (EXPAREL) 1.3 % injection PRN, Starting on Sun02/13/18 at 1357, Until Sun02/13/18 at 1610, Intra-op $ Given 02/13/2018 1:57 PM CDT 266 mg Operative Site dextrose 5 % 500 mL with M.V.I. (MVI adult) 10 mL infusion 125 mL/hr, Intravenous, DAILY, 365 doses, First dose on Sun02/13/18 at 2100, Last dose on Sun02/12/19 at 0900, To be run over 4 hours. Do not infuse at same time as other IV fluids. , Post-op $ New Bag/Syringe 02/14/2018 7:36 AM CDT 125 mL/hr 125 mL/hr $ New Bag/Syringe 02/13/2018 9:24 PM CDT 125 mL/hr 125 mL /hr dextrose 5% and 0.45% NaCl with KCl 20 mEq infusion at 100 mL/hr, Intravenous, CONTINUOUS, Starting on Sun02/13/18 at 2100, Until Sun02/15/18 at 1315, Do not infuse at same time as other IV fluids. , Post-op $ New Bag/Syringe 02/15/2018 1:45 AM CDT 100 mL/h r $ New Bag/Syringe 02/14/2018 4:38 PM CDT 100 mL /hr $ New Bag/Syringe 02/13/2018 9:22 PM CDT 100 mL /hr divalproex DR (DEPAKOTE) tablet 250 mg 250 mg, Oral, 2 TIMES DAILY, 730 doses, First dose on Sun02/13/18 at 2315, Last dose on Sun02/13/19 at 0900, Do not crush, chew, or cut in half. $ Given 02/15/2018 8:26 AM CDT 250 mg $ Given 02/14/2018 11:10 PM CDT 250 mg $ Given 02/14/2018 4:38 PM CDT 250 mg HYDROcodone-acetaminophen 7.5-325 MG/15ML solution 15 mL 15 mL, Oral, EVERY 4 HOURS, 2190 doses, First dose on Sun02/14/18 at 0000, Last dose on Sun02/13/19 at 2000, Use acetaminophen for mild pain or hydrocodone/acetaminophen for moderate/severe pain every 4 hours scheduled., Post-op $ Given 02/15/2018 11:29 AM CDT 15 mL $ Given 02/15/2018 5:54 AM CDT 15 mL $ Given 02/14/2018 11:11 PM CDT 15 mL iopamidol (ISOVUE 370) 76 % contrast Oral, CONTRAST ONCE, Starting on Sun02/14/18 at 1135, Until Sun02/15/18 at 1315 $ Given - Contrast 02/14/2018 11:49 AM CDT 50 mL metoclopramide (REGLAN) injection 10 mg 10 mg, Intravenous, EVERY 6 HOURS, First dose on Sun02/13/18 at 2100, Until Discontinued, Post-op $ Given 02/14/2018 7:36 AM CDT 10 mg $ Given 02/14/2018 12:00 AM CDT 10 mg ondansetron (ZOFRAN) injection 4 mg 4 mg, Intravenous, EVERY 6 HOURS, First dose on Sun02/13/18 at 2100, Until Discontinued, Post-op $ Given 02/15/2018 6:01 AM CDT 4 mg $ Given 02/14/2018 6:06 AM CDT 4 mg $ Given 02/13/2018 9:20 PM CDT 4 mg pantoprazole (PROTONIX) injection 40 mg 40 mg, Intravenous, DAILY, First dose on Sun02/13/18 at 2100, Until Discontinued, Reconstitute vial with 10 mL of 0.9% NaCL to a final concentration 4 mg/mL. Adminster prescribed dose over at least 2min. For every 40 mg of pantoprazole mix with 10 mL Normal Saline (final concentration = 4 mg/mL). Inject SLOWLY over 2 min., Post-op $ Given 02/15/2018 8:26 AM CD T 40 mg $ Given 02/14/2018 7:49 AM CDT 40 mg $ Given 02/13/2018 9:20 PM CDT 40 mg senna-docusate (SENOKOT-S) tablet 1 tablet 1 tablet, Oral, 2 TIMES DAILY, 730 doses, First dose on Sun02/14/18 at 0930, Last dose on Sun02/13/19 at 2100 $ Given 02/15/2018 8:26 AM CDT 1 tablet $ Given 02/14/2018 11:11 PM CDT 1 tablet $ Given 02/14/2018 4:38 PM CDT 1 tablet verapamil CR (ISOPTIN-SR) tablet 360 mg 360 mg, Oral, DAILY, First dose on Linda 4/26/18 at 0900, Until Discontinued, Do not crush or chew. $ Given 02/15/2018 8:26 AM CDT 360 mg $ Given 02/14/2018 4:42 PM CDT 360 mg documented in this encounter Active and Recently Administered Medications Times are shown in CDT. Scheduled Medication Order 02/13/2018 02/14/2018 02/15/2018 acetaminophen (TYLENOL) solution 500 mg(Linked Group 1) 500 mg, Oral, EVERY 4 HOURS, 2190 doses, First dose on Sun02/14/18 at 0000, Last dose on Sun02/13/19 at 2000, Use acetaminophen for mild pain or hydrocodone/acetaminop hen for moderate/severe pain every 4 hours scheduled., Post-op 0121 (See Alternative - Provider: Samia Guerrier RN)0606 (See Alternative - Provider: Samia Guerrier RN)1320 (See Alternative - Provider: Tory Jones RN)1731 (See Alternative - Provider: Tory Jones RN)1818 (See Alternative - Provider: Tory Jones RN)2016 (See Alternative - Provider: Ludmila Mcdonnell RN)2311 (See Alternative - Provider: Ludmila Mcdonnell RN) 0554 (See Alternative - Provider: Ludmila Mcdonnell RN)0825 (See Alternative - Provider: Alize Diaz RN)1129 (See Alternative - Provider: Alize Diaz RN) ceFAZolin (ANCEF) 2,000 mg in 50 ml IVPB (COMPLETED) 2,000 mg (2 g), at 100 mL/hr, Intravenous, EVERY 8 HOURS, 2 doses, First dose on Sun02/13/18 at 2200, Last dose on Sun02/14/18 at 0600, Administer last dose within 24 hours of the close of surgical incision., Indication for anti-infective therapy: Surgical prophylaxis, Site of anti-infective therapy: Skin/soft tissue, Post-op 2122 ($ New Bag/Syringe - Provider: Samia Guerrier RN)2237 (Stopped - Provider: Samia Guerrier RN) 0606 ($ New Bag/Syringe - Provider: Samia Guerrier RN)0636 (Stopped - Provider: Samia Guerrier RN) ceFAZolin (ANCEF) 3,000 mg in 115 mL IVPB (CANCELED) 3,000 mg (3 g), at 230 mL/hr, Intravenous, PRE-OP ONCE, On Sun02/13/18 at 1036, Administer 30 minutes prior to surgical incision. Refrigerate, Indication for anti-infective therapy: Surgical prophylaxis, Site of anti-infective therapy: Other, Other site of infection (free text): Bariatric surgery, Pre-op 1310 ($ Given - Provider: Murali Zamora APRN-MINI BAR ATTENDANT) dextrose 5 % 500 mL with M.V.I. (MVI adult) 10 mL infusion 125 mL/hr, Intravenous, DAILY, 365 doses, First dose on Sun02/13/18 at 2100, Last dose on Sun02/12/19 at 0900, To be run over 4 hours. Do not infuse at same time as other IV fluids. , Post-op 2124 ($ New Bag/Syringe - Provider: Samia Guerrier RN) 0736 ($ New Bag/Syringe - Provider: Tory Jones RN) 0825 (Not Administered - Provider: Alize Diaz RN - Reason: Refused-Patient - Comment: pt going home.) divalproex DR (DEPAKOTE) tablet 250 mg 250 mg, Oral, 2 TIMES DAILY, 730 doses, First dose on Sun02/13/18 at 2315, Last dose on Sun02/13/19 at 0900, Do not crush, chew, or cut in half. 2253 (Not Administered - Provider: Samia Guerrier RN - Reason: Procedural Hold) 1638 ($ Given - Provider: Tory Jones RN)2310 ($ Given - Provider: Ludmila Mcdonnell RN) 0826 ($ Given - Provider: Alize Diaz RN) famotidine (PEPCID) injection 20 mg (COMPLETED) 20 mg, Intravenous, PRE-OP ONCE, 1 dose, On Sun02/13/18 at 1036, Give morning of surgery., Pre-op 1037 ($ Given - Provider: Mariya Adam RN) heparin injection 5,000 Units (COMPLETED) 5,000 Units, Subcutaneous, PRE-OP ONCE, 1 dose, On Sun02/13/18 at 1036, Pre-op 1037 ($ Given - Provider: Mariya Adam RN) heparin injection 5,000 Units (CANCELED) 5,000 Units, Subcutaneous, EVERY 8 HOURS, First dose on Sun02/14/18 at 0900, Until Discontinued, Post-op 0749 ($ Given - Provider: Tory Jones RN) HYDROcodone-acetaminop hen 7.5-325 MG/15ML solution 15 mL(Linked Group 1) 15 mL, Oral, EVERY 4 HOURS, 2190 doses, First dose on Sun02/14/18 at 0000, Last dose on Sun02/13/19 at 2000, Use acetaminophen for mild pain or hydrocodone/acetaminop hen for moderate/severe pain every 4 hours scheduled., Post-op 0121 (Not Administered - Provider: Samia Guerrier RN - Reason: Refused-Patient)0606 ($ Given - Provider: Samia Guerrier RN)1320 ($ Given - Provider: Tory Jones RN)1731 (Not Administered - Provider: Tory Jones RN - Reason: Refused-Patient)1818 ($ Given - Provider: Tory Jones RN)2016 ($ Given - Provider: Ludmila Mcdonnell RN)2311 ($ Given - Provider: Ludmila Mcdonnell RN) 0554 ($ Given - Provider: Ludmila Mcdonnell RN)0825 (Not Administered - Provider: Alize Diaz RN - Reason: See Comments - Comment: had it @ 0600.)1129 ($ Given - Provider: Alize Diaz RN) iopamidol (ISOVUE 370) 76 % contrast Oral, CONTRAST ONCE, Starting on Sun02/14/18 at 1135, Until Sun02/15/18 at 1315 1149 ($ Given - Contrast - Provider: Hallie Mckeon, RT(R)) ketorolac (TORADOL) injection 15 mg (COMPLETED) 15 mg, Intravenous, EVERY 6 HOURS, 3 doses, First dose on Sun02/13/18 at 1800, Last dose on Sun02/14/18 at 0600, Post-op 2119 ($ Given - Provider: Samia Guerrier RN) 0320 ($ Given - Provider: Samia Guerrier RN)0735 ($ Given - Provider: Tory Jones RN) lidocaine buffered 1 % injection 0.5 mL (CANCELED) 0.5 mL, Infiltration, PRE-OP MULTIPLE, 3 doses, Starting on Sun02/13/18 at 1036, Until Sun02/13/18 at 202, May be used (0.5 ml locally to anesthetize prior to insertion)., Pre-op 1037 ($ Given - Provider: Mariya Adam RN) metoclopramide (REGLAN) injection 10 mg (CANCELED) 10 mg, Intravenous, PRE-OP ONCE, On Sun02/13/18 at 1036, Give morning of surgery, Pre-op 1037 ($ Given - Provider: Mariya Adam RN) metoclopramide (REGLAN) injection 10 mg 10 mg, Intravenous, EVERY 6 HOURS, First dose on Sun02/13/18 at 2100, Until Discontinued, Post-op 2121 (Not Administered - Provider: Samia Guerrier RN - Reason: Patient Condition) 0000 ($ Given - Provider: Samia Guerrier RN)0736 ($ Given - Provider: Tory Jones RN)1731 (Not Administered - Provider: Tory Jones RN - Reason: Refused-Patient)1800 (Due)2312 (Not Administered - Provider: Ludmila Mcdonnell RN - Reason: Refused-Patient) 0601 (Not Administered - Provider: Ludmila Mcdonnell RN - Reason: See Comments - Comment: zofran given)1209 (Not Administered - Provider: Alize Diaz RN - Reason: See Comments - Comment: for discharge today.) ondansetron (ZOFRAN) injection 4 mg 4 mg, Intravenous, EVERY 6 HOURS, First dose on Sun02/13/18 at 2100, Until Discontinued, Post-op 2119 ($ Given - Provider: Samia Guerrier RN)2238 (Not Administered - Provider: Samia Guerrier RN - Reason: Per Administration Instructions) 0606 ($ Given - Provider: Samia Guerrier RN)1731 (Not Administered - Provider: Tory Jones RN - Reason: Refused-Patient)1800 (Due)2312 (Not Administered - Provider: Ludmila Mcdonnell RN - Reason: Refused-Patient) 0601 ($ Given - Provider: Ludmila Mcdonnell RN)1210 (Not Administered - Provider: Alize Diaz RN - Reason: See Comments - Comment: discharge today.) pantoprazole (PROTONIX) injection 40 mg 40 mg, Intravenous, DAILY, First dose on Sun02/13/18 at 2100, Until Discontinued, Reconstitute vial with 10 mL of 0.9% NaCL to a final concentration 4 mg/mL. Adminster prescribed dose over at least 2min. For every 40 mg of pantoprazole mix with 10 mL Normal Saline (final concentration = 4 mg/mL). Inject SLOWLY over 2 min., Post-op 2120 ($ Given - Provider: Samia Guerrier RN) 0749 ($ Given - Provider: Tory Jones RN) 0826 ($ Given - Provider: Alize Diaz RN) prochlorperazine (COMPAZINE) injection 5 mg (COMPLETED) 5 mg, Intravenous, POST-OP MULTIPLE, 2 doses, Starting on Sun02/13/18 at 1626, Until Sun02/13/18 at 1704, Second choice, use if first choice was ineffective., PACU 1618 ($ Given - Provider: Polly Hall RN)1704 ($ Given - Provider: Polly Hall RN) scopolamine (TRANSDERM-SCOP) patch 1 mg (CANCELED) 1 mg, Administer over 72 Hours, PRE-OP ONCE, On Sun02/13/18 at 1036, Apply patch behind the ear, do not cut patch, only 1 patch should be worn at a time and remove old patch before applying new patch.This patch may contain metal and is not compatible with MRI. Notify radiology of patch location upon arrival to MRI. All scopolamine patches deliver 1mg of scopolamine over 72 hours. Product may be labeled as 1mg/72 hours or 1.5mg/72 hours. 1037 ($ Applied - Provider: Mariya Adam, BARBI) senna-docusate (SENOKOT-S) tablet 1 tablet 1 tablet, Oral, 2 TIMES DAILY, 730 doses, First dose on Sun02/14/18 at 0930, Last dose on Sun02/13/19 at 2100 1638 ($ Given - Provider: Tory Jones RN)2311 ($ Given - Provider: Ludmila Mcdonnell RN) 0826 ($ Given - Provider: Alize Diaz RN) verapamil CR (ISOPTIN-SR) tablet 360 mg 360 mg, Oral, DAILY, First dose on Sun02/14/18 at 0900, Until Discontinued, Do not crush or chew. 1642 ($ Given - Provider: Tory Jones RN) 0826 ($ Given - Provider: Alize Diaz RN) Continuous Medication Order 02/13/2018 02/14/2018 02/15/2018 dextrose 5% and 0.45% NaCl with KCl 20 mEq infusion at 100 mL/hr, Intravenous, CONTINUOUS, Starting on Sun02/13/18 at 2100, Until Sun02/15/18 at 1315, Do not infuse at same time as other IV fluids. , Post-op 2122 ($ New Bag/Syringe - Provider: Samia Guerrier RN) 1638 ($ New Bag/Syringe - Provider: Tory Jones RN) 0143 (Stopped - Provider: Ludmila Mcdonnell RN)0145 ($ New Bag/Syringe - Provider: Ludmila Mcdonnell RN) lactated ringers infusion (CANCELED) at 20 mL/hr, Intravenous, PRE-OP CONTINUOUS, Starting on Sun02/13/18 at 1045, Until Sun02/13/18 at 202, Pre-op 1038 ($ New Bag/Syringe - Provider: Mariya Adam RN)1434 ($ New Bag/Syringe - Provider: DIONI Mohamud)1607 (Anesthesia Volume Adjustment - Provider: DIONI Mohamud) PRN Medication Order 02/13/2018 02/14/2018 02/15/2018 0.9% NaCl injection (CANCELED) PRN, Starting on Sun02/13/18 at 1357, Until Sun02/13/18 at 1610, Intra-op 1357 ($ Given - Provider: Shravan Quinteros MD) 0.9% nacl irrigation solution (CANCELED) PRN, Starting on Sun02/13/18 at 1357, Until Sun02/13/18 at 1610, Intra-op 1357 ($ Given - Provider: Shravan Quinteros MD) ALPRAZolam (XANAX) tablet 0.25 mg 0.25 mg, Oral, PRN, Insomnia, Starting on Sun02/13/18 at 2237, Until Sun02/15/18 at 1315 bupivacaine liposome (EXPAREL) 1.3 % injection (CANCELED) PRN, Starting on Sun02/13/18 at 1357, Until Sun02/13/18 at 1610, Intra-op 1357 ($ Given - Provider: Shravan Quinteros MD) diphenhydrAMINE (BENADRYL) injection 25 mg (COMPLETED) 25 mg, Intravenous, ONCE PRN, Nausea/Vomiting, 1 dose, Starting on Sun02/13/18 at 1622, Until Sun02/13/18 at 1805, Third choice, use if first and second choice was ineffective., PACU 1805 ($ Given - Provider: Polly Hall, BARBI) HYDROmorphone (DILAUDID) injection 0.5 mg (CANCELED) 0.5 mg, Intravenous, EVERY 10 MIN PRN, Severe Pain, 4 doses, Starting on Sun02/13/18 at 1622, Until Sun02/13/18 at 2021, Maximum total of 4 doses If patient reaches max total dose, please consult anesthesiologist prior to further administration of pain meds. Hold pain meds if there are signs of hypoventilation., PACU 1706 ($ Given - Provider: Anum Fitzpatrick RN)1800 ($ Given - Provider: Polly Hall RN) Linked Groups Order Group 1: acetaminophen (TYLENOL) solution 500 mgJump to med 500 mg, Oral, EVERY 4 HOURS, 2190 doses, First dose on Linda 02/14/18 at 0000, Last dose on Linda 02/13/19 at 1999, Use acetaminophen for mild pain or hydrocodone/acetaminophen for moderate/severe pain every 4 hours scheduled., Post-op Or HYDROcodone-acetaminophen 7.5-325 MG/15ML solution 15 mLJump to med 15 mL, Oral, EVERY 4 HOURS, 2190 doses, First dose on Linda 02/14/18 at 0000, Last dose on Linda 02/13/19 at 1999, Use acetaminophen for mild pain or hydrocodone/acetaminophen for moderate/severe pain every 4 hours scheduled., Post-op documented in this encounter
--- OUTSIDE RECORDS SUMMARY | 2024-10-07 04:42 | XMS_ITS | Encounter Summary ---
Author Organization [facility] Address [address] [place] [address] Care Team Providers Care Washer Repairman Name Role Phone Unavailable Primary Care Provider Unavailabl e Reason for Visit * Auth/Cert Specialty Diagnoses / Procedures Referred By Jaime worley Referred To Contact Procedures LAPAROSCOPIC GASTRIC BYPASS Referral ID Status Reason Start Date Expiration Date Visits Re quested Visits Authorized [id number] 1 1 Encounter Details Date Type Department Care Team (Latest Contact Info) Description 02/13/2018 10:19 AM CDT - 02/15/2018 12:15 PM CDT Hospital Encounter [facility] SURG/BARIATRIC [address] [place] [address] Shravan Quinteros MD [facility] [place][note 2] [address] [address] Surgery General Discharge Disposition: Home or Self Care Social [...] 12:15 PM CDT Bariatric Surgery Discharge Summary [address] [address] Jorge Akhtar Vaeh Admission weight: Weight: (!) 302 lb 12.8 oz (137.3 kg) (02/13/18 1039) Most recent weight: Weight: (!) 302 lb 12.8 oz (137.3 kg) (02/13/18 1039) 02/15/2018 [id number] Date of admission: 02/13/2018 Discharge date: [...] Take 1 tablet by mouth once daily Kings[place]-3 Fatty Acids (FISH OIL PO) Take 1,000 [...] Owen MD - 02/15/2018 10:54 AM CDT [facility] Hospitalist Daily Progress Note 02/15/2018 Name: [...] consult. Will follow along. * Ira Navarrete APRN-PLANT UTILITIES ENGINEER - 02/15/2018 7:15 AM CDT Bariatric Surgery [...] PO) ??? magnesium 500 MG tablet ??? [place]-3 Fatty Acids (FISH OIL PO) ??? ALPRAZolam [...] Dispo: D/C home, discharge instructions reviewed Ira Navarrete, CASH POSTING REPRESENTATIVE-PLANT UTILITIES ENGINEER Associated attestation - Shravan Quinteros MD - 02/16/2018 10:03 AM CDT Seen and d/w bolt sawyer. Doing well. D/c home * Ludmila Mcdonnell RN - 02/15/2018 3:44 AM CDT Problem: Oxygenation/Respiratory Function Goal: Patient will achieve/maintains stable resp rate/effort Mr. Cotter will maintain stable respiratory status during this admission. Outcome: Ongoing On this shift Skylar respiration remains even and non labored. Problem: Incision Care Goal: Incision remains intact with edges well approximated Mr. Cotter'mejia incisions will remain intact during this admission. [...] admitted for gastric bypass Anticipated discharge needs: Aircraft Skin Burnisher and pharmacist will follow Barriers to discharge / additional discharge needs: none Additional comments: will follow up with [facility] Per Nursing Assessment Transportation (who): Chip Loft Worker/Support: Chip Loft Worker/Support Person - Relationship:: Gretchen- Chip Loft Worker person: Chip Loft Worker/Support Person Contact #: [phone] Home/Functional Status: Functional and Cognitive Status Is [...] For any questions or needs please contact: [facility]rick Worker Name/Phone number: Kamryn Rai RN [phone] * Abbey Schmidt, PharmD - 02/14/2018 12:00 [...] PharmD 02/14/2018 12:00 PM * Abbey Schmidt PharmBoyd - 02/14/2018 11:59 AM CDT [facility] Pharmacy Services Admission Medication Review Jorge Akhtar Bridgettjessica is a 42 y.o. male I have [...] Owen MD - 02/14/2018 9:20 AM CDT [facility] Hospitalist Daily Progress Note 02/14/2018 Name: [...] 110/64 120/78 Pulse: 80 77 69 Resp: 16 16 16 18 Temp: 97.4 ??F (36.3 ??C) 97.5 ??F [...] consult. Will follow along. * Ira Navarrete APRN-PLANT UTILITIES ENGINEER - 02/14/2018 8:56 AM CDT Bariatric Surgery [...] 110/64 120/78 Pulse: 80 77 69 Resp: 16 16 16 18 Temp: 97.4 ??F (36.3 ??C) 97.5 ??F [...] intake, Dr. Quinteros to see Ira Navarrete APRN-PLANT UTILITIES ENGINEER Associated attestation - Shravan Quinteros MD - 02/14/2018 11:03 PM CDT Pt seen and d/w bolt sawyer. Hgb decreased pod 1. Repeat stable. UGI [...] remains intact with edges well approximated Mr. Castañeda incisions will remain intact during this admission. Outcome: Ongoing Mr. Castañeda incisions will remain intact during this shift. [...] LAPAROSCOPIC GASTRIC BAND REMOVAL ??? Cholecystectomy ?? [id number] ??? ENDOSCOPY, UPPER ?? 09/20/2017 ?? EGD WITH DILATION ??? Lithotripsy ? x2 ??? Tonsillectomy ?? 2003 ? PATIENT MEDICAL HISTORY SCREENING: Diabetes............................................No Hypertension.....................................Yes [...] 4 hours as needed for Pain ??? [place]-3 Fatty Acids (FISH OIL PO) Take 1,000 [...] Father ? Coronary Artery Disease Father ? [place] ? Review of Systems: : neg urinary [...] with multiple program team members including surgeon, hand turner, bariatric nurse and mental health blower insulator. ?? Impression: Obesity (BMI: Body mass index [...] ?? -counselor at least once-done 3 Preop hand turner visits-done 1 Counselor visit(s)-done ?? Liquid Diet: Yes Liquid Protein Diet: Yes1 Week Patient's Weight Goal: 200 lbs Weight goal prior tosurgery: No Surgeon Assist: No Additional Testing: Yes ?? Comments: EGD-complete Robot candidate: No Weigh at Class: No ?? Shravan Quinteros MD 01/29/2018 documented in this encounter Consult Notes * Angelica Gustafson APRN-PLANT UTILITIES ENGINEER - 02/13/2018 11:56 PM CDT Initial Hospitalist Consult Note Date of Consult: 02/14/2018 Patient's Primary Care Physician: Gerald Coronado MD Physician Requesting Consult: Shrvaan Quinteros MD Reason for Consultation: Evaluation of [...] past including medical, exercise and dietary without group home success. Pt with significant comorbid conditions that [...] 10/03/2017 LAPAROSCOPIC GASTRIC BAND REMOVAL ??? Cholecystectomy [id number] ??? ENDOSCOPY, UPPER 09/20/2017 EGD WITH DILATION ??? Gastric Bypass 02/13/2018 WITH EGD ??? Lithotripsy x2 ??? Tonsillectomy 2002 Family History Problem Relation Age of Onset ??? Hypertension Father ??? Coronary Artery Disease Father [place] Social History Occupational History ??? Not on [...] 500 mg by mouth once daily ??? [place]-3 Fatty Acids (FISH OIL PO) Take 1,000 [...] clean/dry/intact Extremities: no clubbing, cyanosis or edema WEAVER NARROW [employer]. Alert and oriented x 3. Cranial nerves [...] : BMI 43.45 s/p lap gastric sleeve Curriculum Developer provided regarding life style modifications Treatment plan discussed with patient at bedside. All questions were answered. Orders placed in chart. CC: Gerald Coronado MD, Shravan Quinteros MD documented in this encounter OR Notes * Operative - Shravan Quinteros MD - 02/13/2018 4:15 PM CDT [facility] Operative Report OPERATIVE REPORT PATIENT: Jorge Cotter MR#: [id number] ADMIT DATE: 02/13/2018 ACCT#: DATE OF SURGERY: [...] adhesiolysis, 30 min SURGEON: Shravan Quinteros MD ICE CREAM VAN VENDOR: MOISES Sutherland ANESTHESIA: General endotracheal. OPERATIVE FINDINGS: [...] with the linear stapler (babin load on TxVia powered stapler) and appropriate amount of mesentery taken down with the Ligasure. The distal stump of the transected jejunum was run distally for another 150 cm and brought to the previous proximal staple line with a 2-0 silk stay suture. Using Ligasure, enterotomies were created in each limb of the bowel, and [id number] anastomosis was performed using a white load [...] at 1 liter per minute with the Osile limb clamped distally. There was no evidence [...] - 2.6 mg/dL 02/15/2018 5:42 AM CDT [facility] Blood BLOOD SPECIMEN / Unknown Venipuncture / Unknown 02/15/2018 5:10 AM CDT 02/15/2018 5:24 AM CDT Shan Owen MD LAB - CHEMISTRY [place] [facility] [address] [place] [address] * PHOSPHORUS BLOOD (02/15/2018 5:10 AM CDT) Phosphorus 2.5 2.5 - 4.9 mg/dL 02/15/2018 5:42 AM CDT [facility] Blood BLOOD SPECIMEN / Unknown Venipuncture / Unknown 02/15/2018 5:10 AM CDT 02/15/2018 5:24 AM CDT Shna Owen MD LAB - CHEMISTRY [place] [facility] Organization Address City/State/ZIP Co de Phone Number [facility] [address] [place] [address] * CBC W AUTO DIFFERENTIAL (02/15/2018 5:10 AM CDT) WBC 8.2 4.4 - 10.7 x10E9/L 02/15/2018 5:35 AM CDT [facility] WBC Corrected x10E9/L 02/15/2018 5:35 AM CDT [facility] RBC 4.43 3.80 - 5.40 x10E12/L 02/15/2018 5:35 AM CDT [facility] Hemoglobin 13.4 12.0 - 17.6 gm/dL 02/15/2018 5:35 AM CDT [facility] Hematocrit 39.4 35.2 - 51.7 % 02/15/2018 5:35 AM CDT [facility] MCV 88.9 80.7 - 98.3 fl 02/15/2018 5:35 AM CDT [facility] MCH 30.2 26.7 - 34.0 pg 02/15/2018 5:35 AM CDT [facility] MCHC 34.0 30.8 - 35.9 gm/dL 02/15/2018 5:35 AM CDT [facility] Platelet Count 194 153 - 416 x10E9/L 02/15/2018 5:35 AM CDT [facility] RDW-CV 12.3 12.1 - 14.9 % 02/15/2018 5:35 AM CDT [facility] MPV 11.4 9.4 - 12.9 fl 02/15/2018 5:35 AM CDT [facility] Neutrophils % 64.6 44.0 - 73.0 % 02/15/2018 5:35 AM CDT [facility] Lymphocytes % 22.0 20.0 - 43.0 % 02/15/2018 5:35 AM CDT [facility] Monocytes % 9.4 5.0 - 13.0 % 02/15/2018 5:35 AM CDT [facility] Eosinophils % 3.4 0.0 - 6.0 % 02/15/2018 5:35 AM CDT [facility] Basophils % 0.4 0.0 - 2.0 % 02/15/2018 5:35 AM CDT [facility] Immature Granulocytes 0.2 0 - 1 % 02/15/2018 5:35 AM CDT [facility] Neutrophil Absolute 5.26 2.01 - 7.14 x10E9/L 02/15/2018 5:35 AM CDT [facility] Lymphocytes Absolute 1.79 1.07 - 3.94 x10E9/L 02/15/2018 5:35 AM CDT [facility] Monocytes Absolute 0.77 0.26 - 1.07 x10E9/L 02/15/2018 5:35 AM CDT [facility] Eosinophils Absolute 0.28 0 - 0.47 x10E9/L 02/15/2018 5:35 AM CDT [facility] Basophils Absolute 0.03 0 - 0.08 x10E9/L 02/15/2018 5:35 AM CDT [facility] Immature Granulocytes Absolute 0.02 0.00 - 0.06 x10E9/L 02/15/2018 5:35 AM CDT [facility] nRBC Auto 0 /100 WBC 02/15/2018 5:35 AM CDT [facility] Blood BLOOD SPECIMEN / Unknown Venipuncture / Unknown 02/15/2018 5:10 AM CDT 02/15/2018 5:23 AM CDT Shravan Quinteros MD LAB - HEMATOLOGY ORD ERABLES Performing Organization Address City/State/[facility] Co de Phone Number [facility] [address] [place] [address] * (ABNORMAL) BASIC METABOLIC PANEL (CALCIUM TOTAL) (02/15/2018 5:10 AM CDT) [facility] Glucose 107(H) 74 - 106 mg/dL 02/15/2018 5:42 AM CDT [facility] Sodium 141 136 - 145 mmol/L 02/15/2018 5:42 AM CDT [facility] Potassium 4.1 3.5 - 5.1 mmol/L 02/15/2018 5:42 AM CDT [facility] Chloride 105 98 - 107 mmol/L 02/15/2018 5:42 AM CDT [facility] CO2 29 22 - 31 mmol/L 02/15/2018 5:42 AM CDT [facility] Calcium 8.5 8.5 - 10.1 mg/dL 02/15/2018 5:42 AM CDT [facility] Anion Gap 7(L) 8 - 16 mmol/L 02/15/2018 5:42 AM CDT [facility] BUN 14 7 - 21 mg/dL 02/15/2018 5:42 AM CDT [facility] Creatinine 1.00 0.50 - 1.30 mg/dL 02/15/2018 5:42 AM CDT [facility] eGFR by MDRD >60 >60 mL/min/1.7 3m2 02/15/2018 5:42 AM CDT [facility] eGFR by MDRD >60 >60 mL/min/1.7 3m2 02/15/2018 5:42 AM CDT [facility] Blood BLOOD SPECIMEN / Unknown Venipuncture / Unknown 02/15/2018 5:10 AM CDT 02/15/2018 5:24 AM CDT Shravan Quinteros MD LAB - CHEMISTRY [place] Performing Organization Address City/[facility]/ZIP Co de Phone Number [facility] [address] [place] [address] * HGB HCT PANEL (02/14/2018 1:16 PM CDT) Hemoglobin 13.3 12.0 - 17.6 gm/dL 02/14/2018 1:22 PM CDT [facility] Hematocrit 37.7 35.2 - 51.7 % 02/14/2018 1:22 PM CDT [facility] Blood BLOOD SPECIMEN / Unknown Venipuncture / Unknown 02/14/2018 1:16 PM CDT 02/14/2018 1:20 PM CDT Ira Navarrete CASH POSTING REPRESENTATIVE-PLANT UTILITIES ENGINEER LAB - HEM ATOLOGY ORDERABLES Performing Organization Address [facility] Co de Phone Number [facility] [address] [place] [address] * FL FLUORO UPPER GI TRACT + [...] - 100 ng/mL 02/14/2018 10:19 AM CDT [facility] Blood BLOOD SPECIMEN / Unknown Venipuncture / Unknown 02/14/2018 6:02 AM CDT 02/14/2018 6:09 AM CDT Narrative [facility] - 02/14/2018 10:19 AM CDT Vitamin D Status: ?Deficiency ? <20 ? ng/mL ?Insufficiency ?? 20-30 ??ng/mL ?Sufficiency ? 30-100 ng/mL ?Toxicity ? >100 ?ng/mL Shravan Quinteros MD LAB - CHEMISTRY [place] [facility] [address] [place] [address] * CBC W AUTO DIFFERENTIAL (02/14/2018 6:02 AM CDT) [facility] WBC 10.5 4.4 - 10.7 x10E9/L 02/14/2018 [...] - 35.9 gm/dL 02/14/2018 6:17 AM CDT [facility] Platelet Count 196 153 - 416 x10E9/L 02/14/2018 6:17 AM CDT [facility] RDW-CV 12.2 12.1 - 14.9 % 02/14/2018 6:17 AM CDT [facility] MPV 11.2 9.4 - 12.9 fl 02/14/2018 6:17 AM CDT [facility] Neutrophils % 63.1 44.0 - 73.0 % 02/14/2018 6:17 AM CDT [facility] Lymphocytes % 26.0 20.0 - 43.0 % 02/14/2018 6:17 AM CDT [facility] Monocytes % 9.8 5.0 - 13.0 % 02/14/2018 6:17 AM CDT [facility] Eosinophils % 0.6 0.0 - 6.0 % 02/14/2018 6:17 AM CDT [facility] Basophils % 0.3 0.0 - 2.0 % 02/14/2018 6:17 AM CDT [facility] Immature Granulocytes 0.2 0 - 1 % 02/14/2018 6:17 AM CDT [facility] Neutrophil Absolute 6.60 2.01 - 7.14 x10E9/L 02/14/2018 6:17 AM CDT [facility] Lymphocytes Absolute 2.72 1.07 - 3.94 x10E9/L 02/14/2018 6:17 AM CDT [facility] Monocytes Absolute 1.03 0.26 - 1.07 x10E9/L 02/14/2018 6:17 AM CDT [facility] Eosinophils Absolute 0.06 0 - 0.47 x10E9/L 02/14/2018 6:17 AM CDT [facility] Basophils Absolute 0.03 0 - 0.08 x10E9/L 02/14/2018 6:17 AM CDT [facility] Immature Granulocytes Absolute 0.02 0.00 - 0.06 x10E9/L 02/14/2018 6:17 AM CDT [facility] nRBC Auto 0 /100 WBC 02/14/2018 6:17 AM CDT [facility] Blood BLOOD SPECIMEN / Unknown Venipuncture / Unknown 02/14/2018 6:02 AM CDT 02/14/2018 6:09 AM CDT Shravan Quinteros MD LAB - HEMATOLOGY ORD ERABLES [facility] [address] [place] [address] * (ABNORMAL) BASIC METABOLIC PANEL (CALCIUM TOTAL) (02/14/2018 6:02 AM CDT) [facility] Glucose 106 74 - 106 mg/dL 02/14/2018 6:34 AM CDT [facility] Sodium 135(L) 136 - 145 mmol/L 02/14/2018 6:34 AM CDT [facility] Potassium 3.8 3.5 - 5.1 mmol/L 02/14/2018 6:34 AM CDT [facility] Chloride 100 98 - 107 mmol/L 02/14/2018 6:34 AM CDT [facility] CO2 29 22 - 31 mmol/L 02/14/2018 6:34 AM CDT [facility] Calcium 8.6 8.5 - 10.1 mg/dL 02/14/2018 6:34 AM CDT [facility] Anion Gap 6(L) 8 - 16 mmol/L 02/14/2018 6:34 AM CDT [facility] BUN 21 7 - 21 mg/dL 02/14/2018 6:34 AM CDT [facility] Creatinine 1.20 0.50 - 1.30 mg/dL 02/14/2018 6:34 AM CDT [facility] eGFR by MDRD >60 >60 mL/min/1.7 3m2 02/14/2018 6:34 AM CDT [facility] eGFR by MDRD >60 >60 mL/min/1.7 3m2 02/14/2018 6:34 AM CDT [facility] Blood BLOOD SPECIMEN / Unknown Venipuncture / Unknown 02/14/2018 6:02 AM CDT 02/14/2018 6:09 AM CDT Shravan Quinteros MD LAB - CHEMISTRY [facility] Performing Organization Address City/[facility]/ZIP Co de Phone Number [facility] [address] [place] [address] * GLUCOSE - POINT OF CARE (02/13/2018 4:18 PM CDT) [facility] Glucose WB/POC 98 70 - 106 mg/dL 02/14/2018 7:46 AM CDT [facility] Blood BLOOD SPECIMEN / Unknown 02/13/2018 4:18 PM CDT 02/14/2018 7:46 AM CDT Shravan Quinteros MD LAB - POINT OF CARE ORDERABLES Performing Organization Address [facility]/ZIP Co de Phone Number [facility] [address] [place] [address] * POTASSIUM BLOOD (02/13/2018 10:36 AM CDT) Potassium 4.1 3.5 - 5.1 mmol/L 02/13/2018 11:13 AM CDT [facility] Blood BLOOD SPECIMEN / Unknown Venipuncture / Unknown 02/13/2018 10:36 AM CDT 02/13/2018 10:56 AM CDT Jojo Gaytan DO LAB - CHEMISTRY [place] [address] [facility] [address] [place] [address] documented in this encounter Visit Diagnoses Diagnosis Preop examination- Primary Preoperative examination, unspecified Morbid obesity with BMI of 40.0-44.9, adult (HCC) H/O gastric bypass Bariatric surgery status Morbid obesity with BMI of 40.0-44.9, adult (HCC) documented in this encounter Administered Medications Inactive Administered Medications - up to 3 most recent administrations Medication Order MAR Action Action Date Dose Rate Site acetaminophen (TYLENOL) solution 500 mg 500 mg, Oral, EVERY 4 HOURS, 2190 doses, First dose on Sun02/14/18 at 0000, Last dose on Sun02/13/19 at 2000, Use acetaminophen for mild pain or hydrocodone/acetaminophen for moderate/severe pain every 4 hours scheduled., Post-op ceFAZolin (ANCEF) 2,000 mg in 50 ml IVPB 2,000 mg (2 g), at 100 mL/hr, Intravenous, EVERY 8 HOURS, 2 doses, First dose on Sun02/13/18 at 2200, Last dose on Sun02/14/18 at 0600, Administer last dose within 24 hours of the close of surgical incision., Indication for anti-infective therapy: Surgical prophylaxis, Site of anti-infective therapy: Skin/soft tissue, Post-op $ New Bag/Syringe 02/14/2018 6:06 AM CDT 2,000 mg 100 mL/hr $ New Bag/Syringe 02/13/2018 9:22 PM CDT 2,000 mg 100 mL /hr dextrose 5 % 500 mL with M.V.I. [...] 02/13/2018 9:22 PM CDT 100 mL /hr diphenhydrAMINE (BENADRYL) injection 25 mg 25 mg, Intravenous, ONCE PRN, Nausea/Vomiting, 1 dose, Starting on Sun02/13/18 at 1622, Until Sun02/13/18 at 1805, Third choice, use if first and second choice was ineffective., PACU $ Given 02/13/2018 6:05 PM CDT [address] (DEPAKOTE) tablet 250 mg 250 mg, Oral, 2 TIMES DAILY, 730 doses, First dose on Sun02/13/18 at 2315, Last dose on Sun02/13/19 at 0900, Do not crush, chew, or cut in half. $ Given 02/15/2018 8:26 AM CDT 250 mg $ Given 02/14/2018 11:10 PM CDT 250 mg $ Given 02/14/2018 4:38 PM CDT 250 mg famotidine (PEPCID) injection 20 mg 20 mg, Intravenous, PRE-OP ONCE, 1 dose, On Sun02/13/18 at 1036, Give morning of surgery., Pre-op $ Given 02/13/2018 10:37 AM CDT 20 mg heparin injection 5,000 Units 5,000 Units, Subcutaneous, PRE-OP ONCE, 1 dose, On Sun02/13/18 at 1036, Pre-op $ Given 02/13/2018 10:37 AM CDT 5,000 Units Abd Right Lower Quadrant heparin injection 5,000 Units 5,000 Units, Subcutaneous, EVERY 8 HOURS, First dose on Sun02/14/18 at 0900, Until Discontinued, Post-op $ Given 02/14/2018 7:49 AM CDT 5,000 Units Abdominal Tissue HYDROcodone-acetaminophen 7.5-325 MG/15ML solution 15 mL 15 [...] Given 02/14/2018 11:11 PM CDT 15 mL HYDROmorphone (DILAUDID) injection 0.5 mg 0.5 mg, Intravenous, EVERY 10 MIN PRN, Severe Pain, 4 doses, Starting on Sun02/13/18 at 1622, Until Sun02/13/18 at 2020, Maximum total of 4 doses If patient reaches max total dose, please consult anesthesiologist prior to further administration of pain meds. Hold pain meds if there are signs of hypoventilation., PACU $ Given 02/13/2018 6:00 PM CDT 0.5 mg $ Given 02/13/2018 5:06 PM CDT 0.5 mg iopamidol (ISOVUE 370) 76 % contrast Oral, CONTRAST ONCE, Starting on Sun02/14/18 at 1135, Until Sun02/15/18 at 1315 $ Given - Contrast 02/14/2018 11:49 AM CDT 50 mL ketorolac (TORADOL) injection 15 mg 15 mg, Intravenous, EVERY 6 HOURS, 3 doses, First dose on Sun02/13/18 at 1800, Last dose on Sun02/14/18 at 0600, Post-op $ Given 02/14/2018 7:35 AM CDT 15 mg $ Given 02/14/2018 3:20 AM CDT 15 mg $ Given 02/13/2018 9:19 PM CDT 15 mg lactated ringers infusion at 20 mL/hr, Intravenous, PRE-OP CONTINUOUS, Starting on Sun02/13/18 at 1045, Until Sun02/13/18 at 2020, Pre-op $ New Bag/Syringe 02/13/2018 2:34 PM CDT $ New Bag/Syringe 02/13/2018 10:38 AM CDT 20 mL /hr lidocaine buffered 1 % injection 0.5 mL 0.5 mL, Infiltration, PRE-OP MULTIPLE, 3 doses, Starting on Sun02/13/18 at 1036, Until Sun02/13/18 at 2020, May be used (0.5 ml locally to anesthetize prior to insertion)., Pre-op $ Given 02/13/2018 10:37 AM CDT 0.5 mL metoclopramide (REGLAN) injection 10 mg 10 mg, Intravenous, PRE-OP ONCE, On Sun02/13/18 at 1036, Give morning of surgery, Pre-op $ Given 02/13/2018 10:37 AM CDT 10 mg metoclopramide (REGLAN) injection 10 mg 10 mg, [...] Given 02/13/2018 9:20 PM CDT 40 mg prochlorperazine (COMPAZINE) injection 5 mg 5 mg, Intravenous, POST-OP MULTIPLE, 2 doses, Starting on Sun02/13/18 at 1626, Until Sun02/13/18 at 1704, Second choice, use if first choice was ineffective., PACU $ Given 02/13/2018 5:04 PM CDT 5 mg $ Given 02/13/2018 4:18 PM CDT 5 mg scopolamine (TRANSDERM-SCOP) patch 1 mg 1 mg, Administer over 72 Hours, PRE-OP [...] labeled as 1mg/72 hours or 1.5mg/72 hours. $ Applied 02/13/2018 10:37 AM CDT 1 mg Behind Left Ear senna-docusate (SENOKOT-S) tablet 1 tablet 1 tablet, [...] Jones RN)1731 (See Alternative - Provider: Tory Jones, BARBI)1818 (See Alternative - Provider: Tory Jones RN)2016 [...] 1310 ($ Given - Provider: Murali Zamora APRN-MUNICIPAL CLERK) dextrose 5 % 500 mL with M.V.I. [...] Subcutaneous, EVERY 8 HOURS, First dose on Linda 02/14/18 at 0900, Until Discontinued, Post-op 0749 ($ [...] Pre-op 1037 ($ Given - Provider: Mariya Adam, BARBI) metoclopramide (REGLAN) injection 10 mg (CANCELED) 10 mg, Intravenous, PRE-OP ONCE, On Sun02/13/18 at 1036, Give morning of surgery, Pre-op 1037 ($ Given - Provider: Mariya Adam, RN) metoclopramide (REGLAN) injection 10 mg 10 [...] on Sun02/13/18 at 2100, Until Discontinued, Post-op 0 ($ Given - Provider: Samia Guerrier RN)2238 [...] hours. 1037 ($ Applied - Provider: Mariya Adam RN) senna-docusate (SENOKOT-S) tablet 1 tablet 1 tablet, Oral, 2 TIMES DAILY, 730 doses, First dose on Sun02/14/18 at 0930, Last dose on Sun02/13/19 at 2100 1638 ($ Given - Provider: Tory Jones RN)2311 ($ Given - Provider: Ludmila Mcdonnell RN) 0826 ($ Given - Provider: Alize Diaz, RN) verapamil CR (ISOPTIN-SR) tablet 360 mg 360 mg, Oral, DAILY, First dose on Linda 02/14/18 at 0900, Until Discontinued, Do not crush [...] at 1045, Until Sun02/13/18 at 2021, Pre-op 1038 ($ New Bag/Syringe - Provider: Mariya Adam RN)1434 ($ New Bag/Syringe - Provider: Murali Zamora APRN-MUNICIPAL CLERK)1607 (Anesthesia Volume Adjustment - Provider: DIONI Mohamud) [...] PACU 1805 ($ Given - Provider: Polly Hall RN) HYDROmorphone (DILAUDID) injection 0.5 mg (CANCELED) 0.5 [...] 0000, Last dose on Linda 02/13/19 at 2000, Use acetaminophen for mild pain or hydrocodone/acetaminophen for moderate/severe pain every 4 hours scheduled., Post-op Or HYDROcodone-acetaminophen 7.5-325 MG/15ML solution 15 mLJump to med 15 mL, Oral, EVERY 4 HOURS, 2190 doses, First dose on Linda 02/14/18 at 0000, Last dose on Linda 02/13/19 at 2000, Use acetaminophen for mild pain or hydrocodone/acetaminophen for moderate/severe pain every 4 hours scheduled., Post-op documented in this encounter
--- OUTSIDE RECORDS SUMMARY | 2024-10-07 04:43 | XMS_ITS | Encounter Summary ---
Author Organization [facility] Address [address] [place] [address] Care Team Providers Care Auto Mechanic Name Role Phone Unavailable Primary Care Provider Unavailabl e Reason for Visit * Reason Onset Date Comments Surgery Verification 09/24/2017 Encounter Details Date Type Department Care Team (Late st Contact Info) Description 09/24/2017 Telephone [facility] [employer] [facility] [address] [facility] [address] [place] [address] Shravan Quinteros MD [address] [facility] [address] [place] [address] Surgery Verification Social History Tobacco Use Types Packs/Day Years [...] encounter Miscellaneous Notes * Telephone Encounter - Leelee South MA - 09/27/2017 8:46 AM CST Received voicemail from Catherine mosqueda [facility] advising prior authorization #[id number] for Laparoscopic removal of adjustable band and port has been approved. Start date is 10/03/17 expires on 03/19/18. SERVICE MECHANIC * Telephone Encounter - Leelee South MA - 09/24/2017 2:48 PM CST Left message for Lu with [employer] care management to check status of status of pending auth# [id number] for Laparoscopic removal of adjustable gastric band and port. Asked for return call for status due to surgery scheduled for 10/03/17. SERVICE MECHANIC documented in this encounter Plan of Treatment Not on file documented as of this encounter Visit Diagnoses Not on filedocumented in this encounter
--- OUTSIDE RECORDS SUMMARY | 2024-10-07 04:43 | XMS_ITS | Encounter Summary ---
Author Organization [facility] Address [address] [place] [address] Care Team Providers Care Nitro Man Name Role Phone Unavailable Primary Care Provider Unavailabl e Reason for Visit * Reason Comments Morbid Obesity Encounter Details Date Type Department Care Team (Late st Contact Info) Description 10/31/2017 8:00 AM TALENT AGENT Office Visit [facility] [address] [place] [id number] Morbid obesity (HCC) (Primary Dx) Social History [...] as of this encounter Progress Notes * Hina Rosales LPC - 10/31/2017 7:56 AM CST Pre-Revision Surgery Psychological Evaluation Name: Jorge Cotter Date of : 1975 Surgeon: Shravan Quinteros Date of Evaluation: 10/31/2017 Surgical Decision and reason for surgery: Patient is considering a revision bariatric surgery and all procedures were discussed. Patient had the lap band 7 years ago and since placement has had vomiting and dysphagia. Patient reported he went back to his doctor with these issues, however the doctor always said that it was fine and nothing was wrong. Patient stated eventually gave up about four years ago and stopped going to the doctor.He stated last year he decided he could not live that way anymore and found [facility] Weight Management. His lap band was removed by Dr. Quinteros on 10/03/2017. Patient weighed 327 pounds pre surgery and lost down to around 280, but that was all the weight he managed to lose. Patient stated he is revising to the gastric bypass. He explained he had his original surgery due to the of his daughter, 7 years ago and wanted to improve overall health. He reported sleep apnea and hypertension. Current Weight: 303 pounds Goal Weight: 220 pounds Family/Home/Support Environment: Patient has been for less than one year. He stated his is supportive of the decision to have the revision surgery. He has two children 7 and 5. 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 Patient has no hx of work-adjustment difficulties on any of her jobs. Mental Health Issues: Patient reported anxiety, specifically with traveling and this started 5-6 years ago. He takes medication as needed. Patient denied auditory or visual hallucinations; and denied losing blocks of timewhere he can not remember who or where he is. Patient has never been hospitalized for psychiatric reasons, and there is no history of prior suicide/homicide ideation or attempt. Substance Misuse Issues: Current alcohol use: Patient denied drinking alcohol Current medical/recreational drugs use: none Current tobacco use: none He has no problems related to alcohol, drug or prescription mis-use Weight and Duloxz-Kolx-Osvgoxc History Patient stated he has been battling weight since around the age of 11/12 years of age. 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 He entered the [employer] weighing around 260 pounds. Since the age of 26 he has gained weight gradually. The most he has weighed was 327 prior to lap band. As far as how he eats, patient stated he needs to food log and exercise more. He feels a food log would help him to know how much he is eating and what he is eating. Due to the issues with the lap band, patient developed a slight aversion to food and also eating regular portion meals, leaning more toward grazing because smaller amount worked better with the lap band. Exercise and other sources of physical activity: Patient reported he goes to the gym at least one time per week. Patterns of Distorted Eating: Enemas/Laxatives/Diuretic Misuse: never Purging/induced Vomiting: never Anorexia/Restricting: never Emotional Eating: denies Surgery Perspective/Understanding: Patient appears informed regarding the post-op dietary requirements and appears to have ample understanding of the consequences of not following all post-op requirements exactly as prescribed. He reports realistic surgical goals and expectations; and appears to understand the surgical logistics andrisks associated with the bariatric surgery. Mental Status Patient's appearance is appropriate Patient is oriented to time, place, person and situation Behavior is described as unremarkable Speech is appropriate Patients affect is appropriate Patient's mood is euthymic Memory is intact Mental Awareness is clear Patient is of average intelligence Attitude is cooperative Attention is focused Reasoning is good Impulse control is good Judgement is good Insight is good Patient's self-perception is realistic Thought process is logical Thought content is unremarkable DSM-5: Obesity E66.01 Summery/Recommendations Patient appears to be a low surgical risk and an appropriate candidate for this surgery based on this interview. Patient noted no current compliance issues or any anticipated issues that would prevent adherence to protocol after surgery. There do not appear to be any contraindications. Psychological Clearance is therefore granted. Hina West LPC, CBC Licensed Professional Counselor Certified Bariatric Counselor Psychological Review Cleared for surgical consult _X__ Cleared for surgical consult but additional MH visit(s) required ____ Not cleared for surgical consult ___ Bariatric Case Conference review required ___ NT AGENT documented in this encounter Plan of Treatment Not on file documented as of this encounter Visit Diagnoses Diagnosis Morbid obesity (HCC)- Primary Morbid obesity documented in this encounter
--- OUTSIDE RECORDS SUMMARY | 2024-10-07 04:43 | XMS_ITS | Encounter Summary ---
Author Organization [facility] Address [address] [place] [address] Care Team Providers Care Mercury Purifier Name Role Phone Unavailable Primary Care Provider Unavailabl e Reason for Visit * Auth/Cert Specialty Diagnoses / Procedures Referred By Jaime worley Referred To Contact Procedures LAPAROSCOPIC GASTRIC BAND REMOVAL Referral ID Status Reason Start Date Expiration Date Visits Re quested Visits Authorized [id number] 1 1 Encounter Details Date Type Department Care Team (Late st Contact Info) Description 10/03/2017 8:00 AM TUGBOAT MATE Anesthesia Event [facility] - Perioperative Surgery [address] [place] [id number] Wyatt Dawkins DO [address] [facility] [address] [place] [address] Anesthesia Record Procedure Summary Procedure Name Responsible Anesthesiologist Anesthesia Start Time Anesthesia Stop Time LAPAROSCOPIC GASTRIC BAND REMOVAL (Abdomen) Wyatt Dawkins DO 10/03/17 0800 10/03/17 0935 Events Date Time Event Comment 10/03/2017 0712 0800 An Start 0800 An Start Data 0802 PT Reassessment 0807 An Induction 0809 An Intubation 0823 Time Out Anesthesia part icipated in timeout at the time documented in the record by nursing 0915 An Emergence 0926 Extubation 0930 Electnc Sig 0930 an stop data 0930 ANPTO2 0935 An Stop Meds Name Total midazolam 2 mg/2mL injection 2 mg fentaNYL 100 mcg/2mL injection 150 mcg lidocaine 2% (PF) injection (20 mg/mL) 1 00 mg propofol 200 mg/20mL injection 250 mg succinylcholine 200 mg/10mL injection 14 0 mg rocuronium 50 mg/5mL injection 50 mg ondansetron 4 mg/2mL injection 8 mg phenylephrine 100 mcg/mL solution 500 mc g dexamethasone 4 mg/mL injection 10 mg ceFAZolin (ANCEF) 3,000 mg in 115 mL IVP B 3 g diphenhydrAMINE 50 mg/mL injection 25 m g sugammadex 200 mg/2mL injection 280 mg lactated ringers infusion 800 mL * Agents Name Insp. N2O Exp. Sevoflurane O2 Insp. Sevoflurane * Blood No blood administrations on file. Lines, Drains, and Airways Type Details Placement Removal Procedural Site (Incision) 10/03/17; Abdomen; Laparoscopic; 10/03/17; 191410/03/17 0000 by Kimberley Shrestha RN 10/03/17 1915 by Generic, Auto Release Peripheral IV Date: 10/03/17; Time : 0650; Orientation: Left; Placed By: BARBI Vaughan; Tolerance: Well 10/03/17 0650 by Mitzi Castelan RN 10/03/17 1252 by Jose Raul Rey RN ETT Date: 10/03/17; Time : 0831; Placed By: DIONI Carranza; Vent: 2-person mask; Induction: Standard IV, Modified Rapid Sequence; Blade Type: Moreno; Blade Size: 4; Laryngoscopy View: Grade 1 (full cords); Intubation Adjuncts: Video Laryngoscope, Eschmann introducer; Tube: Endotracheal Tube; Placement: Oral; Tube Type: Cuffed-inflated; Tube Size(mm): 8 MM; Depth of Insertion: 23 CM; Measured From: teeth; Attempts: 2; Cuff Vol(mL): 8 mL; Verified By: Direct visualization, Bilateral breath sounds, Chest Auscultation, CO2 Detector; Reason: obesity 10/03/17 0831 by Ysabel Chua APRN-CRNA 10/03/17 0926 by Ysabel Chua APRN-CRNA documented in this encounter Social History [...] as of this encounter Progress Notes * Ysabel Chua, DIONI - 10/03/2017 9:36 AM CST ANESTHESIA POSTPROCEDURE EVALUATION Jorge Cotter is a 42 y.o. male Temp: 97.7 ??F Pulse: 81 Resp: 18 BP: 133/81 SpO2: 99 % Anesthesia Type: general Mental status: sufficiently recovered from acute administration of anesthesia to participate in theevaluation. Level of consciousness: awake and alert No numbness, tingling or visual disturbances present. General appearance: well-appearing Respiratory function: natural airway. Cardiac: stable Pain: comfortable/acceptable PONV: None Postop hydration: adequate. Patient may be released from anesthesia care. Quality Improvement: Care Assessment: No value filed. Adverse Events: No value filed. Pulmonary: No value filed. Regional: No value filed. Equipment: No value filed. Patient Management: No value filed. Comments: No value filed. OAT MATE documented in this encounter Procedure Notes * Ysabel Chua Ryland, DIONI - 10/03/2017 8:24 AM CSTAssociated Order(s): ENDOTRACHEAL TUBE NOTE Endotracheal Tube Placement: Patient Location: OR. Procedure: intubation ([id number]). Procedure Section: Sedation: under general anesthesia. Indications for Airway Management: anesthesia Pretreatment: 100% O2. Induction: standard IV and modified rapid sequence Patient Position: sniffing, ramp/troop pillow and supine Mask Ventilation: difficult and required 2 people (2 handed). Blade Type: Moreno Blade Size: 4 Laryngoscopy View: grade 1 (full cords) Intubation Adjuncts: video laryngoscope and Eschmann introducer Device: endotracheal tube Placement: oral Tube type: cuff - inflated Tube Size (MM): 8 Depth of Insertion (CM): 23 Measured From: teeth Cuff volume (mL): 8 Cuff Inflated With: air Number of Attempts: 2 (First atempt with DL, grade 2, unable to advance tube pastt the glotic opening. Second attempt with NcGrath, grade I view, eschman used to pass the tube). Placement Verified By: direct visualization, bilateral breath sounds, chest auscultation and CO2 detector Tube secured with: adhesive tape. Difficult Airway? Yes. Difficult Airway Techniques: video laryngoscope Difficult Airway Reason: obesity Staff Section Anesthesia Provider: YSABEL CHUA Provider #1: WYATT DAWKINS. Additional Comments: Difficult intubate and to pass the tube through the glottic opening, Dr. Dawkins called to the bedside for assistance. Pt intubated with the Garcia, grade 1 view and eschmann. Electronically signed by Ysabel Chua, SNUFF GRINDER AND SCREENER-FOLDING RULES PRINTING MACHINE OPERATOR at 10/03/2017 8:31 AM TUGBOAT MATE documented in this encounter Consult Notes * Wyatt Dawkins, DO - 10/03/2017 7:10 AM CST ANESTHESIA PREOPERATIVE EVALUATION NOTE Procedure: LAPAROSCOPIC GASTRIC BAND REMOVAL (Abdomen) Vitals: Patient Vitals for the past 24 hrs (Last 5 readings): BP Temp Pulse Resp SpO2 Height Weight 10/03/17 0626 133/81 97.7 ??F 81 18 99 % 1.803 m (5' 11 ) (!) 137.4 kg (303 lb) ANESTHESIA PRE-EVALUATION NOTE Physical Exam: Orientation: Orientation X3 Airway/Mallampati Score: II Mouth Opening Distance: 3 fingerwidths Neck ROM: full Teeth: normal Heart: regular rate rhythm Lungs: normal Abdomen Exam: obese Review of Systems: History of anesthetic complications: Yes Delayed Emergence: Yes Induction/Emergence Bronchospasm: Yes (patient discribes flash pulmonary edema with lap eugenio 11 years ago. ) GERD: Yes, well controlled Poor Exercise Tolerance: Yes Recent Chest Pain: No Shortness of Breath: No AICD/Pacemaker: No Renal Disease: No Diagnostic Tests: Lab(s) reviewed: Yes. ANESTHESIA PLAN SECTION ASA Score: 2 NPO Status: No solids since midnight and No liquids within 2 hours Anesthesia Plan: general Planned Induction: intravenous Planned Postop Destination: PACU Intended Admin of Opioids: Yes Anesthetic plan was discussed with: patient The patient's procedural Anesthetic Plan with discussed with the anesthesiologist. BMI, Height, Weight Tobacco History Estimated body mass index is 42.26 kg/(m^2) as calculated from the following: Height as of this encounter: 1.803 m (5' 11 ). Weight as of this encounter: 137.4 kg (303 lb). History Smoking Status ??? Never Smoker Smokeless Tobacco ??? Never Used Alcohol History Drug History History Alcohol Use No History Drug Use No Outpatient Medications: Inpatient Medications: Current Facility-Administered Medications Medication Dose Last Dose ??? lactated ringers ??? ceFAZolin 3 g ??? lidocaine 0.5 mL 0.5 mL at 10/03/17 0651 ??? lactated ringers Allergies: No Known Allergies Problem List: There are no active problems to display for this patient. Medical History: Past Medical History: Diagnosis Date ??? Anesthesia complication difficulty waking ??? 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 HTN (hypertension) ??? Kidney stones ??? Migraines ??? Sleep apnea CPAP Surgical History: Past Surgical History: Procedure Laterality Date ??? ADJUSTABLE GASTRIC BAND, LAP PLACEMENT 2009 Dr. Lindquist ??? Cholecystectomy [id number] ??? ENDOSCOPY, UPPER 09/20/2017 EGD WITH DILATION ??? Lithotripsy x2 ??? Tonsillectomy 2003 Lab Tests: None Recent Labs Units 10/03/17 0640 SODIUM mmol/L 138 POTASSIUM mmol/L 3.9 CHLORIDE mmol/L 107 CO2 mmol/L 26 BUN mg/dL 17 CREATININE mg/dL 1.30 Recent Labs Units 10/03/17 0640 GLUCOSE mg/dL 100 CALCIUM mg/dL 9.4 None OAT MATE documented in this encounter Miscellaneous Notes * Addendum Note - Ysabel Chua APRN-CRNA - 10/04/2017 3:04 PM CST Addendum created 10/04/17 1504 by Ysabel Chua APRN-CRNA Anesthesia Intra Meds edited OAT MATE documented in this encounter Plan of Treatment Not on file documented as of this encounter Procedures Procedure Name Priority Date/Time Associated Diagnosis Comments ENDOTRACHEAL TUBE NOTE Routine 10/03/2017 8:31 AM TUGBOAT MATE Procedure Note - Ysabel Chua APRN-CRNA - 10/03/2017 8:24 AM CSTThis note is in progress. Endotracheal Tube Placement: Patient Location: OR. Procedure: intubation ([id number]). Procedure Section: Sedation: under general anesthesia. Indications for Airway Management: anesthesia Pretreatment: 100% O2. Induction: standard IV and modified rapid sequence Patient Position: sniffing, ramp/troop pillow and supine Mask Ventilation: difficult and required 2 people (2 handed). Blade Type: Moreno Blade Size: 4 Laryngoscopy View: grade 1 (full cords) Intubation Adjuncts: video laryngoscope and Eschmann introducer Device: endotracheal tube Placement: oral Tube type: cuff - inflated Tube Size (MM): 8 Depth of Insertion (CM): 23 Measured From: teeth Cuff volume (mL): 8 Cuff Inflated With: air Number of Attempts: 2 (First atempt with DL, grade 2, unable to advancetube pastt the glotic opening. Second attempt with NcGrath, grade I view,eschman used to pass the tube). Placement Verified By: direct visualization, bilateral breath sounds,chest auscultation and CO2 detector Tube secured with: adhesive tape. Difficult Airway? Yes. Difficult Airway Techniques: video laryngoscope Difficult Airway Reason: obesity Staff Section Anesthesia Provider: YSABEL CHUA Provider #1: WYATT DAWKINS Additional Comments: Difficult intubate and to pass the tube through theglottic opening, Dr. Dawkins called to the bedside for assistance. Ptintubated with the Garcia, grade 1 view and eschmann. documented in this encounter Visit Diagnoses Not on filedocumented in this encounter Administered Medications Inactive Administered Medications - up to 3 most recent administrations Medication Order MAR Action Action Date Dose Rate Site ceFAZolin (ANCEF) 3,000 mg in 115 mL IVPB 3,000 mg (3 g), at 230 mL/hr, Intravenous, PRE-OP MULTIPLE, Starting on Sun10/03/17 at 0609, Until Sun10/03/17 at 1415, Administer 30 minutes prior to surgical incision. Repeat dose in 3 hours if surgical incision not closed. Refrigerate, Pre-op $ Given 10/03/2017 8:00 AM TUGBOAT MATE 3 g dexamethasone (DECADRON) injection PRN, Nausea/Vomiting, Starting on Sun10/03/17 at 0817, Until Sun10/03/17 at 0936, Anesthesia Intra-op $ Given 10/03/2017 8:17 AM TUGBOAT MATE 10 mg diphenhydrAMINE (BENADRYL) injection PRN, Itching, Starting on Sun10/03/17 at 0830, Until Sun10/03/17 at 0936, Anesthesia Intra-op $ Given 10/03/2017 8:30 AM TUGBOAT MATE 25 mg fentaNYL (PF) (SUBLIMAZE) injection PRN, Starting on Sun10/03/17 at 0802, Until Sun10/03/17 at 0936, Anesthesia Intra-op $ Given 10/03/2017 8:22 AM TUGBOAT MATE 50 mcg $ Given 10/03/2017 8:02 AM TUGBOAT MATE 100 mcg lidocaine hcl (PF) (XYLOCAINE MPF) 2 % injection PRN, Starting on Sun10/03/17 at 0805, Until Sun10/03/17 at 09, Anesthesia Intra-op $ Given 10/03/2017 8:07 AM TUGBOAT MATE 100 mg midazolam (VERSED) injection PRN, Starting on Sun10/03/17 at 0759, Until Sun10/03/17 at 09, Anesthesia Intra-op $ Given 10/03/2017 7:59 AM TUGBOAT MATE 2 mg Ondansetron HCl (ZOFRAN) injection PRN, Nausea/Vomiting, Starting on Sun10/03/17 at 0843, Until Sun10/03/17 at 0936, Anesthesia Intra-op $ Given 10/03/2017 8:43 AM TUGBOAT MATE 8 mg phenylephrine 100 mcg/mL injection PRN, Starting on Sun10/03/17 at 0831, Until Sun10/03/17 at 0936, Anesthesia Intra-op $ Given 10/03/2017 9:08 AM TUGBOAT MATE 100 mcg $ Given 10/03/2017 9:02 AM TUGBOAT MATE 100 mcg $ Given 10/03/2017 8:53 AM TUGBOAT MATE 100 mcg propofol (DIPRIVAN) injection PRN, Starting on Sun10/03/17 at 0805, Until Sun10/03/17 at 0936, Anesthesia Intra-op $ Given 10/03/2017 8:07 AM TUGBOAT MATE 250 mg rocuronium (ZEMURON) injection PRN, Starting on Sun10/03/17 at 0818, Until Sun10/03/17 at 09, Anesthesia Intra-op $ Given 10/03/2017 8:18 AM TUGBOAT MATE 50 mg succinylcholine (ANECTINE) injection PRN, Starting on Sun10/03/17 at 0805, Until Sun10/03/17 at 0936, Anesthesia Intra-op $ Given 10/03/2017 8:07 AM TUGBOAT MATE 140 mg sugammadex (BRIDION) injection PRN, Starting on Sun10/03/17 at 0915, Until Sun10/03/17 at 0936, Anesthesia Intra-op $ Given 10/03/2017 9:15 AM TUGBOAT MATE 280 mg documented in this encounter
--- OUTSIDE RECORDS SUMMARY | 2024-10-07 04:43 | XMS_ITS | Encounter Summary ---
Author Organization [facility] Address [address] [place] [address] Care Team Providers Care Warehouse Administrative Assistant Name Role Phone Unavailable Primary Care Provider Unavailabl e Reason for Visit * Reason Comments Diet Encounter Details Date Type Department Care Team (Latest Contact Info) Description 10/31/2017 9:45 AM REHAB THERAPY MANAGER Clinical Support [facility] Weight Management Services [address] [place] [id number] Morbid obesity (HCC) Social History Tobacco Use [...] Sign Reading Time Taken Comments Blood Pressure - - Pulse - - Temperature - - Respiratory Rate - - Oxygen Saturation - - Inhaled Oxygen Concentration - - Weight 139.3 kg (307 lb) 10/31/2017 9:52 AM REHAB THERAPY MANAGER Height 179.1 cm (5' 10.5 ) 10/31/2017 9:52 AM CS T Body Mass Index 43.43 10/31/2017 9:52 AM REHAB THERAPY MANAGER documented in this encounter Progress Notes * Melanie Whittaker, LISSETTE/LD - 10/31/2017 9:53 AM CST Weight Management Medical Nutrition Therapy Session 1 Date: 10/31/2017 Patient: Jorge Cotter Date of : 1975 (42 y.o.) PCP Physician: Gerald Coronado MD Referring Physician: Shravan Quinteros MD Assessment: Pt planning RNY, s/p lap band removal 10/03/17. Jorge does not smoke and reports rarealcohol intake. He reports drinking up to 1 can of regular soda daily. He reports occasional sweet tea intake, and is agreeable to switching to stevia sweetened tea. Breakfast is typically skipped. Lunch often consists of a 6 inch tuna sub or salad from [employer]. Dinner is often prepared at home, andmay consist of beef and potatoes. He reports snacking on chips and candy occasionally. He denies any current planned physical activity. Past Medical History: Diagnosis Date ??? Anesthesia complication difficulty waking ??? 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 HTN (hypertension) ??? Kidney stones ??? Migraines ??? Sleep apnea CPAP Diets patient has tried: lap band 2009 Patient participates in exercise: 0 times per week Patient is participating in the following exercise program: none Pertinent Nutrition Medications: Reviewed Pertinent Nutrition Labs: Reviewed Clinical Data: Height: 5' 10.5 (179.1 cm) Weight: (!) 307 lb (139.3 kg) BMI (Calculated): 43.41 Diagnostic Statement: Obesity related to excess energy intake and decreased physical activity AEB elevated BMI. Interventions: Bariatric Nutrition Guide provided and reviewed, including: portion sizes using food models, post-surgery protein requirements/protein supplements, adequate hydration, proper eating habits and importance of routine activity, no alcohol/carbonation, and attending support group Materials Provided: Bariatric Nutrition Guide, Food and Activity Guide, Support Group Schedule, High Protein Liquid Supplement Handout, Fitness Center Membership Information and Vitamin Option Handout Behavior and Lifestyle Modifications Discussed: Eat 3 meals daily with 1-2 high protein snacks as needed Choose low fat/low sugar items Eat 80 gm protein per day Eliminate caloric beverages, carbonated beverages and limit caffeine Perform 30 minutes of cardiovascular exercise per day, most days of the week as able and approved by physician Do not graze between meals Incorporate fruits and vegetables Include whole grain foods Take 15-20 minutes to eat meals Reduce stress and emotional eating Portion control Recipe modifications/cooking methods Monitoring: Pt encouraged to call RD with questions and/or concerns. Pt verbalizes understanding of expectation of gradual weight loss or weight maintenance prior to surgery. Evaluation of Overall Compliance Potential: Pt receptive and verbalizes understanding of concepts discussed Pt has viewed RD introductory video: yes Pt has demonstrated comprehension by correctly answering at least 6/10 questions on video competency questionnaire: yes Goals for this month: 1. Keep a food journal / log fluid intake 2. 3 meals/day- protein shake in place of skipped meals PRN 3. Increase fluid intake- 64 oz/day Nutritional Review ?? Cleared, no additional RD visits required ___ ?? Not cleared, additional RD visit(s) required ___ ?? Continue with Medically Managed Diet visits _X__ ?? Bariatric Case Conference review required ___ Session Information Session date: 10/31/2017 Session total minutes: [address]/DILLAN B THERAPY MANAGER documented in this encounter Plan of Treatment Not on file documented as of this encounter Visit Diagnoses Diagnosis Morbid obesity (HCC)- Primary Morbid obesity documented in this encounter
--- OUTSIDE RECORDS SUMMARY | 2024-10-07 04:43 | XMS_ITS | Encounter Summary ---
Author Organization [facility] Address [address] [place] [address] Care Team Providers Care Top Installer Name Role Phone Unavailable Primary Care Provider Unavailabl e Reason for Visit * Reason Onset Date Comments Pre Authorization 09/20/2017 Encounter Details Date Type Department Care Team ([facility] st Contact Info) Description 09/20/[address] [facility] [address] [facility] [address] [place] [address] Shravan Quinteros MD [address] [facility] [address] [place] [address] Pre Authorization Social History Tobacco Use Types Packs/Day Years [...] Telephone Encounter - Leelee South MA - 09/20/2017 3:34 PM CST Spoke to Alley at [facility] to request prior authorization for patient surgery Lap band removal Cpt:65948,Dx: gastric band prolapse K31.89,gastric band slippage K95.09, complications of gastric band K95.09 and dysphasia R13.10. Per Alley this would need to go for clinical review and to fax clinicals [phone] with pending authorization #[id number]. Faxed office visit notes from 08/31/17 and EGD report form 09/20/17. Confirmation received. Received voicemail from Kaila Woodson at 3:08 pm advising to fax patient clinicals to the clinical nurse Lu Eddy for review. Per voicemail from Kaila Leigh's direct contact # is [phone] and fax# [phone]. Faxed above mentioned clinicals to Lu Eddy at [phone]. Confirmation received. ITAL SECURITY OFFICER documented in this encounter Plan of Treatment Not on file documented as of this encounter Visit Diagnoses Not on filedocumented in this encounter
--- OUTSIDE RECORDS SUMMARY | 2024-10-07 04:43 | XMS_ITS | Encounter Summary ---
Author Organization [facility] Address [address] [place] [address] Phone Care Team Providers Care Software Test Developer Name Role Phone Gerald Coronado MD Primary Care Provider [phone] Osmar Shaikh MD Unavailable [phone] Reason for Visit * Reason Comments Medication Refill Encounter Details Date Type Department Care Team (Late st Contact Info) Description 11/27/2019 Refill [facility] - Neurology - [place] [address] [place] [phone] Osmar Shaikh MD [address] [place] [phone] Medication Refill Social History Tobacco Use Types Packs/Day Years Used Date Smoking Tobacco: Never Smokeless Tobacco: Never Alcohol Use Standard Drinks/Week Comments No 0 (1 standard drink = 0.6 oz pur e alcohol) Sexually Active Control Partners Comments Yes Female Sex and Gender Information Value Date Recorded Sex Assigned at Not on file Legal Sex Male 9:20 PM CDT Gender Identity Not on file Sexual Orientation Not on file documented as of this encounter Plan of Treatment Not on file documented as of this encounter Visit Diagnoses Not on filedocumented in this encounter Care Teams Software Test Developer Relationship Specialty Start Date End Date Gerald Coronado MD [address] [place] [address] PCP - General Internal Medicine 07/04/16 Osmar Shaikh MD [address] [place] [address] Consulting Physician Neurology 07/04/16 09/07/24 documented as of this encounter
--- OUTSIDE RECORDS SUMMARY | 2024-10-07 04:43 | XMS_ITS | Clinical Summary ---
Author Organization [facility] Address [address] [facility] [place] [address] Phone Care Team Providers Care Char Filter Operator Helper Name Role Phone Gerald Coronado MD Primary Care Provider [phone] Allergies No known active allergies Medications lisinopril-hyd roCHLOROthiazi de (PRINZIDE, ZESTORETIC) 20-12.5 MG Tablet Take 1 Tab by mouth daily. Active Magnesium 250 MG Tablet Take by mouth. Activ e Multiple Vitamin (MULTI-VITAMIN PO) Take by mouth. Activ e Allegan-3 Fatty Acids (FISH OIL PO) Take by mouth. Activ e Vitamin B-6 (PYRIDOXINE) 100 MG Tablet Take by mouth. A ctive ALPRAZolam (XANAX) 0.25 MG Tablet Take 0.25 mg by mouth 3 times daily as needed. Active HYDROcodone-ac etaminophen (NORCO) 5-325 MG Tablet Take 1 Tab by mouth every 8 hours as needed for Pain (for Migreaone). 6 Tab 0 7 Active Additional Information Patient not taking.Reported on 08/27/2017 SUMAtriptan (IMITREX) 6 MG/0.5ML Solution Auto-injector 0.5 mL by Subcutaneous route once as needed for up to 1 dose. 9 Cartridge 6 7 Active Additional Information Patient not taking.Reported on 08/26/2018 naproxen (NAPROSYN) 500 MG Tablet Take 1 Tab by mouth daily. 30 Tab 6 7 Active Additional Information Patient not taking.Reported on 02/25/2018 Verapamil HCl CR 360 MG CAPSULE SR 24 HR Take 1 Cap by mouth daily. 90 Cap 3 8 Active divalproex (DEPAKOTE) 250 MG Tablet Delayed Response TAKE 1 TABLET BY MOUTH THREE TIMES DAILY 270 Tab 1 9 Active verapamil CR (VERELAN) 240 MG CAPSULE SR 24 HR TAKE ONE CAPSULE BY MOUTH EVERY DAY 90 Cap 2 0 Active verapamil CR (VERELAN) 120 MG CAPSULE SR 24 HR TAKE ONE CAPSULE BY MOUTH EVERY DAY 90 Cap 2 0 Active Active Problems Problem Noted Date Diagnosed Date Cluster headaches 09/15/2016 Tension headache 09/15/2016 Immunizations Immunization Administration Dates Next Due Influenza Vaccine greater than 3 yrs 09/04/2016 Family History Medical History Relation Name Comments Heart Attack Father Hypertension Father No Known Problems Mother Relation Name Status Comments Father Mother Alive Social History Tobacco Use Types Packs/Day Years Used Date Smoking Tobacco: Never Smokeless Tobacco: Never Tobacco Cessation:Counseling Given: Yes Alcohol Use Standard Drinks/Week Comments No 0 [...] Sign Reading Time Taken Comments Blood Pressure 120/80 08/26/2018 3:18 PM SPLUNK CONSULTANT Pulse 80 08/26/2018 3:18 PM SPLUNK CONSULTANT Temperature 36.7 ??C (98.1 ??F) 08/26/2018 3:18 PM CS T Respiratory Rate 18 08/26/2018 3:18 PM SPLUNK CONSULTANT Oxygen Saturation 98% 08/26/2018 3:18 PM SPLUNK CONSULTANT Inhaled Oxygen Concentration - - Weight 127 kg (280 lb) 08/26/2018 3:18 PM SPLUNK CONSULTANT Height 180.3 cm (5' 11 ) 08/26/2018 3:18 PM SPLUNK CONSULTANT Body Mass Index 39.05 08/26/2018 3:18 PM SPLUNK CONSULTANT Plan of Treatment Health Maintenance Due Date Last Done Comments Hepatitis C Virus (HCV) Screening 1975 Hepatitis B Immunization (1 of 3 - 19+ 3-dose series) 1996 Colonoscopy 2022 Colorectal Cancer Screening 2022 Influenza Immunization (#1) 2024 12/0 02/2016, 09/04/2016, 09/20/2015 SARS-COV-2 Immunization ( season) 2024 02/11/2021, 01/14/2021 Respiratory Syncytial Virus (RSV) Immunization (Adult) (1 - 1-dose 75+ series) 2052 DTaP/Tdap/Td Immunization Discontinued 09/20/2015 TdaP Immunization Completed 09/20/2015 Meningococcal Immunization (ACWY) Aged Out No longer eligible based on patient's age to complete this topic Pneumococcal Immunization Combined Aged Out No longer eligible based on patient's age to complete this topic Rotavirus Immunization Aged Out No lo nger eligible based on patient's age to complete this topic Care Teams Char Filter Operator Helper Relationship Specialty Start Date End Date Gerald Coronado MD [address] [place], [place] [id number] PCP - General Internal Medicine 07/04/16
--- OUTSIDE RECORDS SUMMARY | 2024-10-07 04:43 | XMS_ITS | Encounter Summary ---
Author Organization [facility] Address [address] [place] [address] Phone Care Team Providers Care Wire Roller Name Role Phone Gerald Coronado MD Primary Care Provider [phone] Osmar Shaikh MD Unavailable [phone] Reason for Visit * Reason Comments Medication Refill Encounter Details Date Type Department Care Team (Late st Contact Info) Description 07/29/2020 Refill [facility] - Neurology - [place] [address] [place] [phone] Osmar Shaikh MD [address] [place] [phone] Medication Refill Social History Tobacco Use Types [...] on filedocumented in this encounter Care Teams Wire Roller Relationship Specialty Start Date End Date Gerald Coronado MD [address] [place] [address] PCP - General Internal Medicine 07/04/16 Osmar Shaikh MD [address] [place] [address] Consulting Physician Neurology 07/04/16 09/07/24 documented as of this encounter
--- OUTSIDE RECORDS SUMMARY | 2024-10-07 04:43 | XMS_ITS | CONTINUITY OF CARE DOCUMENT ---
Author Name mirtha shannon Address Unknown Organization [facility] Address [address] [place] [address] [address] [place] [address] Phone [phone] Care Team Providers Care Coroner Transport Technician Name Role Phone Kamaljit THOMPSON, Clary Unavailable INSURANCE PROVIDERS Payer name Policy type / Coverage type [place] red green party ID [employer] Other [id number]
--- OUTSIDE RECORDS SUMMARY | 2024-10-07 04:43 | XMS_ITS | Encounter Summary ---
Author Organization [facility] Address [facility] [facility] 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
--- OUTSIDE RECORDS SUMMARY | 2024-10-07 04:43 | XMS_ITS | Encounter Summary ---
Author Organization [facility] Address [address] [place] [address] Care Team Providers Care Eligibility Examiner Name Role Phone Unavailable Primary Care Provider Unavailabl e Reason for Visit * Reason Onset Date Comments Encounter Opened In Error 10/08/2017 Encounter Details Date Type Department Care Team (Latest Contact Info) Description 10/03/2017 8:00 AM CARD PAINTER Clinical Support [facility] Weight Management Services [address] [place] [id number] ERRONEOUS ENCOUNTER--DISREGARD Social History Tobacco Use Types Packs/Day Years Used Date Smoking Tobacco: Never Smokeless Tobacco: Never Alcohol Use Standard Drinks/Week Comments No 0 (1 standard drink = 0.6 oz pur e alcohol) Sex and Gender Information Value Date Recorded Sex Assigned at Not on file Gender Identity Not on file Sexual Orientation Not on file documented as of this encounter Progress Notes * Leelee South MA - 10/08/2017 1:55 PM CST Jorge Grimmpretty encounter was opened in error. Please disregard any activity associated with this encounter. PAINTER documented in this encounter Plan of Treatment Not on file documented as of this encounter Visit Diagnoses Diagnosis ERRONEOUS ENCOUNTER--DISREGARD- Primary documented in this encounter
--- OUTSIDE RECORDS SUMMARY | 2024-10-07 04:43 | XMS_ITS | Encounter Summary ---
Author Organization [facility] Address [address] [facility] [place] [address] Care Team Providers Care Laboratory Analyst Name Role Phone Unavailable Primary Care Provider Unavailabl e Reason for Visit * Auth/Cert Specialty Diagnoses / Procedures Referred By Jaime t Referred To Contact Procedures ENDOSCOPY GI UPPER WITH DILATION Referral ID Status Reason Start Date Expiration Date Visits Re quested Visits Authorized [id number] 1 1 Encounter Details Date Type Department Care Team (Late st Contact Info) Description 09/20/2017 8:10 AM SECURITY CLERK Anesthesia Event [facility] - Endoscopy Services [address] [place] [phone] Wyatt Bolden, DO [address] [place] [phone] Ron Rouse, GLOBAL LOGISTICS MANAGER-CARPENTER ASSEMBLER [address] [place] [address] Anesthesia Record Procedure Summary Procedure Name Responsible Anesthesiologist Anesthesia Start Time Anesthesia Stop Time EGD WITH DILATION Wyatt Bolden DO 09/20/17 0810 0830 Events Date Time Event Comment 09/20/2017 0753 0803 Out OR Start Data 0804 PT Reassessment 0810 An Start 0813 Time Out Anesthesia part icipated in timeout at the time documented in the record by nursing 0825 Electnc Sig 0828 Out OR Stop Data 0830 An Stop Meds Name Total propofol (DIPRIVAN) injection 10mg/ml (E NDO USE) 25 mL 0.9% NaCl infusion 250 mL * Agents Name O2 * Blood No blood administrations on file. Lines, Drains, and Airways Type Details Placement Removal Peripheral IV Date: 09/20/17; Time : 728; Orientation: Right; Placed By: Vanessa Ng R.N.; Tolerance: Well 09/20/17 0729 by Ashley Ga RN 09/20/17 0910 by Ashley Ga RN documented in this encounter Social History Tobacco [...] as of this encounter Progress Notes * Ron Rouse APRN-CRNA - 09/20/2017 8:32 AM CST ANESTHESIA POSTPROCEDURE EVALUATION Jorge Cotter is a 42 y.o. male Temp: 97.1 ??F Pulse: 68 Resp: 18 BP: 131/85 SpO2: 91 % Anesthesia Type: MAC Level of consciousness: awake No numbness, tingling or visual disturbances present. General appearance: well-appearing Respiratory function: natural airway. Cardiac: stable Pain: comfortable/acceptable PONV: None Postop hydration: adequate. Patient may be released from anesthesia care. Quality Improvement: Care Assessment: No value filed. Adverse Events: No value filed. Pulmonary: No value filed. Regional: No value filed. Equipment: No value filed. Patient Management: No value filed. Comments: No value filed. RITY CLERK documented in this encounter Consult Notes * Ron Rouse APRN-CRNA - 09/20/2017 7:50 AM CST ANESTHESIA PREOPERATIVE EVALUATION NOTE Procedure: EGD WITH DILATION Vitals: Patient Vitals for the past 24 hrs (Last 5 readings): BP Temp Pulse Resp SpO2 Height Weight 09/20/17 0726 138/84 97.1 ??F 68 18 95 % 1.803 m (5' 11 ) 135.6 kg (299 lb) ANESTHESIA PRE-EVALUATION NOTE Physical Exam: Orientation: Orientation X3 Airway/Mallampati Score: II Mouth Opening Distance: 3 fingerwidths Neck ROM: full TM Distance: > 3 FB Teeth: normal Heart: regular rate rhythm Lungs: normal Abdomen Exam: obese Review of Systems: History of anesthetic complications: No GERD: Yes, poorly controlled Poor Exercise Tolerance: No Recent Chest Pain: No Shortness of Breath: No AICD/Pacemaker: No Renal Disease: No ANESTHESIA PLAN SECTION ASA Score: 2 NPO Status: No solids since midnight Anesthesia Plan: MAC Anesthetic plan was discussed with: patient The patient's procedural Anesthetic Plan with discussed with the anesthesiologist. BMI, Height, Weight Tobacco History Estimated body mass index is 41.7 kg/(m^2) as calculated from the following: Height as of this encounter: 1.803 m (5' 11 ). Weight as of this encounter: 135.6 kg (299 lb). History Smoking Status ??? Never Smoker Smokeless Tobacco ??? Never Used Alcohol History Drug History History Alcohol Use No History Drug Use No Outpatient Medications: Inpatient Medications: Current Facility-Administered Medications Medication Dose Last Dose ??? 0.9% NaCl Allergies: No Known Allergies Problem List: There are no active problems to display for this patient. Medical History: Past Medical History: Diagnosis Date ??? 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 HTN (hypertension) ??? Kidney stones ??? Migraines ??? Sleep apnea CPAP Surgical History: Past Surgical History: Procedure Laterality Date ??? ADJUSTABLE GASTRIC BAND, LAP PLACEMENT 2009 Dr. Lindquist ??? Cholecystectomy [id number] ??? Lithotripsy x2 ??? Tonsillectomy 2003 Lab Tests: None None None None RITY CLERK documented in this encounter Miscellaneous Notes * Anesthesia Transfer of Care - Ron Rouse APRN-CARPENTER ASSEMBLER - 09/20/2017 8:30 AM CST ANESTHESIA TRANSFER OF CARE NOTE Today's Date: 09/20/2017 Date of : 1975 Patient: Jorge Cotter Pre-op Diagnosis: * No pre-op diagnosis entered * Allergies: No Known Allergies Procedure(s): EGD WITH DILATION Postop Diagnosis: same as pre-operative diagnosis Patient Transfer Location: [facility] Recovery Level of Consciousness: alert and awake Transport Airway: spontaneous respirations Complications: None Handoff Given? Yes [...] of report from the receiving PACUteam. DIONI Go RITY CLERK documented in this encounter Plan of Treatment Not on file documented as of this encounter Visit Diagnoses Not on filedocumented in this encounter Administered Medications Inactive Administered Medications - up to 3 most recent administrations Medication Order MAR Action Action Date Dose Rate Site propofol (DIPRIVAN) injection CONTINUOUS PRN, Starting on Linda 09/20/17 at 0814, Until Linda 09/20/17 at 0832, Anesthesia Intra-op $ New Bag/Syringe 09/20/2017 8:14 AM SECURITY CLERK documented in this encounter
--- OUTSIDE RECORDS SUMMARY | 2024-10-07 04:43 | XMS_ITS | Clinical Summary ---
Author Organization [facility] Address [facility] [place] [address] [place] [address] Care Team Providers Care Polymer Scientist Name Role Phone Gerald Coronado MD Primary Care Provider [phone] Raymundo Weathers MD Unavailable Unavailabl e Allergies Active Allergy Reactions Criticality Noted Date Comments Morphine And Codeine Unknown 06/13/2016 Oxycodone-Acetaminophe n Nausea Only 06/13/2016 Topiramate Other (see comment) 06/13/2016 Tingling of arms and legs Tramadol Other (see comment) 06/13/2016 Tingling of arms and legs Medications ALPRAZolam 0.25 MG tablet Take 0.25 mg by mouth 2 (two) times daily as needed for Sleep. Active lisinopril-hydr ochlorothiazide 20-12.5 MG per tablet Take 1 tablet by mouth daily. 2 06/20/2016 Active nortriptyline 10 MG capsule TAKE 3-4 CAPSULES AT BEDTIME DIRECTED 2 06/13/2016 Active verapamil 240 MG 24 hr capsule Take 240 mg by mouth daily. 2 06/20/2016 Active Active Problems Problem Noted Date Diagnosed Date Anxiety Hypertension Intractable headache LVH (left ventricular hypertrophy) Obesity Sleep apnea Family History Medical History Relation Comments Alcohol Abuse Brother Hyperlipidemia Brother Hyperlipidemia Father Hypertension Father Sudden Father Arthritis Mother Relation Status Comments Brother Father (Age 56) Mother Social History Tobacco Use Types Packs/Day Years Used Date Smoking Tobacco: Never Sex and Gender Information Value Date Recorded Sex Assigned at Not on file Legal Sex Male 1:30 PM CDT Gender Identity Not on file Sexual Orientation Not on file 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 Not on file Not on file Last Filed Vital Signs Vital Sign Reading Time Taken Comments Blood Pressure 118/86 07/07/2016 11:47 AM CDT Pulse 89 07/07/2016 11:47 AM CDT Temperature - - Respiratory Rate 18 07/07/2016 11:47 AM CDT Oxygen Saturation 96% 07/07/2016 11:47 AM CDT Inhaled Oxygen Concentration - - Weight 129.3 kg (285 lb) 07/07/2016 11:47 AM CDT Height 180.3 cm (5' 11 ) 07/07/2016 11:47 AM CDT Body Mass Index 39.75 07/07/2016 11:47 AM CDT Plan of Treatment Health Maintenance Due Date Last Done Comments Colorectal Cancer Screening Colonoscopy (10 Years) 1977 Annual Physical 1980 Hepatitis C 1995 DTaP, Tdap and Td Vaccines ( 1 - Tdap) 1996 Hepatitis B Vaccines (1 of 3 - 19+ 3-dose series) 1996 COVID-19 Vaccine (2023-2 5 season) 2024 Influenza Adult (#1) 2024 Meningococcal Vaccine Aged Out No melody alberto eligible based on patient's age to complete this topic Pneumococcal Vaccine: Pediat rics (0 to 5 Years) and At-Risk Patients (6 to 64 Years) Aged Out No longer eligible b ased on patient's age to complete this topic RSV Immunizations Under 20 Months Aged Out No longer eligible based on patient's age to complete this topic Insurance [employer] Care Teams Polymer Scientist Relationship Specialty Start Date End Date Gerald Coronado MD [address] [place] [id number] PCP - General INTERNAL MEDICINE 07/05/16 Raymundo Weathers MD [address] [place] [address] CARDIOVASCULAR DISEASE 07/05/16
--- OUTSIDE RECORDS SUMMARY | 2024-10-07 04:43 | XMS_ITS | Encounter Summary ---
Author Organization [facility] Address [facility] [place] [address] [place] [address] Care Team Providers Care Tong Setter Name Role Phone Gerald Coronado MD Primary Care Provider [phone] Raymundo Weathers MD Unavailable Unavailabl e Reason for Visit * Reason Comments Consult Abnormal Echocardiogram Encounter Details Date Type Department Care Team (Latest Contact Info) Description 07/06/2016 9:00 AM CDT Office Visit [facility] AT [address] [address] Raymundo Weathers MD Consult; Abnormal Echocardiogram Social History Tobacco Use Types Packs/Day Years Used Date Smoking Tobacco: Never Sex and Gender Information Value Date Recorded Sex Assigned at Not on file Legal Sex Male 1:30 PM CDT Gender Identity Not on file Sexual Orientation Not on file 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 Treating B/P for 3 months/CPAP-2008 2. Treadmill @ age 52 yr documented in this encounter Progress Notes * Raymundo Weathers MD - 11/14/2016 4:17 PM CST HISTORY OF PRESENT ILLNESS: Jorge is seen in the [facility] today in consultation. He is a 41-year-old gentleman with a history of several cardiac risk factors for coronary artery disease who was sent to the cardiology clinic by Dr. Coronado for further evaluation and treatment following an abnormal echocardiogram. Jorge relates that he has no prior cardiac history, but did undergo bariatric surgery in 2009. Herecently was undergoing a routine physical examination in January of this year as part of his routineassessment for HASMET. An EKG from 2014 was apparently reviewed and further evaluation with an echocardiogram was felt to be warranted. The echocardiogram was performed on 05/26/2016, and interpreted by Dr. Speedy Mcknight. It revealed mild concentric left ventricular hypertrophy with a LVEF of 60% to65%. The left atrium appeared to be mildly dilated and diastolic filling pressure was indeterminate. Jorge's cardiac risk factors for coronary artery disease include a positive family history in hisfather who of a myocardial infarction at age 56. He has a history of hypertension and hyperlipidemia. He also has a history of sleep apnea for which he uses a CPAP machine. He denies any historyof tobacco abuse or known diabetes mellitus. Jorge has had some headaches more recently. He has been more aggressively treated for his hypertension, but the headaches have continued. It has been felt that his headaches may be related to migraines or cluster headaches. He does report that his blood pressure did fall quite a bit after his bariatric surgery in the past. He denies any anginal chest pain or overt symptoms of congestive heart failure such as paroxysmal nocturnal dyspnea or orthopnea. Recent evaluation included laboratory in February of this year which showed a serum hemoglobin 15.0 and hematocrit 43.2. Serum electrolytes showed a serum potassium of 3.8 with a BUN of 13 and creatinine [address]16. A CT scan of the abdomen for evaluation of abdominal pain in February of this year showed an obstructing 9 mm left ureteral calculus in the mid left ureter which seemed to be moving distally associated with moderate left hydronephrosis with perinephric inflammatory changes. A MRI of the brain with and without contrast in April of this year showed no abnormalities. RECOMMENDATIONS AND PLAN: Jorge's cardiac status appears clinically stable at the present time without ongoing anginal chest pain, overt symptoms of congestive heart failure, or clinical evidence of hemodynamically significant arrhythmias. His abnormal echocardiogram is felt to be secondary to hypertensive heart disease with associated diastolic dysfunction exacerbated by his sleep apnea and obesity. Aggressive treatment of his hypertension and sleep apnea will be important in his long-term care. Aggressive cardiac risk factor modification will also be important in the future. After a long discussion in the clinic, I have recommended the following to Jorge: 1. Continue present medical regimen without alteration. Continued aggressive control of his hypertension will be pursued with an optimal blood pressure of less than 130/80 mmHg. 2. Continue aggressive management of the sleep apnea. The CPAP therapy was initiated in 2008 and should be continued unless it is no longer needed. Jorge would certainly benefit from continued attempts at weight loss as this will improve both his hypertension and sleep apnea. 3. Lipid management per Dr. Coronado. Given Jorge's numerous cardiac risk factors for coronary artery disease, an aggressive approach to his lipid management would seem warranted. 4. Return to the cardiology clinic on a p.r.n. basis. Jorge would benefit from an exercise stresstest when he turns 52 years old given his clinical presentation and overall cardiac risk factor profile. I have encouraged him to contact me in the future should he have any questions or problems. BANDER * Raymundo Weathers MD - 07/07/2016 12:58 PM CDT Chief Complaint: Consult and Abnormal Echocardiogram Medications: Current Outpatient Prescriptions: ??? ALPRAZolam 0.25 MG tablet, Take 0.25 mg by mouth 2 (two) times daily as needed for Sleep., Disp: , Rfl: ??? lisinopril-hydrochlorothiazide 20-12.5 MG per tablet, Take 1 tablet by mouth daily., Disp: , Rfl: 2 ??? nortriptyline 10 MG capsule, TAKE 3-4 CAPSULES AT BEDTIME DIRECTED, Disp: , Rfl: 2 ??? verapamil 240 MG 24 hr capsule, Take 240 mg by mouth daily., Disp: , Rfl: 2 Allergies Allergen Reactions ??? Codeine Unknown ??? Percocet [Oxycodone-Acetaminophen] Nausea Only ??? Topiramate Other (see comment) Tingling of arms and legs ??? Tramadol Other (see comment) Tingling of arms and legs Past Medical History Diagnosis Date ??? Anxiety ??? Chronic low back pain ??? Hypertension ??? Intractable headache ??? LVH (left ventricular hypertrophy) ??? Migraine ??? Obesity s/p gastric binding ??? Ptosis of left eyelid ??? Renal stones ??? Sleep apnea 2010 cpap Past Surgical History Procedure Laterality Date ??? Tonsillectomy ??? Gastric bypass ??? Renal scope,remv fb/stone 07/2013 Social History Social History ??? Marital status: Spouse name: N/A ??? Number of children: 2 ??? 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 Smoking status: Never Smoker ??? Smokeless tobacco: None ??? Alcohol use None ??? Drug use: None ??? Sexual activity: Not Asked Other Topics Concern ??? None Social History Narrative Family History Problem Relation Age of Onset ??? Arthritis Mother ??? Sudden Father ??? Hypertension Father ??? Hyperlipidemia Father ??? Hyperlipidemia Brother ??? Alcohol Abuse Brother Family Status Relation Status ??? Mother ??? Father at age 56 ??? Brother Review of Systems Constitutional: Negative for malaise/fatigue and weight loss. HENT: Negative for hearing loss. Eyes: Negative for blurred vision and double vision. Respiratory: Negative for cough and hemoptysis. Denies snoring. Cardiovascular: CV ROS as noted in history of present illness. Gastrointestinal: Negative for blood in stool and melena. Genitourinary: Negative for dysuria. Musculoskeletal: Negative for joint pain and myalgias. Skin: Negative for rash. Neurological: Negative for tingling, sensory change, focal weakness and headaches. Endo/Heme/Allergies: Does not bruise/bleed easily. Denies intolerance to heat/cold or excessive hunger/thirst. Filed Vitals: 07/07/16 1147 BP: 118/86 Pulse: 89 Resp: 18 SpO2: 96% Weight: 129.3 kg (285 lb) Height: 5' 11 (1.803 m) Physical Exam Constitutional: He is oriented to person, place, and time. He appears well- developed and well-nourished. No distress. obese HENT: Mouth/Throat: Mucous membranes are not pale and not cyanotic. Eyes: There is no xanthelasma. Neck: Neck supple. Normal carotid pulses and no JVD present. Carotid bruit is not present. Cardiovascular: Normal rate, regular rhythm, S1 normal and S2 normal. Exam reveals no S3 and no S4. No murmur heard. Pulses: Dorsalis pedis pulses are 2+ on the right side, and 2+ on the left side. Posterior tibial pulses are 2+ on the right side, and 2+ on the left side. Pulmonary/Chest: Effort normal and breath sounds normal. Abdominal: Soft. Normal appearance. He exhibits no abdominal bruit and no mass. There is no hepatosplenomegaly. There is no tenderness. Musculoskeletal: He exhibits no edema. No severe kyphoscoliosis. Neurological: He is oriented to person, place, and time. Neuro exam grossly normal. Skin: Skin is warm, dry and intact. No cyanosis. Nails show no clubbing. Without evidence of xanthoma. Psychiatric: He has a normal mood and affect. No results found for this visit on 07/06/16. Diagnoses/Impression: No diagnosis found. Follow up Plan for BMI: Follow up reason overweight: Recommended patient increases physical activity and Recommended eating a balanced diet. documented in this encounter Plan of Treatment Not on file documented as of this encounter Visit Diagnoses Diagnosis Essential hypertension- Primary Unspecified essential hypertension LVH (left ventricular hypertrophy) Cardiomegaly Morbid obesity, unspecified obesity type ([facility]/HCC [facility]/HCC) Obstructive sleep apnea syndrome Obstructive sleep apnea (adult) (pediatric) documented in this encounter Care Teams Tong Setter Relationship Specialty Start Date End Date Gerald Coronado MD [address] [place] [address] PCP - General INTERNAL MEDICINE 07/05/16 Raymundo Weathers MD [address] [place] [address] CARDIOVASCULAR DISEASE 07/05/16 documented as of this encounter
--- OUTSIDE RECORDS SUMMARY | 2024-10-07 04:43 | XMS_ITS | Encounter Summary ---
Author Organization [facility] Address [address] [place] [address] Care Team Providers Care Home And School Visitor Name Role Phone Unavailable Primary Care Provider Unavailabl e Reason for Visit * Reason Comments Diet Encounter Details Date Type Department Care Team (Latest Contact Info) Description 12/24/2017 7:45 AM FRENCH TUTOR Clinical Support [facility] [address] [place] [id number] Morbid obesity with BMI of 40.0-44.9, adult (HCC) Social History Tobacco Use Types Packs/Day [...] - Inhaled Oxygen Concentration - - Weight 135.4 kg (298 lb 6.4 oz) 12/24/2017 7:45 AM FRENCH TUTOR Height 179.1 cm (5' 10.5 ) 12/24/2017 7:45 AM CS T Body Mass Index 42.21 12/24/2017 7:45 AM FRENCH TUTOR documented in this encounter Progress Notes * Frieda Sesay, LISSETTE/DILLAN - 12/24/2017 8:19 AM CST Weight Management Medical Nutrition Therapy Session 3 Date: 12/24/2017 Patient: Jorge Cotter Date of : 1975 (42 y.o.) PCP Physician: Gerald Coronado MD Referring Physician: Dr. Lily Quinteros Progress towards previous goals: 1. Log food and activity: Goal met 2. Decrease soda intake/with goal to eliminate: Goal met 3. 3 meals daily-lean protein source at each meal: Progressing towards goal-continue Assessment: Pt planning RNY. Patient keeps a food journal. Patient keeps an exercise log/documents increased physical activity. Diet recall: Breakfast: Rwandan with egg white; Lunch: 6 inch turkey onwheat from [employer], no condiments; dinner: Shrimp stir horta with lentil pasta; snacks between meals include Macedonian Yogurt and almonds. He has limited caffeine to 16 ounces per day drinking unsweetened tea. No soda or alcohol. 4/7 days he is reaching goal of 10,000 steps. Current exercise regimen: Walking Patient currently participates in exercise: 3-4 times/week Pertinent Labs: Reviewed Pertinent Medications: Reviewed Clinical Data: Height: 5' 10.5 (179.1 cm) Weight: 298 lb 6.4 oz (135.4 kg) BMI (Calculated): 42.2 Filed Wts: 12/24/17 0745 Weight: 298 lb 6.4 oz (135.4 kg) 10.4 pound weight loss from previous visit. Weight from Initial RD visit: 307 lb Diagnostic Statement: Obesity related to excess energy intake/decreased physical activity AEB elevated BMI. Interventions: Patient was instructed on post-surgery protein requirements/protein supplements, Bariatric vitamin/mineral supplementation recommendations, adequate hydration, proper eating habits, importance of routine activity, no alcohol/carbonation, and attending support group and tips for dining out and goals for a lifetime of success. Materials provided: High Protein Liquid Supplement Handout Monitor: Pt encouraged to call RD with questions and/or concerns. Goals: Three meals daily with lean protein. Continue to keep food and activity log. Sample protein shakes. Behavior modification and gradual weight loss. Pt verbalizes understanding of expectation ofgradual weight loss or weight maintenance prior to surgery. Evaluation of Overall Compliance Potential: Patient verbalizes understanding of concepts discussed.Fabio was receptive and asked appropriate questions. He has taken a more serious attitude this past month and progressed towards his goals. Nutritional Review ?? Cleared, no additional RD visits required _X__ ?? Not cleared, additional RD visit(s) required ___ ?? Continue with Medically Managed Diet visits ___ ?? Bariatric Case Conference review required ___ Next visit: no more required Frieda Sesay RD/DILLAN CH TUTOR documented in this encounter Plan of Treatment Not on file documented as of this encounter Visit Diagnoses Diagnosis Morbid obesity with BMI of 40.0-44.9, adult (HCC)- Primary documented in this encounter
--- OUTSIDE RECORDS SUMMARY | 2024-10-07 04:43 | XMS_ITS | Encounter Summary ---
Author Organization [facility] Address [facility] [place] [address] Care Team Providers Care Wool Spotter Name Role Phone Unavailable Primary Care Provider Unavailabl e Reason for Visit * Reason Comments Diet Encounter Details Date Type Department Care Team (Latest Contact Info) Description 11/27/2017 7:45 AM HOUSING LIAISON Clinical Support [facility] [address] [place] [id number] Morbid obesity (HCC) Social History Tobacco Use [...] - Inhaled Oxygen Concentration - - Weight 140.3 kg (309 lb 6.4 oz) 018 12:13 PM HOUSING LIAISON Height 179.1 cm (5' 10.5 ) 11/27/2017 1 2:13 PM HOUSING LIAISON Body Mass Index 43.77 11/27/2017 12:13 PM HOUSING LIAISON documented in this encounter Progress Notes * Melanie Whittaker, LISSETTE/DILLAN - 11/27/2017 12:13 PM CST Weight Management Medical Nutrition Therapy Session 2 Date: 11/27/2017 Patient: Jorge Cotter Date of : 1975 (42 y.o.) PCP Physician: Gerald Coronado MD Referring Physician: Shravan Quinteros MD Progress towards previous goals: 1. Keep a food journal / log fluid intake: Progressing towards goal 2. 3 meals/day- protein shake in place of skipped meals PRN: Goal not met 3. Increase fluid intake- 64 oz/day: Goal met ?? Assessment: Pt planning RNY, s/p lap band removal 10/03/17. 2.4 lb weight gain from previous visit.Jorge does not smoke and reports rare alcohol intake. He has eliminated sweet tea intake. He continues to drink 1 soda, every other day. He has been tracking and increasing water intake. He reportssporadic meal intake over the past month due to having the flu. Meals may consist of peanut butter a nd jelly sandwich, with >2 tbs of peanut butter. He reports snacking on chips occasionally. He denies any planned physical activity, but has been tracking his steps. He reports averaging 8000 steps most days. Past Medical History: Diagnosis Date ??? Anesthesia complication difficulty waking ??? 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 HTN (hypertension) ??? Kidney stones ??? Migraines ??? Sleep apnea CPAP Patient participates in exercise: 0 times per week Patient is participating in the following exercise program: none Pertinent Nutrition Medications: Reviewed Pertinent Nutrition Labs: Reviewed Clinical Data: Height: 5' 10.5 (179.1 cm) Weight: (!) 309 lb 6.4 oz (140.3 kg) BMI (Calculated): 43.[address] visit: 307 lb Diagnostic Statement: Obesity related to excess energy intake and decreased physical activity AEB elevated BMI. Interventions: Bariatric Nutrition Guide provided and reviewed, including: portion sizes using food models, post-surgery protein requirements/protein supplements, adequate hydration, proper eating habits, importance of routine activity, no alcohol/carbonation, and attending support group and previous food records, goals, and behavior modification tips reviewed Materials Provided: Bariatric Nutrition Guide, Support Group Schedule, High Protein Liquid Supplement Handout, [employer]itness Center Membership Information and Vitamin Option Sheet Behavior and Lifestyle Modifications Discussed: Eat 3 [...] surgery. Evaluation of Overall Compliance Potential: Pt receptive. Minimal progress towards goals demonstrated, expectations of medically managed diet reviewed. Pt verbalized understanding of concepts discussed. Goals for this month: 1. Log PO intake / continue to track fluid intake 2. Decrease soda intake- 1-2 / week with goal to eliminate 3. 3 meals/day- lean protein source at each meal Nutritional Review ?? Cleared, no additional RD visits required ___ ?? Not cleared, additional RD visit(s) required ___ ?? Continue with Medically Managed Diet visits _X__ ?? Bariatric Case Conference review required ___ Session Information Session date: 11/27/2017 Session total minutes: [address]/DILLAN ING LIAISON documented in this encounter Plan of Treatment Not on file documented as of this encounter Visit Diagnoses Diagnosis Morbid obesity (HCC)- Primary Morbid obesity documented in this encounter
--- OUTSIDE RECORDS SUMMARY | 2024-10-07 04:43 | XMS_ITS | Encounter Summary ---
Author Organization [facility] Address [address] [place] [address] Care Team Providers Care Accounts Clerk Name Role Phone Unavailable Primary Care Provider Unavailabl e Reason for Visit * Auth/Cert Specialty Diagnoses / Procedures Referred By Jaime t Referred To Contact Procedures LAPAROSCOPIC GASTRIC BAND REMOVAL Referral ID Status Reason Start Date Expiration Date Visits Re quested Visits Authorized [id number] 1 1 Encounter Details Date Type Department Care Team (Late st Contact Info) Description 10/03/2017 8:00 AM [facility].[place]. SENATOR - 10/03/2017 9:05 AM [facility] Surgery [facility] - Perioperative Surgery [address] [place] [address] [phone] Shravan Quinteros MD [address] [facility] [address] [place] [id number] LAPAROSCOPIC GASTRIC BAND REMOVAL Surgery Details Date/Time Status Location OR Service Patient Class Case Class Case Type Trauma Case? 10/03/2017 8:00 AM Posted [facility] MAIN OR OR 05 Bariatric Surgery Day Care Elective > 5 days Panel 1 Procedure LRB Anes Op Region Wound Class Comments LAPAROSCOPIC GASTRIC BAND REMOVAL General Abdome n Clean Contaminated Surgeon Surgeon Role Service Panel Shravan Quinteros [...] Sign Reading Time Taken Comments Blood Pressure 112/69 10/03/2017 12:51 PM U.S. SENATOR Pulse 76 10/03/2017 12:51 PM U.S. SENATOR Temperature 35.9 ??C (96.7 ??F) 10/03/2017 12:[address] Respiratory Rate 16 10/03/2017 12:51 PM U.S. SENATOR Oxygen Saturation 96% 10/03/2017 12:51 PM U.S. SENATOR Inhaled Oxygen Concentration - - Weight 137.4 kg (303 lb) 10/03/2017 6:26 AM U.S. SENATOR Height 180.3 cm (5' 11 ) 10/03/2017 6:26 AM U.S. SENATOR Body Mass Index 42.26 10/03/2017 6:26 AM U.S. SENATOR documented in this encounter Medications at Time of Discharge Medication Sig Dispensed Refills Start Date End Date ALPRAZolam (XANAX) 0.25 MG tablet Take 0.25 mg by mouth as needed (Only takes when flying) 2 06/06/[address] (DEPAKOTE) 250 MG tablet Take 250 mg by mouth 2 times daily 0 08/27/2017 magnesium 500 MG tablet Take 500 mg by mouth once daily Multiple Vitamin (MULTI VITAMIN PO) Take 1 tablet by mouth once daily [place]-3 Fatty Acids (FISH OIL PO) Take 1,000 mg by mouth once daily pyridoxine (VITAMIN B-6) 100 MG tablet Take 100 mg by mouth once daily SUMAtriptan Succinate 6 MG/0.5ML INJECT 1 CARTRIDGE NEEDED FOR MIGRAINE. MAY REPEAT IN 1 HOUR IF NEEDED. MAX 2/24 HOURS 3 06/06/2017 Verapamil HCl CR 360 MG Take 360 mg by mouth once daily 6 08/27/2017 lisinopril-hydroCHLORO thiazide (PRINZIDE; ZESTORETIC) 20-12.5 MG tablet Take 1 tablet by mouth once daily 05/27/2017 02/15/2018 naproxen (NAPROSYN) 500 MG tablet Take by mouth as needed 07/02/2017 01/29/2018 ondansetron, disintegrating, (ZOFRAN ODT) 4 MG tablet Dissolve 1 tablet under the tongue every 6 hours as needed for Nausea/Vomiting Allow tablet to dissolve on the tongue 30 tablet 10/03/2017 01/29/2018 oxyCODONE-acetaminophe n (PERCOCET) 5-325 MG tablet Take 1-2 tablets by mouth every 4 hours as needed for Pain 45 tablet 10/03/2017 02/12/2018 pantoprazole EC (PROTONIX) 40 MG tablet Take 1 tablet by mouth daily before breakfast for 30 days 30 tablet 11 09/20/2017 10/20/2017 documented as of this encounter H&P Notes * Shravan Quinteros MD - 10/02/2017 10:51 AM CST Bariatric Surgery Evaluation History and Physical ?? Chief Complaint: Vomiting/dysphagia ?? Height: 5' 10.5 (179.1 cm) Weight: 299 lb (135.6 kg) BMI (Calculated): 42.28 ?? HPI: Pt is a 42 y.o. [...] Pt has now attained a BMI (Calculated): 42.28 and has developed complications and/or side effects [...] Reoperations after weight loss surgery: none. ?? Dietary History: Carb consumption: high Drinking with meals: yes Snacking: yes, healthy and unhealthy Meal size: 1 cups Satiety length after eating: not very long Tolerates bread: very minimal Tolerate meat: yes Food Journaling: no Calories per day: no ?? Vitamins pt is taking: multivitamin, magnesium, and vitamin B6 ?? Specific ROS: Dysphagia: yes, daily-worse in the morning N/v: no nausea, vomiting daily-worse in the morning Abdominal pain: no Dumping: no Day of surgery H and P. Pt denies changes to below history ?? Past Medical History: Diagnosis Date ??? Anxiety ? when flying ??? HTN (hypertension) ? Kidney stones ? Migraines ? Sleep apnea ? CPAP ?? Past Surgical History: Procedure Laterality Date ??? ADJUSTABLE GASTRIC BAND, LAP PLACEMENT ?? 2009 ?? Dr. Lindquist ??? Cholecystectomy ?? [id number] ??? Lithotripsy ? x2 ??? Tonsillectomy ?? [...] Outpatient Prescriptions Marked as Taking for the 08/31/17 encounter (Office Visit) with Shraavn Quinteros MD Medication Sig ??? naproxen (NAPROSYN) 500 MG tablet ? Verapamil HCl CR 360 MG Take 360 mg by mouth once daily ??? lisinopril-hydroCHLOROthiazide (PRINZIDE; ZESTORETIC) 20-12.5 MG tablet ? divalproex DR (DEPAKOTE) 250 MG tablet Take 250 mg by mouth 3 times daily ??? ALPRAZolam (XANAX) 0.25 MG tablet Take 0.25 mg by mouth 2 times daily as needed ??? SUMAtriptan Succinate 6 MG/0.5ML INJECT 1 [...] ?? Smokeless status: Never Used Alcohol use: Not on file Drug use: Not on file Sexual activity: Not on file ? Family History Problem Relation Age of Onset ??? Hypertension Father ? Coronary Artery Disease Father ? [place] ? Physical Examination: BP 133/81 Pulse 81 Temp 97.7 ??F Resp 18 Ht 5' 11 (1.803 m) Wt 303 lb (137.4 kg) SpO2 99% BMI 42.26 kg/m2 Constitutional: Well nourished, NAD ?? Labs: na ?? Risk / Benefits Risks and benefits were reviewed with patient including but not limited to: Cortez-en-Y gastric bypass: , enteral leak, stricture [...] with multiple program team members including surgeon, auditing specialist, bariatric nurse and mental health armored vehicle officer. ?? Impression: Obesity (BMI: Body mass index is 42.3 kg/(m^2).) with above listed comorbidities with the following complications/side effects after weight loss surgery -morbid obesity -complications of adjustable gastric banding -dysphagia -n/v ?? Plan: I discussed LRYGB as options for revisional weight loss surgery as treatment for failed priorweight loss surgical procedure and dysphagia and n/v as complications/side effects of weight loss surgery. After discussion and consideration pt has decided on the below course of treatment. ?? Jorge Cotter is considering a LRYGB for weight loss surgery. Further preoperative workup/interventions include: ?? Proceed with band removal now then wait 3 months before LRYGB ?? Shravan Quinteros MD U.S. SENATOR documented in this encounter OR Notes * Operative - Shravan Quinteros MD - 10/03/2017 9:14 AM CST [facility] Operative Report OPERATIVE REPORT PATIENT: Jorge Cotter MR#: [id number] ADMIT DATE: 10/03/2017 ACCT#: DATE OF SURGERY: 10/03/2017 : 1975 PHYSICIAN: Shravan Quinteros MD 42 y.o. Body mass index is Body mass index is 42.26 kg/(m^2). PREOPERATIVE DIAGNOSES: Complication of adjustable gastric banding POSTOPERATIVE DIAGNOSES: SAME PROCEDURES PERFORMED: Laparoscopic removal of adjustable gastric band and port SURGEON: Shravan Quinteros MD PAPER SORTER: MOISES Sutherland ANESTHESIA: General endotracheal. Operative Findings: Band was not eroded. Removed w/o difficulty. . PROCEDURE: The patient was brought to the operating suite. Patient was placed under general endotracheal anesthesia. Patient was prepped and draped in the sterile fashion. One left sided periumbilical 5mm incision was made with a 15- blade scalpel and an optical 5-mm port was placed under direct vision without difficulty. The peritoneal cavity was insufflated with CO2 gas to 15 mmHg pressure. A 45-degree angled laparoscope was placed into the peritoneal cavity. There was no blood, fluid, or evidence of intra-abdominal injury. Two 5mm ports were placed in the LUQ and RUQ of the abdomen. A final5 mm trocar was placed to right and superior to umbilicus. The first 5 mm trocar was upsized to a 12 mm trocar. The patient was placed in steep reverse Trendelenburg position.The left lobe of the liver was elevated demonstrating liver adhesions to the cuff of the band. These were taken down with the Ligasure until the band buckle and anterior portion of the band was identified. There was no edemain this area. The buckle was cut and band removed, leaving in abdominal cavity for removal at end of procedure. The area where the cuff of the LAGB had been appeared without evidence of damage to gastric mucosa or leaking gastric contents. The portion of plicated stomach was not taken down. The ring around the upper portion of the stomach was not cut. This opened this segment of the stomach so noresistance was present. The band was then removed from the abdominal cavity and inspected to ensureall parts present. Blunt dissection was performed along the left periumbilical incision and it was extended to 1cm in length. The LAGB port mobilized. Posterior port attachments were taken down with electrocautery. The port was removed with electrocautery. Hemostasis was meticulous. The fascia of the trocar site where the LAGB was removed was closed with a 0 Vicryl suture in a [id number] transfascial fashion. The incisions were closed with running subcuticular Vicryl sutures. Sterile dressing was placed. The patient tolerated the procedure well and was taken to recovery room in stable condition. EBL: 10 ml COMPLICATIONS: None. Implants: none Specimen: band and port removed and discarded U.S. SENATOR documented in this encounter Plan of Treatment Not on file documented as of this encounter Procedures Procedure Name Priority Date/Time Associated Diagnosis Comments LAPAROSCOPIC REMOVAL/REPLACEMENT GASTRIC BAND 10/03/2017 7:50 AM U.S. SENATOR EKG 12-LEAD STAT 10/03/2017 7:36 AM U.S. SENATOR Pre-op testing BASIC METABOLIC PANEL (CALCIUM TOTAL) STAT 10/03/2017 6:40 AM U.S. SENATOR Pre-op testing documented in this encounter Results * EKG 12-LEAD (10/03/2017 7:36 AM U.S. SENATOR) Ventricular Rate 75 BPM [facility] Atrial Rate 75 BPM [facility] P-R Interval 178 ms [facility] QRS Duration ms 112 ms [facility] Q-T Interval ms 376 ms [facility] QTC Calculation (Bezet) 419 ms [facility] Calculated P Stroud 3 degrees [facility] Calculated R Stroud -24 degrees [facility] Calculated T Stroud 10 degrees [facility] Interpretation EKG Normal sinus rhythm Normal ECG No previous ECGs available Confirmed by ELISABETH THOMPSON [facility] ([id number]) on 10/04/2017 12:10:30 PM [facility] 10/03/2017 7:36 AM U.S. SENATOR 10/04/2017 12:10 PM U.S. SENATOR Jojo Gaytan DO ECG ORDERABLES [facility] * (ABNORMAL) BASIC METABOLIC PANEL (CALCIUM TOTAL) (10/03/2017 6:40 AM U.S. SENATOR) Glucose 100 74 - 106 mg/dL 10/03/2017 7:07 AM U.S. SENATOR [facility] Sodium 138 136 - 145 mmol/L 10/03/2017 7:07 AM U.S. SENATOR [facility] Potassium 3.9 3.5 - 5.1 mmol/L 10/03/2017 7:07 AM [facility] Chloride 107 98 - 107 mmol/L 10/03/2017 7:07 AM [facility] CO2 26 22 - 31 mmol/L 10/03/2017 7:07 AM [facility] Calcium 9.4 8.5 - 10.1 mg/dL 10/03/2017 7:07 AM [facility] Anion Gap 5(L) 8 - 16 mmol/L 10/03/2017 7:07 AM [facility] BUN 17 7 - 21 mg/dL 10/03/2017 7:07 AM [facility] Creatinine 1.30 0.50 - 1.30 mg/dL 10/03/2017 7:07 AM [facility] eGFR by MDRD >60 >60 mL/min/1.7 3m2 10/03/2017 7:07 AM [facility] eGFR by MDRD >60 >60 mL/min/1.7 3m2 10/03/2017 7:07 AM [facility] Blood BLOOD SPECIMEN / Unknown Venipuncture / Unknown 10/03/2017 6:40 AM U.S. SENATOR 10/03/2017 6:45 AM U.S. SENATOR Jojo Gaytan DO LAB - CHEMISTRY LAURA AVILA [facility] Organization Address City/State/[facility] Co de Phone Number [facility] [address] [place] [phone] documented in this encounter Visit Diagnoses Not on filedocumented in this encounter Administered Medications Inactive Administered Medications - up to 3 most recent administrations Medication Order MAR Action Action Date Dose Rate Site 0.9% nacl irrigation solution PRN, Starting on Sun10/03/17 at 0832, Until Sun10/03/17 at 0932, Intra-op $ Given 10/03/2017 8:32 AM U.S. SENATOR 1,000 mL Operative Site bupivacaine 0.25% - EPINEPHrine 1:200,000 (PF) injection PRN, Starting on Sun10/03/17 at 0907, Until Sun10/03/17 at 0932, Intra-op $ Given 10/03/2017 9:07 AM U.S. SENATOR 30 mL Operative Site ceFAZolin (ANCEF) 3,000 mg in 115 mL IVPB 3,000 mg (3 g), at 230 mL/hr, Intravenous, PRE-OP MULTIPLE, Starting on Sun10/03/17 at 0609, Until Sun10/03/17 at 1415, Administer 30 minutes prior to surgical incision. Repeat dose in 3 hours if surgical incision not closed. Refrigerate, Pre-op $ Given 10/03/2017 8:00 AM U.S. SENATOR 3 g famotidine (PEPCID) injection 20 mg 20 mg, Intravenous, PRE-OP ONCE, 1 dose, On Sun10/03/17 at 0609, Give morning of surgery., Pre-op $ Given 10/03/2017 6:51 AM U.S. SENATOR 20 mg fentaNYL (PF) (SUBLIMAZE) injection 25 mcg 25 mcg, Intravenous, EVERY 10 MIN PRN, Mild Pain, 4 doses, Starting on Sun10/03/17 at 1052, Until Sun10/03/17 at 1415, Maximum total of 4 doses. If patient reaches max total dose, please consult anesthesiologist prior to further administration of pain meds. Hold pain meds if there are signs of hypoventilation., PACU $ Given 10/03/2017 10:48 AM U.S. SENATOR 25 mcg hydrALAZINE (APRESOLINE) injection 5 mg 5 mg, Intravenous, POST-OP MULTIPLE, Starting on Sun10/03/17 at 1052, Until Sun10/03/17 at 1415, IV given slowly over 1 minute, up to 20 mg. Repeat 5 mg IV dose every 10-15 minutes for sustained hypertension SBP greater than 180, DBP greater than 100., PACU HYDROmorphone-NaCl (DILAUDID) 1-0.9 MG/ML-% injection 0.5 mg 0.5 mg, Intravenous, EVERY 10 MIN PRN, Severe Pain, 4 doses, Starting on Sun10/03/17 at 1052, Until Sun10/03/17 at 1415, Maximum total of 4 doses If patient reaches max total dose, please consult anesthesiologist prior to further administration of pain meds. Hold pain meds if there are signs of hypoventilation. If patient has severe pain may also administer 25 ugs of fentanyl IV for its quicker onset of action, PACU $ Given 10/03/2017 10:48 AM U.S. SENATOR 0.5 mg labetalol (NORMODYNE; TRANDATE) injection 5 mg 5 mg, Intravenous, POST-OP MULTIPLE, Starting on Sun10/03/17 at 1052, Until Sun10/03/17 at 1415, IV given slowly over 1 minute up to 20 mg. Repeat every 10-15 minutes in 5 mg doses. Hold if heart rate is less than 60. Give for hypertension SBP greater than 180, DBP greater than 100., PACU lactated ringers infusion at 20 mL/hr, Intravenous, CONTINUOUS, Starting on Sun10/03/17 at 0615, Until Sun10/03/17 at 1415, Pre-op lactated ringers infusion at 20 mL/hr, Intravenous, PRE-OP CONTINUOUS, Starting on Sun10/03/17 at 0615, Until Sun10/03/17 at 1415, Pre-op $ New Bag/Syringe 10/03/2017 6:51 AM U.S. SENATOR 20 mL/hr lidocaine buffered 1 % injection 0.5 mL 0.5 mL, Infiltration, PRE-OP MULTIPLE, 3 doses, Starting on Sun10/03/17 at 0609, Until Sun10/03/17 at 1415, May be used (0.5 ml locally to anesthetize prior to insertion)., Pre-op $ Given 10/03/2017 6:51 AM U.S. SENATOR 0.5 mL lidocaine PF 0.5% (XYLOCAINE) 0.5 % injection PRN, Starting on Sun10/03/17 at 0907, Until Sun10/03/17 at 0932, Intra-op $ Given 10/03/2017 9:07 AM U.S. SENATOR 20 mL Operative Site morphine injection 2 mg 2 mg, Intravenous, EVERY 15 MIN PRN, Moderate Pain, 5 doses, Starting on Sun10/03/17 at 1052, Until Sun10/03/17 at 1415, Maximum total of 5 doses. If patient reaches max total dose, please consult anesthesiologist prior to further administration of pain meds. Hold pain meds if there are signs of hypoventilation., PACU naloxone (NARCAN) injection 0.04 mg 0.04 mg, Intravenous, POST-OP MULTIPLE, Starting on Sun10/03/17 at 1052, Until Sun10/03/17 at 1415, If respiration rate is less than 7 per minute administer IV every 1 minute until respirations are greater than 12 per minute. Notify anesthesia immediately., PACU ondansetron (ZOFRAN) injection 4 mg 4 mg, Intravenous, ONCE PRN, Nausea/Vomiting, 1 dose, Starting on Sun10/03/17 at 1052, Until Sun10/03/17 at 1415, First choice oxyCODONE-acetaminophen (PERCOCET) 5-325 MG tablet 1 tablet 1 tablet, Oral, POST-OP ONCE, 1 dose, On Sun10/03/17 at 1257, Maximum allowable Acetaminophen amount = 4 Grams (4000 mg) / 24 hours., Post-op $ Given 10/03/2017 12:57 PM U.S. SENATOR 1 tablet prochlorperazine (COMPAZINE) injection 5 mg 5 mg, Intravenous, POST-OP MULTIPLE, 1 dose, Starting on Sun10/03/17 at 1052, Until Sun10/03/17 at 1415, Second choice, use if first choice was ineffective. trimethobenzamide (TIGAN) injection 200 mg 200 mg, Intramuscular, NOW, 1 dose, On Sun10/03/17 at 1130, IM use only; do not administer IV $ Given 10/03/2017 11:25 AM U.S. SENATOR 200 mg Right Arm documented in this encounter Active and Recently Administered Medications Times are shown in U.S. SENATOR. Scheduled Medication Order 10/01/2017 10/02/2017 10/03/2017 ceFAZolin (ANCEF) 3,000 mg in 115 mL IVPB 3,000 mg (3 g), at 230 mL/hr, Intravenous, PRE-OP MULTIPLE, Starting on Sun10/03/17 at 0609, Until Sun10/03/17 at 1415, Administer 30 minutes prior to surgical incision. Repeat dose in 3 hours if surgical incision not closed. Refrigerate, Pre-op 0800 ($ Given - Prov ider: Ysabel Chua, END POLISHER-PROGRAM MGR) famotidine (PEPCID) injection 20 mg (COMPLETED) 20 mg, Intravenous, PRE-OP ONCE, 1 dose, On Sun10/03/17 at 0609, Give morning of surgery., Pre-op 0651 ($ Given - Prov ider: Mitzi Castelan RN) hydrALAZINE (APRESOLINE) injection 5 mg 5 mg, Intravenous, POST-OP MULTIPLE, Starting on Sun10/03/17 at 1052, Until Sun10/03/17 at 1415, IV given slowly over 1 minute, up to 20 mg. Repeat 5 mg IV dose every 10-15 minutes for sustained hypertension SBP greater than 180, DBP greater than 100., PACU labetalol (NORMODYNE; TRANDATE) injection 5 mg 5 mg, Intravenous, POST-OP MULTIPLE, Starting on Sun10/03/17 at 1052, Until Sun10/03/17 at 1415, IV given slowly over 1 minute up to 20 mg. Repeat every 10-15 minutes in 5 mg doses. Hold if heart rate is less than 60. Give for hypertension SBP greater than 180, DBP greater than 100., PACU lidocaine buffered 1 % injection 0.5 mL 0.5 mL, Infiltration, PRE-OP MULTIPLE, 3 doses, Starting on Sun10/03/17 at 0609, Until Sun10/03/17 at 1415, May be used (0.5 ml locally to anesthetize prior to insertion)., Pre-op 0651 ($ Given - Prov ider: Mitzi Castelan RN) naloxone (NARCAN) injection 0.04 mg 0.04 mg, Intravenous, POST-OP MULTIPLE, Starting on Sun10/03/17 at 1052, Until Sun10/03/17 at 1415, If respiration rate is less than 7 per minute administer IV every 1 minute until respirations are greater than 12 per minute. Notify anesthesia immediately., PACU oxyCODONE-acetaminophen (PERCOCET) 5-325 MG tablet 1 tablet (COMPLETED) 1 tablet, Oral, POST-OP ONCE, 1 dose, On Sun10/03/17 at 1257, Maximum allowable Acetaminophen amount = 4 Grams (4000 mg) / 24 hours., Post-op 1257 ($ Given - Prov ider: Jose Raul Rey RN) prochlorperazine (COMPAZINE) injection 5 mg 5 mg, Intravenous, POST-OP MULTIPLE, 1 dose, Starting on Sun10/03/17 at 1052, Until Sun10/03/17 at 1415, Second choice, use if first choice was ineffective. trimethobenzamide (TIGAN) injection 200 mg (COMPLETED) 200 mg, Intramuscular, NOW, 1 dose, On Sun10/03/17 at 1130, IM use only; do not administer IV 1125 ($ Given - Prov ider: Madelyn Marvin RN) Continuous Medication Order 10/01/2017 10/02/2017 10/03/2017 lactated ringers infusion at 20 mL/hr, Intravenous, CONTINUOUS, Starting on Sun10/03/17 at 0615, Until Sun10/03/17 at 1415, Pre-op 0615 (Due) lactated ringers infusion at 20 mL/hr, Intravenous, PRE-OP CONTINUOUS, Starting on Sun10/03/17 at 0615, Until Sun10/03/17 at 1415, Pre-op 0651 ($ New Bag/Syri nge - Provider: Mitzi Castelan RN)[id number] (Anesthesia Volume Adjustment - Provider: Ysabel Chua APRN-PROGRAM MGR) PRN Medication Order 10/01/2017 10/02/2017 10/03/2017 0.9% nacl irrigation solution (CANCELED) PRN, Starting on Sun10/03/17 at 0832, Until Sun10/03/17 at 0932, Intra-op 0832 ($ Given - Prov ider: Shravan Quinteros MD) bupivacaine 0.25% - EPINEPHrine 1:200,000 (PF) injection (CANCELED) PRN, Starting on Sun10/03/17 at 0907, Until Sun10/03/17 at 0932, Intra-op 0907 ($ Given - Prov ider: Shravan Quinteros MD) fentaNYL (PF) (SUBLIMAZE) injection 25 mcg 25 mcg, Intravenous, EVERY 10 MIN PRN, Mild Pain, 4 doses, Starting on Sun10/03/17 at 1052, Until Sun10/03/17 at 1415, Maximum total of 4 doses. If patient reaches max total dose, please consult anesthesiologist prior to further administration of pain meds. Hold pain meds if there are signs of hypoventilation., PACU 1048 ($ Given - Prov ider: Madelyn Marivn RN) HYDROmorphone-NaCl (DILAUDID) 1-0.9 MG/ML-% injection 0.5 mg 0.5 mg, Intravenous, EVERY 10 MIN PRN, Severe Pain, 4 doses, Starting on Sun10/03/17 at 1052, Until Sun10/03/17 at 1415, Maximum total of 4 doses If patient reaches max total dose, please consult anesthesiologist prior to further administration of pain meds. Hold pain meds if there are signs of hypoventilation. If patient has severe pain may also administer 25 ugs of fentanyl IV for its quicker onset of action, PACU 1048 ($ Given - Prov ider: Madelyn Marvin RN) lidocaine PF 0.5% (XYLOCAINE) 0.5 % injection (CANCELED) PRN, Starting on Sun10/03/17 at 0907, Until Sun10/03/17 at 0932, Intra-op 0907 ($ Given - Prov ider: Shravan Quinteros MD) morphine injection 2 mg 2 mg, Intravenous, EVERY 15 MIN PRN, Moderate Pain, 5 doses, Starting on Sun10/03/17 at 1052, Until Sun10/03/17 at 1415, Maximum total of 5 doses. If patient reaches max total dose, please consult anesthesiologist prior to further administration of pain meds. Hold pain meds if there are signs of hypoventilation., PACU ondansetron (ZOFRAN) injection 4 mg 4 mg, Intravenous, ONCE PRN, Nausea/Vomiting, 1 dose, Starting on Sun10/03/17 at 1052, Until Sun10/03/17 at 1415, First choice documented in this encounter
--- OUTSIDE RECORDS SUMMARY | 2024-10-07 04:43 | XMS_ITS | Encounter Summary ---
Author Organization [facility] Address [facility] [facility] [place] [address] [place] [address] Care Team Providers Care Gravel Weigher Name Role Phone Unavailable Primary Care Provider Unavailabl e Encounter Details Date Type Department Care Team (Late st Contact Info) Description 05/29/2016 It[facility] [address] [place] [address] Scanned, Documents Social History Tobacco Use Types Packs/Day Years Used Date Smoking Tobacco: Never Assessed Sex and Gender Information Value Date Recorded Sex Assigned at Not on file Legal Sex Male 1:30 PM CDT Gender Identity Not on file Sexual Orientation Not on file documented as of this encounter Plan of Treatment Not on file documented as of this encounter Visit Diagnoses Not on filedocumented in this encounter
--- OUTSIDE RECORDS SUMMARY | 2024-10-07 04:43 | XMS_ITS | Encounter Summary ---
Author Organization [facility] Address [address] [place] [address] Care Team Providers Care Paralegal Specialist Name Role Phone Unavailable Primary Care Provider Unavailabl e Reason for Visit * Auth/Cert Specialty Diagnoses / Procedures Referred By Jaime t Referred To Contact Procedures ENDOSCOPY GI UPPER WITH DILATION Referral ID Status Reason Start Date Expiration Date Visits Re quested Visits Authorized [id number] 1 1 Encounter Details Date Type Department Care Team (Late st Contact Info) Description 09/20/2017 8:20 AM FILM COLOR TESTER - 09/20/2017 8:40 AM FILM COLOR TESTER Surgery [facility] - Endoscopy Services [address] [place] [id number] Shravan Quinteros MD [facility] [address] [place] [phone] EGD WITH DILATION Surgery Details Date/Time Status Location OR Service Patient Class Case Class Case Type Trauma Case? 09/20/2017 8:20 AM Posted [facility] ENDO ENDO 01 Gastroenterology Surgery Day Care Elective > 5 days Panel 1 Procedure LRB Anes Op Region Wound Class Comments EGD WITH DILATION MAC Clean Contam inated Surgeon Surgeon Role Service Panel Shravan Quinteros MD Primary Gastroenterology 1 Special Needs UGI TO FOLLOW AT 900 documented in this encounter Social History Tobacco [...] Sign Reading Time Taken Comments Blood Pressure 132/81 09/20/2017 8:50 AM FILM COLOR TESTER Pulse 67 09/20/2017 8:50 AM FILM COLOR TESTER Temperature 37 ??C (98.6 ??F) 09/20/2017 8:31 AM FILM COLOR TESTER Respiratory Rate 20 09/20/2017 8:50 AM FILM COLOR TESTER Oxygen Saturation 96% 09/20/2017 8:50 AM FILM COLOR TESTER Inhaled Oxygen Concentration - - Weight 135.6 kg (299 lb) 09/20/2017 7:26 AM FILM COLOR TESTER Height 180.3 cm (5' 11 ) 09/20/2017 7:26 AM FILM COLOR TESTER Body Mass Index 41.7 09/20/2017 7:26 AM FILM COLOR TESTER documented in this encounter Medications at Time [...] Take 1 tablet by mouth once daily [place]-3 Fatty Acids (FISH OIL PO) Take 1,000 [...] H&P Notes * Shravan Quinteros MD - 09/20/2017 8:10 AM CST ENDOSCOPY PRE-PROCEDURE MEDICAL HISTORY & PHYSICAL Jorge Cotter 09/20/2017 Past Medical History: Diagnosis Date ??? 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 HTN (hypertension) ??? Kidney stones ??? Migraines ??? Sleep apnea CPAP Past Surgical History: Procedure Laterality Date ??? ADJUSTABLE GASTRIC BAND, LAP PLACEMENT 2009 Dr. Lindquist ??? Cholecystectomy [id number] ??? Lithotripsy x2 ??? Tonsillectomy 2002 No current facility-administered medications on file prior to encounter. Current Outpatient Prescriptions on File Prior to Encounter Medication Sig Dispense Refill ??? naproxen (NAPROSYN) 500 MG tablet ??? Verapamil HCl CR 360 MG Take 360 mg by mouth once daily 6 ??? lisinopril-hydroCHLOROthiazide (PRINZIDE; ZESTORETIC) 20-12.5 MG tablet ??? divalproex DR (DEPAKOTE) 250 MG tablet Take 250 mg by mouth 3 times daily 0 ??? Multiple Vitamin (MULTI VITAMIN PO) ??? magnesium 500 MG tablet Take 500 mg by mouth once daily ??? pyridoxine (VITAMIN B-6) 100 MG tablet Take 100 mg by mouth once daily ??? ALPRAZolam (XANAX) 0.25 MG tablet Take 0.25 mg by mouth 2 times daily as needed 2 ??? SUMAtriptan Succinate 6 MG/0.5ML INJECT 1 CARTRIDGE NEEDED FOR MIGRAINE. MAY REPEAT IN 1 HOUR IF NEEDED. MAX 2/24 HOURS 3 No Known Allergies Physical Exam: BP 138/84 Pulse 68 Temp 97.1 ??F Resp 18 Ht 5' 11 (1.803 m) Wt 299 lb (135.6 kg) SpO2 95% BMI 41.7 kg/m2 General appearance: alert, cooperative, no distress ASA Evaluation and Anesthesia Plan: Anesthesia administered per Anesthesia Department Indication(s) for Procedure: Dysphagia Procedure Planned: EGD Shravan Quinteros MD COLOR TESTER documented in this encounter Procedure Notes * Ashley Ga RN - 09/20/2017 9:33 AM CST 0930- Lap band fluid removed by Dr. Quinteros. Sterile 2x2 applied over site. COLOR TESTER * Shravan Quinteros MD - 09/20/2017 9:33 AM CST Band Adjustment Note TODAY'S DATE: 09/20/2017 PATIENT NAME: Jorge Cotter DATE OF : 1975 BP 132/81 Pulse 67 Temp 98.6 ??F Resp 20 Ht 5' 11 (1.803 m) Wt 299 lb (135.6 kg) SpO2 96% BMI 41.7kg/m2 Review of Systems Difficulty swallowing Post Band Complications: Gastric slip Post Site Assessment: WNL Procedure Note: After consent obtained appropriate preparation of the patient's skin using standard aseptic technique and infiltration of 1% Lidocaine at the area of the access port. Total fluid anticipated based on recorded prior fills: unknown ml Measure volume today: no Total fluid measured today before current fill: na ml Fluid Removed: all 8.5 ml Final fill volume: 0 ml Plan: S/P LAGB Proceed with band removal. COLOR TESTER * Shravan Quinteros MD - 09/20/2017 8:26 AM CSTAssociated Order(s): EGD [facility] Operative Report OPERATIVE REPORT PATIENT:Jorge Cotter MR#: ADMIT DATE: 09/20/2017 7:06 AM ACCT#: DATE OF SURGERY: 09/20/2017 : 1975 PHYSICIAN: Shravan Quinteros MD 42 yrs Body mass index is 41.7 kg/(m^2). PREOPERATIVE DIAGNOSES: Dysphagia n/v POSTOPERATIVE DIAGNOSES: SAME Gastric band prolapse LA grade A esophagitis gastritis Surgeon: Shravan Quinteros MD DOCTOR OSTEOPATHIC: none PROCEDURES PERFORMED: Esophagogastroduodenoscopy w/ biopsy of [...] pouch. The Z line was identified at 40cm. There was no hiatal hernia present. The scope was further advanced through the pylorus into thesecond portion of the duodenum. The scope was then brought back into the stomach which was thoroughly inspected showing mild gastritis. Biopsies were taken for JUVENTINO testing and H and E. The scope was then retroflexed. The band was visualized. There was no erosion present. The scope was then brought back to the level of the GE junction above the band. The GE junction also was examined. There was LAgrade A evidence of inflammatory changes and biopsy taken. The distal esophagus showed no dilation present. The stomach above the band was inspected. There was moderate slip/prolapse present with tight os to band. There were 5 cm of stomach above the uppermost aspect of the band. The gastroscope was withdrawn examining the esophagus during removal. The patient tolerated the procedure well and wastaken to recovery room in stable condition. COMPLICATIONS: None. Plan: unfill now. Proceed with verification of insurance coverage for band removal and then LRYGB after 3 monts Shravan Quinteros MD COLOR TESTER documented in this encounter Plan of Treatment Not on file documented as of this encounter Procedures Procedure Name Priority Date/Time Associated Diagnosis Comments PATHOLOGY TISSUE EXAM (STL) Routine 09/20/2017 8:28 AM FILM COLOR TESTER Diagnosis unknown EGD Routine 09/20/2017 8:27 AM FILM COLOR TESTER HELICOBACTER PYLORI UREASE (STL) STAT 09/20/2017 8:25 AM FILM COLOR TESTER Diagnosis unknown ESOPHAGOSCOPY/ESOPHA GOGASTRODUODENOSCOPY WITH DILATION 09/20/2017 8:05 AM FILM COLOR TESTER Special Needs UGI TO FOLLOW AT 900 documented in this encounter Results * GROSS + MICRO EXAM (STL) (09/20/2017 8:28 AM FILM COLOR TESTER) Case Report Surgical Pathology Report ? Case: [id number] ? Authorizing Provider: ??Shravan Quinteros MD ?Collected: ? 09/20/2017 08:28 AM ? Ordering Location: ? [facility] END[facility] ?Received: ?09/20/2017 09:08 AM ? Pathologist: ? Jermaine Liz MD ? Specimens: ?? A) - Antrum Biopsy ? B) - Esophageal Biopsy, Z line ? 09/21/2017 3:22 PM FILM COLOR TESTER [facility] Final Diagnosis 1. Gastric endoscopic biopsy: -- No significant abnormality 2. Esophagus, endoscopic biopsy: -- Acute and chronic esophagitis, moderate -- Negative for dysplasia -- No fungal organisms detected AB/na 09/21/2017 3:22 PM FILM COLOR TESTER [facility] Gross Description The specimens are [...] is submitted in toto in cassette B1. MR/arm 09/21/2017 3:22 PM [facility] Microscopic Description The gastric biopsy [...] to be ulcerated. AB/na 09/21/2017 3:22 PM [facility] Disclaimer All histochemical and/or immunohistochemical results are interpreted with controls that demonstrate appropriate staining reactions before reporting results. Note on use of immunocytochemistry reagents: This test was developed and its performance characteristic determined by [facility], Department of Laboratory Medicine. It has not been cleared or approved by the U.S. Food and Drug Administration (FDA). The FDA has determined that such clearance or approval is not necessary. The test is used for clinical purpose. It should not be regarded as investigational or for research. This laboratory is certified to perform high complexity testing. 09/21/2017 3:22 PM [facility] Embedded Images 09/21/2017 3:22 PM [facility] Pathology/Cytology GASTRIC ANTRAL BIOPSY SPECIMEN / Unknown 09/20/2017 8:28 AM FILM COLOR TESTER 09/20/2017 9:08 AM FILM COLOR TESTER Miscellaneous samples (specimen) ESOPHAGEAL BIOPSY SPECIMEN / Unknown 09/20/2017 8:28 AM FILM COLOR TESTER 09/20/2017 9:08 AM FILM COLOR TESTER Shravan Quinteros MD LAB - PATHOLOGY/CYTO LOGY ORDERABLES [facility] [address] [place] [address] * EGD (09/20/2017 8:27 AM FILM COLOR TESTER) Narrative [facility] - 09/20/2017 8:27 AM FILM COLOR TESTER Shravan Quinteros MD ? 09/20/2017 ??8:27 AM [facility] Operative Report OPERATIVE REPORT PATIENT:Jorge Cotter MR#: ADMIT DATE: 09/20/2017 ??7:06 AM ACCT#: DATE OF SURGERY: 09/20/2017 : 1975 PHYSICIAN: Shravan Quinteros MD 42 yrs Body mass index is 41.7 kg/(m^2). PREOPERATIVE DIAGNOSES: Dysphagia n/v POSTOPERATIVE DIAGNOSES: SAME Gastric band prolapse LA grade A esophagitis gastritis Surgeon: Shravan Quinteros MD DOCTOR OSTEOPATHIC: none PROCEDURES PERFORMED: Esophagogastroduodenoscopy w/ biopsy of [...] Shravan Quinteros MD GI PROCEDURE ORDERAB LES Performing Organization Address City/[facility] Co de Phone Number [facility] [place] [address] * HELICOBACTER PYLORI UREASE (STL) (09/20/2017 8:25 AM FILM COLOR TESTER) Helicobacter pylori Urease Initial Negative Negative 09/21/2017 5:41 PM FILM COLOR TESTER [facility] Helicobacter pylori Urease Final Negative Negative 09/21/2017 5:41 PM FILM COLOR TESTER [facility] Comment:This is an appended report. These results have been appended to a previously preliminary verified report. Microbiology GASTRIC ANTRAL BIOPSY SPECIMEN / Unknown 09/20/2017 8:25 AM FILM COLOR TESTER 09/20/2017 11:02 AM FILM COLOR TESTER Shravan Quinteros MD LAB - MICROBIOLOGY O RDERABLES Performing Organization Address [facility] Co de Phone Number [facility] [address] [place] [phone] documented in this encounter Visit Diagnoses Not on filedocumented in this encounter Administered Medications Inactive Administered Medications - up to 3 most recent administrations Medication Order MAR Action Action Date Dose Rate Site 0.9% NaCl infusion at 20 mL/hr, Intravenous, CONTINUOUS, Starting on Linda 09/20/17 at 0730, Until Linda 09/20/17 at 1035, Pre-procedure (GI) $ New Bag/Syringe 09/20/2017 7:33 AM FILM COLOR TESTER 2 0 mL/hr documented in this encounter Active and Recently Administered Medications Times are shown in FILM COLOR TESTER. Continuous Medication Order 09/18/2017 09/19/2017 09/20/2017 0.9% NaCl infusion at 20 mL/hr, Intravenous, CONTINUOUS, Starting on Linda 09/20/17 at 0730, Until Linda 09/20/17 at 1035, Pre-procedure (GI) 0733 ($ New Bag/Syri nge - Provider: Ashley Ga RN)0825 (Anesthesia Volume Adjustment - Provider: Ron Rouse APRN-[place]) documented in this encounter
--- OUTSIDE RECORDS SUMMARY | 2024-10-07 04:43 | XMS_ITS | Encounter Summary ---
Author Organization [facility] Address [address] [place] [address] Care Team Providers Care Food Or Baggage Handling [place] Name Role Phone Unavailable Primary Care Provider Unavailabl e Reason for Visit * Auth/Cert Specialty Diagnoses / Procedures Referred By Jaime t Referred To Contact Procedures ENDOSCOPY GI UPPER WITH DILATION Referral ID Status Reason Start Date Expiration Date Visits Re quested Visits Authorized [id number] 1 1 Encounter Details Date Type Department Care Team (Latest Contact Info) Description 09/20/2017 7:06 AM SCHEDULING ASSISTANT - 09/20/2017 9:33 AM SCHEDULING ASSISTANT Hospital Encounter [facility] - Endoscopy Services [address] [place] [phone] Shravan Quinteros MD [address] [address] Surgery General Discharge Disposition: Home [...] Comments Blood Pressure 132/81 09/20/2017 8:50 AM SCHEDULING ASSISTANT Pulse 67 09/20/2017 8:50 AM SCHEDULING ASSISTANT Temperature 37 ??C (98.6 ??F) 09/20/2017 8:31 AM SCHEDULING ASSISTANT Respiratory Rate 20 09/20/2017 8:50 AM SCHEDULING ASSISTANT Oxygen Saturation 96% 09/20/2017 8:50 AM SCHEDULING ASSISTANT Inhaled Oxygen Concentration - - Weight 135.6 kg (299 lb) 09/20/2017 7:26 AM SCHEDULING ASSISTANT Height 180.3 cm (5' 11 ) 09/20/2017 7:26 AM SCHEDULING ASSISTANT Body Mass Index 41.7 09/20/2017 7:26 AM SCHEDULING ASSISTANT documented in this encounter Medications at Time [...] Take 1 tablet by mouth once daily [place]-3 Fatty Acids (FISH OIL PO) Take 1,000 [...] LAP PLACEMENT 2009 Dr. Lindquist ??? Cholecystectomy [id number] ??? Lithotripsy x2 ??? Tonsillectomy 2003 No current facility-administered medications on file prior [...] 299 lb (135.6 kg) SpO2 95% BMI 41.7kg/m2 General appearance: alert, cooperative, no distress ASA Evaluation and Anesthesia Plan: Anesthesia administered per Anesthesia Department Indication(s) for Procedure: Dysphagia Procedure Planned: EGD Shravan Quinteros MD DULING ASSISTANT documented in this encounter Procedure Notes * Ashley Ga RN - 09/20/2017 9:33 AM CST 0930- Lap band fluid removed by Dr. Quinteros. Sterile 2x2 applied over site. DULING ASSISTANT * Shravan Quinteros MD - 09/20/2017 9:33 [...] Plan: S/P LAGB Proceed with band removal. DULING ASSISTANT * Shravan Quinteros MD - 09/20/2017 8:26 AM CSTAssociated Order(s): EGD [facility] Operative Report OPERATIVE REPORT PATIENT:Jorge Cotter MR#: ADMIT DATE: 09/20/2017 7:06 AM ACCT#: DATE OF SURGERY: 09/20/2017 : 1975 PHYSICIAN: Shravan Quinteros MD 42 yrs Body mass index is 41.7 kg/(m^2). PREOPERATIVE DIAGNOSES: Dysphagia n/v POSTOPERATIVE DIAGNOSES: SAME Gastric band prolapse LA grade A esophagitis gastritis Surgeon: Shravan Quinteros MD PLASTICS WORKER: none PROCEDURES PERFORMED: Esophagogastroduodenoscopy w/ biopsy of [...] LRYGB after 3 monts Shravan Quinteros MD DULING ASSISTANT documented in this encounter Plan of Treatment Not on file documented as of this encounter Procedures Procedure Name Priority Date/Time Associated Diagnosis Comments PATHOLOGY TISSUE EXAM (STL) Routine 09/20/2017 8:28 AM SCHEDULING ASSISTANT Diagnosis unknown EGD Routine 09/20/2017 8:27 AM SCHEDULING ASSISTANT HELICOBACTER PYLORI UREASE (STL) STAT 09/20/2017 8:25 AM SCHEDULING ASSISTANT Diagnosis unknown ESOPHAGOSCOPY/ESOPHA GOGASTRODUODENOSCOPY WITH DILATION 09/20/2017 8:05 AM SCHEDULING ASSISTANT Special Needs UGI TO FOLLOW AT 900 documented in this encounter Results * GROSS + MICRO EXAM (STL) (09/20/2017 8:28 AM SCHEDULING ASSISTANT) Case Report Surgical Pathology Report ? Case: [id number] ? Authorizing Provider: ??Shravan Quinteros MD ?Collected: ? 09/20/2017 08:28 AM ? Ordering Location: ? [facility] ?Received: ?09/20/2017 09:08 AM ? Pathologist: ? Jermaine Liz MD ? Specimens: ?? A) - Antrum Biopsy ? B) - Esophageal Biopsy, Z line ? 09/21/2017 3:22 PM SCHEDULING ASSISTANT [facility] Final Diagnosis 1. Gastric endoscopic biopsy: -- No significant abnormality 2. Esophagus, endoscopic biopsy: -- Acute and chronic esophagitis, moderate -- Negative for dysplasia -- No fungal organisms detected AB/na 09/21/2017 3:22 PM [facility] Gross Description The specimens are [...] in cassette B1. /vishnu 09/21/2017 3:22 PM [facility] Microscopic Description The gastric biopsy [...] to be ulcerated. AB/na 09/21/2017 3:22 PM [facility] Disclaimer All histochemical and/or immunohistochemical results are interpreted with controls that demonstrate appropriate staining reactions before reporting results. Note on use of immunocytochemistry reagents: This test was developed and its performance characteristic determined by [facility], Department of Laboratory Medicine. It has not been cleared or approved by the U.S. Food and Drug Administration (FDA). The FDA has determined that such clearance or approval is not necessary. The test is used for clinical purpose. It should not be regarded as investigational or for research. This laboratory is certified to perform high complexity testing. 09/21/2017 3:22 PM [facility] Embedded Images 09/21/2017 3:22 PM [facility] Pathology/Cytology GASTRIC ANTRAL BIOPSY SPECIMEN / Unknown 09/20/2017 8:28 AM SCHEDULING ASSISTANT 09/20/2017 9:08 AM SCHEDULING ASSISTANT Miscellaneous samples (specimen) ESOPHAGEAL BIOPSY SPECIMEN / Unknown 09/20/2017 8:28 AM SCHEDULING ASSISTANT 09/20/2017 9:08 AM SCHEDULING ASSISTANT Shravan Quinteros MD LAB - PATHOLOGY/CYTO LOGY ORDERABLES [facility] [address] [place] [address] * EGD (09/20/2017 8:27 AM SCHEDULING ASSISTANT) Narrative [facility] - 09/20/2017 8:27 AM SCHEDULING ASSISTANT Shravan Quinteros MD ? 09/20/2017 ??8:27 AM [facility] Operative Report OPERATIVE REPORT PATIENT:Jorge Cotter MR#: ADMIT DATE: 09/20/2017 ??7:06 AM ACCT#: DATE OF SURGERY: 09/20/2017 : 1975 PHYSICIAN: Shravan Quinteros MD 42 yrs Body mass index is 41.7 kg/(m^2). PREOPERATIVE DIAGNOSES: Dysphagia n/v POSTOPERATIVE DIAGNOSES: SAME Gastric band prolapse LA grade A esophagitis gastritis Surgeon: Shravan Quinteros MD PLASTICS WORKER: none PROCEDURES PERFORMED: Esophagogastroduodenoscopy w/ biopsy of [...] Shravan Quinteros MD [place] [address] * HELICOBACTER PYLORI UREASE (STL) (09/20/2017 8:25 AM SCHEDULING ASSISTANT) Helicobacter pylori Urease Initial Negative Negative 09/21/2017 5:41 PM SCHEDULING ASSISTANT [facility] Helicobacter pylori Urease Final Negative Negative 09/21/2017 5:41 PM SCHEDULING ASSISTANT [facility] Comment:This is an appended report. These results have been appended to a previously preliminary verified report. Microbiology GASTRIC ANTRAL BIOPSY SPECIMEN / Unknown 09/20/2017 8:25 AM SCHEDULING ASSISTANT 09/20/2017 11:02 AM SCHEDULING ASSISTANT Shravan Quinteros MD LAB - MICROBIOLOGY O RDERABLES [facility] [address] [place] [address] documented in this encounter Visit Diagnoses Diagnosis Diagnosis unknown Other unknown and unspecified cause of morbidity or mortality documented in this encounter Administered Medications Inactive Administered Medications - up to 3 most recent administrations Medication Order MAR Action Action Date Dose Rate Site 0.9% NaCl infusion at 20 mL/hr, Intravenous, CONTINUOUS, Starting on Linda 09/20/17 at 0730, Until Linda 09/20/17 at 1035, Pre-procedure (GI) $ New Bag/Syringe 09/20/2017 7:33 AM SCHEDULING ASSISTANT 2 0 mL/hr documented in this encounter Active and Recently Administered Medications Times are shown in SCHEDULING ASSISTANT. Continuous Medication Order 09/18/2017 09/19/2017 09/20/2017 0.9% NaCl infusion at 20 mL/hr, Intravenous, CONTINUOUS, Starting on Linda 09/20/17 at 0730, Until Linda 09/20/17 at 1035, Pre-procedure (GI) 0733 ($ New Bag/Syri nge - Provider: Ashley Ga RN)0825 (Anesthesia Volume Adjustment - Provider: Ron Rouse APRN-PLATFORM MATERIAL HANDLER MANAGER) documented in this encounter
--- OUTSIDE RECORDS SUMMARY | 2024-10-07 04:43 | XMS_ITS | Encounter Summary ---
Author Organization [facility] Address [address] [place] [address] Care Team Providers Care Vault Manager Name Role Phone Unavailable Primary Care Provider Unavailabl e Reason for Visit * Reason Comments Pre-op Consult rev Encounter Details Date Type Department Care Team ([facility] st Contact Info) Description 08/31/2017 9:40 AM FINNISH RUBBER Office Visit [facility] [id number] [facility] [address] [place] [address] Shravan Quinteros MD [address] [facility] [address] [place] [address] Morbid obesity with BMI of 40.0-44.9, adult (HCC) (Primary Dx); Dysphagia, unspecified type; Intractable vomiting without nausea, unspecified vomiting type; Complication of gastric banding Social History Tobacco [...] Sign Reading Time Taken Comments Blood Pressure 128/76 08/31/2017 9:27 AM FINNISH RUBBER Pulse 86 08/31/2017 9:27 AM FINNISH RUBBER Temperature - - Respiratory Rate - - Oxygen Saturation - - Inhaled Oxygen Concentration - - Weight 135.6 kg (299 lb) 08/31/2017 9:27 AM FINNISH RUBBER Height 179.1 cm (5' 10.5 ) 08/31/2017 9:27 AM CS T Body Mass Index 42.3 08/31/2017 9:27 AM FINNISH RUBBER documented in this encounter Progress Notes * Shravan Quinteros MD - 08/31/2017 9:47 AM CST Bariatric Surgery Evaluation History and Physical Chief Complaint: Vomiting/dysphagia Height: 5' 10.5 (179.1 cm) Weight: 299 lb (135.6 kg) BMI (Calculated): 42.28 HPI: Pt is a 42 y.o. yo [...] day Reoperations after weight loss surgery: none. Dietary History: Carb consumption: high Drinking with meals: yes Snacking: yes, healthy and unhealthy Meal size: 1 cups Satiety length after eating: not very long Tolerates bread: very minimal Tolerate meat: yes Food Journaling: no Calories per day: no Vitamins pt is taking: multivitamin, magnesium, and vitamin B6 Specific ROS: Dysphagia: yes, daily-worse in the morning N/v: no nausea, vomiting daily-worse in the morning Abdominal pain: no Dumping: no Past Medical History: Diagnosis Date ??? 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 HTN (hypertension) ??? Kidney stones ??? Migraines ??? Sleep apnea CPAP Past Surgical History: Procedure Laterality Date ??? ADJUSTABLE GASTRIC BAND, LAP PLACEMENT 2009 Dr. Lindquist ??? Cholecystectomy [id number] ??? Lithotripsy x2 ??? Tonsillectomy 2002 PATIENT [...] for the 08/31/17 encounter (Office Visit) with Shravan Quinteros MD Medication Sig ??? naproxen (NAPROSYN) 500 MG tablet ??? [...] Smoker Smokeless status: Never Used Alcohol use: Not on file Drug use: Not on file Sexual activity: Not on file Family History Problem Relation Age of Onset ??? Hypertension Father ??? Coronary Artery Disease Father [place] Review of Systems: : neg urinary difficulties Cardiovascular: Denies chest pain, palpitations Respiratory: Neg sob, neg home oxygen use, + SOB with activity Neurological: MEJÍA'S Psychiatric: Anxiety with flying Otherwise 10 point ROS performed and negative except as stated above Physical Examination: VS: BP 128/76 Pulse 86 Ht 5' 10.5 (1.791 m) Wt 299 lb (135.6 kg) BMI 42.3 kg/m2 Constitutional: Well nourished, NAD HENT: Head normocephalic, atraumatic, no evidence of abnormalities. No gross nasal drainage. Mouth:oral mucosa pink and moist Neck: Soft supple without masses. Trachea midline. No thyromegaly Eyes: PEERL, EOM-intact, sclera clear. Conjunctivae wnl. No lid abrasions/lacereations Respiratory: Clear to ascultation bilaterally w/o wheezes, rales or rhonchi. No use of accessory muscles. Good respiratory effort Cardiovascular: Regular rate and rhythm w/o murmurs, rubs or gallops. No lower extremity edema. Abdomen: Obese, non tender to palpation, no abdominal wall hernias present, no organomegaly. no peritoneal signs are present Skin: warm and dry. No obvious lesions. Skin turgor wnl Psychiatric: Mood and affect WNL. Judgement and insight intact Labs: na Risk / Benefits Risks and [...] with multiple program team members including surgeon, cardiothoracic physiotherapist, bariatric nurse and mental health company doctor. Impression: Obesity (BMI: Body mass index is 42.3 kg/(m^2).) with above listed comorbidities with the following complications/side effects after weight loss surgery -morbid obesity -complications of adjustable gastric banding -dysphagia -n/v Plan: I discussed LRYGB as options for revisional weight loss surgery as treatment for failed priorweight loss surgical procedure and dysphagia and n/v as complications/side effects of weight loss surgery. After discussion and consideration pt has decided on the below course of treatment. Jorge Vahe is considering a LRYGB for weight loss surgery. Further preoperative workup/interventions include: -clarify procedure at EGD -will remove band then LRYGB at least 3 months later -EGD to assess n/v and dysphagia and evaluate band for erosion vs slip -Dietary visits monthly for 3 months -counselor at least once 3 Preop cardiothoracic physiotherapist visits 1 Counselor visit(s) Liquid Diet: Yes Liquid Protein Diet: Yes1 Week Patient's Weight Goal: 200 lbs Weight goal prior tosurgery: No Surgeon Assist: No Additional Testing: Yes Comments: EGD Robot candidate: No Weigh at Class: No Shravan Quniteros MD 08/31/2017 ISH RUBBER documented in this encounter Plan of Treatment Not on file documented as of this encounter Visit Diagnoses Diagnosis Morbid obesity with BMI of 40.0-44.9, adult (HCC)- Primary Dysphagia, unspecified type Intractable vomiting without nausea, unspecified vomiting type Complication of gastric banding Other complications of gastric band procedure documented in this encounter
--- OUTSIDE RECORDS SUMMARY | 2024-10-07 04:43 | XMS_ITS | Encounter Summary ---
Author Organization [facility] Address [facility] [facility] [place] [place], [place] [address] [place] [id number] Care Team Providers Care Garage Construction Equipment Mechanic Name Role Phone Unavailable Primary Care Provider Unavailabl e Encounter Details Date Type Department Care Team (Late st Contact Info) Description 06/13/2016 Abstract [facility] [address] [place] [phone] Abstract, Doc [facility] Social History Tobacco Use Types Packs/Day Years Used Date Smoking Tobacco: Never Sex and Gender Information Value Date Recorded Sex Assigned at Not on file Legal Sex Male 1:30 PM CDT Gender Identity Not on file Sexual Orientation Not on file 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
--- OUTSIDE RECORDS SUMMARY | 2024-10-07 04:43 | XMS_ITS | Encounter Summary ---
Author Organization [facility] Address [address] [place] [address] Care Team Providers Care Condenser Tester Name Role Phone Unavailable Primary Care Provider Unavailabl e Reason for Visit * Auth/Cert Specialty Diagnoses / Procedures Referred By Jaime t Referred To Contact Procedures LAPAROSCOPIC GASTRIC BAND REMOVAL Referral ID Status Reason Start Date Expiration Date Visits Re quested Visits Authorized [id number] 1 1 Encounter Details Date Type Department Care Team (Latest Contact Info) Description 10/03/2017 5:55 AM SEMI TRUCK DRIVER - 10/03/2017 1:15 PM SEMI TRUCK DRIVER Hospital Encounter [facility] [address] [place] [address] Shravan Quinteros MD [address] [id number] Surgery General Discharge Disposition: Home or Self [...] Comments Blood Pressure 112/69 10/03/2017 12:51 PM SEMI TRUCK DRIVER Pulse 76 10/03/2017 12:51 PM SEMI TRUCK DRIVER Temperature 35.9 ??C (96.7 ??F) 10/03/2017 12:[address] Respiratory Rate 16 10/03/2017 12:51 PM SEMI TRUCK DRIVER Oxygen Saturation 96% 10/03/2017 12:51 PM SEMI TRUCK DRIVER Inhaled Oxygen Concentration - - Weight 137.4 kg (303 lb) 10/03/2017 6:26 AM SEMI TRUCK DRIVER Height 180.3 cm (5' 11 ) 10/03/2017 6:26 AM SEMI TRUCK DRIVER Body Mass Index 42.26 10/03/2017 6:26 AM SEMI TRUCK DRIVER documented in this encounter Medications at Time [...] Take 1 tablet by mouth once daily [place]-3 Fatty Acids (FISH OIL PO) Take 1,000 [...] 2009 ?? Dr. Lindquist ??? Cholecystectomy ?? [id number] ??? Lithotripsy ? x2 ??? Tonsillectomy ?? [...] Father ? Coronary Artery Disease Father ? [place] ? Physical Examination: BP 133/81 Pulse 81 [...] with multiple program team members including surgeon, core maker helper, bariatric nurse and mental health manufacturing executive. ?? Impression: Obesity (BMI: Body mass index [...] months before LRYGB ?? Shravan Quinteros MD TRUCK DRIVER documented in this encounter OR Notes * Operative - Shravan Quinteros MD - 10/03/2017 9:14 AM CST [facility] Operative Report OPERATIVE REPORT PATIENT: Jorge Cotter MR#: [id number] ADMIT DATE: 10/03/2017 ACCT#: DATE OF SURGERY: 10/03/2017 : 1975 PHYSICIAN: Shravan Quinteros MD 42 y.o. Body mass index is Body mass index is 42.26 kg/(m^2). PREOPERATIVE DIAGNOSES: Complication of adjustable gastric banding POSTOPERATIVE DIAGNOSES: SAME PROCEDURES PERFORMED: Laparoscopic removal of adjustable gastric band and port SURGEON: Shravan Quinteros MD [employer] FACTORY WORKER: MOISES Sutherland ANESTHESIA: General endotracheal. Operative Findings: [...] with a 0 Vicryl suture in a [id number] transfascial fashion. The incisions were closed with running subcuticular Vicryl sutures. Sterile dressing was placed. The patient tolerated the procedure well and was taken to recovery room in stable condition. EBL: 10 ml COMPLICATIONS: None. Implants: none Specimen: band and port removed and discarded TRUCK DRIVER documented in this encounter Plan of Treatment Not on file documented as of this encounter Procedures Procedure Name Priority Date/Time Associated Diagnosis Comments LAPAROSCOPIC REMOVAL/REPLACEMENT GASTRIC BAND 10/03/2017 7:50 AM SEMI TRUCK DRIVER EKG 12-LEAD STAT 10/03/2017 7:36 AM SEMI TRUCK DRIVER Pre-op testing BASIC METABOLIC PANEL (CALCIUM TOTAL) STAT 10/03/2017 6:40 AM SEMI TRUCK DRIVER Pre-op testing documented in this encounter Results * EKG 12-LEAD (10/03/2017 7:36 AM SEMI TRUCK DRIVER) Ventricular Rate 75 BPM [facility] Atrial Rate 75 BPM [facility] P-R Interval 178 ms [facility] QRS Duration ms 112 ms [facility] Q-T Interval ms 376 ms [facility] QTC Calculation (Bezet) 419 ms [facility] Calculated P [place] 3 degrees [facility] Calculated R [place] -24 degrees [facility] Calculated T [place] 10 degrees [facility] Interpretation EKG Normal sinus rhythm Normal ECG No previous ECGs available Confirmed by JOHN BARBER MDSH ([id number]) on 10/04/2017 12:10:30 PM [facility] 10/03/2017 7:36 AM SEMI TRUCK DRIVER 10/04/2017 12:[address] [facility] Jojo Gaytan DO ECG ORDERABLES [facility] * (ABNORMAL) BASIC METABOLIC PANEL (CALCIUM TOTAL) (10/03/2017 6:40 AM SEMI TRUCK DRIVER) Glucose 100 74 - 106 mg/dL 10/03/2017 7:[address] [facility] Sodium 138 136 - 145 mmol/L 10/03/2017 7:[address] [facility] Potassium 3.9 3.5 - 5.1 mmol/L 10/03/2017 7:[address] [facility] Chloride 107 98 - 107 mmol/L 10/03/2017 7:[address] [facility] CO2 26 22 - 31 mmol/L 10/03/2017 7:[address] [facility] Calcium 9.4 8.5 - 10.1 mg/dL 10/03/2017 7:07 AM [facility] Anion Gap 5(L) 8 - 16 mmol/L 10/03/2017 7:07 AM SEMI TRUCK DRIVER [facility] BUN 17 7 - 21 mg/dL 10/03/2017 7:07 AM [facility] Creatinine 1.30 0.50 - 1.30 mg/dL 10/03/2017 7:07 AM [facility] eGFR by MDRD >60 >60 mL/min/1.7 3m2 10/03/2017 7:07 AM [facility] eGFR by MDRD >60 >60 mL/min/1.7 3m2 10/03/2017 7:07 AM [facility] Blood BLOOD SPECIMEN / Unknown Venipuncture / Unknown 10/03/2017 6:40 AM SEMI TRUCK DRIVER 10/03/2017 6:[address] [facility] Jojo Gaytan DO LAB - CHEMISTRY LAURA AVILA Performing Organization Address City/State/[facility] Co de Phone Number [facility] [address] [place] [address] documented in this encounter Visit Diagnoses Diagnosis Complication of gastric banding- Primary Other complications of gastric band procedure Pre-op testing Preoperative examination, unspecified documented in this encounter Administered Medications Inactive [...] Refrigerate, Pre-op $ Given 10/03/2017 8:00 AM SEMI TRUCK DRIVER 3 g famotidine (PEPCID) injection 20 mg 20 mg, Intravenous, PRE-OP ONCE, 1 dose, On Sun10/03/17 at 0609, Give morning of surgery., Pre-op $ Given 10/03/2017 6:51 AM SEMI TRUCK DRIVER 20 mg fentaNYL (PF) (SUBLIMAZE) injection 25 [...] hypoventilation., PACU $ Given 10/03/2017 10:48 AM SEMI TRUCK DRIVER 25 mcg hydrALAZINE (APRESOLINE) injection 5 mg [...] action, PACU $ Given 10/03/2017 10:48 AM SEMI TRUCK DRIVER 0.5 mg labetalol (NORMODYNE; TRANDATE) injection 5 [...] Pre-op $ New Bag/Syringe 10/03/2017 6:51 AM SEMI TRUCK DRIVER 20 mL/hr lidocaine buffered 1 % injection 0.5 mL 0.5 mL, Infiltration, PRE-OP MULTIPLE, 3 doses, Starting on Sun10/03/17 at 0609, Until Sun10/03/17 at 1415, May be used (0.5 ml locally to anesthetize prior to insertion)., Pre-op $ Given 10/03/2017 6:51 AM SEMI TRUCK DRIVER 0.5 mL morphine injection 2 mg 2 mg, Intravenous, [...] hours., Post-op $ Given 10/03/2017 12:57 PM SEMI TRUCK DRIVER 1 tablet prochlorperazine (COMPAZINE) injection 5 mg 5 mg, Intravenous, POST-OP MULTIPLE, 1 dose, Starting on Sun10/03/17 at 1052, Until Sun10/03/17 at 1415, Second choice, use if first choice was ineffective. trimethobenzamide (TIGAN) injection 200 mg 200 mg, Intramuscular, NOW, 1 dose, On Sun10/03/17 at 1130, IM use only; do not administer IV $ Given 10/03/2017 11:25 AM SEMI TRUCK DRIVER 200 mg Right Arm documented in this encounter Active and Recently Administered Medications Times are shown in SEMI TRUCK DRIVER. Scheduled Medication Order 10/01/2017 10/02/2017 10/03/2017 ceFAZolin (ANCEF) 3,000 mg in 115 mL IVPB 3,000 mg (3 g), at 230 mL/hr, Intravenous, PRE-OP MULTIPLE, Starting on Sun10/03/17 at 0609, Until Sun10/03/17 at 1415, Administer 30 minutes prior to surgical incision. Repeat dose in 3 hours if surgical incision not closed. Refrigerate, Pre-op 0800 ($ Given - Prov ider: Ysabel Chua, KILN PUSHER-CUSTODY ASSISTANT) famotidine (PEPCID) injection 20 mg (COMPLETED) 20 mg, Intravenous, PRE-OP ONCE, 1 dose, On Sun10/03/17 at 0609, Give morning of surgery., Pre-op 0651 ($ Given - Prov ider: Mitzi Castelan, BARBI) hydrALAZINE (APRESOLINE) injection 5 mg 5 mg, [...] 0651 ($ Given - Prov ider: Mitzi Castelan, BARBI) naloxone (NARCAN) injection 0.04 mg 0.04 mg, [...] ($ Given - Prov ider: Jose Raul Rey, BARBI) prochlorperazine (COMPAZINE) injection 5 mg 5 mg, [...] (Anesthesia Volume Adjustment - Provider: Ysabel Chua APRN-CUSTODY ASSISTANT) PRN Medication Order 10/01/2017 10/02/2017 10/03/2017 0.9% [...] Given - Prov ider: Madelyn Marvin RN) HYDROmorphone-NaCl (DILAUDID) 1-0.9 MG/ML-% injection 0.5 [...]
== END 2024-10-03 16:17 | disposition home or self-care (01) ==
LOC: CHSLAB 16:18
PROVIDERS: PCP Internal Medicine; Visit Provider Internal Medicine
DX: K92.2 Gastrointestinal hemorrhage, unspecified (principal)
CPT/HCPCS: 36415; 80053; 82728; 83540; 83550; 85027

== ENCOUNTER 2025-01-09 09:32 | Inpatient (IN) | payer OTHER, SELFPAY ==
[2025-01-09] VITALS (40 sets, daily range): BP systolic 118–153; BP diastolic 74–111; PULSE 98–145; RESP 12–25; TEMP 36.1–37; O2SAT 91–100; BMI 37.3
--- NOTE | 2025-01-09 09:45 | ECG_ITS ---
Test Date: 2025-01-09 11:05:31 Measurements Intervals [place] Rate: 116 P: 30 GA: 160 QRS: -50 QRSD: 97 T: 66 QT: 315 QTc: 439 Interpretive Statements SINUS TACHYCARDIA WITH OCCASIONAL SUPRAVENTRICULAR PREMATURE COMPLEXES LEFT ANTERIOR FASCICULAR BLOCK [QRS AXIS <= -45, QR IN I, RS IN II] Compared to ECG 11/14/2024 19:19:17 No significant changes Electronically Signed On 01-09-2025 18:35:41 CDT by Celine Smith M.D.
--- NOTE | 2025-01-09 09:47 | ED.GIBLEED ---
HPI - GI Bleed General Chief complaint: GI Bleed <Sarita Garcia PA-C - Last Filed: 01/09/25 15:00> Stated complaint: GIB <Sarita Garcia PA-C - Last Filed: 01/09/25 15:00> Time Seen by Provider: 01/09/25 09:34 <Sarita Garcia PA-C - Last Filed: 01/09/25 15:00> History of Present Illness HPI Narrative: 49-year-old male with history of hypertension, s/p gastric bypass, PUD, JACKELINE who presents to the emergency department via EMS from home for GI bleed. Patient states yesterday he noticed small amounts of dark and tarry stool x3 in the evening. States around 4am this morning he began having large bright red bloody stools every 30 minutes that would fill the toilet bowl. States this has happened several times and he began to feel weak. He contacted 911 to be transported to the ED. He denies abdominal pain, chest pain or shortness of breath, lightheadedness or syncope. He is reporting some diffuse weakness and nausea. He notes he takes ferrous sulfate for JACKELINE. He was taking Protonix but discontinued this per his GI doctor Dr. Cornejo. Patient is not anticoagulated. Patient was admitted to the hospital for exertional dyspnea and weakness in September. At the time he was found have anemia, underwent an EGD was found to have a single greater to acute benign ulcer measuring 12 mm in the proximal jejunum, in the jejunal side of the gastrojejunal anastomosis, ulcers clean base without signs of bleeding. EGD also showed mild diffuse chronic superficial gastritis seen in the gastric pouch with a mild erythematous change. Patient's last colonoscopy was 11/20/2023 which showed a single 5 mm polyp observed in the cecum followed by cold snare polypectomy with negative biopsy, few diverticula present in the sigmoid colon. Patient also notes he has had intermittent issues with alcohol abuse for the past couple of years. States he would get a were from half a pt to 1 pt per day. Patient notes that he was recently discharged from rehab and has been sober for 38 days. He denies history of liver disease. Denies vomiting, hematemesis, coffee-ground emesis. He is endorsing anxiety. <CHASE Snyder Last Filed: 01/09/25 15:00> Related Data Home medications: Home Medications ?Medication ?Instructions ?Recorded ?Confirmed ?Last Taken ?Type verapamil 360 mg 24 hr 360 mg PO DAILY 04/28/21 01/09/25 01/08/25 History capsule,extended release olmesartan 5 mg tablet 40 mg PO DAILY 10/24/23 01/09/25 01/08/25 History prazosin 1 mg capsule 1 mg PO HS 07/14/24 01/09/25 01/08/25 History desvenlafaxine succinate 100 mg 125 mg PO HS 09/22/24 01/09/25 01/08/25 History tablet,extended release 24 hr hydroxyzine pamoate 50 mg capsule 50 mg PO HS 09/22/24 01/09/25 01/08/25 History trazodone 100 mg tablet 100 mg PO HS 09/22/24 01/09/25 01/08/25 History naltrexone 50 mg tablet 50 mg PO DAILY 01/09/25 01/09/25 01/08/25 History <Sarita Garcia PA-C - Last Filed: 01/09/25 15:00> Allergies/Adverse reactions: Allergies Allergy/AdvReac Type Severity Reaction Status Date / Time No Known Allergies Allergy Verified 01/09/25 17:02 <Sarita Garcia PA-C - Last Filed: 01/09/25 15:00> Review of Systems Review of Systems: All systems reviewed & are unremarkable except as noted in HPI and below <Sarita Garcia PA-C - Last Filed: 01/09/25 15:00> COUNTS INCLUDE 234 BEDS AT THE [facility] Past Medical History Medical History: Medical History Colon cancer screening Urolithiasis JAMES (obstructive sleep apnea) Obesity, morbid, BMI 40.0-49.9 Hypertension Hematemesis Nausea & vomiting <Sarita Garcia PA-C - Last Filed: 01/09/25 15:00> Surgical History Surgical History: Surgical History Hx of tonsillectomy Gastric bypass status for obesity <Sarita Garcia PA-C - Last Filed: 01/09/25 15:00> Family History Family History: Family History Mother Pulmonary embolism Cardiac arrest Father Pulmonary embolism Cardiac arrest <Sarita Garcia PA-C - Last Filed: 01/09/25 15:00> Social History Social History: Social History Smoking status: Never smoker Alcohol intake: former Substance use: never Substance use type: does not use Last use: 12/11/24 Do You Feel Safe in your Home?: Yes Lack of Transportation: No Lack of Food: Never True Current Housing: I Have Housing Concerned About Future Housing: No Difficulty Paying Gas/Electric Bills: No Difficulty Paying for Meds: No Currently Unemployed: No Education: Master's Degree or Higher Difficulty w/ Childcare or Family Care: No Living arrangements: other Additional living arrangements comments: with sp Gender identity (if verbalized by the patient): Male Spiritual care concerns: No <Sarita Garcia PA-C - Last Filed: 01/09/25 15:00> Exam Narrative: GENERAL: Well-appearing, well-nourished, and in no acute distress. Anxious appearing HEAD: Normocephalic, atraumatic. EYES: PERRLA and EOMI. ENT: Nares clear, no rhinorrhea or epistaxis. Mucous membranes moist. NECK: Supple. CHEST: Clear to auscultation. No respiratory distress. HEART: Regular rate and rhythm. No murmur heard. Normal peripheral pulses. ABDOMEN: Soft, nontender, nondistended, normal active bowel sounds. No rebound, guarding or rigidity. No CVA tenderness. Rectal exam chaperoned by Brigida Sterling shows hematochezia surrounding the rectum, positive Hemoccult, small internal hemorrhoid to the 10 o'clock position EXTREMITIES: Normal range of motion. No edema. SKIN: Pale NEURO: No focal deficits. Alert and oriented x3 <Sarita Garcia PA-C - Last Filed: 01/09/25 15:00> Course CREDIT RISK ASSOCIATE/PA Physician Supervision I reviewed the chart, agree with the management. <Yimi Castro MD - Last Filed: 01/09/25 17:05> Vital Signs Vital signs: Vital Signs Temperature 36.6 C 01/09/25 09:34 Pulse Rate 128 H 01/09/25 09:34 Respiratory Rate 15 01/09/25 09:34 Blood Pressure 138/81 01/09/25 09:34 Pulse Oximetry 100 01/09/25 09:34 Oxygen Delivery Room Air 01/09/25 09:34 Temperature 37.0 C 01/09/25 15:24 Pulse Rate 106 H 01/09/25 15:24 Respiratory Rate 13 01/09/25 15:24 Blood Pressure 143/90 H 01/09/25 15:24 Pulse Oximetry 98 01/09/25 15:24 Oxygen Delivery Room Air 01/09/25 09:34 <Sarita Garcia PA-C - Last Filed: 01/09/25 15:00> Vital Signs Temperature 36.6 C 01/09/25 09:34 Pulse Rate 128 H 01/09/25 09:34 Respiratory Rate 15 01/09/25 09:34 Blood Pressure 138/81 01/09/25 09:34 Pulse Oximetry 100 01/09/25 09:34 Oxygen Delivery Room Air 01/09/25 09:34 Temperature 37.0 C 01/09/25 15:24 Pulse Rate 106 H 01/09/25 15:24 Respiratory Rate 13 01/09/25 15:24 Blood Pressure 143/90 H 01/09/25 15:24 Pulse Oximetry 98 01/09/25 15:24 Oxygen Delivery Room Air 01/09/25 09:34 <Yimi Castro MD - Last Filed: 01/09/25 17:05> MDM - GI Bleed MDM Narrative Medical decision making narrative: 49-year-old male with history of diverticulosis, PUD, hypertension, s/p gastric bypass presents to the emergency department for melena that started yesterday and hematochezia that started today. See HPI for further history. Patient's triage vitals are remarkable for tachycardia 120, blood pressure is stable. He does appear anxious on exam. Abdomen is soft and nontender. Rectal exam remarkable for hematochezia and positive Hemoccult. CBC remarkable for leukocytosis of 15.3, no bandemia. Normal platelets. Hemoglobin is 8.6 today, most recently October 2024 it was 11.9. Chemistries with a BUN of 26, creatinine of 1.25. Mag normal at 1.7. Lipase normal. EKG shows sinus tachycardia with occasional supraventricular premature complexes, normal [place] interval, normal QRS duration, normal QTC, no ischemic changes. Patient updated on results. Given acute drop in hemoglobin and reported symptoms, patient was transfused with 1 unit of RBCs for symptomatic anemia and given IV fluids. He was also given Ativan for anxiety. Heart rate has improved to 110s. He has not had any episodes of hematochezia or melena in the ED. Plan to admit for GI consult. Discussed with Dr. Cornejo who agrees to consult. Advised to keep the patient NPO, or 40 mg b.i.d. a Protonix and obtain CBC q.8 hours. Discussed with Rafaela MONGE hospitalist who agrees to admission. <Sarita Garcia PA-C - Last Filed: 01/09/25 15:00> Lab Data Result diagrams: 01/09/25 12:29 01/09/25 10:53 <Sarita Garcia PA-C - Last Filed: 01/09/25 15:00> Labs: Lab Results 01/09/25 01/09/25 Range/Units 10:53 12:29 WBC 15.3 H (4.5-10.0) K/mm3 RBC 3.19 L (4.6-6.20) M/mm3 Hgb 8.6 L D (14.0-18.0) g/dL Hct 27.3 L (42.0-52.0) % MCV 85.6 (80-100) fl MCH 27.0 (26-34) pg MCHC 31.5 L (32-36) g/dl RDW 17.3 H (11.5-14.5) % Plt Count 225 (150-375) k/mm3 MPV 11.6 H (7.4-10.4) fl Immature Gran % (Auto) 0.5 (0-0.5) % Neut % (Auto) 82.2 H (45.5-73.1) % Lymph % (Auto) 12.9 L (18.3-44.2) % [place] % (Auto) 4.0 (2.6-8.5) % Eos % (Auto) 0.1 (0-4.4) % Baso % (Auto) 0.3 (0.2-1.2) % Lymph # (Auto) 1.97 (0.9-3.2) K/mm3 [place] # (Auto) 0.6 (0.1-0.6) K/mm3 Eos # (Auto) 0.0 (0-0.3) K/mm3 Baso # (Auto) 0.0 (0.0-0.1) K/mm3 Abs Immat Gran (auto) 0.07 H (0.00-0.031) K/mm3 Absolute Neuts (auto) 12.6 H (1.3-6.7) K/mm3 Absolute Nucleated RBC 0.000 (0.0-0.012) K/mm3 Nucleated RBC % 0.0 (0.0-0.2) % PT 13.5 (11.1-14.7) Seconds INR 1.0 APTT 20.0 L (22.3-36.8) Seconds Sodium 138 (137-145) mmol/L Potassium 4.5 (3.4-5.0) mmol/L Chloride 102 (98-107) mmol/L Carbon Dioxide 26 (22-30) mmol/L Anion Gap 10 (4-12) mmol/L BUN 26 H D (9-20) mg/dL Creatinine 1.25 (0.7-1.3) mg/dL Estim Creat Clear Calc 84 ml/min Estimated GFR > 60 (59 - ) Glucose 107 (65-110) mg/dL Calcium 9.3 (8.4-10.2) mg/dL Magnesium 1.7 (1.6-2.3) mg/dL Total Bilirubin 1.0 (0.2-1.3) mg/dL AST 59 (17-59) U/L ALT 57 H (6-50) U/L Alkaline Phosphatase 105 (38-126) U/L Total Protein 7.0 (6.3-8.2) g/dL Albumin 4.0 (3.5-5.1) g/dL Lipase 157 (23-300) U/L Blood Type AB Positive Antibody Screen Negative Crossmatch See Detail <Sarita Garcia PA-C - Last Filed: 01/09/25 15:00> Lab Results 01/09/25 01/09/25 Range/Units 10:53 12:29 WBC 15.3 H (4.5-10.0) K/mm3 RBC 3.19 L (4.6-6.20) M/mm3 Hgb 8.6 L D (14.0-18.0) g/dL Hct 27.3 L (42.0-52.0) % MCV 85.6 (80-100) fl MCH 27.0 (26-34) pg MCHC 31.5 L (32-36) g/dl RDW 17.3 H (11.5-14.5) % Plt Count 225 (150-375) k/mm3 MPV 11.6 H (7.4-10.4) fl Immature Gran % (Auto) 0.5 (0-0.5) % Neut % (Auto) 82.2 H (45.5-73.1) % Lymph % (Auto) 12.9 L (18.3-44.2) % [place] % (Auto) 4.0 (2.6-8.5) % Eos % (Auto) 0.1 (0-4.4) % Baso % (Auto) 0.3 (0.2-1.2) % Lymph # (Auto) 1.97 (0.9-3.2) K/mm3 [place] # (Auto) 0.6 (0.1-0.6) K/mm3 Eos # (Auto) 0.0 (0-0.3) K/mm3 Baso # (Auto) 0.0 (0.0-0.1) K/mm3 Abs Immat Gran (auto) 0.07 H (0.00-0.031) K/mm3 Absolute Neuts (auto) 12.6 H (1.3-6.7) K/mm3 Absolute Nucleated RBC 0.000 (0.0-0.012) K/mm3 Nucleated RBC % 0.0 (0.0-0.2) % PT 13.5 (11.1-14.7) Seconds INR 1.0 APTT 20.0 L (22.3-36.8) Seconds Sodium 138 (137-145) mmol/L Potassium 4.5 (3.4-5.0) mmol/L Chloride 102 (98-107) mmol/L Carbon Dioxide 26 (22-30) mmol/L Anion Gap 10 (4-12) mmol/L BUN 26 H D (9-20) mg/dL Creatinine 1.25 (0.7-1.3) mg/dL Estim Creat Clear Calc 84 ml/min Estimated GFR > 60 (59 - ) Glucose 107 (65-110) mg/dL Calcium 9.3 (8.4-10.2) mg/dL Magnesium 1.7 (1.6-2.3) mg/dL Total Bilirubin 1.0 (0.2-1.3) mg/dL AST 59 (17-59) U/L ALT 57 H (6-50) U/L Alkaline Phosphatase 105 (38-126) U/L Total Protein 7.0 (6.3-8.2) g/dL Albumin 4.0 (3.5-5.1) g/dL Lipase 157 (23-300) U/L Blood Type AB Positive Antibody Screen Negative Crossmatch See Detail <Yimi Castro MD - Last Filed: 01/09/25 17:05> Discharge Plan Discharge Clinical Impression: GI bleed Qualifiers: GI bleed type/associated pathology: unspecified gastrointestinal hemorrhage type Qualified Code(s): K92.2 - Gastrointestinal hemorrhage, unspecified Anemia Qualifiers: Anemia type: unspecified type Qualified Code(s): D64.9 - Anemia, unspecified <Sarita Garcia PA-C - Last Filed: 01/09/25 15:00> Patient Disposition: Still a Patient <Sarita Garcia PA-C - Last Filed: 01/09/25 15:00> Condition: Stable <Sarita Garcia PA-C - Last Filed: 01/09/25 15:00>
[2025-01-09] MEDS: SODIUM CHLORIDE 0.9% IV 1,000 ML 999 ML IV CONT (10:58)
[2025-01-09] MEDS: LORazepam INJ (*CRX) 2 MG/ML VIAL 0.5 MG IV PUSH (10:59)
[2025-01-09] MEDS: PANTOPRAZOLE SODIUM IV 40 MG VIAL 80 MG IV PUSH (10:59)
[2025-01-09] MEDS: ONDANSETRON INJ 4 MG/2 ML VIAL IV PUSH ×2 (10:59→21:25)
--- OUTSIDE RECORDS SUMMARY | 2025-01-09 11:04 | XMS_ITS | Clinical Summary ---
Author Organization [facility] Address [address] [facility] [place] [address] Phone Care Team Providers Care Health Inspector Name Role Phone Gerald Coronado MD Primary Care Provider [phone] Allergies No known active allergies Medications lisinopril-hyd roCHLOROthiazi de (PRINZIDE, ZESTORETIC) 20-12.5 MG Tablet Take 1 Tab by mouth daily. Active Magnesium 250 MG Tablet Take by mouth. Activ e Multiple Vitamin (MULTI-VITAMIN PO) Take by mouth. Activ e [place]-3 Fatty Acids (FISH OIL PO) Take by [...] Comments Blood Pressure 120/80 08/26/2018 3:18 PM CLINICAL MANAGER Pulse 80 08/26/2018 3:18 PM CLINICAL MANAGER Temperature 36.7 C (98.1 F) 08/26/2018 3:18 PM CLINICAL MANAGER Respiratory Rate 18 08/26/2018 3:18 PM CLINICAL MANAGER Oxygen Saturation 98% 08/26/2018 3:18 PM CLINICAL MANAGER Inhaled Oxygen Concentration - - Weight 127 kg (280 lb) 08/26/2018 3:18 PM CLINICAL MANAGER Height 180.3 cm (5' 11 ) 08/26/2018 3:18 PM CLINICAL MANAGER Body Mass Index 39.05 08/26/2018 3:18 PM CLINICAL MANAGER Plan of Treatment Health Maintenance Due Date [...] age to complete this topic Care Teams Health Inspector Relationship Specialty Start Date End Date Gerald Coronado MD [address] [place] [address] PCP - General Internal Medicine 07/04/16
--- OUTSIDE RECORDS SUMMARY | 2025-01-09 11:04 | XMS_ITS | CONTINUITY OF CARE DOCUMENT ---
Author Name mirtha shannon Address Unknown Organization [facility] Address [id number] [place] [address] [address] [place] [address] Phone [phone] Care Team Providers Care Ethnoarchaeologist Name Role Phone Kamaljit THOMPSON, Clary Unavailable INSURANCE PROVIDERS Payer name Policy type / Coverage type [place] [employer] green party ID [employer] Other [id number]
--- OUTSIDE RECORDS SUMMARY | 2025-01-09 11:04 | XMS_ITS | Clinical Summary ---
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 seen within the collection. Subcutaneous stranding is also seen within the left lower abdomen. Impression: 1.No acute visceral, vascular, or osseous injury identified in thechest, abdomen, or pelvis. 2.A soft tissue hematoma is seen within the right upper chest wall measuring up to 5.5 cm. No evidence of contrast blush to suggest active hemorrhage. 3.Left neck soft tissue hematoma with the trainee and contusion, withmass effect and compression of the left jugular vein. No large vessel injury identified within the [id number]. Clinically indicated, a soft tissue neck CT or CT angiography can be performed for further evaluation. 4.Hepatic steatosis. 5.Nonobstructive left-sided nephrolithiasis. Final report discussed over the phone with Dr. Murray by Dr. Acosta on 11/15/2024 1:30 AM. > Dictated by Jose Acosta MD (executive vice president business development). I, Mark Pond MD have personally reviewed and interpreted this examination/study. > Interpreting Provider: Mark Pond MD on 11/15/2024 1:33 AM Carlos Mueller MD CT ORDERABLES * CT LUMBAR SPINE WO CONTRAST - T/L-spine trauma, Spine fracture (11/14/2024 10:31 PM FOLDING MACHINE TENDER) Anatomical Region Laterality Modality Spine Computed Tomogra phy 11/14/2024 11:3 5 PM FOLDING MACHINE TENDER Impressions 11/15/2024 12:50 AM FOLDING MACHINE TENDER IMPRESSION: 1.No acute intracranial hemorrhage, midline shift, or significant mass effect. 2.No evidence of acute fracture in the cervical spine. 3.Mild anterior wedging of the T7 vertebral body with minimal anterior cortical irregularity. Findings are concerning for possible compression fracture. Please correlate with point tenderness. There is also a bone fragment adjacent to the tip of the T6 spinous process, unclear whether representing a fracture. Please correlate with point tenderness. 4.Additional chronic-appearing compression deformities in the lower thoracic spine as outlined. If there is clinical concern, please correlate with point tenderness. 5.Otherwise, no evidence of acute fracture in the thoracic or lumbar spine. 6.Please refer to the concurrent, dedicated body report for findings in the chest, abdomen, and pelvis. > Interpreting Provider: Aaron Greene MD on 11/15/2024 12:50 AM Narrative 11/15/2024 12:50 AM FOLDING MACHINE TENDER PROCEDURE: CT HEAD WO CONTRAST, CT CERVICAL SPINE WO CONTRAST, CT THORACIC SPINE WO CONTRAST, CT LUMBAR SPINE WO CONTRAST, DATE/TIME OF EXAM: 11/14/2024 10:32 PM, LOCATION [facility] INDICATION: Trauma EXAMINATION: 1.Computed tomography (CT) of the head without contrast 2.CT of the cervical spine without contrast 3.CT of the thoracic spine without contrast 4.CT of the lumbar spine without contrast ADDITIONAL CLINICAL INFORMATION: Ordering Provider Reason For Exam: Trauma. Technologist Note: None. Additional: None. TECHNIQUE: CT of the head and cervical spine was performed without contrast according to standard protocol. Reformatted axial, sagittal, and coronal images of the thoracic and lumbar spine were obtained by the technologist from a concurrently performed body CT and sent to the workstation for review. CT dose reduction technique was used, including Automated Exposure Control. COMPARISON: No prior study is available for comparison at the time of this dictation. FINDINGS: Head: The images are degraded due to motion artifacts. Within this limitation: Accounting for the presence of motion artifact which reduces the sensitivity to detect subtle intracranial hemorrhage, no distinct acute intra- or extra-axial fluid collections are identified. There is mild cerebral volume loss with associated ex vacuo ventricular dilatation. The basilar cisterns are patent. No mass effect or midline shift is seen. The vickers-white matter differentiation is obscured by motion artifact. Suspected minimal soft tissue swelling along the left parietal scalp. No acute calvarial fracture is identified. The orbits appear normal. The paranasal sinuses are clear. The nasal septum is slightly deviated to the right. The mastoid air cells are clear. No soft tissue abnormality is identified. Cervical spine: Mild dextro curvature of the cervical spine. Alignment is otherwise maintained. Vertebral bodies are normal in height without evidence of acute fracture. Other than middle atlantoaxial joint osteoarthritis, the craniocervical junction appears normal. There is mild degenerative disc disease. No high-grade central canal stenosis is seen. There are varying degrees of mild facet osteoarthritis. There are varying degrees of mild to advanced uncovertebral joint osteoarthritis with the same degree of neural foraminal stenosis at these levels. There is a prominent hematoma in the left side of the neck, extending from the upper mediastinum to the supraclavicular region, with extensive adjacent fat stranding in the left supraclavicular region and the left side of the neck. The hematoma is difficult to measure due to its irregular shape and limited coverage however measures approximately 3.5 x 1.8 cm, (series 5, image 217). CT angiography of the neck is recommended for further evaluation. Please refer to the concurrent, dedicated body CT for findings in the chest. Thoracic spine: Mild dextrocurvature of the upper thoracic spine and mild levocurvature of the lower thoracic spine. Mild exaggeration of the thoracic kyphosis. The alignment is otherwise maintained. Mild anterior wedging of the T7 vertebral body with minimal anterior cortical irregularity. Findings are concerning for possible compression fracture. Please correlate with point tenderness. There is also a bone fragment adjacent to the tip of the T6 spinous process, unclear whether representing a fracture. Please correlate with point tenderness. Mild chronic-appearing anterior wedging deformity of the T12 vertebral body and to a lesser extent T10 and T11. Additional chronic-appearing compression deformity Vertebral bodies are normal in height without evidence of acute fracture. The intervertebral discs appear normal. No central canal stenosis is seen. There is mild facet osteoarthritis at multiple levels. There are varying degrees of neural foraminal stenosis at multiple levels. There is a small hiatal hernia. Mildly dilated main pulmonary artery which can be seen in the setting of pulmonary hypertension. Suspected fatty changes of the liver. Small renal cysts are nonspecific. Lumbar spine: There is transitional anatomy. There is sacralization of the L5 vertebral body. Rudimentary ribs in the T12 vertebral body. Mild retrolisthesis of L4 on L5. Trace retrolisthesis of L5 on S1. Trace retrolisthesis of L1 on L2. The alignment is otherwise maintained. Vertebral bodies are normal in height without evidence of acute fracture. Advanced with degenerative disc disease at L4-L5 with vacuum disc phenomenon, decreased disc space height, and inferior endplate L4 vertebral pneumocystis. There is diffuse disc bulge at multiple levels. No high-grade central canal stenosis is seen. There is mild to advanced facet osteoarthritis at multiple levels. There are varying degrees of neural foraminal stenosis at multiple levels, worst at L4-L5. There are degenerative changes of the SI joints. Spina bifida occulta of the L5 is noted. Procedure Note Aaron Greene MD - 11/15/2024 PROCEDURE: CT HEAD WO CONTRAST, CT CERVICAL SPINE WO CONTRAST, CTTHORACIC SPINE WO CONTRAST, CT LUMBAR SPINE WO CONTRAST, DATE/TIME OF EXAM: 11/14/2024 10:32 PM, LOCATION [facility] INDICATION: Trauma EXAMINATION: 1.Computed tomography (CT) of the head without contrast 2.CT of the cervical spine without contrast 3.CT of the thoracic spine without contrast 4.CT of the lumbar spine without contrast ADDITIONAL CLINICAL INFORMATION: Ordering Provider Reason For Exam: Trauma. Technologist Note: None. Additional: None. TECHNIQUE: CT of the head and cervical spine was performed withoutcontrast according to standard protocol. Reformatted axial, sagittal, and coronal images of the thoracic and lumbar spine were obtained by thetechnologist from a concurrently performed body CT and sent to the workstation for review. CT dose reduction technique was used, including AutomatedExposure Control. COMPARISON: No prior study is available for comparison at the time ofthis dictation. FINDINGS: Head: The images are degraded due to motion artifacts. Within this limitation: Accounting for the presence of motion artifact which reduces the sensitivity to detect subtle intracranial hemorrhage, no distinct acute intra- or extra-axial fluid collections are identified. There is mild cerebral volume loss with associated ex vacuo ventricular dilatation.The basilar cisterns are patent. No mass effect or midline shift is seen.The vickers-white matter differentiation is obscured by motion artifact.Suspected minimal soft tissue swelling along the left parietal scalp. No acute calvarial fracture is identified. The orbits appear normal. Theparanasal sinuses are clear. The nasal septum is slightly deviated to the right.The mastoid air cells are clear. No soft tissue abnormality is identified. Cervical spine: Mild dextro curvature of the cervical spine. Alignment is otherwise maintained. Vertebral bodies are normal in height without evidence ofacute fracture. Other than middle atlantoaxial joint osteoarthritis, the craniocervical junction appears normal. There is mild degenerative disc disease. No high-grade central canal stenosis is seen. There are varying degrees of mild facet osteoarthritis. There are varying degrees of mildto advanced uncovertebral joint osteoarthritis with the same degree ofneural foraminal stenosis at these levels. There is a prominent hematoma in the left side of the neck, extending from the upper mediastinum to the supraclavicular region, with extensive adjacent fat stranding in theleft supraclavicular region and the left side of the neck. The hematoma is difficult to measure due to its irregular shape and limited coverage however measures approximately 3.5 x 1.8 cm, (series 5, image 217). CT angiography of the neck is recommended for further evaluation. Pleaserefer to the concurrent, dedicated body CT for findings in the chest. Thoracic spine: Mild dextrocurvature of the upper thoracic spine and mild levocurvatureof the lower thoracic spine. Mild exaggeration of the thoracic kyphosis.The alignment is otherwise maintained. Mild anterior wedging of the T7 vertebral body with minimal anterior cortical irregularity. Findings are concerning for possible compression fracture. Please correlate withpoint tenderness. There is also a bone fragment adjacent to the tip of the T6 spinous process, unclear whether representing a fracture. Pleasecorrelate with point tenderness. Mild chronic-appearing anterior wedging deformityof the T12 vertebral body and to a lesser extent T10 and T11. Additional chronic-appearing compression deformity Vertebral bodies are normal in height without evidence of acute fracture. The intervertebral discsappear normal. No central canal stenosis is seen. There is mild facet osteoarthritis at multiple levels. There are varying degrees of neural foraminal stenosis at multiple levels. There is a small hiatal hernia. Mildly dilated main pulmonary artery which can be seen in the setting of pulmonary hypertension. Suspected fatty changes of the liver. Smallrenal cysts are nonspecific. Lumbar spine: There is transitional anatomy. There is sacralization of the [id number] body. Rudimentary ribs in the T12 vertebral body. Mild retrolisthesis ofL4 on L5. Trace retrolisthesis of L5 on S1. Trace retrolisthesis of L1 onL2. The alignment is otherwise maintained. Vertebral bodies are normal in height without evidence of acute fracture. Advanced with degenerativedisc disease at L4-L5 with vacuum disc phenomenon, decreased disc spaceheight, and inferior endplate L4 vertebral pneumocystis. There is diffuse disc bulge at multiple levels. No high-grade central canal stenosis is seen. There is mild to advanced facet osteoarthritis at multiple levels. There are varying degrees of neural foraminal stenosis at multiple levels,worst at L4-L5. There are degenerative changes of the SI joints. Spina bifida occulta of the L5 is noted. IMPRESSION: 1.No acute intracranial hemorrhage, midline shift, or significant mass effect. 2.No evidence of acute fracture in the cervical spine. 3.Mild anterior wedging of the T7 vertebral body with minimal anterior cortical irregularity. Findings are concerning for possible compression fracture. Please correlate with point tenderness. There is also a bone fragment adjacent to the tip of the T6 spinous process, unclear whether representing a fracture. Please correlate with point tenderness. 4.Additional chronic-appearing compression deformities in the lower thoracic spine as outlined. If there is clinical concern, pleasecorrelate with point tenderness. 5.Otherwise, no evidence of acute fracture in the thoracic or lumbarspine. 6.Please refer to the concurrent, dedicated body report for findings inthe chest, abdomen, and pelvis. > Interpreting Provider: Aaron Greene MD on 11/15/2024 12:50 AM Carlos Mueller MD CT ORDERABLES * CT THORACIC SPINE WO CONTRAST - T/L-spine trauma, spine fracture (11/14/2024 10:31 PM FOLDING MACHINE TENDER) Anatomical Region Laterality Modality Spine Computed Tomogra phy 11/14/2024 11:3 5 PM FOLDING MACHINE TENDER Impressions 11/15/2024 12:50 AM FOLDING MACHINE TENDER IMPRESSION: 1.No acute intracranial hemorrhage, midline shift, or significant mass effect. 2.No evidence of acute fracture in the cervical spine. 3.Mild anterior wedging of the T7 vertebral body with minimal anterior cortical irregularity. Findings are concerning for possible compression fracture. Please correlate with point tenderness. There is also a bone fragment adjacent to the tip of the T6 spinous process, unclear whether representing a fracture. Please correlate with point tenderness. 4.Additional chronic-appearing compression deformities in the lower thoracic spine as outlined. If there is clinical concern, please correlate with point tenderness. 5.Otherwise, no evidence of acute fracture in the thoracic or lumbar spine. 6.Please refer to the concurrent, dedicated body report for findings in the chest, abdomen, and pelvis. > Interpreting Provider: Aaron Greene MD on 11/15/2024 12:50 AM Narrative 11/15/2024 12:50 AM FOLDING MACHINE TENDER PROCEDURE: CT HEAD WO CONTRAST, CT CERVICAL SPINE WO CONTRAST, CT THORACIC SPINE WO CONTRAST, CT LUMBAR SPINE WO CONTRAST, DATE/TIME OF EXAM: 11/14/2024 10:32 PM, LOCATION [facility] INDICATION: Trauma EXAMINATION: 1.Computed tomography (CT) of the head without contrast 2.CT of the cervical spine without contrast 3.CT of the thoracic spine without contrast 4.CT of the lumbar spine without contrast ADDITIONAL CLINICAL INFORMATION: Ordering Provider Reason For Exam: Trauma. Technologist Note: None. Additional: None. TECHNIQUE: CT of the head and cervical spine was performed without contrast according to standard protocol. Reformatted axial, sagittal, and coronal images of the thoracic and lumbar spine were obtained by the technologist from a concurrently performed body CT and sent to the workstation for review. CT dose reduction technique was used, including Automated Exposure Control. COMPARISON: No prior study is available for comparison at the time of this dictation. FINDINGS: Head: The images are degraded due to motion artifacts. Within this limitation: Accounting for the presence of motion artifact which reduces the sensitivity to detect subtle intracranial hemorrhage, no distinct acute intra- or extra-axial fluid collections are identified. There is mild cerebral volume loss with associated ex vacuo ventricular dilatation. The basilar cisterns are patent. No mass effect or midline shift is seen. The vickers-white matter differentiation is obscured by motion artifact. Suspected minimal soft tissue swelling along the left parietal scalp. No acute calvarial fracture is identified. The orbits appear normal. The paranasal sinuses are clear. The nasal septum is slightly deviated to the right. The mastoid air cells are clear. No soft tissue abnormality is identified. Cervical spine: Mild dextro curvature of the cervical spine. Alignment is otherwise maintained. Vertebral bodies are normal in height without evidence of acute fracture. Other than middle atlantoaxial joint osteoarthritis, the craniocervical junction appears normal. There is mild degenerative disc disease. No high-grade central canal stenosis is seen. There are varying degrees of mild facet osteoarthritis. There are varying degrees of mild to advanced uncovertebral joint osteoarthritis with the same degree of neural foraminal stenosis at these levels. There is a prominent hematoma in the left side of the neck, extending from the upper mediastinum to the supraclavicular region, with extensive adjacent fat stranding in the left supraclavicular region and the left side of the neck. The hematoma is difficult to measure due to its irregular shape and limited coverage however measures approximately 3.5 x 1.8 cm, (series 5, image 217). CT angiography of the neck is recommended for further evaluation. Please refer to the concurrent, dedicated body CT for findings in the chest. Thoracic spine: Mild dextrocurvature of the upper thoracic spine and mild levocurvature of the lower thoracic spine. Mild exaggeration of the thoracic kyphosis. The alignment is otherwise maintained. Mild anterior wedging of the T7 vertebral body with minimal anterior cortical irregularity. Findings are concerning for possible compression fracture. Please correlate with point tenderness. There is also a bone fragment adjacent to the tip of the T6 spinous process, unclear whether representing a fracture. Please correlate with point tenderness. Mild chronic-appearing anterior wedging deformity of the T12 vertebral body and to a lesser extent T10 and T11. Additional chronic-appearing compression deformity Vertebral bodies are normal in height without evidence of acute fracture. The intervertebral discs appear normal. No central canal stenosis is seen. There is mild facet osteoarthritis at multiple levels. There are varying degrees of neural foraminal stenosis at multiple levels. There is a small hiatal hernia. Mildly dilated main pulmonary artery which can be seen in the setting of pulmonary hypertension. Suspected fatty changes of the liver. Small renal cysts are nonspecific. Lumbar spine: There is transitional anatomy. There is sacralization of the L5 vertebral body. Rudimentary ribs in the T12 vertebral body. Mild retrolisthesis of L4 on L5. Trace retrolisthesis of L5 on S1. Trace retrolisthesis of L1 on L2. The alignment is otherwise maintained. Vertebral bodies are normal in height without evidence of acute fracture. Advanced with degenerative disc disease at L4-L5 with vacuum disc phenomenon, decreased disc space height, and inferior endplate L4 vertebral pneumocystis. There is diffuse disc bulge at multiple levels. No high-grade central canal stenosis is seen. There is mild to advanced facet osteoarthritis at multiple levels. There are varying degrees of neural foraminal stenosis at multiple levels, worst at L4-L5. There are degenerative changes of the SI joints. Spina bifida occulta of the L5 is noted. Procedure Note Aaron Greene MD - 11/15/2024 PROCEDURE: CT HEAD WO CONTRAST, CT CERVICAL SPINE WO CONTRAST, CTTHORACIC SPINE WO CONTRAST, CT LUMBAR SPINE WO CONTRAST, DATE/TIME OF EXAM: 11/14/2024 10:32 PM, LOCATION [facility] INDICATION: Trauma EXAMINATION: 1.Computed tomography (CT) of the head without contrast 2.CT of the cervical spine without contrast 3.CT of the thoracic spine without contrast 4.CT of the lumbar spine without contrast ADDITIONAL CLINICAL INFORMATION: Ordering Provider Reason For Exam: Trauma. Technologist Note: None. Additional: None. TECHNIQUE: CT of the head and cervical spine was performed withoutcontrast according to standard protocol. Reformatted axial, sagittal, and coronal images of the thoracic and lumbar spine were obtained by thetechnologist from a concurrently performed body CT and sent to the workstation for review. CT dose reduction technique was used, including AutomatedExposure Control. COMPARISON: No prior study is available for comparison at the time ofthis dictation. FINDINGS: Head: The images are degraded due to motion artifacts. Within this limitation: Accounting for the presence of motion artifact which reduces the sensitivity to detect subtle intracranial hemorrhage, no distinct acute intra- or extra-axial fluid collections are identified. There is mild cerebral volume loss with associated ex vacuo ventricular dilatation.The basilar cisterns are patent. No mass effect or midline shift is seen.The vickers-white matter differentiation is obscured by motion artifact.Suspected minimal soft tissue swelling along the left parietal scalp. No acute calvarial fracture is identified. The orbits appear normal. Theparanasal sinuses are clear. The nasal septum is slightly deviated to the right.The mastoid air cells are clear. No soft tissue abnormality is identified. Cervical spine: Mild dextro curvature of the cervical spine. Alignment is otherwise maintained. Vertebral bodies are normal in height without evidence ofacute fracture. Other than middle atlantoaxial joint osteoarthritis, the craniocervical junction appears normal. There is mild degenerative disc disease. No high-grade central canal stenosis is seen. There are varying degrees of mild facet osteoarthritis. There are varying degrees of mildto advanced uncovertebral joint osteoarthritis with the same degree ofneural foraminal stenosis at these levels. There is a prominent hematoma in the left side of the neck, extending from the upper mediastinum to the supraclavicular region, with extensive adjacent fat stranding in theleft supraclavicular region and the left side of the neck. The hematoma is difficult to measure due to its irregular shape and limited coverage however measures approximately 3.5 x 1.8 cm, (series 5, image 217). CT angiography of the neck is recommended for further evaluation. Pleaserefer to the concurrent, dedicated body CT for findings in the chest. Thoracic spine: Mild dextrocurvature of the upper thoracic spine and mild levocurvatureof the lower thoracic spine. Mild exaggeration of the thoracic kyphosis.The alignment is otherwise maintained. Mild anterior wedging of the T7 vertebral body with minimal anterior cortical irregularity. Findings are concerning for possible compression fracture. Please correlate withpoint tenderness. There is also a bone fragment adjacent to the tip of the T6 spinous process, unclear whether representing a fracture. Pleasecorrelate with point tenderness. Mild chronic-appearing anterior wedging deformityof the T12 vertebral body and to a lesser extent T10 and T11. Additional chronic-appearing compression deformity Vertebral bodies are normal in height without evidence of acute fracture. The intervertebral discsappear normal. No central canal stenosis is seen. There is mild facet osteoarthritis at multiple levels. There are varying degrees of neural foraminal stenosis at multiple levels. There is a small hiatal hernia. Mildly dilated main pulmonary artery which can be seen in the setting of pulmonary hypertension. Suspected fatty changes of the liver. Smallrenal cysts are nonspecific. Lumbar spine: There is transitional anatomy. There is sacralization of the [id number] body. Rudimentary ribs in the T12 vertebral body. Mild retrolisthesis ofL4 on L5. Trace retrolisthesis of L5 on S1. Trace retrolisthesis of L1 onL2. The alignment is otherwise maintained. Vertebral bodies are normal in height without evidence of acute fracture. Advanced with degenerativedisc disease at L4-L5 with vacuum disc phenomenon, decreased disc spaceheight, and inferior endplate L4 vertebral pneumocystis. There is diffuse disc bulge at multiple levels. No high-grade central canal stenosis is seen. There is mild to advanced facet osteoarthritis at multiple levels. There are varying degrees of neural foraminal stenosis at multiple levels,worst at L4-L5. There are degenerative changes of the SI joints. Spina bifida occulta of the L5 is noted. IMPRESSION: 1.No acute intracranial hemorrhage, midline shift, or significant mass effect. 2.No evidence of acute fracture in the cervical spine. 3.Mild anterior wedging of the T7 vertebral body with minimal anterior cortical irregularity. Findings are concerning for possible compression fracture. Please correlate with point tenderness. There is also a bone fragment adjacent to the tip of the T6 spinous process, unclear whether representing a fracture. Please correlate with point tenderness. 4.Additional chronic-appearing compression deformities in the lower thoracic spine as outlined. If there is clinical concern, pleasecorrelate with point tenderness. 5.Otherwise, no evidence of acute fracture in the thoracic or lumbarspine. 6.Please refer to the concurrent, dedicated body report for findings inthe chest, abdomen, and pelvis. > Interpreting Provider: Aaron Greene MD on 11/15/2024 12:50 AM Carlos Mueller MD CT ORDERABLES * CT CERVICAL SPINE WO CONTRAST - C-Spine Trauma, Spine fracture (11/14/2024 10:31 PM FOLDING MACHINE TENDER) Anatomical Region Laterality Modality Spine Computed Tomogra phy 11/14/2024 11:3 5 PM FOLDING MACHINE TENDER Impressions 11/15/2024 12:50 AM FOLDING MACHINE TENDER IMPRESSION: 1.No acute intracranial hemorrhage, midline shift, or significant mass effect. 2.No evidence of acute fracture in the cervical spine. 3.Mild anterior wedging of the T7 vertebral body with minimal anterior cortical irregularity. Findings are concerning for possible compression fracture. Please correlate with point tenderness. There is also a bone fragment adjacent to the tip of the T6 spinous process, unclear whether representing a fracture. Please correlate with point tenderness. 4.Additional chronic-appearing compression deformities in the lower thoracic spine as outlined. If there is clinical concern, please correlate with point tenderness. 5.Otherwise, no evidence of acute fracture in the thoracic or lumbar spine. 6.Please refer to the concurrent, dedicated body report for findings in the chest, abdomen, and pelvis. > Interpreting Provider: Aaron Greene MD on 11/15/2024 12:50 AM Narrative 11/15/2024 12:50 AM FOLDING MACHINE TENDER PROCEDURE: CT HEAD WO CONTRAST, CT CERVICAL SPINE WO CONTRAST, CT THORACIC SPINE WO CONTRAST, CT LUMBAR SPINE WO CONTRAST, DATE/TIME OF EXAM: 11/14/2024 10:32 PM, LOCATION [facility] INDICATION: Trauma EXAMINATION: 1.Computed tomography (CT) of the head without contrast 2.CT of the cervical spine without contrast 3.CT of the thoracic spine without contrast 4.CT of the lumbar spine without contrast ADDITIONAL CLINICAL INFORMATION: Ordering Provider Reason For Exam: Trauma. Technologist Note: None. Additional: None. TECHNIQUE: CT of the head and cervical spine was performed without contrast according to standard protocol. Reformatted axial, sagittal, and coronal images of the thoracic and lumbar spine were obtained by the technologist from a concurrently performed body CT and sent to the workstation for review. CT dose reduction technique was used, including Automated Exposure Control. COMPARISON: No prior study is available for comparison at the time of this dictation. FINDINGS: Head: The images are degraded due to motion artifacts. Within this limitation: Accounting for the presence of motion artifact which reduces the sensitivity to detect subtle intracranial hemorrhage, no distinct acute intra- or extra-axial fluid collections are identified. There is mild cerebral volume loss with associated ex vacuo ventricular dilatation. The basilar cisterns are patent. No mass effect or midline shift is seen. The vickers-white matter differentiation is obscured by motion artifact. Suspected minimal soft tissue swelling along the left parietal scalp. No acute calvarial fracture is identified. The orbits appear normal. The paranasal sinuses are clear. The nasal septum is slightly deviated to the right. The mastoid air cells are clear. No soft tissue abnormality is identified. Cervical spine: Mild dextro curvature of the cervical spine. Alignment is otherwise maintained. Vertebral bodies are normal in height without evidence of acute fracture. Other than middle atlantoaxial joint osteoarthritis, the craniocervical junction appears normal. There is mild degenerative disc disease. No high-grade central canal stenosis is seen. There are varying degrees of mild facet osteoarthritis. There are varying degrees of mild to advanced uncovertebral joint osteoarthritis with the same degree of neural foraminal stenosis at these levels. There is a prominent hematoma in the left side of the neck, extending from the upper mediastinum to the supraclavicular region, with extensive adjacent fat stranding in the left supraclavicular region and the left side of the neck. The hematoma is difficult to measure due to its irregular shape and limited coverage however measures approximately 3.5 x 1.8 cm, (series 5, image 217). CT angiography of the neck is recommended for further evaluation. Please refer to the concurrent, dedicated body CT for findings in the chest. Thoracic spine: Mild dextrocurvature of the upper thoracic spine and mild levocurvature of the lower thoracic spine. Mild exaggeration of the thoracic kyphosis. The alignment is otherwise maintained. Mild anterior wedging of the T7 vertebral body with minimal anterior cortical irregularity. Findings are concerning for possible compression fracture. Please correlate with point tenderness. There is also a bone fragment adjacent to the tip of the T6 spinous process, unclear whether representing a fracture. Please correlate with point tenderness. Mild chronic-appearing anterior wedging deformity of the T12 vertebral body and to a lesser extent T10 and T11. Additional chronic-appearing compression deformity Vertebral bodies are normal in height without evidence of acute fracture. The intervertebral discs appear normal. No central canal stenosis is seen. There is mild facet osteoarthritis at multiple levels. There are varying degrees of neural foraminal stenosis at multiple levels. There is a small hiatal hernia. Mildly dilated main pulmonary artery which can be seen in the setting of pulmonary hypertension. Suspected fatty changes of the liver. Small renal cysts are nonspecific. Lumbar spine: There is transitional anatomy. There is sacralization of the L5 vertebral body. Rudimentary ribs in the T12 vertebral body. Mild retrolisthesis of L4 on L5. Trace retrolisthesis of L5 on S1. Trace retrolisthesis of L1 on L2. The alignment is otherwise maintained. Vertebral bodies are normal in height without evidence of acute fracture. Advanced with degenerative disc disease at L4-L5 with vacuum disc phenomenon, decreased disc space height, and inferior endplate L4 vertebral pneumocystis. There is diffuse disc bulge at multiple levels. No high-grade central canal stenosis is seen. There is mild to advanced facet osteoarthritis at multiple levels. There are varying degrees of neural foraminal stenosis at multiple levels, worst at L4-L5. There are degenerative changes of the SI joints. Spina bifida occulta of the L5 is noted. Procedure Note Aaron Greene MD - 11/15/2024 PROCEDURE: CT HEAD WO CONTRAST, CT CERVICAL SPINE WO CONTRAST, CTTHORACIC SPINE WO CONTRAST, CT LUMBAR SPINE WO CONTRAST, DATE/TIME OF EXAM: 11/14/2024 10:32 PM, LOCATION [facility] INDICATION: Trauma EXAMINATION: 1.Computed tomography (CT) of the head without contrast 2.CT of the cervical spine without contrast 3.CT of the thoracic spine without contrast 4.CT of the lumbar spine without contrast ADDITIONAL CLINICAL INFORMATION: Ordering Provider Reason For Exam: Trauma. Technologist Note: None. Additional: None. TECHNIQUE: CT of the head and cervical spine was performed withoutcontrast according to standard protocol. Reformatted axial, sagittal, and coronal images of the thoracic and lumbar spine were obtained by thetechnologist from a concurrently performed body CT and sent to the workstation for review. CT dose reduction technique was used, including AutomatedExposure Control. COMPARISON: No prior study is available for comparison at the time ofthis dictation. FINDINGS: Head: The images are degraded due to motion artifacts. Within this limitation: Accounting for the presence of motion artifact which reduces the sensitivity to detect subtle intracranial hemorrhage, no distinct acute intra- or extra-axial fluid collections are identified. There is mild cerebral volume loss with associated ex vacuo ventricular dilatation.The basilar cisterns are patent. No mass effect or midline shift is seen.The vickers-white matter differentiation is obscured by motion artifact.Suspected minimal soft tissue swelling along the left parietal scalp. No acute calvarial fracture is identified. The orbits appear normal. Theparanasal sinuses are clear. The nasal septum is slightly deviated to the right.The mastoid air cells are clear. No soft tissue abnormality is identified. Cervical spine: Mild dextro curvature of the cervical spine. Alignment is otherwise maintained. Vertebral bodies are normal in height without evidence ofacute fracture. Other than middle atlantoaxial joint osteoarthritis, the craniocervical junction appears normal. There is mild degenerative disc disease. No high-grade central canal stenosis is seen. There are varying degrees of mild facet osteoarthritis. There are varying degrees of mildto advanced uncovertebral joint osteoarthritis with the same degree ofneural foraminal stenosis at these levels. There is a prominent hematoma in the left side of the neck, extending from the upper mediastinum to the supraclavicular region, with extensive adjacent fat stranding in theleft supraclavicular region and the left side of the neck. The hematoma is difficult to measure due to its irregular shape and limited coverage however measures approximately 3.5 x 1.8 cm, (series 5, image 217). CT angiography of the neck is recommended for further evaluation. Pleaserefer to the concurrent, dedicated body CT for findings in the chest. Thoracic spine: Mild dextrocurvature of the upper thoracic spine and mild levocurvatureof the lower thoracic spine. Mild exaggeration of the thoracic kyphosis.The alignment is otherwise maintained. Mild anterior wedging of the T7 vertebral body with minimal anterior cortical irregularity. Findings are concerning for possible compression fracture. Please correlate withpoint tenderness. There is also a bone fragment adjacent to the tip of the T6 spinous process, unclear whether representing a fracture. Pleasecorrelate with point tenderness. Mild chronic-appearing anterior wedging deformityof the T12 vertebral body and to a lesser extent T10 and T11. Additional chronic-appearing compression deformity Vertebral bodies are normal in height without evidence of acute fracture. The intervertebral discsappear normal. No central canal stenosis is seen. There is mild facet osteoarthritis at multiple levels. There are varying degrees of neural foraminal stenosis at multiple levels. There is a small hiatal hernia. Mildly dilated main pulmonary artery which can be seen in the setting of pulmonary hypertension. Suspected fatty changes of the liver. Smallrenal cysts are nonspecific. Lumbar spine: There is transitional anatomy. There is sacralization of the [id number] body. Rudimentary ribs in the T12 vertebral body. Mild retrolisthesis ofL4 on L5. Trace retrolisthesis of L5 on S1. Trace retrolisthesis of L1 onL2. The alignment is otherwise maintained. Vertebral bodies are normal in height without evidence of acute fracture. Advanced with degenerativedisc disease at L4-L5 with vacuum disc phenomenon, decreased disc spaceheight, and inferior endplate L4 vertebral pneumocystis. There is diffuse disc bulge at multiple levels. No high-grade central canal stenosis is seen. There is mild to advanced facet osteoarthritis at multiple levels. There are varying degrees of neural foraminal stenosis at multiple levels,worst at L4-L5. There are degenerative changes of the SI joints. Spina bifida occulta of the L5 is noted. IMPRESSION: 1.No acute intracranial hemorrhage, midline shift, or significant mass effect. 2.No evidence of acute fracture in the cervical spine. 3.Mild anterior wedging of the T7 vertebral body with minimal anterior cortical irregularity. Findings are concerning for possible compression fracture. Please correlate with point tenderness. There is also a bone fragment adjacent to the tip of the T6 spinous process, unclear whether representing a fracture. Please correlate with point tenderness. 4.Additional chronic-appearing compression deformities in the lower thoracic spine as outlined. If there is clinical concern, pleasecorrelate with point tenderness. 5.Otherwise, no evidence of acute fracture in the thoracic or lumbarspine. 6.Please refer to the concurrent, dedicated body report for findings inthe chest, abdomen, and pelvis. > Interpreting Provider: Aaron Greene MD on 11/15/2024 12:50 AM Carlos Mueller MD CT ORDERABLES * CT HEAD WO CONTRAST - Head Trauma, CSF leak, mental status changes (11/14/2024 10:31 PM FOLDING MACHINE TENDER) Anatomical Region Laterality Modality Head Computed Tomogra phy 11/14/2024 11:3 5 PM FOLDING MACHINE TENDER Impressions 11/15/2024 12:50 AM FOLDING MACHINE TENDER IMPRESSION: 1.No acute intracranial hemorrhage, midline shift, or significant mass effect. 2.No evidence of acute fracture in the cervical spine. 3.Mild anterior wedging of the T7 vertebral body with minimal anterior cortical irregularity. Findings are concerning for possible compression fracture. Please correlate with point tenderness. There is also a bone fragment adjacent to the tip of the T6 spinous process, unclear whether representing a fracture. Please correlate with point tenderness. 4.Additional chronic-appearing compression deformities in the lower thoracic spine as outlined. If there is clinical concern, please correlate with point tenderness. 5.Otherwise, no evidence of acute fracture in the thoracic or lumbar spine. 6.Please refer to the concurrent, dedicated body report for findings in the chest, abdomen, and pelvis. > Interpreting Provider: Aaron Greene MD on 11/15/2024 12:50 AM Narrative 11/15/2024 12:50 AM FOLDING MACHINE TENDER PROCEDURE: CT HEAD WO CONTRAST, CT CERVICAL SPINE WO CONTRAST, CT THORACIC SPINE WO CONTRAST, CT LUMBAR SPINE WO CONTRAST, DATE/TIME OF EXAM: 11/14/2024 10:32 PM, LOCATION [facility] INDICATION: Trauma EXAMINATION: 1.Computed tomography (CT) of the head without contrast 2.CT of the cervical spine without contrast 3.CT of the thoracic spine without contrast 4.CT of the lumbar spine without contrast ADDITIONAL CLINICAL INFORMATION: Ordering Provider Reason For Exam: Trauma. Technologist Note: None. Additional: None. TECHNIQUE: CT of the head and cervical spine was performed without contrast according to standard protocol. Reformatted axial, sagittal, and coronal images of the thoracic and lumbar spine were obtained by the technologist from a concurrently performed body CT and sent to the workstation for review. CT dose reduction technique was used, including Automated Exposure Control. COMPARISON: No prior study is available for comparison at the time of this dictation. FINDINGS: Head: The images are degraded due to motion artifacts. Within this limitation: Accounting for the presence of motion artifact which reduces the sensitivity to detect subtle intracranial hemorrhage, no distinct acute intra- or extra-axial fluid collections are identified. There is mild cerebral volume loss with associated ex vacuo ventricular dilatation. The basilar cisterns are patent. No mass effect or midline shift is seen. The vickers-white matter differentiation is obscured by motion artifact. Suspected minimal soft tissue swelling along the left parietal scalp. No acute calvarial fracture is identified. The orbits appear normal. The paranasal sinuses are clear. The nasal septum is slightly deviated to the right. The mastoid air cells are clear. No soft tissue abnormality is identified. Cervical spine: Mild dextro curvature of the cervical spine. Alignment is otherwise maintained. Vertebral bodies are normal in height without evidence of acute fracture. Other than middle atlantoaxial joint osteoarthritis, the craniocervical junction appears normal. There is mild degenerative disc disease. No high-grade central canal stenosis is seen. There are varying degrees of mild facet osteoarthritis. There are varying degrees of mild to advanced uncovertebral joint osteoarthritis with the same degree of neural foraminal stenosis at these levels. There is a prominent hematoma in the left side of the neck, extending from the upper mediastinum to the supraclavicular region, with extensive adjacent fat stranding in the left supraclavicular region and the left side of the neck. The hematoma is difficult to measure due to its irregular shape and limited coverage however measures approximately 3.5 x 1.8 cm, (series 5, image 217). CT angiography of the neck is recommended for further evaluation. Please refer to the concurrent, dedicated body CT for findings in the chest. Thoracic spine: Mild dextrocurvature of the upper thoracic spine and mild levocurvature of the lower thoracic spine. Mild exaggeration of the thoracic kyphosis. The alignment is otherwise maintained. Mild anterior wedging of the T7 vertebral body with minimal anterior cortical irregularity. Findings are concerning for possible compression fracture. Please correlate with point tenderness. There is also a bone fragment adjacent to the tip of the T6 spinous process, unclear whether representing a fracture. Please correlate with point tenderness. Mild chronic-appearing anterior wedging deformity of the T12 vertebral body and to a lesser extent T10 and T11. Additional chronic-appearing compression deformity Vertebral bodies are normal in height without evidence of acute fracture. The intervertebral discs appear normal. No central canal stenosis is seen. There is mild facet osteoarthritis at multiple levels. There are varying degrees of neural foraminal stenosis at multiple levels. There is a small hiatal hernia. Mildly dilated main pulmonary artery which can be seen in the setting of pulmonary hypertension. Suspected fatty changes of the liver. Small renal cysts are nonspecific. Lumbar spine: There is transitional anatomy. There is sacralization of the L5 vertebral body. Rudimentary ribs in the T12 vertebral body. Mild retrolisthesis of L4 on L5. Trace retrolisthesis of L5 on S1. Trace retrolisthesis of L1 on L2. The alignment is otherwise maintained. Vertebral bodies are normal in height without evidence of acute fracture. Advanced with degenerative disc disease at L4-L5 with vacuum disc phenomenon, decreased disc space height, and inferior endplate L4 vertebral pneumocystis. There is diffuse disc bulge at multiple levels. No high-grade central canal stenosis is seen. There is mild to advanced facet osteoarthritis at multiple levels. There are varying degrees of neural foraminal stenosis at multiple levels, worst at L4-L5. There are degenerative changes of the SI joints. Spina bifida occulta of the L5 is noted. Procedure Note Aaron Greene MD - 11/15/2024 PROCEDURE: CT HEAD WO CONTRAST, CT CERVICAL SPINE WO CONTRAST, CTTHORACIC SPINE WO CONTRAST, CT LUMBAR SPINE WO CONTRAST, DATE/TIME OF EXAM: 11/14/2024 10:32 PM, LOCATION [facility] INDICATION: Trauma EXAMINATION: 1.Computed tomography (CT) of the head without contrast 2.CT of the cervical spine without contrast 3.CT of the thoracic spine without contrast 4.CT of the lumbar spine without contrast ADDITIONAL CLINICAL INFORMATION: Ordering Provider Reason For Exam: Trauma. Technologist Note: None. Additional: None. TECHNIQUE: CT of the head and cervical spine was performed withoutcontrast according to standard protocol. Reformatted axial, sagittal, and coronal images of the thoracic and lumbar spine were obtained by thetechnologist from a concurrently performed body CT and sent to the workstation for review. CT dose reduction technique was used, including AutomatedExposure Control. COMPARISON: No prior study is available for comparison at the time ofthis dictation. FINDINGS: Head: The images are degraded due to motion artifacts. Within this limitation: Accounting for the presence of motion artifact which reduces the sensitivity to detect subtle intracranial hemorrhage, no distinct acute intra- or extra-axial fluid collections are identified. There is mild cerebral volume loss with associated ex vacuo ventricular dilatation.The basilar cisterns are patent. No mass effect or midline shift is seen.The vickers-white matter differentiation is obscured by motion artifact.Suspected minimal soft tissue swelling along the left parietal scalp. No acute calvarial fracture is identified. The orbits appear normal. Theparanasal sinuses are clear. The nasal septum is slightly deviated to the right.The mastoid air cells are clear. No soft tissue abnormality is identified. Cervical spine: Mild dextro curvature of the cervical spine. Alignment is otherwise maintained. Vertebral bodies are normal in height without evidence ofacute fracture. Other than middle atlantoaxial joint osteoarthritis, the craniocervical junction appears normal. There is mild degenerative disc disease. No high-grade central canal stenosis is seen. There are varying degrees of mild facet osteoarthritis. There are varying degrees of mildto advanced uncovertebral joint osteoarthritis with the same degree ofneural foraminal stenosis at these levels. There is a prominent hematoma in the left side of the neck, extending from the upper mediastinum to the supraclavicular region, with extensive adjacent fat stranding in theleft supraclavicular region and the left side of the neck. The hematoma is difficult to measure due to its irregular shape and limited coverage however measures approximately 3.5 x 1.8 cm, (series 5, image 217). CT angiography of the neck is recommended for further evaluation. Pleaserefer to the concurrent, dedicated body CT for findings in the chest. Thoracic spine: Mild dextrocurvature of the upper thoracic spine and mild levocurvatureof the lower thoracic spine. Mild exaggeration of the thoracic kyphosis.The alignment is otherwise maintained. Mild anterior wedging of the T7 vertebral body with minimal anterior cortical irregularity. Findings are concerning for possible compression fracture. Please correlate withpoint tenderness. There is also a bone fragment adjacent to the tip of the T6 spinous process, unclear whether representing a fracture. Pleasecorrelate with point tenderness. Mild chronic-appearing anterior wedging deformityof the T12 vertebral body and to a lesser extent T10 and T11. Additional chronic-appearing compression deformity Vertebral bodies are normal in height without evidence of acute fracture. The intervertebral discsappear normal. No central canal stenosis is seen. There is mild facet osteoarthritis at multiple levels. There are varying degrees of neural foraminal stenosis at multiple levels. There is a small hiatal hernia. Mildly dilated main pulmonary artery which can be seen in the setting of pulmonary hypertension. Suspected fatty changes of the liver. Smallrenal cysts are nonspecific. Lumbar spine: There is transitional anatomy. There is sacralization of the [id number] body. Rudimentary ribs in the T12 vertebral body. Mild retrolisthesis ofL4 on L5. Trace retrolisthesis of L5 on S1. Trace retrolisthesis of L1 onL2. The alignment is otherwise maintained. Vertebral bodies are normal in height without evidence of acute fracture. Advanced with degenerativedisc disease at L4-L5 with vacuum disc phenomenon, decreased disc spaceheight, and inferior endplate L4 vertebral pneumocystis. There is diffuse disc bulge at multiple levels. No high-grade central canal stenosis is seen. There is mild to advanced facet osteoarthritis at multiple levels. There are varying degrees of neural foraminal stenosis at multiple levels,worst at L4-L5. There are degenerative changes of the SI joints. Spina bifida occulta of the L5 is noted. IMPRESSION: 1.No acute intracranial hemorrhage, midline shift, or significant mass effect. 2.No evidence of acute fracture in the cervical spine. 3.Mild anterior wedging of the T7 vertebral body with minimal anterior cortical irregularity. Findings are concerning for possible compression fracture. Please correlate with point tenderness. There is also a bone fragment adjacent to the tip of the T6 spinous process, unclear whether representing a fracture. Please correlate with point tenderness. 4.Additional chronic-appearing compression deformities in the lower thoracic spine as outlined. If there is clinical concern, pleasecorrelate with point tenderness. 5.Otherwise, no evidence of acute fracture in the thoracic or lumbarspine. 6.Please refer to the concurrent, dedicated body report for findings inthe chest, abdomen, and pelvis. > Interpreting Provider: Aaron Greene MD on 11/15/2024 12:50 AM Carlos Mueller MD CT ORDERABLES * XR CHEST 1VW PORTABLE (11/14/2024 10:02 PM FOLDING MACHINE TENDER) Anatomical Region Laterality Modality Chest Digital Radiogra phy 11/15/2024 12:2 9 AM FOLDING MACHINE TENDER Narrative 11/15/2024 11:28 AM FOLDING MACHINE TENDER PROCEDURE: XR CHEST 1VW PORTABLE, DATE/TIME OF EXAM: 11/14/2024 10:02 PM, LOCATION [facility] INDICATION: Trauma ADDITIONAL CLINICAL INFORMATION: Ordering Provider Reason For Exam: Technologist Note: Additional: COMPARISON: Concurrent body CT TECHNIQUE: Frontal radiograph of the chest. FINDINGS/IMPRESSION: Hazy opacity superimposes the right lung apex, compatible with chest wall hematoma better characterized on subsequent body CT. There is no focal consolidation, pleural effusion, or pneumothorax. The cardiomediastinal silhouette is normal. No acute osseous abnormality. Report dictated by Parmjit Smith MD, (executive vice president business development). Minerva Vasquez MD have personally reviewed and interpreted this examination/study. > Interpreting Provider: Minerva Dawn MD on 11/15/2024 11:28 AM Procedure Note Minerva Dawn MD - 11/15/2024 PROCEDURE: XR CHEST 1VW PORTABLE, DATE/TIME OF EXAM: 11/14/2024 10:02PM, LOCATION [facility] INDICATION: Trauma ADDITIONAL CLINICAL INFORMATION: Ordering Provider Reason For Exam: Technologist Note: Additional: COMPARISON: Concurrent body CT TECHNIQUE: Frontal radiograph of the chest. FINDINGS/IMPRESSION: Hazy opacity superimposes the right lung apex, compatible with chestwall hematoma better characterized on subsequent body CT. There is no focal consolidation, pleural effusion, or pneumothorax. The cardiomediastinal silhouette is normal. No acute osseous abnormality. Report dictated by Parmjit Smith MD, (executive vice president business development). Minerva Vasquez MD have personally reviewed and interpreted this examination/study. > Interpreting Provider: Minerva Dawn MD on 11/15/2024 11:28 AM Carlso Mueller MD DIAGNOSTIC IMAGING ORDERABLES * XR PELVIS 1 OR 2VW (11/14/2024 10:02 PM FOLDING MACHINE TENDER) Anatomical Region Laterality Modality Pelvis Digital Radiogra phy 11/15/2024 12:3 0 AM FOLDING MACHINE TENDER Impressions 11/15/2024 11:29 AM FOLDING MACHINE TENDER IMPRESSION: No acute fracture identified. Report dictated by Parmjit Smith MD, (executive vice president business development). Minerva Vasquez MD have personally reviewed and interpreted this examination/study. > Interpreting Provider: Minerva Dawn MD on 11/15/2024 11:29 AM Narrative 11/15/2024 11:29 AM FOLDING MACHINE TENDER PROCEDURE: XR PELVIS 1 OR 2VW, DATE/TIME OF EXAM: 11/14/2024 10:02 PM, LOCATION [facility] INDICATION: Trauma Fracture suspected ADDITIONAL CLINICAL INFORMATION: Ordering Provider Reason For Exam: Technologist Note: Additional: COMPARISON: None. FINDINGS: No acute fracture is identified. The femoral heads appear well-seated within their respective acetabula. The pubic symphysis is intact. Bone density and texture are normal. The sacroiliac joints are normal. Procedure Note Minerva Dawn MD - 11/15/2024 PROCEDURE: XR PELVIS 1 OR 2VW, DATE/TIME OF EXAM: 11/14/2024 10:02 PM, LOCATION [facility] INDICATION: Trauma Fracture suspected ADDITIONAL CLINICAL INFORMATION: Ordering Provider Reason For Exam: Technologist Note: Additional: COMPARISON: None. FINDINGS: No acute fracture is identified. The femoral heads appear well-seated within their respective acetabula. The pubic symphysis is intact. Bone density and texture are normal. The sacroiliac joints are normal. IMPRESSION: No acute fracture identified. Report dictated by Parmjit Smith MD, (executive vice president business development). Minerva Vasquez MD have personally reviewed and interpreted this examination/study. > Interpreting Provider: Minerva Dawn MD on 11/15/2024 11:29 AM Carlos Mueller MD DIAGNOSTIC IMAGING ORDERABLES * TROPONIN-I HIGH SENSITIVE (11/14/2024 10:01 PM FOLDING MACHINE TENDER) [facility] Troponin I High Sensitive 8 <=35 ng/L 11/14/2024 10:41 PM [facility] Blood BLOOD SPECIMEN / Unknown Venipuncture / Unknown 11/14/2024 10:01 PM FOLDING MACHINE TENDER 11/14/2024 10:07 PM FOLDING MACHINE TENDER Carlos Mueller MD LAB - CHEMISTRY OR DERABLES Performing Organization Address [facility]/State/[facility] Co de Phone Number [facility] [address] [place] [phone], [facility] [phone] * TEG 6 GLOBAL HEMOSTASIS W/ LYSIS (11/14/2024 10:01 PM FOLDING MACHINE TENDER) Pathologist [facility] Citrated Kaolin R (Reaction Time) 5.2 4.6 - 9.1 min 11/15/2024 12:03 AM [facility] Citrated Kaolin LY30 (Lysis) 0.0 0.0 - 2.6 % 11/15/2024 12:03 AM [facility] Citrated Functional Fibrinogen MA (Max Amplitude) 29.6 15.0 - 32.0 mm 11/15/2024 12:03 AM [facility] Citrated RapidTEG MA (Max Amplitude) 68.0 52.0 - 70.0 mm 11/15/2024 12:03 AM [facility] Blood BLOOD SPECIMEN / Unknown Venipuncture / Unknown 11/14/2024 10:01 PM FOLDING MACHINE TENDER 11/14/2024 11:07 PM FOLDING MACHINE TENDER Carlos Mueller MD LAB - HEMATOLOGY O RDERABLES [facility] [address] [place] [phone], [facility] [phone] * (ABNORMAL) TEG 6S PLATELET MAPPING (11/14/2024 10:01 PM [facility]) TEGPLM (Max Amplitude) Koalin 67.1 53.0 - 68.0 mm 11/15/2024 1:00 AM [facility] TEGPLM (Max Amplitude) ACTF 14.5 2.0 - 19.0 mm 11/15/2024 1:00 AM [facility] TEGPLM (Max Amplitude) ADP 23.4(L) 45.0 - 69.0 mm 11/15/2024 1:00 AM [facility] Comment:ADP MA below normal range. Inhibition present. TEGPLM (Max Amplitude) AA 57.8 51.0 - 71.0 mm 11/15/2024 1:00 AM [facility] TEGPLM %Inhibition ADP 83.1(H) 0.0 - 17.0 % 11/15/2024 1:00 AM [facility] TEGPLM %Inhibition AA 17.7(H) 0.0 - 11.0 % 11/15/2024 1:00 AM [facility] TEGPLM %Aggregation ADP 16.9(L) 83.0 - 100.0 % 11/15/2024 1:00 AM [facility] TEGPLM % Aggregation AA 82.3(L) 89.0 - 100.0 % 11/15/2024 1:00 AM [facility] Blood BLOOD SPECIMEN / Unknown Venipuncture / Unknown 11/14/2024 10:01 PM FOLDING MACHINE TENDER 11/15/2024 12:33 AM FOLDING MACHINE TENDER Carlos Mueller MD LAB - HEMATOLOGY O RDERABLES Performing Organization Address City/[facility]/ZIP Co de Phone Number [facility] [address] [place] [address], [facility] [phone] * TYPE + SCREEN PANEL (11/14/2024 10:01 PM FOLDING MACHINE TENDER) Pathologist [facility] Antibody Screen NEG 11/14/2024 10:53 PM [facility] ABO Rh AB POS 11/14/2024 10:53 PM [facility] Blood Bank BLOOD SPECIMEN / Unknown Venipuncture / Unknown 11/14/2024 10:01 PM FOLDING MACHINE TENDER 11/14/2024 10:12 PM FOLDING MACHINE TENDER Carlos Mueller MD LAB - BLOOD BANK O RDYRIS Performing Organization Address City/[facility]/ZIP Co de Phone Number [facility] [address] [place] [phone], [facility] [phone] * (ABNORMAL) CBC W AUTO DIFFERENTIAL (11/14/2024 10:01 PM FOLDING MACHINE TENDER) Pathologist [facility] WBC 16.6(H) 4.0 - 10.7 x10E9/L 11/14/2024 10:24 PM [facility] RBC Count 4.12(L) 4.30 - 5.80 x10E12/L 11/14/2024 10:24 PM [facility] Hemoglobin 10.9(L) 13.3 - 17.5 g/dL 11/14/2024 10:24 PM [facility] Hematocrit 33.5(L) 38.7 - 51.1 % 11/14/2024 10:24 PM [facility] MCV 81.3 80.0 - 98.0 fL 11/14/2024 10:24 PM [facility] MCH 26.5(L) 26.7 - 33.6 pg 11/14/2024 10:24 PM [facility] MCHC 32.5 31.7 - 36.3 g/dL 11/14/2024 10:24 PM [facility] RDW-CV 15.9(H) 11.3 - 14.8 % 11/14/2024 10:24 PM [facility] Platelet Count 361 150 - 420 x10E9/L 11/14/2024 10:24 PM [facility] MPV 10.4 7.8 - 11.4 fL 11/14/2024 10:24 PM [facility] Neutrophil % 78.0(H) 41.0 - 74.0 % 11/14/2024 10:24 PM [facility] Lymphocyte % 16.4(L) 17.0 - 47.0 % 11/14/2024 10:24 PM [facility] Monocyte % 4.5 3.0 - 11.0 % 11/14/2024 10:24 PM [facility] Eosinophil % 0.0 0.0 - 7.0 % 11/14/2024 10:24 PM [facility] Basophil % 0.7 0.0 - 1.6 % 11/14/2024 10:24 PM [facility] Immature Granulocytes % 0.4 0.0 - 1.0 % 11/14/2024 10:24 PM [facility] Neutrophil Absolute 12.99(H) 1.60 - 7.50 x10E9/L 11/14/2024 10:24 PM [facility] Lymphocyte Absolute 2.73 1.00 - 4.40 x10E9/L 11/14/2024 10:24 PM [facility] Monocyte Absolute 0.75 0.15 - 1.00 x10E9/L 11/14/2024 10:24 PM [facility] Eosinophil Absolute 0.00 0.00 - 0.60 x10E9/L 11/14/2024 10:24 PM [facility] Basophil Absolute 0.11 0.00 - 0.13 x10E9/L 11/14/2024 10:24 PM [facility] Blood BLOOD SPECIMEN / Unknown Venipuncture / Unknown 11/14/2024 10:01 PM FOLDING MACHINE TENDER 11/14/2024 10:07 PM FOLDING MACHINE TENDER Carlos Mueller MD LAB - HEMATOLOGY O RDERABLES [facility] [address] [place] [address], [facility] [phone] * (ABNORMAL) BASIC METABOLIC PANEL (CALCIUM TOTAL) (11/14/2024 10:01 PM FOLDING MACHINE TENDER) BUN 12 7 - 26 mg/dL 11/14/2024 10:37 PM [facility] Creatinine 1.24(H) 0.71 - 1.16 mg/dL 11/14/2024 10:37 PM [facility] Sodium 142 136 - 145 mmol/L 11/14/2024 10:37 PM [facility] Potassium 4.9(H) 3.5 - 4.5 mmol/L 11/14/2024 10:37 PM [facility] Chloride 105 98 - 107 mmol/L 11/14/2024 10:37 PM [facility] CO2 20(L) 22 - 29 mmol/L 11/14/2024 10:37 PM [facility] Glucose 119(H) 70 - 99 mg/dL 11/14/2024 10:37 PM [facility] Calcium 8.6 8.4 - 10.2 mg/dL 11/14/2024 10:37 PM [facility] Anion Gap 17(H) 6 - 16 11/14/2024 10:37 PM [facility] BUN/Creatinine Ratio 10 7 - 23 11/14/2024 10:37 PM [facility] Osmolality Calculated 295 275 - 295 mOsm/kg 11/14/2024 10:37 PM [facility] eGFR by CKD-EPI 72(L) >=90 mL/min/1.7 3 m2 11/14/2024 10:37 PM [facility] Blood BLOOD SPECIMEN / Unknown Venipuncture / Unknown 11/14/2024 10:01 PM FOLDING MACHINE TENDER 11/14/2024 10:07 PM FOLDING MACHINE TENDER Carlos Mueller MD LAB - CHEMISTRY OR DERABLES Performing Organization Address City/[facility]/ZIP Co de Phone Number [facility] [address] [place] [address], [place] [phone] * (ABNORMAL) ALCOHOL ETHYL BLOOD (11/14/2024 10:01 PM FOLDING MACHINE TENDER) Ethanol (mg/dL) 209(H) <10 mg/dL 10:37 PM [facility] Ethanol Calculated (g/dL) 0.209(H) <=0.010 g/dL 11/14/2024 10:37 PM [facility] Blood BLOOD SPECIMEN / Unknown Venipuncture / Unknown 11/14/2024 10:01 PM FOLDING MACHINE TENDER 11/14/2024 10:07 PM FOLDING MACHINE TENDER Narrative [facility] - 11/14/2024 10:37 PM FOLDING MACHINE TENDER Ethanol Interp <10: None Detected. Depression of GATE AGENT: >100 mg/dl Potentially Critical: >250 mg/dl Potentially Fatal >400 mg/dl Ethanol in the patient's blood will contribute to the osmolar gap. Ethanol's contribution to the osmolar gap can be estimated by dividing the concentration of ethanol in mg/dL by 4.6. This test is for clinical use only and does not equal a PRUDENCE for legal purposes. Carlos Mueller MD LAB - CHEMISTRY OR DERABLES Performing Organization Address [facility]/State/ZIP Co de Phone Number [address] [phone], [facility] [phone] from Last 3 Months Advance Directives * Full Code (Latest Code Status on File) Date Activated Date Inactivated Comments 02/13/2018 8:46 PM 02/15/2018 1:20 PM Care Teams Nuclear Physician Relationship Specialty Start Date End Date Gerald Coronado MD [address] [place], [place] [phone] PCP - General 06/21/21
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
--- OUTSIDE RECORDS SUMMARY | 2025-01-09 11:04 | XMS_ITS | Encounter Summary ---
Author Organization [facility] Address [address] [place] [address] Phone Care Team Providers Care Remelt Furnace Expediter Name Role Phone Gerald Coronado MD Primary Care Provider [phone] Osmar Shaikh MD Unavailable [phone] Reason for Visit * Reason Comments Medication Refill Encounter Details Date Type Department Care Team (Late st Contact Info) Description 07/29/2020 Refill [facility] - Neurology - [place] [address] [place] [phone] Osmar Shaikh MD [address] [place] [phone] Medication Refill Social History Tobacco Use Types [...] on filedocumented in this encounter Care Teams Remelt Furnace Expediter Relationship Specialty Start Date End Date Gerald Coronado MD [address] [place] [address] PCP - General Internal Medicine 07/04/16 Osmar Shaikh MD [address] [place] [address] Consulting Physician Neurology 07/04/16 09/07/24 documented as of this encounter
[2025-01-09 11:40] LABS: Prothrombin Time 13.5 Seconds (11.1-14.7)
[2025-01-09 11:52] LABS: Alanine Aminotransferase 57 U/L (6-50); Alkaline Phosphatase 105 U/L (38-126); Anion Gap 10 mmol/L (4-12); Aspartate Amino Transferase 59 U/L (17-59); Blood Urea Nitrogen 26 mg/dL (9-20); Calcium 9.3 mg/dL (8.4-10.2); Carbon Dioxide 26 mmol/L (22-30); Chloride 102 mmol/L (98-107); Estimated CRCL calculation 84 ml/min; Estimated Glomerular Filt Rate > 60; Glucose 107 mg/dL (65-110); Lipase 157 U/L (23-300); Magnesium 1.7 mg/dL (1.6-2.3); Potassium 4.5 mmol/L (3.4-5.0); Sodium 138 mmol/L (137-145)
--- NOTE | 2025-01-09 11:52 | PC.NURSE ---
Called lab for update on pts specimens sent, lab states they are running.
[2025-01-09 12:41] LABS: Basophils Percent Auto 0.3 % (0.2-1.2); Eosinophils Percent Auto 0.1 % (0-4.4); Hematocrit 27.3 % (42.0-52.0); Hemoglobin 8.6 g/dL (14.0-18.0); Immature Granulocyte Absolute 0.07 K/mm3 (0.00-0.031); Immature Granulocyte Percent A 0.5 % (0-0.5); Lymphocytes Absolute Auto 1.97 K/mm3 (0.9-3.2); Lymphocytes Percent Auto 12.9 % (18.3-44.2); Mean Corpuscular HGB Conc 31.5 g/dl (32-36); Mean Corpuscular Volume 85.6 fl (80-100); Mean Platelet Volume 11.6 fl (7.4-10.4); Monocytes Absolute Auto 0.6 K/mm3 (0.1-0.6); Neutrophils Absolute Auto 12.6 K/mm3 (1.3-6.7); Neutrophils Percent Auto 82.2 % (45.5-73.1); Platelet Count Result 225 k/mm3 (150-375); Red Blood Count 3.19 M/mm3 (4.6-6.20); Red Cell Distribution Width 17.3 % (11.5-14.5); White Blood Count 15.3 K/mm3 (4.5-10.0)
[2025-01-09 13:40] LABS: Add Urine Microscopic? YES; Appearance Urine Cloudy (Clear); Bacteria Urine None Seen /hpf; Bilirubin Urine Negative (Negative); Blood Urine Non-Hemolyzed Trace (Negative); Color Urine Dark Yellow (Yellow); Glucose Urine UA Negative (Negative); Ketones Urine 2+ mg/dL (Negative); Leukocyte Esterase Ur Trace LEU/UL (Negative); Need Manual Microscopic Reviewed; Nitrate Urine Negative (Negative); Non Pathogenic Casts >20; Protein Urine Trace mg/dL (Negative); Specific Grav Ur 1.029 (1.001-1.035); Squamous Epithelial Cell Urine Occasional /hpf (Few); WBC Urine 0-5 /hpf (0-3); pH Urine 5.5 (5.0-9.0)
--- NOTE | 2025-01-09 13:48 | P.HP_ITS ---
H&P: HPI History of Present Illness Date/Time: 01/09/25 13:48 Chief Complaint: Bright red blood per rectum Narrative: 49-year-old with history of PTSD, diverticulosis and PUD of hospital with bright red blood per rectum. Patient was hospitalized at the beginning it September 2024 for GI bleed found to have a peptic ulcer. He has not been on Protonix outpatient. Patient seen after his EGD. Patient states that he started having dark tardy stools yesterday bed turned bright red in the morning. He states that he started to feel very weak so he called 911. Of note patient had previously been in the hospital in September for bleeding ulcer in the proximal jejunum. Patient states that he does have a history with alcohol abuse however he has been sober for the last 38 days. Patient denies fevers chills nausea or vomiting. In the ED and leukocytosis at 15.3, hemoglobin 8.6 baseline around 12, UA shows trace leukocyte esterase RBCs 11-20, EKG shows sinus tachycardia at 116. Patient being transfused 1 RBC for symptomatic anemia. GI has been consulted. Review of Systems Review of Systems: 12 systems were reviewed and are negativ e except for as per HPI. [facility] Past Medical History Medical History (Updated 01/10/25 @ 00:15 by Rafaela Rosas, DOUGH SHEETER) PTSD (post-traumatic stress disorder) Alcoholism in recovery Colon cancer screening Urolithiasis JAMES (obstructive sleep apnea) Obesity, morbid, BMI 40.0-49.9 Hypertension Hematemesis Nausea & vomiting Surgical History Surgical History Hx of tonsillectomy Gastric bypass status for obesity Family History Family History Mother Pulmonary embolism Cardiac arrest Father Pulmonary embolism Cardiac arrest Social History Social History Smoking status: Never smoker Alcohol intake: former Substance use: never Substance use type: does not use Last use: 12/11/24 Do You Feel Safe in your Home?: Yes Lack of Transportation: No Lack of Food: Never True Current Housing: I Have Housing Concerned About Future Housing: No Difficulty Paying Gas/Electric Bills: No Difficulty Paying for Meds: No Currently Unemployed: No Education: Master's Degree or Higher Difficulty w/ Childcare or Family Care: No Living arrangements: other Additional living arrangements comments: with sp Gender identity (if verbalized by the patient): Male Spiritual care concerns: No Meds Home Medications and Allergies Home Medications ?Medication ?Instructions ?Recorded ?Confirmed ?Type verapamil 360 mg 24 hr 360 mg PO DAILY 04/28/21 01/09/25 History capsule,extended release olmesartan 5 mg tablet 40 mg PO DAILY 10/24/23 01/09/25 History prazosin 1 mg capsule 1 mg PO HS 07/14/24 01/09/25 History desvenlafaxine succinate 100 mg 125 mg PO HS 09/22/24 01/09/25 History tablet,extended release 24 hr hydroxyzine pamoate 50 mg capsule 50 mg PO HS 09/22/24 01/09/25 History trazodone 100 mg tablet 100 mg PO HS 09/22/24 01/09/25 History naltrexone 50 mg tablet 50 mg PO DAILY 01/09/25 01/09/25 History Allergies Allergy/AdvReac Type Severity Reaction Status Date / Time No Known Allergies Allergy Verified 01/09/25 17:12 Vital Signs Vital Signs - 24 hr 01/09/25 09:34 01/09/25 11:29 01/09/25 11:30 Temperature 98 F Pulse Rate 128 H 115 H 136 H Respiratory Rate 15 Blood Pressure 138/81 153/93 H 127/78 Pulse Oximetry 100 Oxygen Delivery Room Air 01/09/25 11:32 Temperature Pulse Rate 142 H Respiratory Rate Blood Pressure 118/99 H Pulse Oximetry Oxygen Delivery Exam Narrative: General: well appearing, appears stated age. HEENT: normocephalic, atraumatic. Mucous membranes moist. EOMI, PERRLA, bilateral sclera anicteric, no conjunctival injection. Neck supple without JVD, lymphadenopathy, or bruit. Respiratory: clear to ascultation bilaterally. No rales/rhonic/wheezes. Cardiovascular: Regular rate and rhythm, normal S1-S2 upon ascultation. No murmurs, rubs, or clicks. PMI is nondisplaced, capillary refill less than 3 second. Abdomen: Soft, round, no pulsatile masses, nondistended and nontender. No rebound, no guarding. No CVA tenderness, no hepatosplenomegaly. Bowel sounds present to all four quadrants. No high pitch or tinkling sounds, resonant to percussion. Extremities: No cyanosis, clubbing, or edema present. Pulses are palpable 2/2. Active ROM to all four extremities. Neuro: Alert and orientated x 4. PERRLA. Cranial nerves 2-12 intact without focal deficit. Skin: Warm, dry, and intact, without rash, erythema, or lesion. Psych: pleasant, cooperative, normal speech, normal affect, no hallucinations, no dysarthia H&P: Results Labs Labs: Short CBC 01/09/25 Range/Units 12:29 WBC 15.3 H (4.5-10.0) K/mm3 Hgb 8.6 L D (14.0-18.0) g/dL Hct 27.3 L (42.0-52.0) % Plt Count 225 (150-375) k/mm3 BMP 01/09/25 10:53 Sodium 138 Potassium 4.5 Chloride 102 Carbon Dioxide 26 BUN 26 H D Creatinine 1.25 Glucose 107 Calcium 9.3 Liver Function 01/09/25 Range/Units 10:53 Total Bilirubin 1.0 (0.2-1.3) mg/dL AST 59 (17-59) U/L ALT 57 H (6-50) U/L Alkaline Phosphatase 105 (38-126) U/L Albumin 4.0 (3.5-5.1) g/dL Urine 01/09/25 Range/Units 13:16 Urine Color Dark yellow (Yellow) Urine Appearance Cloudy H (Clear) Urine pH 5.5 (5.0-9.0) Ur Specific [place] 1.029 (1.001-1.035) Urine Protein Trace (Negative) mg/dL Urine Glucose (UA) Negative (Negative) mg/dL Assessment and Plan Assessment and plan (1) Hematemesis: Qualifiers: Nausea presence: with nausea Qualified Code(s): K92.0 - Hematemesis Code(s): K92.0 - Hematemesis Status: Acute Assessment and Plan: GI consulted NPO Patient had the EGD with GI on 01/09/2025, he denies any blood per rectum since procedure QA hour H&H (2) Acute blood loss anemia: Code(s): D62 - Acute posthemorrhagic anemia Status: Acute Assessment and Plan: Secondary to above Stable after EGD Transfuse for hemoglobin less than 7 or symptomatic Q 8 CBC 01/09 1 unit RBCs transfused (3) Peptic ulcer: Code(s): K27.9 - Peptic ulcer, site unspecified, unspecified as acute or chronic, without hemorrhage or perforation Status: Acute Assessment and Plan: IV Protonix b.i.d. (4) Hypertension: Qualifiers: Hypertension type: essential hypertension Qualified Code(s): I10 - Essential (primary) hypertension Code(s): I10 - Essential (primary) hypertension Status: Acute Assessment and Plan: Holding blood pressure meds overnight will re-evaluate in the morning (5) PTSD (post-traumatic stress disorder): Code(s): F43.10 - Post-traumatic stress disorder, unspecified Status: Acute Assessment and Plan: Continue Minipress Quality VTE Prophylaxis VTE prophylaxis: mechanical ordered If No VTE Prophylaxis Answer both mechanical and pharmacologic: Reason no pharmacologic proph: medical contraindication Hospitalist MIPS Advance Care Plan I have confirmed that the patient's Advanced Care Plan is present, code status is documented, or surrogate decision maker is listed in patient medical record.: Yes Medication Reconciliation I have utilized all available resources to obtain, update and review the patients current medications (includes all prescriptions, OTC, herbals, cannabis, and nutritional supplements).: Yes
--- NOTE | 2025-01-09 14:33 | PC.NURSE ---
1355 Signed consent for blood transfusion on pts chart.
--- NOTE | 2025-01-09 16:07 | ADMGEN ---
This patient, Jorge Cotter, was admitted to [address] [place] [address] Room 312-01. Patient/family oriented to hospital policies and general routines including ID bracelet, bed and alarms, visiting hours, pain management, procedures, bathroom and other care routines, personal items, smoking policy, room service/diet, and visiting hours. Information on how to activate the Rapid Response Team has been discussed. Patient/Family are encouraged to report perceived risks to care and to ask questions if they do not understand what they are told or what they should do.
--- OUTSIDE RECORDS SUMMARY | 2025-01-09 16:11 | XMS_ITS | CONTINUITY OF CARE DOCUMENT ---
Author Name mirtha shannon Address Unknown Organization [facility] Address [id number] [place] [address] [address] [place] [address] Phone [phone] Care Team Providers Care Maintenance Engineer Name Role Phone Kamaljit THOMPSON, Clary Unavailable [phone] [employer]ANCE [employer] Payer name Policy type / Coverage type [employer] red democrat ID [employer] Other [id number]
--- OUTSIDE RECORDS SUMMARY | 2025-01-09 16:12 | XMS_ITS | Clinical Summary ---
Author Organization [facility] Address [address] [facility] [place] [address] Phone Care Team Providers Care Realtime Reporter Name Role Phone Gerald Coronado MD Primary Care Provider [phone] Allergies No known active allergies Medications lisinopril-hyd roCHLOROthiazi de (PRINZIDE, ZESTORETIC) 20-12.5 MG Tablet Take 1 Tab by mouth daily. Active Magnesium 250 MG Tablet Take by mouth. Activ e Multiple Vitamin (MULTI-VITAMIN PO) Take by mouth. Activ e [place]-3 Fatty Acids (FISH OIL PO) Take by [...] Comments Blood Pressure 120/80 08/26/2018 3:18 PM FLEXO PRESS OPERATOR Pulse 80 08/26/2018 3:18 PM FLEXO PRESS OPERATOR Temperature 36.7 C (98.1 F) 08/26/2018 3:18 PM FLEXO PRESS OPERATOR Respiratory Rate 18 08/26/2018 3:18 PM FLEXO PRESS OPERATOR Oxygen Saturation 98% 08/26/2018 3:18 PM FLEXO PRESS OPERATOR Inhaled Oxygen Concentration - - Weight 127 kg (280 lb) 08/26/2018 3:18 PM FLEXO PRESS OPERATOR Height 180.3 cm (5' 11 ) 08/26/2018 3:18 PM FLEXO PRESS OPERATOR Body Mass Index 39.05 08/26/2018 3:18 PM FLEXO PRESS OPERATOR Plan of Treatment Health Maintenance Due [...] age to complete this topic Care Teams Realtime Reporter Relationship Specialty Start Date End Date Gerald Coronado MD [address] [place] [address] PCP - General Internal Medicine 07/04/16
--- OUTSIDE RECORDS SUMMARY | 2025-01-09 16:12 | XMS_ITS | Clinical Summary ---
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 Coronado MD [address] [place], [place] [id number] PCP - General 06/21/21
--- OUTSIDE RECORDS SUMMARY | 2025-01-09 16:12 | XMS_ITS | Clinical Summary ---
Author Organization [facility] Address [address] [place] [address] Care Team Providers Care Gear Shaper Set Up Operator Name Role Phone Gerald Coronado MD Primary Care Provider [phone] Raymundo Weathers MD Unavailable Unavailabl e Allergies [...] Department Care Team Description 11/26/2024 3:52 PM GIS APPLICATION DEVELOPER - 11/26/2024 6:42 PM [facility] Emergency [place] [facility] [address] [address] Randee Lowe MD Hypertension Discharge Disposition: Home [...] Sex Assigned at Male 11/26/2024 4:17 PM GIS APPLICATION DEVELOPER Legal Sex Male 1:30 PM CDT Gender Identity Not on file Sexual Orientation Not on file 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 Not on file Not on file Not on file Last Filed Vital Signs Vital Sign Reading Time Taken Comments Blood Pressure 158/117 11/26/2024 6:30 PM GIS APPLICATION DEVELOPER Pulse 78 11/26/2024 6:30 PM GIS APPLICATION DEVELOPER Temperature 36.8 C (98.3 F) 11/26/2024 4:24 PM GIS APPLICATION DEVELOPER Respiratory Rate 15 11/26/2024 6:30 PM GIS APPLICATION DEVELOPER Oxygen Saturation 100% 11/26/2024 6:30 PM GIS APPLICATION DEVELOPER Inhaled Oxygen Concentration - - Weight 122.5 kg (270 lb) 11/26/2024 3:45 PM GIS APPLICATION DEVELOPER Height 177.8 cm (5' 10 ) 11/26/2024 3:45 PM GIS APPLICATION DEVELOPER Body Mass Index 38.74 11/26/2024 3:45 PM GIS APPLICATION DEVELOPER Plan of Treatment Health Maintenance Due Date [...] Comments URINE BACTERIA CULTURE STAT 5:05 PM GIS APPLICATION DEVELOPER HC URINALYSIS AUTO W/MICRO STAT 11/26/2024 5:05 PM GIS APPLICATION DEVELOPER XR CHEST PA+LAT STAT 11/26/2024 4:50 PM GIS APPLICATION DEVELOPER CK (CPK) STAT 11/26/2024 4:39 PM GIS APPLICATION DEVELOPER TROPONIN, QUANT STAT 11/26/2024 4:39 PM GIS APPLICATION DEVELOPER COMPREHENSIVE METABOLIC PANEL STAT 11/26/2024 4:39 PM GIS APPLICATION DEVELOPER CBC W/DIFF AUTOMATED STAT 11/26/2024 4:39 PM GIS APPLICATION DEVELOPER ECG 12-LEAD Routine 11/26/2024 3:55 PM GIS APPLICATION DEVELOPER from Last 3 Months Results * (ABNORMAL) URINALYSIS (11/26/2024 5:05 PM GIS APPLICATION DEVELOPER) COLOR (U) YELLOW 11/26/2024 5:28 PM GIS APPLICATION DEVELOPER [facility] TRANSPARENCY CLEAR 11/26/2024 5:28 PM GIS APPLICATION DEVELOPER [facility] SPECIFIC GRAVITY (U) 1.025 1.000 - 1.025 11/26/2024 5:28 PM GIS APPLICATION DEVELOPER [facility] U PH 6.0 5.0 - 8.0 11/26/2024 5:28 PM GIS APPLICATION DEVELOPER [facility] LEUKOCYTES (U) NEGATIVE NEGATIVE 11/26/2024 5:28 PM GIS APPLICATION DEVELOPER [facility] NITRITES NEGATIVE NEGATIVE 11/26/2024 5:28 PM [facility] PROTEIN RANDOM (U) NEGATIVE NEGATIVE 11/26/2024 5:28 PM GIS APPLICATION DEVELOPER [facility] GLUCOSE (U) NEGATIVE NEGATIVE 11/26/2024 5:28 PM GIS APPLICATION DEVELOPER [facility] KETONES MG/DL (U) TRACE(A) NEGATIVE 11/26/2024 5:28 PM GIS APPLICATION DEVELOPER [facility] UROBILINOGEN 1.0(H) <1.0 EU/DL 11/26/2024 5:28 PM [facility] BILIRUBIN (U) NEGATIVE NEGATIVE 11/26/2024 5:28 PM GIS APPLICATION DEVELOPER [facility] BLOOD (U) 2+(A) NEGATIVE 11/26/2024 5:28 PM GIS APPLICATION DEVELOPER [facility] WBC/HPF 0-5 0 - 5 /HPF 11/26/2024 5:28 PM [facility] RBC/HPF 5-10(A) 0 - 5 /HPF 11/26/2024 5:28 PM GIS APPLICATION DEVELOPER [facility] EPI/LPF RARE /LPF 11/26/2024 5:28 PM GIS APPLICATION DEVELOPER [facility] BACTERIA (U) TRACE /HPF 11/26/2024 5:28 PM [facility] URINE SPECIMEN OBTAINED BY CLEAN CATCH PROCEDURE / Unknown 11/26/2024 5:05 PM GIS APPLICATION DEVELOPER us Randee Lowe MD URINE ORDERABLES Final Resu lt [facility] [address] [place] [address], * CULTURE URINE (11/26/2024 5:05 PM GIS APPLICATION DEVELOPER) SPEC DESCRIPTION URINE CLEAN CATCH 11/26/2024 5:17 PM GIS APPLICATION DEVELOPER [facility] SPECIAL REQUESTS NO SPECIAL REQUEST 11/26/2024 5:17 PM GIS APPLICATION DEVELOPER [facility] CULTURE RESULT NO GROWTH (< OR = 1,000 CFU/ML) 11/28/2024 10:10 AM GIS APPLICATION DEVELOPER [facility] URINE SPECIMEN OBTAINED BY CLEAN CATCH PROCEDURE / Unknown 11/26/2024 5:05 PM GIS APPLICATION DEVELOPER 11/26/2024 5:18 PM GIS APPLICATION DEVELOPER us Randee Lowe MD MICROBIOLOGY - GENERAL ORDE RABLES Final Result [facility] [address] [place] [address], [place] [phone] [id number] [facility] [address] [place] [address], [place] [phone] * XR CHEST PA+LAT (11/26/2024 4:50 PM GIS APPLICATION DEVELOPER) Anatomical Region Laterality Modality Chest Radiographic Tish ging 11/26/2024 4:53 PM GIS APPLICATION DEVELOPER Impressions 11/26/2024 4:56 PM GIS APPLICATION DEVELOPER IMPRESSION: Mild cardiomegaly but no radiographic evidence is seen to suggest acute cardiopulmonary abnormality. If there is clinical concern for chest wall hematoma, cross-sectional imaging could be considered. Referred By: Interpreted By: Tom Hodge DO, 11/26/2024 4:53 PM Narrative 11/26/2024 4:56 PM GIS APPLICATION DEVELOPER [address] [place] [address] Examination: XR CHEST PA+LAT Exam time: 11/26/2024 [...] Procedure Note Tom Hodge DO - 11/26/[address] [place] [address] Examination: XR CHEST PA+LAT Exam time: 11/26/2024 [...] lung apex medially corresponds to the right [id number] process. IMPRESSION: Mild cardiomegaly but no radiographic evidence is seen to suggest acutecardiopulmonary abnormality. If there is clinical concern for chest wallhematoma, cross-sectional imaging could be considered. Referred By: Interpreted By: Tom Hodge DO, 11/26/2024 4:53 PM us Randee Lowe MD GENERAL IMAGING Final Resul t * (ABNORMAL) COMPREHENSIVE METABOLIC PANEL (11/26/2024 4:39 PM GIS APPLICATION DEVELOPER) SODIUM S/P/B 140 136 - 145 MMOL/L 11/26/2024 5:03 PM [facility] POTASSIUM S/P/B 4.0 3.5 - 5.1 MMOL/L 11/26/2024 5:03 PM [facility] CHLORIDE S/P/B 106 98 - 107 MMOL/L 11/26/2024 5:03 PM [facility] CO2 24.3 21.0 - 32.0 MMOL/L 11/26/2024 5:03 PM [facility] GLUCOSE 96 70 - 99 MG/DL 11/26/2024 5:03 PM [facility] Comment: FASTING GLUCOSE 100 TO 125 MG/DL IS CONSISTENT WITH IMPAIRED FASTING GLUCOSE. FASTING GLUCOSE >125 MG/DL IS CONSISTENT WITH DIABETES. RANDOM GLUCOSE >200 MG/DL WITH HYPERGLYCEMIC SYMPTOMS IS CONSISTENT WITH DIABETES. PER ADA GUIDELINES BUN 17 6 - 24 MG/DL 11/26/2024 5:03 PM [facility] CREATININE S/P/B 1.04 0.70 - 1.30 MG/DL 11/26/2024 5:03 PM [facility] CALCIUM S/P/B 8.3(L) 8.4 - 10.5 MG/DL 11/26/2024 5:03 PM [facility] BILIRUBIN TOTAL S/P/B 0.5 0.2 - 1.0 MG/DL 11/26/2024 5:03 PM [facility] Comment: THIS ASSAY IS NOT RECOMMENDED FOR PATIENTS UNDERGOING TREATMENT WITH ELTROMBOPAG DUE TO THE POTENTIAL FOR FALSELY ELEVATED RESULTS. ALKALINE PHOSPHATASE S/P/B 101 45 - 115 U/L 11/26/2024 5:03 PM [facility] AST 52(H) 15 - 37 U/L 11/26/2024 5:03 PM [facility] ALT 68(H) 16 - 63 U/L 11/26/2024 5:03 PM [facility] TOTAL PROTEIN S/P/B 6.8 6.4 - 8.2 G/DL 11/26/2024 5:03 PM [facility] ALBUMIN S/P/B 3.2(L) 3.4 - 5.0 G/DL 11/26/2024 5:03 PM [facility] ANION GAP 9.7 5.0 - 15.0 MMOL/L 11/26/2024 5:03 PM [facility] OSMOLALITY (CALC) 291 MOSM/KG 025 5:03 PM [facility] Comment:REFERENCE RANGE NOT ESTABLISHED GFR ESTIMATE 89(L) >89 ML/MIN/1. 73 M2 11/26/2024 5:03 PM [facility] GFR NOTES GFR REFERENCE S: 11/26/2024 5:03 PM [facility] Comment: THE ESTIMATED GFR IS CALCULATED [...] FAILURE: <15 ml/min/1.73 m2 11/26/2024 4:39 PM GIS APPLICATION DEVELOPER us Randee Lowe MD LABORATORY Final Resul t [facility] [address] [place] [address], * (ABNORMAL) CBC W/DIFF AUTOMATED (11/26/2024 4:39 PM GIS APPLICATION DEVELOPER) WBC 4.73 4.00 - 10.80 x10'3/uL 11/26/2024 4:44 PM GIS APPLICATION DEVELOPER [facility] RBC 3.46(L) 4.50 - 6.10 x10'6/uL 11/26/2024 4:44 PM [facility] HGB 9.1(L) 13.0 - 18.0 G/DL 11/26/2024 4:44 PM [facility] HCT 29.1(L) 37.0 - 52.0 % 11/26/2024 4:44 PM [facility] MCV 84.1 78.0 - 100.0 FL 11/26/2024 4:44 PM [facility] MCH 26.3(L) 27.0 - 31.0 PG 11/26/2024 4:44 PM GIS APPLICATION DEVELOPER [facility] MCHC 31.3(L) 33.0 - 36.0 G/DL 11/26/2024 4:44 PM [facility] RDW 17.8(H) 11.5 - 14.5 % 11/26/2024 4:44 PM [facility] PLT 241 150 - 350 x10'3/uL 11/26/2024 4:44 PM [facility] MPV 9.7 7.4 - 10.4 FL 11/26/2024 4:44 PM [facility] CBC COMMENT NORMAL REFERENCE RANGE NOT ESTABLISHED FOR THE PROPORTIONAL LEUKOCYTE DIFFERENTIAL. 11/26/2024 4:44 PM [facility] NEUTROPHILS % 55.4 % 11/26/2024 4:44 PM [facility] LYMPHOCYTES % 24.3 % 11/26/2024 4:44 PM [facility] MONOCYTES % 16.7 % 11/26/2024 4:44 PM [facility] EOSINOPHILS % 1.9 % 11/26/2024 4:44 PM [facility] BASOPHILS % 1.3 % 11/26/2024 4:44 PM [facility] IMMATURE GRANS % 0.4 % 11/26/19 4:44 PM [facility] NRBC % 0.0 % 11/26/2024 4:44 PM [facility] ABS. NEUTROPHILS 2.62 1.60 - 8.30 x10'3/uL 11/26/2024 4:44 PM [facility] ABS. LYMPHOCYTES 1.15 0.80 - 4.70 x10'3/uL 11/26/2024 4:44 PM [facility] ABS. MONOCYTES 0.79 0.00 - 1.50 x10'3/uL 11/26/2024 4:44 PM [facility] ABS. EOSINOPHILS 0.09 0.00 - 0.40 x10'3/uL 11/26/2024 4:44 PM [facility] ABS. BASOPHILS 0.06 0.00 - 0.20 x10'3/uL 11/26/2024 4:44 PM [facility] ABS. IMMATURE GRANULOCYTES 0.02 0.00 - 0.03 x10'3/uL 11/26/2024 4:44 PM [facility] ABS. NUCLEATED RBC'S 0.00 0.00 - 0.01 x10'3/uL 11/26/2024 4:44 PM [facility] 11/26/2024 4:39 PM GIS APPLICATION DEVELOPER us Randee Lowe MD LABORATORY Final Resul t Performing Organization Address City/[facility]/[place] [address], * TROPONIN, QUANT (11/26/2024 4:39 PM GIS APPLICATION DEVELOPER) TROPONIN I HIGH SENSITIVITY 9 0 - 76 ng/L 11/26/2024 5:03 PM GIS APPLICATION DEVELOPER [facility] 11/26/2024 4:39 PM GIS APPLICATION DEVELOPER Randee Lowe MD LABORATORY Final Resul t Performing Organization Address [facility] [place] [address], [place] [phone] * CK (CPK) (11/26/2024 4:39 PM GIS APPLICATION DEVELOPER) CPK 50 39 - 308 U/L 11/26/2024 5:03 PM GIS APPLICATION DEVELOPER [facility] 11/26/2024 4:39 PM GIS APPLICATION DEVELOPER Randee Lowe MD LABORATORY Final Resul t Performing Organization Address [facility] Co de Phone Number [address] [address], * ECG 12 lead (11/26/2024 3:55 PM GIS APPLICATION DEVELOPER) 11/26/2024 3:55 PM GIS APPLICATION DEVELOPER Narrative [facility] - 11/27/2024 3:04 AM GIS APPLICATION DEVELOPER [address] [place] [address] Test Date: 2024-11-26 Pat Name: JORGE MOLINA Department: 3 Room: EXAM 7 Gender: Male Underlay Stitcher: : 1975 Requested By: RANDEE LOWE Order Number: [id number] Reading MD: Tomi Solares Measurements Intervals [place] Rate: 82 P: 11 SD: 174 QRS: -30 QRSD: 105 T: 19 QT: 346 QTc: 406 Interpretive Statements SINUS RHYTHM BORDERLINE LEFT AXIS DEVIATION APPLICATION DEVELOPER Procedure Note Tomi Solares MD - 11/27/[address] [place] [address] Test Date: 2024-11-26 Pat Name: JORGE MOLINA Department: 3 Room: EXAM 7 Gender: Male Underlay Stitcher: : 1975 Requested By: RANDEE LOWE Order Number: [id number] Reading MD: Tomi Solares Measurements Intervals [place] Rate: 82 P: 11 SD: 174 QRS: -30 QRSD: 105 T: 19 QT: 346 QTc: 406 Interpretive Statements SINUS RHYTHM BORDERLINE LEFT AXIS DEVIATION APPLICATION DEVELOPER us Randee Lowe MD ECG ORDERABLES Final Resul t [facility] from Last 3 Months Insurance [email or web address] OPEN ACCESS [facility] Care Teams Gear Shaper Set Up Operator Relationship Specialty Start Date End Date Gerald Coronado MD [address] [place] [address] PCP - General INTERNAL MEDICINE 07/05/16 Raymundo Weathers MD [address] [place] [address] CARDIOVASCULAR DISEASE 07/05/16
--- OUTSIDE RECORDS SUMMARY | 2025-01-09 16:12 | XMS_ITS | Encounter Summary ---
Author Organization [facility] Address [address] [place] [address] Phone Care Team Providers Care Four H Club Agent Name Role Phone Gerald Coronado MD Primary Care Provider [phone] Osmar Shaikh MD Unavailable [phone] Reason for Visit * Reason Comments Medication Refill Encounter Details Date Type Department Care Team (Late st Contact Info) Description 07/29/2020 Refill [facility] - Neurology - [place] [address] [place] [phone] Osmar Shaikh MD [address] [place] [phone] Medication Refill Social History Tobacco Use Types [...] on filedocumented in this encounter Care Teams Four H Club Agent Relationship Specialty Start Date End Date Gerald Coronado MD [address] [place] [address] PCP - General Internal Medicine 07/04/16 Osmar Shaikh MD [address] [place] [address] Consulting Physician Neurology 07/04/16 09/07/24 documented as of this encounter
[2025-01-09] MEDS: LACTATED RINGERS 1,000 ML 150 ML IV CONT (17:16)
--- NOTE | 2025-01-09 17:16 | WPDANESEPPF ---
Anes - Initial Pre Proc Eval Procedure: Operation Date: 01/09/25 17:15 Proposed Procedures p Esophagogastroduodenoscopy EGD - Shahid Cornejo MD Date/Time: 01/09/25 17:16 Surgeon: Danelle Edwards MD Pre Op Diagnosis: GI Bleed Patient Data Age: 49 Gender: M Height: 1.78 m Weight: 118 kg Last Vital Signs Temp 36.3 C L 01/09/25 17:04 Pulse 123 H 01/09/25 17:04 Resp 22 H 01/09/25 17:04 BP 142/88 H 01/09/25 17:04 Pulse Ox 99 01/09/25 17:04 O2 Del Method Room Air 01/09/25 17:04 Allergies Allergy/AdvReac Type Severity Reaction Status Date / Time No Known Allergies Allergy Verified 01/09/25 17:12 Home Medications ?Medication ?Instructions ?Recorded ?Confirmed ?Type verapamil 360 mg 24 hr 360 mg PO DAILY 04/28/21 01/09/25 History capsule,extended release olmesartan 5 mg tablet 40 mg PO DAILY 10/24/23 01/09/25 History prazosin 1 mg capsule 1 mg PO HS 07/14/24 01/09/25 History desvenlafaxine succinate 100 mg 125 mg PO HS 09/22/24 01/09/25 History tablet,extended release 24 hr hydroxyzine pamoate 50 mg capsule 50 mg PO HS 09/22/24 01/09/25 History trazodone 100 mg tablet 100 mg PO HS 09/22/24 01/09/25 History naltrexone 50 mg tablet 50 mg PO DAILY 01/09/25 01/09/25 History Laboratory Tests 01/09/25 01/09/25 01/09/25 10:53 12:29 13:16 WBC 15.3 H K/mm3 (4.5-10.0) RBC 3.19 L M/mm3 (4.6-6.20) Hgb 8.6 L D g/dL (14.0-18.0) Hct 27.3 L % (42.0-52.0) MCV 85.6 fl (80-100) MCH 27.0 pg (26-34) MCHC 31.5 L g/dl (32-36) RDW 17.3 H % (11.5-14.5) Plt Count 225 k/mm3 (150-375) MPV 11.6 H fl (7.4-10.4) Immature Gran % (Auto) 0.5 % (0-0.5) Neut % (Auto) 82.2 H % (45.5-73.1) Lymph % (Auto) 12.9 L % (18.3-44.2) Owen % (Auto) 4.0 % (2.6-8.5) Eos % (Auto) 0.1 % (0-4.4) Baso % (Auto) 0.3 % (0.2-1.2) Lymph # (Auto) 1.97 K/mm3 (0.9-3.2) Owen # (Auto) 0.6 K/mm3 (0.1-0.6) Eos # (Auto) 0.0 K/mm3 (0-0.3) Baso # (Auto) 0.0 K/mm3 (0.0-0.1) Abs Immat Gran (auto) 0.07 H K/mm3 (0.00-0.031) Absolute Neuts (auto) 12.6 H K/mm3 (1.3-6.7) Absolute Nucleated RBC 0.000 K/mm3 (0.0-0.012) Nucleated RBC % 0.0 % (0.0-0.2) PT 13.5 Seconds (11.1-14.7) INR 1.0 APTT 20.0 L Seconds (22.3-36.8) Sodium 138 mmol/L (137-145) Potassium 4.5 mmol/L (3.4-5.0) Chloride 102 mmol/L (98-107) Carbon Dioxide 26 mmol/L (22-30) Anion Gap 10 mmol/L (4-12) BUN 26 H D mg/dL (9-20) Creatinine 1.25 mg/dL (0.7-1.3) Estim Creat Clear Calc 84 ml/min Estimated GFR > 60 (59 - ) Glucose 107 mg/dL (65-110) Calcium 9.3 mg/dL (8.4-10.2) Magnesium 1.7 mg/dL (1.6-2.3) Total Bilirubin 1.0 mg/dL (0.2-1.3) AST 59 U/L (17-59) ALT 57 H U/L (6-50) Alkaline Phosphatase 105 U/L (38-126) Total Protein 7.0 g/dL (6.3-8.2) Albumin 4.0 g/dL (3.5-5.1) Lipase 157 U/L (23-300) Urine Color Dark yellow (Yellow) Urine Appearance Cloudy H (Clear) Urine pH 5.5 (5.0-9.0) Ur Specific [place] 1.029 (1.001-1.035) Urine Protein Trace mg/dL (Negative) Urine Glucose (UA) Negative mg/dL (Negative) Urine Ketones 2+ H mg/dL (Negative) Ur Blood (Man) Non-hemolyzed trace (Negative) Urine Nitrate Negative (Negative) Urine Bilirubin Negative (Negative) Urine Urobilinogen 1.0 mg/dL (<2.0) Add Ur Microanalysis Reviewed Leukocyte Esterase Rfl Trace H NATE/UL (Negative) Urine RBC 11-20 H /hpf (0-2) Urine WBC 0-5 /hpf (0-3) Ur Squamous Epith Cells Occasional /hpf (Few) Urine Bacteria None seen /hpf Urine Casts >20 Blood Type AB Positive Antibody Screen Negative Crossmatch See Detail Patient hx anesthesia problems: none Family hx anesthesia problems: none Results Review: All pre-operative results and documents have been reviewed as part of the pre-operative evaluation. [facility] Past Medical History Medical History (Updated 01/09/25 @ 13:16 by Sarita Garcia PA-C) Alcoholism in recovery Colon cancer screening Urolithiasis JAMES (obstructive sleep apnea) Obesity, morbid, BMI 40.0-49.9 Hypertension Hematemesis Nausea & vomiting Surgical History Surgical History Hx of tonsillectomy Gastric bypass status for obesity Family History Family History Mother Pulmonary embolism Cardiac arrest Father Pulmonary embolism Cardiac arrest Social History Social History Smoking status: Never smoker Alcohol intake: former Substance use: never Substance use type: does not use Last use: 12/11/24 Do You Feel Safe in your Home?: Yes Lack of Transportation: No Lack of Food: Never True Current Housing: I Have Housing Concerned About Future Housing: No Difficulty Paying Gas/Electric Bills: No Difficulty Paying for Meds: No Currently Unemployed: No Education: Master's Degree or Higher Difficulty w/ Childcare or Family Care: No Living arrangements: other Additional living arrangements comments: with sp Gender identity (if verbalized by the patient): Male Spiritual care concerns: No Anes - Eval Final PreProcedure Day of Procedure 01/09/25 17:16 Patient weight: obese Heart: regular rate and rhythm Lungs: clear to auscultation Airway: Mallampati scale class II Neurological: alert and oriented Last oral intake: >/= 8 hours ASA classification: III Emergent: yes Anesthetic plan: proceed Anesthesia type and monitoring: general ETT and standard monitoring Results Review: All pre-operative results and documents have been reviewed as part of the pre-operative evaluation. Informed Consent: The patient's anesthetic plan and its attendant risks and benefits were discussed with the patient/family/POA. Questions were solicited and answers provided to the satisfaction of the patient/family/POA.
[2025-01-09] MEDS: EPINEPHrine INJ 1 MG/10 ML SYRINGE XX (17:32)
[2025-01-09] MEDS: PANTOPRAZOLE SODIUM IV 40 MG VIAL IV PUSH (21:30)
[2025-01-09] MEDS: SODIUM CHLORIDE 0.9% IV 1,000 ML 125 ML IV CONT (21:38)
[2025-01-09] MEDS: traZODone HCL 50 MG TABLET 100 MG PO (21:41)
[2025-01-09 21:59] LABS: Hemoglobin 8.9 g/dL (14.0-18.0); Mean Corpuscular HGB Conc 31.8 g/dl (32-36); Mean Corpuscular Hemoglobin 27.2 pg (26-34); Mean Corpuscular Volume 85.6 fl (80-100); Mean Platelet Volume 11.9 fl (7.4-10.4); Platelet Count Result 203 k/mm3 (150-375); Red Blood Count 3.27 M/mm3 (4.6-6.20); Red Cell Distribution Width 17.1 % (11.5-14.5)
[2025-01-09 22:21] LABS: Basophils Absolute Manual 0.36 K/mm3 (0.0-0.1); Basophils Percent Manual 2 % (0-1); Lymphocytes Absolute Manual 2.16 K/mm3 (1.1-4.5); Neutrophils Percent Manual 86 % (46-73); Total Cells Counted 100
[2025-01-09 22:22] LABS: Platelet Clumps Present; Platelet Estimate Adequate (Adequate); Schistocytes None Seen
[2025-01-09 22:23] LABS: Anisocytosis 2+; Hypochromasia 1+; Microcytosis 1+ (NORMAL)
[2025-01-09 22:25] LABS: Band Neutrophils Percent 0 % (0-6); Neutrophils Absolute Manual 15.48 K/mm3 (1.3-6.7)
[2025-01-09] MEDS: WATER FOR IRRIGATION, STERILE 1,000 ML BOTTLE 1000 ML (23:00)
[2025-01-10] VITALS (9 sets, daily range): BP systolic 120–143; BP diastolic 86–91; PULSE 79–114; RESP 12–16; TEMP 36.2–36.8; O2SAT 98–100
[2025-01-10] MEDS: SODIUM CHLORIDE 0.9% IV 1,000 ML 125 ML IV CONT ×3 (05:10→17:47)
[2025-01-10 06:24] LABS: Basophils Percent Auto 0.1 % (0.2-1.2); Hematocrit 25.1 % (42.0-52.0); Hemoglobin 7.9 g/dL (14.0-18.0); Immature Granulocyte Absolute 0.05 K/mm3 (0.00-0.031); Immature Granulocyte Percent A 0.4 % (0-0.5); Lymphocytes Absolute Auto 1.32 K/mm3 (0.9-3.2); Lymphocytes Percent Auto 10.9 % (18.3-44.2); Mean Corpuscular HGB Conc 31.5 g/dl (32-36); Mean Corpuscular Hemoglobin 27.5 pg (26-34); Mean Corpuscular Volume 87.5 fl (80-100); Mean Platelet Volume 11.2 fl (7.4-10.4); Monocytes Absolute Auto 0.3 K/mm3 (0.1-0.6); Monocytes Percent Auto 2.7 % (2.6-8.5); Neutrophils Absolute Auto 10.5 K/mm3 (1.3-6.7); Neutrophils Percent Auto 85.9 % (45.5-73.1); Platelet Count Result 156 k/mm3 (150-375); Red Blood Count 2.87 M/mm3 (4.6-6.20); Red Cell Distribution Width 17.2 % (11.5-14.5); White Blood Count 12.2 K/mm3 (4.5-10.0)
[2025-01-10] MEDS: PANTOPRAZOLE SODIUM IV 40 MG VIAL IV PUSH ×2 (09:37→20:18)
--- NOTE | 2025-01-10 11:32 | P.PNIM_ITS ---
Progress Note: A&P Assessment and Plan (1) Hematemesis: Qualifiers: Nausea presence: with nausea Qualified Code(s): K92.0 - Hematemesis Code(s): K92.0 - Hematemesis Status: Acute Assessment and Plan: GI consulted NPO Patient had the EGD with GI on 01/09/2025, he denies any blood per rectum since p rocedure QA hour H&H 01/10/25: * No further hematemesis * Pt with BM this AM without any evidence of melena or hematochezia. * Painless BM today. * He remains NPO at request of GI. * Continue to monitor and trend. (2) Acute blood loss anemia: Code(s): D62 - Acute posthemorrhagic anemia Status: Acute Assessment and Plan: Secondary to above Stable after EGD Transfuse for hemoglobin less than 7 or symptomatic Q 8 CBC 01/09 1 unit RBCs transfused 01/10/25: * Hgb today with drop from 8.9 yesterday to 7.9 today. * Continue to monitor and trend labs. * No current evidence of GI bleed. (3) Peptic ulcer: Code(s): K27.9 - Peptic ulcer, site unspecified, unspecified as acute or chronic, without hemorrhage or perforation Status: Acute Assessment and Plan: IV Protonix b.i.d. 01/10/25: * EGD on 01/09 with evidence of a chronic, non-bleeding gastric ulcer. * Pt is approximately 40 days sober from ETOH use. * No s/s of acute ETOH withdrawl. * Continue PPI Prophylaxis and treatment. (4) Hypertension: Qualifiers: Hypertension type: essential hypertension Qualified Code(s): I10 - Essential (primary) hypertension Code(s): I10 - Essential (primary) hypertension Status: Acute Assessment and Plan: Holding blood pressure meds overnight will re-evaluate in the morning 01/10/25: * BP is stable. * Continue medications (5) PTSD (post-traumatic stress disorder): Code(s): F43.10 - Post-traumatic stress disorder, unspecified Status: Acute Assessment and Plan: Continue Minipress 01/10/25: * Adding back in the Pristiq and the Hydroxyzine today as well as Naltrexone. * Monitor for side effects. Time Spent With Patient Time with patient: 15 - 25 minutes Subjective Date/time seen: 01/10/25 11:32 Interval history: This pt was examined today in interval assessment. He has no pain. He had a BM this AM without any bleeding in the toilet or on the paper. He has been kept NPO by GI for 36 hrs in case bleeding restarts. No other acute or new issues or complaints to discuss today. Review of Systems Review of Systems: All systems reviewed & are unremarkable except as noted in HPI and below Exam Narrative: General: well appearing, appears stated age. HEENT: normocephalic, atraumatic. Mucous membranes moist. EOMI, PERRLA, bilateral sclera anicteric, no conjunctival injection. Neck supple without JVD, lymphadenopathy, or bruit. Respiratory: clear to ascultation bilaterally. No rales/rhonic/wheezes. Cardiovascular: Regular rate and rhythm, normal S1-S2 upon ascultation. No murmurs, rubs, or clicks. PMI is nondisplaced, capillary refill less than 3 second. Abdomen: Soft, round, no pulsatile masses, nondistended and nontender. No rebound, no guarding. No CVA tenderness, no hepatosplenomegaly. Bowel sounds present to all four quadrants. No high pitch or tinkling sounds, resonant to percussion. Extremities: No cyanosis, clubbing, or edema present. Pulses are palpable 2/2. Active ROM to all four extremities. Neuro: Alert and orientated x 4. PERRLA. Cranial nerves 2-12 intact without focal deficit. Skin: Warm, dry, and intact, without rash, erythema, or lesion. Psych: pleasant, cooperative, normal speech, normal affect, no hallucinations, no dysarthia Objective Data Vital Signs Vital Signs: Vital Signs - 24 hr 01/09/25 11:33 01/09/25 11:34 01/09/25 11:50 Temperature Pulse Rate 145 H 129 H 113 H Respiratory Rate 20 18 20 Blood Pressure 118/99 H Pulse Oximetry 100 99 97 Oxygen Delivery Oxygen Flow Rate 01/09/25 12:00 01/09/25 12:21 01/09/25 12:30 Temperature Pulse Rate 110 H 109 H 111 H Respiratory Rate 20 19 17 Blood Pressure Pulse Oximetry 94 98 Oxygen Delivery Oxygen Flow Rate 01/09/25 12:31 01/09/25 12:45 01/09/25 13:00 Temperature Pulse Rate 109 H 109 H 111 H Respiratory Rate 18 18 19 Blood Pressure 126/111 H Pulse Oximetry 94 93 94 Oxygen Delivery Oxygen Flow Rate 01/09/25 13:16 01/09/25 13:30 01/09/25 13:45 Temperature Pulse Rate 120 H 122 H 116 H Respiratory Rate 21 H 16 13 Blood Pressure Pulse Oximetry 100 96 98 Oxygen Delivery Oxygen Flow Rate 01/09/25 14:00 01/09/25 14:01 01/09/25 14:08 Temperature 98.6 F Pulse Rate 111 H 129 H 115 H Respiratory Rate 16 16 20 Blood Pressure 136/98 H 136/98 H Pulse Oximetry 96 100 98 Oxygen Delivery Oxygen Flow Rate 01/09/25 14:24 01/09/25 14:24 01/09/25 15:24 Temperature 98.4 F 98.4 F 98.6 F Pulse Rate 113 H 113 H 106 H Respiratory Rate 16 16 13 Blood Pressure 141/94 H 141/94 H 143/90 H Pulse Oximetry 99 99 98 Oxygen Delivery Oxygen Flow Rate 01/09/25 17:04 01/09/25 17:46 01/09/25 17:56 Temperature 97.3 F L 97.4 F L 97.5 F L Pulse Rate 123 H 101 H 99 Respiratory Rate 22 H 21 H 25 H Blood Pressure 142/88 H 143/95 H 138/98 H Pulse Oximetry 99 100 100 Oxygen Delivery Room Air Simple Face Mask Simple Face Mask Oxygen Flow Rate 10 10 01/09/25 18:06 01/09/25 18:16 01/09/25 18:26 Temperature 97.3 F L 97.5 F L 97.5 F L Pulse Rate 100 103 H 98 Respiratory Rate 25 H 18 23 H Blood Pressure 136/83 141/75 H 134/81 Pulse Oximetry 100 100 98 Oxygen Delivery Simple Face Mask Room Air Room Air Oxygen Flow Rate 5 01/09/25 18:36 01/09/25 18:46 01/09/25 20:00 Temperature 97.3 F L 97.5 F L Pulse Rate 101 H 103 H 99 Respiratory Rate 18 19 Blood Pressure 141/74 H 126/86 Pulse Oximetry 99 97 Oxygen Delivery Room Air Room Air Oxygen Flow Rate 01/09/25 21:42 01/09/25 21:45 01/10/25 00:09 Temperature 96.9 F L Pulse Rate 100 79 Respiratory Rate 14 Blood Pressure 143/74 H Pulse Oximetry 97 97 Oxygen Delivery Room Air Oxygen Flow Rate 01/10/25 04:07 01/10/25 05:24 Temperature 97.1 F L Pulse Rate 82 88 Respiratory Rate 12 Blood Pressure 120/90 Pulse Oximetry 100 Oxygen Delivery Oxygen Flow Rate Intake/Output Intake/Output: Intake & Output 01/07/25 01/08/25 01/09/25 01/10/25 23:59 23:59 23:59 23:59 Intake Total 1600 1498.0 Balance 1600 1498.0 Meds/Results Medications: Active Medications Generic Name Dose Route Start Last Admin Trade Name Freq PRN Reason Stop Dose Admin Sodium Chloride 1,000 mls @ 125 mls/hr 01/09/25 13:15 01/10/25 09:37 Normal Saline Iv IV CONT 125 mls/hr .Q8H DOLORES Administration Ondansetron HCl 4 mg 01/09/25 13:12 01/09/25 21:25 Ondansetron Inj 4 Mg/2 Ml Vial IV PUSH 4 mg Q4H PRN Administration Nausea Pantoprazole Sodium 40 mg 01/09/25 21:00 01/10/25 09:37 Pantoprazole Sodium Iv 40 Mg Vial IV PUSH 40 mg Q12HR DOLORES Administration Prazosin HCl 1 mg 01/09/25 22:50 01/09/25 23:10 Prazosin Hcl 1 Mg Capsule PO Not Given HS DOLORES Trazodone HCl 100 mg 01/09/25 21:00 01/09/25 21:41 Trazodone Hcl 50 Mg Tablet PO 100 mg HS DOLORES Administration Labs Labs: Laboratory Results - last 24 hr 01/09/25 01/09/25 01/09/25 10:53 12:29 13:16 WBC 15.3 H RBC 3.19 L Hgb 8.6 L D Hct 27.3 L MCV 85.6 MCH 27.0 MCHC 31.5 L RDW 17.3 H Plt Count 225 MPV 11.6 H Immature Gran % (Auto) 0.5 Neut % (Auto) 82.2 H Lymph % (Auto) 12.9 L [place] % (Auto) 4.0 Eos % (Auto) 0.1 Baso % (Auto) 0.3 Lymph # (Auto) 1.97 [place] # (Auto) 0.6 Eos # (Auto) 0.0 Baso # (Auto) 0.0 Abs Immat Gran (auto) 0.07 H Absolute Neuts (auto) 12.6 H Absolute Nucleated RBC 0.000 Total Counted Neutrophils % (Manual) Band Neutrophils % Lymphocytes % (Manual) Basophils % (Manual) Nucleated RBC % 0.0 Abs Neuts (Manual) Abs Lymphs (Manual) Abs Basophils (Manual) Platelet Estimate Clumped Platelets Hypochromasia Anisocytosis Microcytosis Schistocytes PT 13.5 INR 1.0 APTT 20.0 L Sodium 138 Potassium 4.5 Chloride 102 Carbon Dioxide 26 Anion Gap 10 BUN 26 H D Creatinine 1.25 Estim Creat Clear Calc 84 Estimated GFR > 60 Glucose 107 Calcium 9.3 Magnesium 1.7 Total Bilirubin 1.0 AST 59 ALT 57 H Alkaline Phosphatase 105 Total Protein 7.0 Albumin 4.0 Lipase 157 Urine Color Dark yellow Urine Appearance Cloudy H Urine pH 5.5 Ur Specific [place] 1.029 Urine Protein Trace Urine Glucose (UA) Negative Urine Ketones 2+ H Ur Blood (Man) Non-hemolyzed trace Urine Nitrate Negative Urine Bilirubin Negative Urine Urobilinogen 1.0 Add Ur Microanalysis Reviewed Leukocyte Esterase Rfl Trace H Urine RBC 11-20 H Urine WBC 0-5 Ur Squamous Epith Cells Occasional Urine Bacteria None seen Urine Casts >20 Blood Type AB Positive Antibody Screen Negative Crossmatch See Detail 01/09/25 01/10/25 21:31 06:18 WBC 18.0 H 12.2 H RBC 3.27 L 2.87 L Hgb 8.9 L 7.9 L Hct 28.0 L 25.1 L MCV 85.6 87.5 MCH 27.2 27.5 MCHC 31.8 L 31.5 L RDW 17.1 H 17.2 H Plt Count 203 156 MPV 11.9 H 11.2 H Immature Gran % (Auto) Not Reportable 0.4 Neut % (Auto) Not Reportable 85.9 H Lymph % (Auto) Not Reportable 10.9 L [place] % (Auto) Not Reportable 2.7 Eos % (Auto) Not Reportable 0.0 Baso % (Auto) Not Reportable 0.1 L Lymph # (Auto) Not Reportable 1.32 [place] # (Auto) Not Reportable 0.3 Eos # (Auto) Not Reportable 0.0 Baso # (Auto) Not Reportable 0.0 Abs Immat Gran (auto) Not Reportable 0.05 H Absolute Neuts (auto) Not Reportable 10.5 H Absolute Nucleated RBC Not Reportable 0.000 Total Counted 100 Neutrophils % (Manual) 86 H Band Neutrophils % 0 Lymphocytes % (Manual) 12.0 L Basophils % (Manual) 2 H Nucleated RBC % Not Reportable 0.0 Abs Neuts (Manual) 15.48 H Abs Lymphs (Manual) 2.16 Abs Basophils (Manual) 0.36 H Platelet Estimate Adequate Clumped Platelets Present Hypochromasia 1+ Anisocytosis 2+ Microcytosis 1+ Schistocytes None seen PT INR APTT Sodium Potassium Chloride Carbon Dioxide Anion Gap BUN Creatinine Estim Creat Clear Calc Estimated GFR Glucose Calcium Magnesium Total Bilirubin AST ALT Alkaline Phosphatase Total Protein Albumin Lipase Urine Color Urine Appearance Urine pH Ur Specific [place] Urine Protein Urine Glucose (UA) Urine Ketones Ur Blood (Man) Urine Nitrate Urine Bilirubin Urine Urobilinogen Add Ur Microanalysis Leukocyte Esterase Rfl Urine RBC Urine WBC Ur Squamous Epith Cells Urine Bacteria Urine Casts Blood Type Antibody Screen Crossmatch Quality VTE Prophylaxis VTE prophylaxis: mechanical ordered
[2025-01-10 12:07] LABS: Basophils Percent Auto 0.2 % (0.2-1.2); Hematocrit 24.7 % (42.0-52.0); Hemoglobin 7.8 g/dL (14.0-18.0); Immature Granulocyte Absolute 0.07 K/mm3 (0.00-0.031); Immature Granulocyte Percent A 0.4 % (0-0.5); Lymphocytes Absolute Auto 2.36 K/mm3 (0.9-3.2); Lymphocytes Percent Auto 14.7 % (18.3-44.2); Mean Corpuscular HGB Conc 31.6 g/dl (32-36); Mean Corpuscular Hemoglobin 27.8 pg (26-34); Mean Corpuscular Volume 87.9 fl (80-100); Mean Platelet Volume 11.7 fl (7.4-10.4); Monocytes Absolute Auto 0.7 K/mm3 (0.1-0.6); Monocytes Percent Auto 4.5 % (2.6-8.5); Neutrophils Absolute Auto 12.9 K/mm3 (1.3-6.7); Neutrophils Percent Auto 80.2 % (45.5-73.1); Platelet Count Result 140 k/mm3 (150-375); Red Blood Count 2.81 M/mm3 (4.6-6.20); Red Cell Distribution Width 17.1 % (11.5-14.5); White Blood Count 16.1 K/mm3 (4.5-10.0)
--- NOTE | 2025-01-10 12:34 | WPDGIPROGNO ---
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 Will complete 36 hours NPO and will feed the patient tomorrow. Will continue intravenous pantoprazole today . I will switch to oral therapy, 40 mg b.i.d. for 4 weeks and then will keep him on a 40 mg q.d. dose for maintenance. Subjective Date/time seen: 01/10/25 12:34 Interval history: The patient remained hemodynamically stable throughout the night and the morning after yesterday's procedure. He had a normal bowel movement this morning, no melena or hematochezia. He feels overall well, still NPO. Exam Narrative: Abdomen: Soft, nontender, nondistended, Bowel sounds present. Rest of the physical examination within normal limits. Objective Data Vital Signs Vital Signs: Vital Signs - 24 hr 01/09/25 12:45 01/09/25 13:00 01/09/25 13:16 Temperature Pulse Rate 109 H 111 H 120 H Respiratory Rate 18 19 21 H Blood Pressure Pulse Oximetry 93 94 100 Oxygen Delivery Oxygen Flow Rate 01/09/25 13:30 01/09/25 13:45 01/09/25 14:00 Temperature Pulse Rate 122 H 116 H 111 H Respiratory Rate 16 13 16 Blood Pressure Pulse Oximetry 96 98 96 Oxygen Delivery Oxygen Flow Rate 01/09/25 14:01 01/09/25 14:08 01/09/25 14:24 Temperature 98.6 F 98.4 F Pulse Rate 129 H 115 H 113 H Respiratory Rate 16 20 16 Blood Pressure 136/98 H 136/98 H 141/94 H Pulse Oximetry 100 98 99 Oxygen Delivery Oxygen Flow Rate 01/09/25 14:24 01/09/25 15:24 01/09/25 17:04 Temperature 98.4 F 98.6 F 97.3 F L Pulse Rate 113 H 106 H 123 H Respiratory Rate 16 13 22 H Blood Pressure 141/94 H 143/90 H 142/88 H Pulse Oximetry 99 98 99 Oxygen Delivery Room Air Oxygen Flow Rate 01/09/25 17:46 01/09/25 17:56 01/09/25 18:06 Temperature 97.4 F L 97.5 F L 97.3 F L Pulse Rate 101 H 99 100 Respiratory Rate 21 H 25 H 25 H Blood Pressure 143/95 H 138/98 H 136/83 Pulse Oximetry 100 100 100 Oxygen Delivery Simple Face Mask Simple Face Mask Simple Face Mask Oxygen Flow Rate 10 10 5 01/09/25 18:16 01/09/25 18:26 01/09/25 18:36 Temperature 97.5 F L 97.5 F L 97.3 F L Pulse Rate 103 H 98 101 H Respiratory Rate 18 23 H 18 Blood Pressure 141/75 H 134/81 141/74 H Pulse Oximetry 100 98 99 Oxygen Delivery Room Air Room Air Room Air Oxygen Flow Rate 01/09/25 18:46 01/09/25 20:00 01/09/25 21:42 Temperature 97.5 F L 96.9 F L Pulse Rate 103 H 99 100 Respiratory Rate 19 14 Blood Pressure 126/86 143/74 H Pulse Oximetry 97 97 Oxygen Delivery Room Air Oxygen Flow Rate 01/09/25 21:45 01/10/25 00:09 01/10/25 04:07 Temperature Pulse Rate 79 82 Respiratory Rate Blood Pressure Pulse Oximetry 97 Oxygen Delivery Room Air Oxygen Flow Rate 01/10/25 05:24 Temperature 97.1 F L Pulse Rate 88 Respiratory Rate 12 Blood Pressure 120/90 Pulse Oximetry 100 Oxygen Delivery Oxygen Flow Rate Intake/Output Intake/Output: Intake & Output 01/07/25 01/08/25 01/09/25 01/10/25 23:59 23:59 23:59 23:59 Intake Total 1600 1498.0 Balance 1600 1498.0 Meds/Results Medications: Active Medications Generic Name Dose Route Start Last Admin Trade Name Freq PRN Reason Stop Dose Admin Desvenlafaxine Succinate 100 mg 01/10/25 21:00 Desvenlafaxine Succinate 50 Mg Tab.Er.24h PO HS DOLORES Hydroxyzine Pamoate 50 mg 01/10/25 21:00 Hydroxyzine Pamoate 25 Mg Capsule PO HS DOLORES Sodium Chloride 1,000 mls @ 125 mls/hr 01/09/25 13:15 01/10/25 09:37 Normal Saline Iv IV CONT 125 mls/hr .Q8H DOLORES Administration Miscellaneous Information 1 each 01/10/25 00:01 (Naltrexone 50 Mg Tablet) Is Nonformulary, Can Patient Bring From Home? XX 02/09/25 00:00 CLARIFY DOLORES Non-Formulary Medication 50 mg 01/11/25 09:00 Naltrexone PO 02/10/25 08:59 DAILY DOLORES Olmesartan 40 mg 01/11/25 09:00 Olmesartan Medoxomil 20 Mg Tablet PO DAILY [facility] Ondansetron HCl 4 mg 01/09/25 13:12 01/09/25 21:25 Ondansetron Inj 4 Mg/2 Ml Vial IV PUSH 4 mg Q4H PRN Administration Nausea Pantoprazole Sodium 40 mg 01/09/25 21:00 01/10/25 09:37 Pantoprazole Sodium Iv 40 Mg Vial IV PUSH 40 mg Q12HR DOLORES Administration Prazosin HCl 1 mg 01/09/25 22:50 01/09/25 23:10 Prazosin Hcl 1 Mg Capsule PO Not Given HS [facility] Trazodone HCl 100 mg 01/09/25 21:00 01/09/25 21:41 Trazodone Hcl 50 Mg Tablet PO 100 mg HS DOLORES Administration Verapamil HCl 360 mg 01/11/25 08:00 Verapamil Hcl 180 Mg Tablet Er PO DAILY@0800 [facility] Labs Labs: Laboratory Results - last 24 hr 01/09/25 01/09/25 01/09/25 10:53 12:29 13:16 WBC 15.3 H RBC 3.19 L Hgb 8.6 L D Hct 27.3 L MCV 85.6 MCH 27.0 MCHC 31.5 L RDW 17.3 H Plt Count 225 MPV 11.6 H Immature Gran % (Auto) 0.5 Neut % (Auto) 82.2 H Lymph % (Auto) 12.9 L [place] % (Auto) 4.0 Eos % (Auto) 0.1 Baso % (Auto) 0.3 Lymph # (Auto) 1.97 [place] # (Auto) 0.6 Eos # (Auto) 0.0 Baso # (Auto) 0.0 Abs Immat Gran (auto) 0.07 H Absolute Neuts (auto) 12.6 H Absolute Nucleated RBC 0.000 Total Counted Neutrophils % (Manual) Band Neutrophils % Lymphocytes % (Manual) Basophils % (Manual) Nucleated RBC % 0.0 Abs Neuts (Manual) Abs Lymphs (Manual) Abs Basophils (Manual) Platelet Estimate Clumped Platelets Hypochromasia Anisocytosis Microcytosis Schistocytes Urine Color Dark yellow Urine Appearance Cloudy H Urine pH 5.5 Ur Specific [place] 1.029 Urine Protein Trace Urine Glucose (UA) Negative Urine Ketones 2+ H Ur Blood (Man) Non-hemolyzed trace Urine Nitrate Negative Urine Bilirubin Negative Urine Urobilinogen 1.0 Add Ur Microanalysis Reviewed Leukocyte Esterase Rfl Trace H Urine RBC 11-20 H Urine WBC 0-5 Ur Squamous Epith Cells Occasional Urine Bacteria None seen Urine Casts >20 Blood Type AB Positive Antibody Screen Negative Crossmatch See Detail 01/09/25 01/10/25 01/10/25 21:31 06:18 11:51 WBC 18.0 H 12.2 H 16.1 H RBC 3.27 L 2.87 L 2.81 L Hgb 8.9 L 7.9 L 7.8 L Hct 28.0 L 25.1 L 24.7 L MCV 85.6 87.5 87.9 MCH 27.2 27.5 27.8 MCHC 31.8 L 31.5 L 31.6 L RDW 17.1 H 17.2 H 17.1 H Plt Count 203 156 140 L MPV 11.9 H 11.2 H 11.7 H Immature Gran % (Auto) Not Reportable 0.4 0.4 Neut % (Auto) Not Reportable 85.9 H 80.2 H Lymph % (Auto) Not Reportable 10.9 L 14.7 L [place] % (Auto) Not Reportable 2.7 4.5 Eos % (Auto) Not Reportable 0.0 0.0 Baso % (Auto) Not Reportable 0.1 L 0.2 Lymph # (Auto) Not Reportable 1.32 2.36 [place] # (Auto) Not Reportable 0.3 0.7 H Eos # (Auto) Not Reportable 0.0 0.0 Baso # (Auto) Not Reportable 0.0 0.0 Abs Immat Gran (auto) Not Reportable 0.05 H 0.07 H Absolute Neuts (auto) Not Reportable 10.5 H 12.9 H Absolute Nucleated RBC Not Reportable 0.000 0.000 Total Counted 100 Neutrophils % (Manual) 86 H Band Neutrophils % 0 Lymphocytes % (Manual) 12.0 L Basophils % (Manual) 2 H Nucleated RBC % Not Reportable 0.0 0.0 Abs Neuts (Manual) 15.48 H Abs Lymphs (Manual) 2.16 Abs Basophils (Manual) 0.36 H Platelet Estimate Adequate Clumped Platelets Present Hypochromasia 1+ Anisocytosis 2+ Microcytosis 1+ Schistocytes None seen Urine Color Urine Appearance Urine pH Ur Specific [place] Urine Protein Urine Glucose (UA) Urine Ketones Ur Blood (Man) Urine Nitrate Urine Bilirubin Urine Urobilinogen Add Ur Microanalysis Leukocyte Esterase Rfl Urine RBC Urine WBC Ur Squamous Epith Cells Urine Bacteria Urine Casts Blood Type Antibody Screen Crossmatch
[2025-01-10] MEDS: hydrOXYzine pamoate 25 MG CAPSULE 50 MG PO (20:18)
[2025-01-10] MEDS: traZODone HCL 50 MG TABLET 100 MG PO (20:18)
[2025-01-10] MEDS: DESVENLAFAXINE SUCCINATE 50 MG TAB.ER.24H 100 MG PO (20:19)
[2025-01-10] MEDS: PRAZOSIN HCL 1 MG CAPSULE PO (20:19)
[2025-01-11] VITALS (25 sets, daily range): BP systolic 92–152; BP diastolic 44–89; PULSE 70–98; RESP 12–27; TEMP 36.1–36.8; O2SAT 92–100
[2025-01-11 07:37] LABS: Basophils Percent Auto 0.3 % (0.2-1.2); Eosinophils Absolute Auto 0.1 K/mm3 (0-0.3); Eosinophils Percent Auto 0.8 % (0-4.4); Hematocrit 21.2 % (42.0-52.0); Immature Granulocyte Absolute 0.02 K/mm3 (0.00-0.031); Immature Granulocyte Percent A 0.3 % (0-0.5); Lymphocytes Absolute Auto 2.33 K/mm3 (0.9-3.2); Lymphocytes Percent Auto 31.8 % (18.3-44.2); Mean Corpuscular HGB Conc 31.1 g/dl (32-36); Mean Corpuscular Volume 86.9 fl (80-100); Mean Platelet Volume 11.1 fl (7.4-10.4); Monocytes Absolute Auto 0.3 K/mm3 (0.1-0.6); Monocytes Percent Auto 4.6 % (2.6-8.5); Neutrophils Absolute Auto 4.6 K/mm3 (1.3-6.7); Neutrophils Percent Auto 62.2 % (45.5-73.1); Platelet Count Result 110 k/mm3 (150-375); Red Blood Count 2.44 M/mm3 (4.6-6.20); Red Cell Distribution Width 17.2 % (11.5-14.5); White Blood Count 7.3 K/mm3 (4.5-10.0)
[2025-01-11 07:51] LABS: Hemoglobin 6.6 g/dL (14.0-18.0); Magnesium 1.9 mg/dL (1.6-2.3)
[2025-01-11 07:54] LABS: Alanine Aminotransferase 55 U/L (6-50); Albumin Level 3.2 g/dL (3.5-5.1); Alkaline Phosphatase 72 U/L (38-126); Anion Gap 8 mmol/L (4-12); Aspartate Amino Transferase 49 U/L (17-59); Bilirubin,Total 0.8 mg/dL (0.2-1.3); Blood Urea Nitrogen 16 mg/dL (9-20); Calcium 8.4 mg/dL (8.4-10.2); Carbon Dioxide 24 mmol/L (22-30); Chloride 105 mmol/L (98-107); Estimated CRCL calculation 99 ml/min; Estimated Glomerular Filt Rate > 60; Glucose 90 mg/dL (65-110); Potassium 3.6 mmol/L (3.4-5.0); Sodium 137 mmol/L (137-145)
[2025-01-11] MEDS: OLMESARTAN MEDOXOMIL 20 MG TABLET 40 MG PO (08:08)
[2025-01-11] MEDS: PANTOPRAZOLE SODIUM IV 40 MG VIAL IV PUSH ×2 (08:08→20:49)
[2025-01-11] MEDS: VERAPAMIL HCL 180 MG TABLET ER 360 MG PO (08:09)
[2025-01-11] MEDS: SODIUM CHLORIDE 0.9% IV 1,000 ML 125 ML IV CONT (09:55)
[2025-01-11] MEDS: ONDANSETRON INJ 4 MG/2 ML VIAL IV PUSH (09:55)
--- NOTE | 2025-01-11 11:11 | SUR.PREOP ---
patient pre op in procedure room 3
--- NOTE | 2025-01-11 11:41 | P.PNIM_ITS ---
Progress Note: A&P Assessment and Plan (1) Hematemesis: Qualifiers: Nausea presence: with nausea Qualified Code(s): K92.0 - Hematemesis Code(s): K92.0 - Hematemesis Status: Acute Assessment and Plan: GI consulted NPO Patient had the EGD with GI on 01/09/2025, he denies any blood per rectum since p rocedure QA hour H&H 01/10/25: * No further hematemesis * Pt with BM this AM without any evidence of melena or hematochezia. * Painless BM today. * He remains NPO at request of GI. * Continue to monitor and trend. 01/11/25: * No further Hematemesis, however, pt with BRBPR today and further drop in Hgb. (2) Acute blood loss anemia: Code(s): D62 - Acute posthemorrhagic anemia Status: Acute Assessment and Plan: Secondary to above Stable after EGD Transfuse for hemoglobin less than 7 or symptomatic Q 8 CBC 01/09 1 unit RBCs transfused 01/10/25: * Hgb today with drop from 8.9 yesterday to 7.9 today. * Continue to monitor and trend labs. * No current evidence of GI bleed. 01/11/25: * transfuse 1 unit PRBC's. * Dr. Cornejo was notified and pt taken emergently to GI lab. * Initiation of transfer to [facility] made at the request of Dr. Cornejo. (3) Peptic ulcer: Code(s): K27.9 - Peptic ulcer, site unspecified, unspecified as acute or chronic, without hemorrhage or perforation Status: Acute Assessment and Plan: IV Protonix b.i.d. 01/10/25: * EGD on 01/09 with evidence of a chronic, non-bleeding gastric ulcer. * Pt is approximately 40 days sober from ETOH use. * No s/s of acute ETOH withdrawl. * Continue PPI Prophylaxis and treatment. 01/11/25: * transfuse 1 unit PRBC's. * Dr. Cornejo was notified and pt taken emergently to GI lab. * Initiation of transfer to tertiary center made at the request of Dr. Cornejo. * Spoke with Bariatric surgeon, Dr. Garg who will accept for transfer once pt has been stable from today's EGD. This is where the pt had his Bariatric procedure. Will ultimately transfer to [facility]. (4) Hypertension: Qualifiers: Hypertension type: essential hypertension Qualified Code(s): I10 - Essential (primary) hypertension Code(s): I10 - Essential (primary) hypertension Status: Acute Assessment and Plan: Holding blood pressure meds overnight will re-evaluate in the morning 01/10/25: * BP is stable. * Continue medications 01/11/25: * Stable BP despite pt's recent blood loss. * Continue current medication regimen. (5) PTSD (post-traumatic stress disorder): Code(s): F43.10 - Post-traumatic stress disorder, unspecified Status: Acute Assessment and Plan: Continue Minipress 01/10/25: * Adding back in the Pristiq and the Hydroxyzine today as well as Naltrexone. * Monitor for side effects. Plan Transfer to [facility] under the care of Dr. Garg, Bariatric Surgeon. Time Spent With Patient Time with patient: 25 - 35 minutes Subjective Date/time seen: 01/11/25 11:41 Interval history: This very pleasant male pt was examined at the bedside today in interval assessment after he once again had BRBPR, and some epigastric abdominal pain. He also had an acute drop in his Hgb. Pt had been NPO since he had cauterization of his bleeding ulcer at the anastamotic jejunal side of his gastric bypass now two days ago. He developed increase in pain this AM and he also had further bleeding. He had been kept NPO to monitor for this and Dr. Cornejo, GI was notified. He took him back to the GI lab today for repeat EGD. In the meantime, he suggest that I reach out to a tertiary center to discuss. I spoke with the call center at [facility], as pt had his Gastric Bypass within the [facility] system, and was directed to Bariatric surgeon, Dr. Garg. After advising him of pt's sequela of events, he advised that he will need a surgical revision and he would like pt transferred to [facility] after he is stable from the endoscopy today. Pt will be kept NPO. Review of Systems Review of Systems: All systems reviewed & are unremarkable except as noted in HPI and below Exam Narrative: General: well appearing, appears stated age. Sitting at the bedside at this time/ HEENT: normocephalic, atraumatic. Mucous membranes moist. Respiratory: clear to auscultation bilaterally. Cardiovascular: RRR, S1 and S2 present without S3, S4, m,r,g,h Abdomen: Soft, round, no pulsatile masses, nondistended and TTP. No rebound, no guarding. Extremities: No cyanosis, clubbing, or edema present. Pulses are palpable 2/2. Active ROM to all four extremities. Neuro: Alert and orientated x 4. PERRLA. Cranial nerves 2-12 intact without focal deficit. Skin: Warm, dry, and intact, without rash, erythema, or lesion. Psych: pleasant, cooperative, normal speech, normal affect, no hallucinations, no dysarthia Objective Data Vital Signs Vital Signs: Vital Signs - 24 hr 01/10/25 12:00 01/10/25 14:27 01/10/25 16:00 Temperature 98.2 F Pulse Rate 105 H 103 H 114 H Respiratory Rate 16 Blood Pressure 138/91 H Pulse Oximetry 100 Oxygen Delivery 01/10/25 20:00 01/10/25 20:00 01/10/25 21:28 Temperature 97.6 F Pulse Rate 95 97 95 Respiratory Rate 13 13 Blood Pressure 143/86 H Pulse Oximetry 98 98 Oxygen Delivery Room Air 01/11/25 00:00 01/11/25 04:00 01/11/25 05:18 Temperature 96.9 F L Pulse Rate 80 70 77 Respiratory Rate 12 Blood Pressure 125/81 Pulse Oximetry 100 Oxygen Delivery 01/11/25 08:00 01/11/25 10:40 01/11/25 10:55 Temperature 97.8 F 98.2 F Pulse Rate 81 88 98 Respiratory Rate 16 16 Blood Pressure 116/72 124/70 Pulse Oximetry 100 98 Oxygen Delivery 01/11/25 11:08 Temperature 98.2 F Pulse Rate 97 Respiratory Rate 16 Blood Pressure 124/70 Pulse Oximetry 98 Oxygen Delivery Room Air Intake/Output Intake/Output: Intake & Output 01/08/25 01/09/25 01/10/25 01/11/25 23:59 23:59 23:59 23:59 Intake Total 1600 2498.0 1000 Balance 1600 2498.0 1000 Meds/Results Medications: Active Medications Generic Name Dose Route Start Last Admin Trade Name Freq PRN Reason Stop Dose Admin Desvenlafaxine Succinate 100 mg 01/10/25 21:00 01/10/25 20:19 Desvenlafaxine Succinate 50 Mg Tab.Er.24h PO 100 mg HS DOLORES Administration Hydroxyzine Pamoate 50 mg 01/10/25 21:00 01/10/25 20:18 Hydroxyzine Pamoate 25 Mg Capsule PO 50 mg HS DOLORES Administration Sodium Chloride 1,000 mls @ 50 mls/hr 01/09/25 13:15 01/11/25 09:55 Normal Saline Iv IV CONT 125 mls/hr .Q20H DOLORES Administration Sodium Chloride 250 mls @ 30 mls/hr 01/11/25 07:53 Normal Saline Iv IV CONT 01/11/25 16:12 .Q8H20M STA Lactated Ringer's 1,000 mls @ 150 mls/hr 01/11/25 11:15 Lr - Lactated Ringers Iv IV CONT .Q6H40M REPLACED BY [facility] Miscellaneous Information 1 each 01/10/25 00:01 (Naltrexone 50 Mg Tablet) Is Nonformulary, Can Patient Bring From Home? XX 02/09/25 00:00 CLARIFY DOLORES Non-Formulary Medication 50 mg 01/11/25 09:00 Naltrexone PO 02/10/25 08:59 DAILY DOLORES Olmesartan 40 mg 01/11/25 09:00 01/11/25 08:08 Olmesartan Medoxomil 20 Mg Tablet PO 40 mg DAILY DOLORES Administration Ondansetron HCl 4 mg 01/09/25 13:12 01/11/25 09:55 Ondansetron Inj 4 Mg/2 Ml Vial IV PUSH 4 mg Q4H PRN Administration Nausea Ondansetron HCl 4 mg 01/11/25 10:35 Ondansetron Inj 4 Mg/2 Ml Vial IV PUSH Q6H PRN Nausea And Vomiting Pantoprazole Sodium 40 mg 01/09/25 21:00 01/11/25 08:08 Pantoprazole Sodium Iv 40 Mg Vial IV PUSH 40 mg Q12HR DOLORES Administration Prazosin HCl 1 mg 01/09/25 22:50 01/10/25 20:19 Prazosin Hcl 1 Mg Capsule PO 1 mg HS DOLORES Administration Trazodone HCl 100 mg 01/09/25 21:00 01/10/25 20:18 Trazodone Hcl 50 Mg Tablet PO 100 mg HS DOLORES Administration Verapamil HCl 360 mg 01/11/25 08:00 01/11/25 08:09 Verapamil Hcl 180 Mg Tablet Er PO 360 mg DAILY@0800 DOLORES Administration Labs Labs: Laboratory Results - last 24 hr 01/09/25 01/10/25 01/11/25 10:53 11:51 06:51 WBC 16.1 H RBC 2.81 L Hgb 7.8 L Hct 24.7 L MCV 87.9 MCH 27.8 MCHC 31.6 L RDW 17.1 H Plt Count 140 L MPV 11.7 H Immature Gran % (Auto) 0.4 Neut % (Auto) 80.2 H Lymph % (Auto) 14.7 L [place] % (Auto) 4.5 Eos % (Auto) 0.0 Baso % (Auto) 0.2 Lymph # (Auto) 2.36 [place] # (Auto) 0.7 H Eos # (Auto) 0.0 Baso # (Auto) 0.0 Abs Immat Gran (auto) 0.07 H Absolute Neuts (auto) 12.9 H Absolute Nucleated RBC 0.000 Nucleated RBC % 0.0 Sodium 137 Potassium 3.6 Chloride 105 Carbon Dioxide 24 Anion Gap 8 BUN 16 D Creatinine 1.05 Estim Creat Clear Calc 99 Estimated GFR > 60 Glucose 90 Calcium 8.4 Magnesium Total Bilirubin 0.8 AST 49 ALT 55 H Alkaline Phosphatase 72 Total Protein 6.0 L Albumin 3.2 L Blood Type AB Positive Antibody Screen Negative Crossmatch See Detail 01/11/25 06:52 WBC 7.3 RBC 2.44 L Hgb 6.6 L* Hct 21.2 L MCV 86.9 MCH 27.0 MCHC 31.1 L RDW 17.2 H Plt Count 110 L MPV 11.1 H Immature Gran % (Auto) 0.3 Neut % (Auto) 62.2 Lymph % (Auto) 31.8 [place] % (Auto) 4.6 Eos % (Auto) 0.8 Baso % (Auto) 0.3 Lymph # (Auto) 2.33 [place] # (Auto) 0.3 Eos # (Auto) 0.1 Baso # (Auto) 0.0 Abs Immat Gran (auto) 0.02 Absolute Neuts (auto) 4.6 Absolute Nucleated RBC 0.000 Nucleated RBC % 0.0 Sodium Potassium Chloride Carbon Dioxide Anion Gap BUN Creatinine Estim Creat Clear Calc Estimated GFR Glucose Calcium Magnesium 1.9 Total Bilirubin AST ALT Alkaline Phosphatase Total Protein Albumin Blood Type Antibody Screen Crossmatch Quality VTE Prophylaxis VTE prophylaxis: mechanical ordered
--- NOTE | 2025-01-11 12:18 | P.PNGI_ITS ---
Progress Note: A&P Assessment and Plan (1) Peptic ulcer: Code(s): K27.9 - Peptic ulcer, site unspecified, unspecified as acute or chronic, without hemorrhage or perforation Status: Acute Assessment and Plan: The patient does not have active, recurrent GI bleeding form ulcer cauterized on last Sunday. The drop in hemoglobin might be just a reflection of hemodilution a late changes but not active bleeding. Nevertheless, I suggest keeping the patient NPO for 24 more hours, continue pantoprazole IV and transfuse 2 units of packed red blood cells today. He should continue being monitored hemodynamically and obtaining hemoglobin/hematocrit every 8 hours today. (2) GI bleed: Qualifiers: GI bleed type/associated pathology: unspecified gastrointestinal hemorrhage type Qualified Code(s): K92.2 - Gastrointestinal hemorrhage, unspecified Code(s): K92.2 - Gastrointestinal hemorrhage, unspecified Status: Acute Subjective Date/time seen: 01/11/25 12:18 Interval history: See EGD report. The patient had 1 semi solid black stool this morning. No tachycardia or hypotension episodes. Exam Narrative: General: well appearing, appears stated age. Sitting at the bedside at this time/ Abdomen: Soft, nontender, nondistended, no hepatomegaly. Rectal: Solid melanotic stools. Objective Data Vital Signs Vital Signs: Vital Signs - 24 hr 01/10/25 14:27 01/10/25 16:00 01/10/25 20:00 Temperature 98.2 F Pulse Rate 103 H 114 H 95 Respiratory Rate 16 13 Blood Pressure 138/91 H Pulse Oximetry 100 98 Oxygen Delivery Room Air 01/10/25 20:00 01/10/25 21:28 01/11/25 00:00 Temperature 97.6 F Pulse Rate 97 95 80 Respiratory Rate 13 Blood Pressure 143/86 H Pulse Oximetry 98 Oxygen Delivery 01/11/25 04:00 01/11/25 05:18 01/11/25 08:00 Temperature 96.9 F L Pulse Rate 70 77 81 Respiratory Rate 12 Blood Pressure 125/81 Pulse Oximetry 100 Oxygen Delivery 01/11/25 10:40 01/11/25 10:55 01/11/25 11:08 Temperature 97.8 F 98.2 F 98.2 F Pulse Rate 88 98 97 Respiratory Rate 16 16 16 Blood Pressure 116/72 124/70 124/70 Pulse Oximetry 100 98 98 Oxygen Delivery Room Air 01/11/25 11:34 01/11/25 11:44 01/11/25 11:54 Temperature 97.4 F L Pulse Rate 70 76 77 Respiratory Rate 20 20 27 H Blood Pressure 100/44 L 104/66 98/54 L Pulse Oximetry 99 96 92 Oxygen Delivery Room Air Room Air Room Air 01/11/25 11:55 01/11/25 12:04 01/11/25 12:13 Temperature 97.9 F 97.8 F Pulse Rate 77 80 76 Respiratory Rate 27 H 21 H 18 Blood Pressure 98/54 L 101/78 92/53 L Pulse Oximetry 92 99 99 Oxygen Delivery Room Air 01/11/25 12:14 Temperature Pulse Rate 76 Respiratory Rate 18 Blood Pressure 92/53 L Pulse Oximetry 99 Oxygen Delivery Room Air Intake/Output Intake/Output: Intake & Output 01/08/25 01/09/25 01/10/25 01/11/25 23:59 23:59 23:59 23:59 Intake Total 1600 2498.0 1309 Balance 1600 2498.0 1309 Meds/Results Medications: Active Medications Generic Name Dose Route Start Last Admin Trade Name Freq PRN Reason Stop Dose Admin Desvenlafaxine Succinate 100 mg 01/10/25 21:00 01/10/25 20:19 Desvenlafaxine Succinate 50 Mg Tab.Er.24h PO 100 mg HS DOLORES Administration Hydroxyzine Pamoate 50 mg 01/10/25 21:00 01/10/25 20:18 Hydroxyzine Pamoate 25 Mg Capsule PO 50 mg HS DOLORES Administration Sodium Chloride 1,000 mls @ 50 mls/hr 01/09/25 13:15 01/11/25 09:55 Normal Saline Iv IV CONT 125 mls/hr .Q20H DOLORES Administration Sodium Chloride 250 mls @ 30 mls/hr 01/11/25 07:53 Normal Saline Iv IV CONT 01/11/25 16:12 .Q8H20M STA Lactated Ringer's 1,000 mls @ 150 mls/hr 01/11/25 11:15 Lr - Lactated Ringers Iv IV CONT .Q6H40M DOLORES Sodium Chloride 250 mls @ 30 mls/hr 01/11/25 12:03 Normal Saline Iv IV CONT 01/11/25 20:22 .Q8H20M STA Miscellaneous Information 1 each 01/10/25 00:01 (Naltrexone 50 Mg Tablet) Is Nonformulary, Can Patient Bring From Home? XX 02/09/25 00:00 CLARIFY [facility] Non-Formulary Medication 50 mg 01/11/25 09:00 Naltrexone PO 02/10/25 08:59 DAILY DOLORES Olmesartan 40 mg 01/11/25 09:00 01/11/25 08:08 Olmesartan Medoxomil 20 Mg Tablet PO 40 mg DAILY DOLORES Administration Ondansetron HCl 4 mg 01/09/25 13:12 01/11/25 09:55 Ondansetron Inj 4 Mg/2 Ml Vial IV PUSH 4 mg Q4H PRN Administration Nausea Ondansetron HCl 4 mg 01/11/25 10:35 Ondansetron Inj 4 Mg/2 Ml Vial IV PUSH Q6H PRN Nausea And Vomiting Pantoprazole Sodium 40 mg 01/09/25 21:00 01/11/25 08:08 Pantoprazole Sodium Iv 40 Mg Vial IV PUSH 40 mg Q12HR DOLORES Administration Prazosin HCl 1 mg 01/09/25 22:50 01/10/25 20:19 Prazosin Hcl 1 Mg Capsule PO 1 mg HS DOLORES Administration Trazodone HCl 100 mg 01/09/25 21:00 01/10/25 20:18 Trazodone Hcl 50 Mg Tablet PO 100 mg HS DOLORES Administration Verapamil HCl 360 mg 01/11/25 08:00 01/11/25 08:09 Verapamil Hcl 180 Mg Tablet Er PO 360 mg DAILY@0800 DOLORES Administration Labs Labs: Laboratory Results - last 24 hr 01/09/25 01/11/25 01/11/25 10:53 06:51 06:52 WBC 7.3 RBC 2.44 L Hgb 6.6 L* Hct 21.2 L MCV 86.9 MCH 27.0 MCHC 31.1 L RDW 17.2 H Plt Count 110 L MPV 11.1 H Immature Gran % (Auto) 0.3 Neut % (Auto) 62.2 Lymph % (Auto) 31.8 [place] % (Auto) 4.6 Eos % (Auto) 0.8 Baso % (Auto) 0.3 Lymph # (Auto) 2.33 [place] # (Auto) 0.3 Eos # (Auto) 0.1 Baso # (Auto) 0.0 Abs Immat Gran (auto) 0.02 Absolute Neuts (auto) 4.6 Absolute Nucleated RBC 0.000 Nucleated RBC % 0.0 Sodium 137 Potassium 3.6 Chloride 105 Carbon Dioxide 24 Anion Gap 8 BUN 16 D Creatinine 1.05 Estim Creat Clear Calc 99 Estimated GFR > 60 Glucose 90 Calcium 8.4 Magnesium 1.9 Total Bilirubin 0.8 AST 49 ALT 55 H Alkaline Phosphatase 72 Total Protein 6.0 L Albumin 3.2 L Blood Type AB Positive Antibody Screen Negative Crossmatch See Detail
[2025-01-11 18:08] LABS: Hematocrit 25.6 % (42.0-52.0); Hemoglobin 8.4 g/dL (14.0-18.0)
[2025-01-11] MEDS: TUBING, BLOOD PLUM PUMP TUBING 1 EACH XX (18:29)
[2025-01-11] MEDS: DESVENLAFAXINE SUCCINATE 50 MG TAB.ER.24H 100 MG PO (20:49)
[2025-01-11] MEDS: traZODone HCL 50 MG TABLET 100 MG PO (20:49)
[2025-01-11] MEDS: hydrOXYzine pamoate 25 MG CAPSULE 50 MG PO (20:49)
[2025-01-11] MEDS: PRAZOSIN HCL 1 MG CAPSULE PO (20:49)
[2025-01-12] VITALS (9 sets, daily range): BP systolic 132–136; BP diastolic 87–95; PULSE 72–92; RESP 16–18; TEMP 36.5–36.9; O2SAT 99–100
[2025-01-12 01:06] LABS: Hematocrit 25.9 % (42.0-52.0); Hemoglobin 8.5 g/dL (14.0-18.0)
[2025-01-12 06:27] LABS: Basophils Percent Auto 0.4 % (0.2-1.2); Eosinophils Absolute Auto 0.1 K/mm3 (0-0.3); Eosinophils Percent Auto 1.4 % (0-4.4); Hemoglobin 8.4 g/dL (14.0-18.0); Immature Granulocyte Absolute 0.01 K/mm3 (0.00-0.031); Immature Granulocyte Percent A 0.1 % (0-0.5); Lymphocytes Absolute Auto 1.75 K/mm3 (0.9-3.2); Lymphocytes Percent Auto 23.8 % (18.3-44.2); Mean Corpuscular HGB Conc 31.1 g/dl (32-36); Mean Corpuscular Hemoglobin 27.6 pg (26-34); Mean Corpuscular Volume 88.8 fl (80-100); Mean Platelet Volume 10.7 fl (7.4-10.4); Monocytes Absolute Auto 0.5 K/mm3 (0.1-0.6); Monocytes Percent Auto 6.4 % (2.6-8.5); Neutrophils Percent Auto 67.9 % (45.5-73.1); Platelet Count Result 113 k/mm3 (150-375); Red Blood Count 3.04 M/mm3 (4.6-6.20); Red Cell Distribution Width 17.2 % (11.5-14.5); White Blood Count 7.4 K/mm3 (4.5-10.0)
[2025-01-12] MEDS: SODIUM CHLORIDE 0.9% IV 1,000 ML 125 ML IV CONT (08:43)
[2025-01-12] MEDS: OLMESARTAN MEDOXOMIL 20 MG TABLET 40 MG PO (08:45)
[2025-01-12] MEDS: VERAPAMIL HCL 180 MG TABLET ER 360 MG PO (08:45)
--- NOTE | 2025-01-12 09:15 | WPDANESPN ---
Anes - Prog Note Post-Op Date/Time: 01/12/25 09:15 Cardiovascular status: normal Respiratory status: normal Airway patency: baseline Mental status: baseline Post-Op hydration status: normal Vital Signs: Last Vital Signs Temp 36.5 C 01/12/25 06:00 Pulse 84 01/12/25 06:00 Resp 16 01/12/25 06:00 BP 136/95 H 01/12/25 06:00 Pulse Ox 100 01/12/25 06:00 O2 Del Method Room Air 01/11/25 20:00 O2 Flow Rate 5 01/09/25 18:06 Pain Score (VAS): 0 I/O: Intake & Output 01/11/25 01/12/25 01/12/25 23:59 07:59 15:59 Intake Total 1291 0 Balance 1291 0 Laboratory Tests 01/12/25 05:52 01/11/25 06:51 01/09/25 01/11/25 01/12/25 10:53 18:02 01:01 WBC RBC Hgb 8.4 L 8.5 L Hct 25.6 L 25.9 L MCV MCH MCHC RDW Plt Count MPV Immature Gran % (Auto) Neut % (Auto) Lymph % (Auto) [place] % (Auto) Eos % (Auto) Baso % (Auto) Lymph # (Auto) [place] # (Auto) Eos # (Auto) Baso # (Auto) Abs Immat Gran (auto) Absolute Neuts (auto) Absolute Nucleated RBC Nucleated RBC % Blood Type AB Positive Antibody Screen Negative Crossmatch See Detail 01/12/25 05:52 WBC 7.4 RBC 3.04 L Hgb 8.4 L Hct 27.0 L MCV 88.8 MCH 27.6 MCHC 31.1 L RDW 17.2 H Plt Count 113 L MPV 10.7 H Immature Gran % (Auto) 0.1 Neut % (Auto) 67.9 Lymph % (Auto) 23.8 [place] % (Auto) 6.4 Eos % (Auto) 1.4 Baso % (Auto) 0.4 Lymph # (Auto) 1.75 [place] # (Auto) 0.5 Eos # (Auto) 0.1 Baso # (Auto) 0.0 Abs Immat Gran (auto) 0.01 Absolute Neuts (auto) 5.0 Absolute Nucleated RBC 0.000 Nucleated RBC % 0.0 Blood Type Antibody Screen Crossmatch Post-procedural complaints: none Patient Feedback: Patient satisfied with anesthetic care.
--- NOTE | 2025-01-12 09:33 | PM.IMPN ---
Progress Note: A&P Assessment and Plan (1) GI bleed: Qualifiers: GI bleed type/associated pathology: unspecified gastrointestinal hemorrhage type Qualified Code(s): K92.2 - Gastrointestinal hemorrhage, unspecified Code(s): K92.2 - Gastrointestinal hemorrhage, unspecified Status: Acute (2) Acute renal insufficiency: Code(s): N28.9 - Disorder of kidney and ureter, unspecified Status: Acute (3) Acute blood loss anemia: Code(s): D62 - Acute posthemorrhagic anemia Status: Acute (4) Peptic ulcer: Code(s): K27.9 - Peptic ulcer, site unspecified, unspecified as acute or chronic, without hemorrhage or perforation Status: Acute (5) Gastrointestinal hemorrhage with melena: Code(s): K92.1 - Melena Status: Acute Plan Acute GI bleeding Hematemesis: Qualifiers: Nausea presence: with nausea Qualified Code(s): K92.0 - Hematemesis Code(s): K92.0 - Hematemesis Status: Acute Assessment and Plan: GI consulted Per GI report, patient does not have active bleeding at the site and that he believed that what we saw was residual blood from previous bleeding No active bleeding now Will continue Protonix 40 mg IV q.12 hours (2) Acute blood loss anemia: Code(s): D62 - Acute posthemorrhagic anemia Status: Acute Assessment and Plan: Secondary to above. Patient received 1 pack RBC Stable after EGD Transfuse for hemoglobin less than 7 or symptomatic Follow-up CBC a hemoglobin Transfuse p.r.n. Hemoglobin stable (3) Peptic ulcer: Code(s): K27.9 - Peptic ulcer, site unspecified, unspecified as acute or chronic, without hemorrhage or perforation Status: Acute Assessment and Plan: Patient is on IV Protonix b.i.d. EGD on 01/09 with evidence of a chronic, non-bleeding gastric ulcer. (4) Hypertension: Qualifiers: Hypertension type: essential hypertension Qualified Code(s): I10 - Essential (primary) hypertension Code(s): I10 - Essential (primary) hypertension Status: Acute Assessment and Plan: Holding blood pressure meds overnight will re-evaluate in the morning (5) PTSD (post-traumatic stress disorder): Code(s): F43.10 - Post-traumatic stress disorder, unspecified Status: Acute Assessment and Plan: Continue Minipress 01/10/25: Adding back in the Pristiq and the Hydroxyzine today as well as Naltrexone. Monitor for side effects. Dr. Garg accept for transfer once pt has been stable pt had his Bariatric procedure. Will ultimately transfer to [facility]. Subjective Date/time seen: 01/12/25 09:33 Interval history: I saw examined patient today. Patient denies abdomen pain, bloody stools. Patient also denies chest pain shortness breath, lightheadedness. Patient is afebrile, blood pressure stable, labs reviewed, hemoglobin 8.4, stable since yesterday. Chemistry unremarkable Exam Narrative: General: well appearing, appears stated age. Sitting at the bedside at this time/ HEENT: normocephalic, atraumatic. Mucous membranes moist. Respiratory: clear to auscultation bilaterally. Cardiovascular: RRR, S1 and S2 present without S3, S4, m,r,g,h Abdomen: Soft, round, no pulsatile masses, nondistended and TTP. No rebound, no guarding. Extremities: No cyanosis, clubbing, or edema present. Pulses are palpable 2/2. Active ROM to all four extremities. Neuro: Alert and orientated x 4. PERRLA. Cranial nerves 2-12 intact without focal deficit. Skin: Warm, dry, and intact, without rash, erythema, or lesion. Psych: pleasant, cooperative, normal speech, normal affect, no hallucinations, no dysarthia Objective Data Vital Signs Vital Signs: Vital Signs - 24 hr 01/11/25 10:40 01/11/25 10:55 01/11/25 11:08 Temperature 97.8 F 98.2 F 98.2 F Pulse Rate 88 98 97 Respiratory Rate 16 16 16 Blood Pressure 116/72 124/70 124/70 Pulse Oximetry 100 98 98 Oxygen Delivery Room Air 01/11/25 11:34 01/11/25 11:44 01/11/25 11:54 Temperature 97.4 F L Pulse Rate 70 76 77 Respiratory Rate 20 20 27 H Blood Pressure 100/44 L 104/66 98/54 L Pulse Oximetry 99 96 92 Oxygen Delivery Room Air Room Air Room Air 01/11/25 11:55 01/11/25 12:04 01/11/25 12:13 Temperature 97.9 F 97.8 F Pulse Rate 77 80 76 Respiratory Rate 27 H 21 H 18 Blood Pressure 98/54 L 101/78 92/53 L Pulse Oximetry 92 99 99 Oxygen Delivery Room Air 01/11/25 12:14 01/11/25 12:24 01/11/25 12:34 Temperature Pulse Rate 76 76 80 Respiratory Rate 18 14 18 Blood Pressure 92/53 L 104/55 L 102/57 L Pulse Oximetry 99 99 98 Oxygen Delivery Room Air Room Air Room Air 01/11/25 14:12 01/11/25 14:16 01/11/25 14:27 Temperature 98.1 F 98.1 F 98.0 F Pulse Rate 80 82 82 Respiratory Rate 16 16 18 Blood Pressure 126/80 126/80 127/80 Pulse Oximetry 99 98 100 Oxygen Delivery 01/11/25 14:28 01/11/25 15:28 01/11/25 16:00 Temperature 98.0 F 97.6 F Pulse Rate 82 85 81 Respiratory Rate 18 16 Blood Pressure 127/80 124/78 Pulse Oximetry 100 100 Oxygen Delivery 01/11/25 16:26 01/11/25 20:00 01/11/25 20:00 Temperature 98.1 F Pulse Rate 81 81 88 Respiratory Rate 16 18 Blood Pressure 127/74 Pulse Oximetry 98 100 Oxygen Delivery Room Air 01/11/25 21:17 01/12/25 00:00 01/12/25 04:00 Temperature 98.3 F Pulse Rate 81 78 73 Respiratory Rate 18 Blood Pressure 152/89 H Pulse Oximetry 100 Oxygen Delivery 01/12/25 06:00 Temperature 97.7 F Pulse Rate 84 Respiratory Rate 16 Blood Pressure 136/95 H Pulse Oximetry 100 Oxygen Delivery Intake/Output Intake/Output: Intake & Output 01/09/25 01/10/25 01/11/25 01/12/25 23:59 23:59 23:59 23:59 Intake Total 1600 2498.0 2600 0 Balance 1600 2498.0 2600 0 Meds/Results Medications: Active Medications Generic Name Dose Route Start Last Admin Trade Name Freq PRN Reason Stop Dose Admin Desvenlafaxine Succinate 100 mg 01/10/25 21:00 01/11/25 20:49 Desvenlafaxine Succinate 50 Mg Tab.Er.24h PO 100 mg HS [facility] Administration Hydroxyzine Pamoate 50 mg 01/10/25 21:00 01/11/25 20:49 Hydroxyzine Pamoate 25 Mg Capsule PO 50 mg HS [facility] Administration Sodium Chloride 1,000 mls @ 50 mls/hr 01/09/25 13:15 01/12/25 08:43 Normal Saline Iv IV CONT 125 mls/hr .Q20H [facility] Administration Olmesartan 40 mg 01/11/25 09:00 01/12/25 08:45 Olmesartan Medoxomil 20 Mg Tablet PO 40 mg DAILY [facility] Administration Ondansetron HCl 4 mg 01/09/25 13:12 01/11/25 09:55 Ondansetron Inj 4 Mg/2 Ml Vial IV PUSH 4 mg Q4H PRN Administration Nausea Ondansetron HCl 4 mg 01/11/25 10:35 Ondansetron Inj 4 Mg/2 Ml Vial IV PUSH Q6H PRN Nausea And Vomiting Pantoprazole Sodium 40 mg 01/09/25 21:00 01/11/25 20:49 Pantoprazole Sodium Iv 40 Mg Vial IV PUSH 40 mg Q12HR [facility] Administration Prazosin HCl 1 mg 01/09/25 22:50 01/11/25 20:49 Prazosin Hcl 1 Mg Capsule PO 1 mg HS [facility] Administration Trazodone HCl 100 mg 01/09/25 21:00 01/11/25 20:49 Trazodone Hcl 50 Mg Tablet PO 100 mg HS [facility] Administration Verapamil HCl 360 mg 01/11/25 08:00 01/12/25 08:45 Verapamil Hcl 180 Mg Tablet Er PO 360 mg DAILY@0800 D[facility] Administration Labs Labs: Laboratory Results - last 24 hr 01/09/25 01/11/25 01/12/25 10:53 18:02 01:01 WBC RBC Hgb 8.4 L 8.5 L Hct 25.6 L 25.9 L MCV MCH MCHC RDW Plt Count MPV Immature Gran % (Auto) Neut % (Auto) Lymph % (Auto) [place] % (Auto) Eos % (Auto) Baso % (Auto) Lymph # (Auto) [place] # (Auto) Eos # (Auto) Baso # (Auto) Abs Immat Gran (auto) Absolute Neuts (auto) Absolute Nucleated RBC Nucleated RBC % Blood Type AB Positive Antibody Screen Negative Crossmatch See Detail 01/12/25 05:52 WBC 7.4 RBC 3.04 L Hgb 8.4 L Hct 27.0 L MCV 88.8 MCH 27.6 MCHC 31.1 L RDW 17.2 H Plt Count 113 L MPV 10.7 H Immature Gran % (Auto) 0.1 Neut % (Auto) 67.9 Lymph % (Auto) 23.8 [place] % (Auto) 6.4 Eos % (Auto) 1.4 Baso % (Auto) 0.4 Lymph # (Auto) 1.75 [place] # (Auto) 0.5 Eos # (Auto) 0.1 Baso # (Auto) 0.0 Abs Immat Gran (auto) 0.01 Absolute Neuts (auto) 5.0 Absolute Nucleated RBC 0.000 Nucleated RBC % 0.0 Blood Type Antibody Screen Crossmatch
[2025-01-12 14:23] LABS: Hematocrit 30.1 % (42.0-52.0); Hemoglobin 9.6 g/dL (14.0-18.0)
[2025-01-12 14:37] LABS: Alanine Aminotransferase 64 U/L (6-50); Albumin Level 4.2 g/dL (3.5-5.1); Alkaline Phosphatase 95 U/L (38-126); Anion Gap 12 mmol/L (4-12); Aspartate Amino Transferase 48 U/L (17-59); Bilirubin,Total 1.6 mg/dL (0.2-1.3); Blood Urea Nitrogen 13 mg/dL (9-20); Calcium 9.1 mg/dL (8.4-10.2); Carbon Dioxide 23 mmol/L (22-30); Chloride 103 mmol/L (98-107); Estimated CRCL calculation 96 ml/min; Estimated Glomerular Filt Rate > 60; Glucose 85 mg/dL (65-110); Potassium 3.6 mmol/L (3.4-5.0); Sodium 138 mmol/L (137-145)
--- NOTE | 2025-01-12 15:52 | P.PNGI_ITS ---
Progress Note: A&P Assessment and Plan (1) Chronic peptic ulcer with bleeding: Code(s): K27.4 - Chronic or unspecified peptic ulcer, site unspecified, with hemorrhage Status: Acute Assessment and Plan: Endoscopic treatment of the patient's peptic ulcer was successful, with no signs of recurrent bleeding observed on yesterday's endoscopy. He is now medically stable for discharge. He will receive a single dose of intravenous iron (Venofer) before discharge, with a second dose scheduled in two weeks. The bariatric surgeon, who performed the patient's prior surgery, advises evaluation for possible surgical revision due to the anastomotic ulcer. The patient will be referred to his surgeon for this assessment and will follow up in our GI clinic as an outpatient. Subjective Date/time seen: 01/12/25 15:52 Interval history: The patient did not experience further bleeding episodes. His hemoglobin level today is 9.6, appropriately for yesterday's transfusions. Exam Narrative: Abdomen: Soft, nontender, bowel sounds present, nondistended. Rest of the examination within normal l Objective Data Vital Signs Vital Signs: Vital Signs - 24 hr 01/11/25 16:00 01/11/25 16:26 01/11/25 20:00 Temperature 98.1 F Pulse Rate 81 81 81 Respiratory Rate 16 18 Blood Pressure 127/74 Pulse Oximetry 98 100 Oxygen Delivery Room Air 01/11/25 20:00 01/11/25 21:17 01/12/25 00:00 Temperature 98.3 F Pulse Rate 88 81 78 Respiratory Rate 18 Blood Pressure 152/89 H Pulse Oximetry 100 Oxygen Delivery 01/12/25 04:00 01/12/25 06:00 01/12/25 08:00 Temperature 97.7 F Pulse Rate 73 84 92 Respiratory Rate 16 Blood Pressure 136/95 H Pulse Oximetry 100 Oxygen Delivery 01/12/25 14:00 Temperature 97.9 F Pulse Rate 72 Respiratory Rate 16 Blood Pressure 132/87 Pulse Oximetry 100 Oxygen Delivery Intake/Output Intake/Output: Intake & Output 01/09/25 01/10/25 01/11/25 01/12/25 23:59 23:59 23:59 23:59 Intake Total 1600 2498.0 2600 0 Balance 1600 2498.0 2600 0 Meds/Results Medications: Active Medications Generic Name Dose Route Start Last Admin Trade Name Freq PRN Reason Stop Dose Admin Desvenlafaxine Succinate 100 mg 01/10/25 21:00 01/11/25 20:49 Desvenlafaxine Succinate 50 Mg Tab.Er.24h PO 100 mg HS [facility] Administration Hydroxyzine Pamoate 50 mg 01/10/25 21:00 01/11/25 20:49 Hydroxyzine Pamoate 25 Mg Capsule PO 50 mg HS [facility] Administration Sodium Chloride 1,000 mls @ 50 mls/hr 01/09/25 13:15 01/12/25 08:43 Normal Saline Iv IV CONT 125 mls/hr .Q20H [facility] Administration Iron Sucrose 200 mg/ Sodium 110 mls @ 220 mls/hr 01/12/25 15:29 Chloride IVPB 01/12/25 15:58 ONCE ONE Olmesartan 40 mg 01/11/25 09:00 01/12/25 08:45 Olmesartan Medoxomil 20 Mg Tablet PO 40 mg DAILY [facility] Administration Ondansetron HCl 4 mg 01/09/25 13:12 01/11/25 09:55 Ondansetron Inj 4 Mg/2 Ml Vial IV PUSH 4 mg Q4H PRN Administration Nausea Ondansetron HCl 4 mg 01/11/25 10:35 Ondansetron Inj 4 Mg/2 Ml Vial IV PUSH Q6H PRN Nausea And Vomiting Pantoprazole Sodium 40 mg 01/12/25 21:00 Pantoprazole 40 Mg Tablet PO Q12HR [facility] Prazosin HCl 1 mg 01/09/25 22:50 01/11/25 20:49 Prazosin Hcl 1 Mg Capsule PO 1 mg HS [facility] Administration Trazodone HCl 100 mg 01/09/25 21:00 01/11/25 20:49 Trazodone Hcl 50 Mg Tablet PO 100 mg HS [facility] Administration Verapamil HCl 360 mg 01/11/25 08:00 01/12/25 08:45 Verapamil Hcl 180 Mg Tablet Er PO 360 mg DAILY@0800 DOLOR[facility] Administration Labs Labs: Laboratory Results - last 24 hr 01/09/25 01/11/25 01/12/25 10:53 18:02 01:01 WBC RBC Hgb 8.4 L 8.5 L Hct 25.6 L 25.9 L MCV MCH MCHC RDW Plt Count MPV Immature Gran % (Auto) Neut % (Auto) Lymph % (Auto) [place] % (Auto) Eos % (Auto) Baso % (Auto) Lymph # (Auto) [place] # (Auto) Eos # (Auto) Baso # (Auto) Abs Immat Gran (auto) Absolute Neuts (auto) Absolute Nucleated RBC Nucleated RBC % Sodium Potassium Chloride Carbon Dioxide Anion Gap BUN Creatinine Estim Creat Clear Calc Estimated GFR Glucose Calcium Total Bilirubin AST ALT Alkaline Phosphatase Total Protein Albumin Crossmatch See Detail 01/12/25 01/12/25 05:52 14:18 WBC 7.4 RBC 3.04 L Hgb 8.4 L 9.6 L Hct 27.0 L 30.1 L MCV 88.8 MCH 27.6 MCHC 31.1 L RDW 17.2 H Plt Count 113 L MPV 10.7 H Immature Gran % (Auto) 0.1 Neut % (Auto) 67.9 Lymph % (Auto) 23.8 [place] % (Auto) 6.4 Eos % (Auto) 1.4 Baso % (Auto) 0.4 Lymph # (Auto) 1.75 [place] # (Auto) 0.5 Eos # (Auto) 0.1 Baso # (Auto) 0.0 Abs Immat Gran (auto) 0.01 Absolute Neuts (auto) 5.0 Absolute Nucleated RBC 0.000 Nucleated RBC % 0.0 Sodium 138 Potassium 3.6 Chloride 103 Carbon Dioxide 23 Anion Gap 12 BUN 13 Creatinine 1.09 Estim Creat Clear Calc 96 Estimated GFR > 60 Glucose 85 Calcium 9.1 Total Bilirubin 1.6 H AST 48 ALT 64 H Alkaline Phosphatase 95 Total Protein 7.0 Albumin 4.2 Crossmatch
[2025-01-12] MEDS: IRON SUCROSE COMPLEX 200 MG in SODIUM CHLORIDE 0.9% IV 100 ML 220 MG IVPB (17:06)
[2025-01-12] MEDS: PANTOPRAZOLE 40 MG TABLET PO (21:04)
[2025-01-12] MEDS: DESVENLAFAXINE SUCCINATE 50 MG TAB.ER.24H 100 MG PO (21:04)
[2025-01-12] MEDS: hydrOXYzine pamoate 25 MG CAPSULE 50 MG PO (21:04)
[2025-01-12] MEDS: PRAZOSIN HCL 1 MG CAPSULE PO (21:04)
[2025-01-12] MEDS: traZODone HCL 50 MG TABLET 100 MG PO (21:04)
[2025-01-13] VITALS: PULSE 76
[2025-01-13 04:00] VITALS: PULSE 75
[2025-01-13 06:00] VITALS: BP 137/93; PULSE 84; RESP 18; TEMP 36.6; O2SAT 99
[2025-01-13 06:16] LABS: Basophils Percent Auto 0.1 % (0.2-1.2); Eosinophils Absolute Auto 0.1 K/mm3 (0-0.3); Eosinophils Percent Auto 1.4 % (0-4.4); Hematocrit 28.8 % (42.0-52.0); Hemoglobin 9.2 g/dL (14.0-18.0); Immature Granulocyte Absolute 0.04 K/mm3 (0.00-0.031); Immature Granulocyte Percent A 0.5 % (0-0.5); Lymphocytes Absolute Auto 1.81 K/mm3 (0.9-3.2); Lymphocytes Percent Auto 20.8 % (18.3-44.2); Mean Corpuscular HGB Conc 31.9 g/dl (32-36); Mean Corpuscular Hemoglobin 27.6 pg (26-34); Mean Corpuscular Volume 86.5 fl (80-100); Mean Platelet Volume 11.1 fl (7.4-10.4); Monocytes Absolute Auto 0.7 K/mm3 (0.1-0.6); Monocytes Percent Auto 7.5 % (2.6-8.5); Neutrophils Absolute Auto 6.1 K/mm3 (1.3-6.7); Neutrophils Percent Auto 69.7 % (45.5-73.1); Platelet Count Result 169 k/mm3 (150-375); Red Blood Count 3.33 M/mm3 (4.6-6.20); Red Cell Distribution Width 17.2 % (11.5-14.5); White Blood Count 8.7 K/mm3 (4.5-10.0)
[2025-01-13 06:29] LABS: Alanine Aminotransferase 51 U/L (6-50); Albumin Level 3.7 g/dL (3.5-5.1); Alkaline Phosphatase 88 U/L (38-126); Anion Gap 9 mmol/L (4-12); Aspartate Amino Transferase 37 U/L (17-59); Blood Urea Nitrogen 15 mg/dL (9-20); Calcium 8.7 mg/dL (8.4-10.2); Carbon Dioxide 25 mmol/L (22-30); Chloride 105 mmol/L (98-107); Estimated CRCL calculation 96 ml/min; Estimated Glomerular Filt Rate > 60; Glucose 98 mg/dL (65-110); Potassium 3.6 mmol/L (3.4-5.0); Sodium 139 mmol/L (137-145)
--- NOTE | 2025-01-13 07:42 | P.PNIM_ITS ---
Progress Note: A&P Assessment and Plan (1) GI bleed: Qualifiers: GI bleed type/associated pathology: unspecified gastrointestinal hemorrhage type Qualified Code(s): K92.2 - Gastrointestinal hemorrhage, unspecified Code(s): K92.2 - Gastrointestinal hemorrhage, unspecified Status: Acute (2) Acute renal insufficiency: Code(s): N28.9 - Disorder of kidney and ureter, unspecified Status: Acute (3) Acute blood loss anemia: Code(s): D62 - Acute posthemorrhagic anemia Status: Acute (4) Peptic ulcer: Code(s): K27.9 - Peptic ulcer, site unspecified, unspecified as acute or chronic, without hemorrhage or perforation Status: Acute (5) Gastrointestinal hemorrhage with melena: Code(s): K92.1 - Melena Status: Acute Plan Acute GI bleeding Hematemesis: Qualifiers: Nausea presence: with nausea Qualified Code(s): K92.0 - Hematemesis Code(s): K92.0 - Hematemesis Status: Acute Assessment and Plan: GI consulted Per GI report, patient does not have active bleeding at the site and that he believed that what we saw was residual blood from previous bleeding No active bleeding now Will continue Protonix 40 mg IV q.12 hours (2) Acute blood loss anemia: Code(s): D62 - Acute posthemorrhagic anemia Status: Acute Assessment and Plan: Secondary to above. Patient received 1 pack RBC Stable after EGD Follow-up CBC a hemoglobin Hemoglobin stable (3) Peptic ulcer: Code(s): K27.9 - Peptic ulcer, site unspecified, unspecified as acute or chronic, without hemorrhage or perforation Status: Acute Assessment and Plan: Received IV Protonix 40 mg b.i.d. EGD on 01/09 with evidence of a chronic, non-bleeding gastric ulcer. Continue Protonix 40 mg b.i.d. p.o. (4) Hypertension: Qualifiers: Hypertension type: essential hypertension Qualified Code(s): I10 - Essential (primary) hypertension Code(s): I10 - Essential (primary) hypertension Status: Acute Assessment and Plan: Resume home medication discharge (5) PTSD (post-traumatic stress disorder): Code(s): F43.10 - Post-traumatic stress disorder, unspecified Status: Acute Assessment and Plan: Continue Minipress . Patient will be discharged home per GI recommendation. Patient will follow-up with bariatric surgeon Subjective Date/time seen: 01/13/25 07:42 Interval history: Hemoglobin stable, no active bleeding Exam Narrative: General: well appearing, appears stated age. Sitting at the bedside at this time/ HEENT: normocephalic, atraumatic. Mucous membranes moist. Respiratory: clear to auscultation bilaterally. Cardiovascular: RRR, S1 and S2 present without S3, S4, m,r,g,h Abdomen: Soft, round, no pulsatile masses, nondistended and TTP. No rebound, no guarding. Extremities: No cyanosis, clubbing, or edema present. Pulses are palpable 2/2. Active ROM to all four extremities. Neuro: Alert and orientated x 4. PERRLA. Cranial nerves 2-12 intact without focal deficit. Skin: Warm, dry, and intact, without rash, erythema, or lesion. Psych: pleasant, cooperative, normal speech, normal affect, no hallucinations, no dysarthia Objective Data Vital Signs Vital Signs: Vital Signs - 24 hr 01/12/25 08:00 01/12/25 12:00 01/12/25 14:00 Temperature 97.9 F Pulse Rate 92 77 72 Respiratory Rate 16 Blood Pressure 132/87 Pulse Oximetry 100 Oxygen Delivery 01/12/25 16:00 01/12/25 20:00 01/12/25 20:00 Temperature Pulse Rate 89 81 81 Respiratory Rate 18 Blood Pressure Pulse Oximetry 99 Oxygen Delivery Room Air 01/12/25 21:42 01/13/25 00:00 01/13/25 04:00 Temperature 98.4 F Pulse Rate 81 76 75 Respiratory Rate 18 Blood Pressure 134/92 H Pulse Oximetry 99 Oxygen Delivery 01/13/25 06:00 Temperature 97.9 F Pulse Rate 84 Respiratory Rate 18 Blood Pressure 137/93 H Pulse Oximetry 99 Oxygen Delivery Intake/Output Intake/Output: Intake & Output 01/10/25 01/11/25 01/12/25 01/13/25 23:59 23:59 23:59 23:59 Intake Total 2498.0 2600 1680 200 Balance 2498.0 2600 1680 200 Meds/Results Medications: Active Medications Generic Name Dose Route Start Last Admin Trade Name Freq PRN Reason Stop Dose Admin Desvenlafaxine Succinate 100 mg 01/10/25 21:00 01/12/25 21:04 Desvenlafaxine Succinate 50 Mg Tab.Er.24h PO 100 mg HS [facility] Administration Hydroxyzine Pamoate 50 mg 01/10/25 21:00 01/12/25 21:04 Hydroxyzine Pamoate 25 Mg Capsule PO 50 mg HS [facility] Administration Olmesartan 40 mg 01/11/25 09:00 01/12/25 08:45 Olmesartan Medoxomil 20 Mg Tablet PO 40 mg DAILY [facility] Administration Ondansetron HCl 4 mg 01/09/25 13:12 01/11/25 09:55 Ondansetron Inj 4 Mg/2 Ml Vial IV PUSH 4 mg Q4H PRN Administration Nausea Ondansetron HCl 4 mg 01/11/25 10:35 Ondansetron Inj 4 Mg/2 Ml Vial IV PUSH Q6H PRN Nausea And Vomiting Pantoprazole Sodium 40 mg 01/12/25 21:00 01/12/25 21:04 Pantoprazole 40 Mg Tablet PO 40 mg Q12HR [facility] Administration Prazosin HCl 1 mg 01/09/25 22:50 01/12/25 21:04 Prazosin Hcl 1 Mg Capsule PO 1 mg HS [facility] Administration Trazodone HCl 100 mg 01/09/25 21:00 01/12/25 21:04 Trazodone Hcl 50 Mg Tablet PO 100 mg HS [facility] Administration Verapamil HCl 360 mg 01/11/25 08:00 01/12/25 08:45 Verapamil Hcl 180 Mg Tablet Er PO 360 mg DAILY@0800 [facility] Administration Labs Labs: Laboratory Results - last 24 hr 01/12/25 01/13/25 14:18 05:51 WBC 8.7 RBC 3.33 L Hgb 9.6 L 9.2 L Hct 30.1 L 28.8 L MCV 86.5 MCH 27.6 MCHC 31.9 L RDW 17.2 H Plt Count 169 MPV 11.1 H Immature Gran % (Auto) 0.5 Neut % (Auto) 69.7 Lymph % (Auto) 20.8 [place] % (Auto) 7.5 Eos % (Auto) 1.4 Baso % (Auto) 0.1 L Lymph # (Auto) 1.81 [place] # (Auto) 0.7 H Eos # (Auto) 0.1 Baso # (Auto) 0.0 Abs Immat Gran (auto) 0.04 H Absolute Neuts (auto) 6.1 Absolute Nucleated RBC 0.000 Nucleated RBC % 0.0 Sodium 138 139 Potassium 3.6 3.6 Chloride 103 105 Carbon Dioxide 23 25 Anion Gap 12 9 BUN 13 15 Creatinine 1.09 1.09 Estim Creat Clear Calc 96 96 Estimated GFR > 60 > 60 Glucose 85 98 Calcium 9.1 8.7 Total Bilirubin 1.6 H 1.0 AST 48 37 ALT 64 H 51 H Alkaline Phosphatase 95 88 Total Protein 7.0 7.0 Albumin 4.2 3.7
--- NOTE | 2025-01-13 07:44 | P.DS_ITS ---
DS: Admitting Diagnosis Discharge Date 01/13/25 Admitting Diagnosis (1) GI bleed: Qualifiers: GI bleed type/associated pathology: unspecified gastrointestinal hemorrhage type Qualified Code(s): K92.2 - Gastrointestinal hemorrhage, unspecified Code(s): K92.2 - Gastrointestinal hemorrhage, unspecified Status: Acute (2) Acute renal insufficiency: Code(s): N28.9 - Disorder of kidney and ureter, unspecified Status: Acute (3) Acute blood loss anemia: Code(s): D62 - Acute posthemorrhagic anemia Status: Acute (4) Peptic ulcer: Code(s): K27.9 - Peptic ulcer, site unspecified, unspecified as acute or chronic, without hemorrhage or perforation Status: Acute (5) Gastrointestinal hemorrhage with melena: Code(s): K92.1 - Melena Status: Acute DS: Discharge Diagnosis Discharge Diagnosis (1) GI bleed: Qualifiers: GI bleed type/associated pathology: unspecified gastrointestinal hemorrhage type Qualified Code(s): K92.2 - Gastrointestinal hemorrhage, unspecified Code(s): K92.2 - Gastrointestinal hemorrhage, unspecified Status: Acute (2) Acute renal insufficiency: Code(s): N28.9 - Disorder of kidney and ureter, unspecified Status: Acute (3) Acute blood loss anemia: Code(s): D62 - Acute posthemorrhagic anemia Status: Acute (4) Peptic ulcer: Code(s): K27.9 - Peptic ulcer, site unspecified, unspecified as acute or chronic, without hemorrhage or perforation Status: Acute (5) Gastrointestinal hemorrhage with melena: Code(s): K92.1 - Melena Status: Acute DS: Summary Hospital Course Hospital Course: 49-year-old with history of PTSD, diverticulosis and PUD of hospital with bright red blood per rectum. Patient was hospitalized at the beginning it September 2024 for GI bleed found to have a peptic ulcer. He has not been on Protonix outpatient. Patient seen after his EGD. Patient states that he started having dark tardy stools yesterday bed turned bright red in the morning. He states that he started to feel very weak so he called 911. Of note patient had previously been in the hospital in September for bleeding ulcer in the proximal jejunum. Patient states that he does have a history with alcohol abuse however he has been sober for the last 38 days. Patient denies fevers chills nausea or vomiting. In the ED and leukocytosis at 15.3, hemoglobin 8.6 baseline around 12, UA shows trace leukocyte esterase RBCs 11-20, EKG shows sinus tachycardia at 116. Patient being transfused 1 RBC for symptomatic anemia. GI has been consulted. The following med issues have been addressed during hospitalization Acute GI bleeding Hematemesis: Qualifiers: Nausea presence: with nausea Qualified Code(s): K92.0 - Hematemesis Code(s): K92.0 - Hematemesis Status: Acute Assessment and Plan: GI consulted Per GI report, patient does not have active bleeding at the site and that he believed that what we saw was residual blood from previous bleeding No active bleeding now Received Protonix 40 mg IV q.12 hours switched to Protonix 40 mg b.i.d. p.o. Acute blood loss anemia: Code(s): D62 - Acute posthemorrhagic anemia Status: Acute Assessment and Plan: Secondary to above. Patient received 1 pack RBC Stable after EGD Follow-up CBC a hemoglobin Hemoglobin stable Peptic ulcer: Code(s): K27.9 - Peptic ulcer, site unspecified, unspecified as acute or chronic, without hemorrhage or perforation Status: Acute Assessment and Plan: Received IV Protonix 40 mg b.i.d. EGD on 01/09 with evidence of a chronic, non-bleeding gastric ulcer. Continue Protonix 40 mg b.i.d. p.o. Hypertension: Qualifiers: Hypertension type: essential hypertension Qualified Code(s): I10 - Essential (primary) hypertension Code(s): I10 - Essential (primary) hypertension Status: Acute Assessment and Plan: Resume home medication discharge PTSD (post-traumatic stress disorder): Code(s): F43.10 - Post-traumatic stress disorder, unspecified Status: Acute Assessment and Plan: Continue Minipress . Patient will be discharged home per GI recommendation. Patient will follow-up with bariatric surgeon Time Spent with Patient Time attestation: Total time spent providing and/or coordinating discharge services: Exam Narrative: General: well appearing, appears stated age. Sitting at the bedside at this time/ HEENT: normocephalic, atraumatic. Mucous membranes moist. Respiratory: clear to auscultation bilaterally. Cardiovascular: RRR, S1 and S2 present without S3, S4, m,r,g,h Abdomen: Soft, round, no pulsatile masses, nondistended and TTP. No rebound, no guarding. Extremities: No cyanosis, clubbing, or edema present. Pulses are palpable 2/2. Active ROM to all four extremities. Neuro: Alert and orientated x 4. PERRLA. Cranial nerves 2-12 intact without focal deficit. Skin: Warm, dry, and intact, without rash, erythema, or lesion. Psych: pleasant, cooperative, normal speech, normal affect, no hallucinations, no dysarthia DS: Data Data Completed and Pending Labs on day of discharge: Labs from last 24 hours 01/13/25 01/12/25 05:51 14:18 WBC 8.7 RBC 3.33 L Hgb 9.2 L 9.6 L Hct 28.8 L 30.1 L MCV 86.5 MCH 27.6 MCHC 31.9 L RDW 17.2 H Plt Count 169 MPV 11.1 H Immature Gran % (Auto) 0.5 Neut % (Auto) 69.7 Lymph % (Auto) 20.8 Anson % (Auto) 7.5 Eos % (Auto) 1.4 Baso % (Auto) 0.1 L Lymph # (Auto) 1.81 Anson # (Auto) 0.7 H Eos # (Auto) 0.1 Baso # (Auto) 0.0 Abs Immat Gran (auto) 0.04 H Absolute Neuts (auto) 6.1 Absolute Nucleated RBC 0.000 Nucleated RBC % 0.0 Sodium 139 138 Potassium 3.6 3.6 Chloride 105 103 Carbon Dioxide 25 23 Anion Gap 9 12 BUN 15 13 Creatinine 1.09 1.09 Estim Creat Clear Calc 96 96 Estimated GFR > 60 > 60 Glucose 98 85 Calcium 8.7 9.1 Total Bilirubin 1.0 1.6 H AST 37 48 ALT 51 H 64 H Alkaline Phosphatase 88 95 Total Protein 7.0 7.0 Albumin 3.7 4.2 Discharge Plan Discharge Attending physician on discharge: Danelle Edwards Discharging Clinician: Danelle Edwards Anticipated Discharge Date/Time: 01/13/25 07:41 Patient Disposition: Home, Self-Care Activity: as tolerated Diet: as tolerated Patient Instructions: Antibiotic Form Patient Language: [place] Citizen Stand Alone Forms: General Discharge Information, Work/School Release IP Follow-up/Referrals: Gerald Coronado MD [Primary Care Provider] - (see pcp in one week ) Discharge Medications: New pantoprazole 40 mg Tablet,Delayed Release (Dr/Ec) 40 mg PO Q12HR Qty: 60 0RF Continued prazosin 1 mg capsule 1 mg PO HS hydroxyzine pamoate 50 mg capsule 50 mg PO HS trazodone 100 mg tablet 100 mg PO HS desvenlafaxine succinate 100 mg tablet extended release 24 hr 125 mg PO HS naltrexone 50 mg tablet 50 mg PO DAILY verapamil 360 mg capsule,ext rel. pellets 24 hr 360 mg PO DAILY olmesartan 5 mg tablet 40 mg PO DAILY Date of admission: 01/10/25 07:53 Primary Care Provider: Gerald Coronado Admitting Provider: Danelle Edwards Attending physician on admission: Brielle Houston Condition: Stable
[2025-01-13] MEDS: PANTOPRAZOLE 40 MG TABLET PO (08:01)
[2025-01-13] MEDS: VERAPAMIL HCL 180 MG TABLET ER 360 MG PO (08:01)
[2025-01-13] MEDS: OLMESARTAN MEDOXOMIL 20 MG TABLET 40 MG PO (08:01)
--- NOTE | 2025-01-16 12:07 | P.CONGI_ITS ---
Assessment and Plan Assessment and plan (1) Gastrointestinal hemorrhage with melena: Code(s): K92.1 - Melena Status: Acute Assessment and Plan: Patient with a known peptic ulcer disease, not having melena and significant drop in hematocrit. Endoscopy is indicated and will proceed. Plan EGD and possible hemostasis GI Consult Note Consult date/time: 01/16/25 12:07 (note corresponding to admission on 01/09) Reason for consult: upper GI bleeding HPI: Jorge Cotter is a 49 year old male with a known peptic ulcer disease located in the jejunal side of the gastro jejunal anastomosis, from his previous gastric bypass. Was in his usual state of health and started to pass melanotic stools and had a significant drop in hematocrit. An EGD was planned, endoscopy report in the chart. Review of Systems 2 Review of Systems: All systems reviewed & are unremarkable except as noted in HPI and below PMFSH Past Medical History Medical History (Updated 01/12/25 @ 15:53 by Shahid Cornejo MD) PTSD (post-traumatic stress disorder) Alcoholism in recovery Colon cancer screening Urolithiasis JAMES (obstructive sleep apnea) Obesity, morbid, BMI 40.0-49.9 Hypertension Hematemesis Nausea & vomiting Surgical History Surgical History Hx of tonsillectomy Gastric bypass status for obesity Family History Family History Mother Pulmonary embolism Cardiac arrest Father Pulmonary embolism Cardiac arrest Social History Social History Smoking status: Never smoker Alcohol intake: former Substance use: never Substance use type: does not use Last use: 12/11/24 Do You Feel Safe in your Home?: Yes Lack of Transportation: No Lack of Food: Never True Current Housing: I Have Housing Concerned About Future Housing: No Difficulty Paying Gas/Electric Bills: No Difficulty Paying for Meds: No Currently Unemployed: No Education: Master's Degree or Higher Difficulty w/ Childcare or Family Care: No Living arrangements: other Additional living arrangements comments: with sp Gender identity (if verbalized by the patient): Male Spiritual care concerns: No Meds Home Medications and Allergies Home Medications ?Medication ?Instructions ?Recorded ?Confirmed ?Type verapamil 360 mg 24 hr 360 mg PO DAILY 04/28/21 01/09/25 History capsule,extended release olmesartan 5 mg tablet 40 mg PO DAILY 10/24/23 01/09/25 History prazosin 1 mg capsule 1 mg PO HS 07/14/24 01/09/25 History desvenlafaxine succinate 100 mg 125 mg PO HS 09/22/24 01/09/25 History tablet,extended release 24 hr hydroxyzine pamoate 50 mg capsule 50 mg PO HS 09/22/24 01/09/25 History trazodone 100 mg tablet 100 mg PO HS 09/22/24 01/09/25 History naltrexone 50 mg tablet 50 mg PO DAILY 01/09/25 01/09/25 History pantoprazole 40 mg tablet,delayed 40 mg PO Q12HR #60 tabs 01/13/25 Rx release Allergies Allergy/AdvReac Type Severity Reaction Status Date / Time No Known Allergies Allergy Verified 01/11/25 11:10 Exam 2 Narrative: Markedly pale. Abdomen: Soft, nontender, no hepatosplenomegaly. Rectal exam: Frankly melanotic stools. Results Labs 01/13/25 05:51 01/13/25 05:51
== END 2025-01-13 08:23 | disposition home or self-care (01) | DRG 378 ==
LOC: ANHED 13:16 → ANH3MEDSUR 16:09
PROVIDERS: Internal Medicine Gastroenterology; Nurse Practitioner Adult Health; Admitting Provider Hospitalist; Emergency Provider Physician Assistant; PCP Internal Medicine; Visit Provider Hospitalist
PROC: 0DJ08ZZ Inspection of Upper Intestinal Tract, Via Natural or Artificial Opening Endoscopic (ICD-10-PCS; principal; 2025-01-09 17:15)
DX: K28.4 Chronic or unspecified gastrojejunal ulcer with hemorrhage (principal); D62 Acute posthemorrhagic anemia; K31.89 Other diseases of stomach and duodenum; K57.90 Diverticulosis of intestine, part unspecified, without perforation or abscess without bleeding; N28.9 Disorder of kidney and ureter, unspecified; D72.829 Elevated white blood cell count, unspecified; F43.10 Post-traumatic stress disorder, unspecified; G47.33 Obstructive sleep apnea (adult) (pediatric); I10 Essential (primary) hypertension; E66.01 Morbid (severe) obesity due to excess calories; Z68.37 Body mass index [BMI] 37.0-37.9, adult; F10.20 Alcohol dependence, uncomplicated; Z98.84 Bariatric surgery status
CPT/HCPCS: 36415; 36430; 80053; 81001; 83690; 83735; 85014; 85018; 85025; 85610; 85730; 86850; 86900; 86901; 86923; 93005; 96361; 96374; 96375; 96376; 99285; A9270; G0378; J0171; J0330; J1100; J1756; J2003; J2060; J2405; J2470; J2704; J7030; J7120; P9016

== ENCOUNTER 2025-01-28 07:26 | Outpatient (CLI) | payer OTHER, SELFPAY ==
--- OUTSIDE RECORDS SUMMARY | 2025-01-28 07:33 | XMS_ITS | CONTINUITY OF CARE DOCUMENT ---
Author Name mirtha shannon Address Unknown Organization [facility] Address [id number] [place] [address] [address] [place] [address] Phone [phone] Care Team Providers Care Miller Supervisor Name Role Phone Kamaljit THOMPSON, Clary Unavailable [phone] INS[employer]ANCE PROVID[employer] Payer name Policy type / Coverage type [place] red green party ID [facility] Other [id number]
--- OUTSIDE RECORDS SUMMARY | 2025-01-28 07:34 | XMS_ITS | Clinical Summary ---
Author Organization [facility] Address [address] [place] [address] Care Team Providers Care Wood Turner Name Role Phone Gerald Coronado MD Primary Care Provider [phone] Raymundo Weathers MD Unavailable [phone] Allergies No known active allergies Medications desvenlafaxine [...] Department Care Team Description 11/26/2024 3:52 PM JOB RECRUITER - 11/26/2024 6:42 PM [facility] 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 file Not on file Not on file Last Filed Vital Signs Vital Sign Reading Time Taken Comments Blood Pressure 158/117 11/26/2024 6:30 PM JOB RECRUITER Pulse 78 11/26/2024 6:30 PM JOB RECRUITER Temperature 36.8 C (98.3 F) 11/26/2024 4:24 PM JOB RECRUITER Respiratory Rate 15 11/26/2024 6:30 PM JOB RECRUITER Oxygen Saturation 100% 11/26/2024 6:30 PM JOB RECRUITER Inhaled Oxygen Concentration - - Weight 122.5 kg (270 lb) 11/26/2024 3:45 PM JOB RECRUITER Height 177.8 cm (5' 10 ) 11/26/2024 3:45 PM JOB RECRUITER Body Mass Index 38.74 11/26/2024 3:45 PM JOB RECRUITER Plan of Treatment Health Maintenance Due Date Last Done Comments Colorectal Cancer Screening Colonoscopy (10 Years) 1975 Annual Physical 1980 Hepatitis C 1995 Hepatitis B Vaccines (1 of 3 - 19+ 3-dose series) 1996 COVID-19 Vaccine (2023-2 5 season) 2024 02/11/2021, 01/14/2021 DTaP, Tdap and Td Vaccines ( 3 [...] Comments URINE BACTERIA CULTURE STAT 5:05 PM JOB RECRUITER HC URINALYSIS AUTO W/MICRO STAT 11/26/2024 5:05 PM JOB RECRUITER XR CHEST PA+LAT STAT 11/26/2024 4:50 PM JOB RECRUITER CK (CPK) STAT 11/26/2024 4:39 PM JOB RECRUITER TROPONIN, QUANT STAT 11/26/2024 4:39 PM JOB RECRUITER COMPREHENSIVE METABOLIC PANEL STAT 11/26/2024 4:39 PM JOB RECRUITER CBC W/DIFF AUTOMATED STAT 11/26/2024 4:39 PM JOB RECRUITER ECG 12-LEAD Routine 11/26/2024 3:55 PM JOB RECRUITER from Last 3 Months Results * (ABNORMAL) URINALYSIS (11/26/2024 5:05 PM JOB RECRUITER) COLOR (U) YELLOW 11/26/2024 5:28 PM JOB RECRUITER [facility] TRANSPARENCY CLEAR 11/26/2024 5:28 PM JOB RECRUITER [facility] SPECIFIC GRAVITY (U) 1.025 1.000 - 1.025 11/26/2024 5:28 PM JOB RECRUITER [facility] U PH 6.0 5.0 - 8.0 11/26/2024 5:28 PM JOB RECRUITER [facility] LEUKOCYTES (U) NEGATIVE NEGATIVE 11/26/2024 5:28 PM JOB RECRUITER [facility] NITRITES NEGATIVE NEGATIVE 11/26/2024 5:28 PM JOB RECRUITER [facility] PROTEIN RANDOM (U) NEGATIVE NEGATIVE 11/26/2024 5:28 PM JOB RECRUITER [facility] GLUCOSE (U) NEGATIVE NEGATIVE 11/26/2024 5:28 PM JOB RECRUITER [facility] KETONES MG/DL (U) TRACE(A) NEGATIVE 11/26/2024 5:28 PM [facility] UROBILINOGEN 1.0(H) <1.0 EU/DL 11/26/2024 5:28 PM [facility] BILIRUBIN (U) NEGATIVE NEGATIVE 11/26/2024 5:28 PM [facility] BLOOD (U) 2+(A) NEGATIVE 11/26/2024 5:28 PM [facility] WBC/HPF 0-5 0 - 5 /HPF 11/26/2024 5:28 PM [facility] RBC/HPF 5-10(A) 0 - 5 /HPF 11/26/2024 5:28 PM [facility] EPI/LPF RARE /LPF 11/26/2024 5:28 PM [facility] BACTERIA (U) TRACE /HPF 11/26/2024 5:28 PM [facility] URINE SPECIMEN OBTAINED BY CLEAN CATCH PROCEDURE / Unknown 11/26/2024 5:05 PM JOB RECRUITER us Randee Lowe MD URINE ORDERABLES Final Resu lt [facility] [address] [phone] * CULTURE URINE (11/26/2024 5:05 PM JOB RECRUITER) SPEC DESCRIPTION URINE CLEAN CATCH 11/26/2024 5:17 PM JOB RECRUITER [facility] SPECIAL REQUESTS NO SPECIAL REQUEST 11/26/2024 5:17 PM JOB RECRUITER [facility] CULTURE RESULT NO GROWTH (< OR = 1,000 CFU/ML) 11/28/2024 10:10 AM JOB RECRUITER [facility] URINE SPECIMEN OBTAINED BY CLEAN CATCH PROCEDURE / Unknown 11/26/2024 5:05 PM JOB RECRUITER 11/26/2024 5:18 PM JOB RECRUITER us Randee Lowe MD [facility]OLOGY [facility] Final Result [facility] [address] [place] [address], [place] [phone] [id number] [facility] [address] [place] [address], * XR CHEST PA+LAT (11/26/2024 4:50 PM JOB RECRUITER) Anatomical Region Laterality Modality Chest Radiographic Tish ging 11/26/2024 4:53 PM JOB RECRUITER Impressions 11/26/2024 4:56 PM JOB RECRUITER IMPRESSION: Mild cardiomegaly but no radiographic evidence is seen to suggest acute cardiopulmonary abnormality. If there is clinical concern for chest wall hematoma, cross-sectional imaging could be considered. Referred By: Interpreted By: Tom Hodge DO, 11/26/2024 4:53 PM Narrative 11/26/2024 4:56 PM JOB RECRUITER [address] [place] [address] Examination: XR CHEST PA+LAT Exam time: 11/26/2024 [...] Procedure Note Tom Hodge DO - 11/26/[address] [place] [address] Examination: XR CHEST PA+LAT Exam time: 11/26/2024 [...] lung apex medially corresponds to the right [id number] process. IMPRESSION: Mild cardiomegaly but no radiographic evidence is seen to suggest acutecardiopulmonary abnormality. If there is clinical concern for chest wallhematoma, cross-sectional imaging could be considered. Referred By: Interpreted By: Tom Hodge DO, 11/26/2024 4:53 PM us Randee Lowe MD GENERAL IMAGING Final Resul t * (ABNORMAL) COMPREHENSIVE METABOLIC PANEL (11/26/2024 4:39 PM JOB RECRUITER) SODIUM S/P/B 140 136 - 145 MMOL/L 11/26/2024 5:03 PM [facility] POTASSIUM S/P/B 4.0 3.5 - 5.1 MMOL/L 11/26/2024 5:03 PM [facility] CHLORIDE S/P/B 106 98 - 107 MMOL/L 11/26/2024 5:03 PM [facility] CO2 24.3 21.0 - 32.0 MMOL/L 11/26/2024 5:03 PM [facility] GLUCOSE 96 70 - 99 MG/DL 11/26/2024 5:03 PM [facility] Comment: FASTING GLUCOSE 100 TO 125 MG/DL IS CONSISTENT WITH IMPAIRED FASTING GLUCOSE. FASTING GLUCOSE >125 MG/DL IS CONSISTENT WITH DIABETES. RANDOM GLUCOSE >200 MG/DL WITH HYPERGLYCEMIC SYMPTOMS IS CONSISTENT WITH DIABETES. PER ADA GUIDELINES BUN 17 6 - 24 MG/DL 11/26/2024 5:03 PM [facility] CREATININE S/P/B 1.04 0.70 - 1.30 MG/DL 11/26/2024 5:03 PM [facility] CALCIUM S/P/B 8.3(L) 8.4 - 10.5 MG/DL 11/26/2024 5:03 PM [facility] BILIRUBIN TOTAL S/P/B 0.5 0.2 - 1.0 MG/DL 11/26/2024 5:03 PM [facility] Comment: THIS ASSAY IS NOT RECOMMENDED FOR PATIENTS UNDERGOING TREATMENT WITH ELTROMBOPAG DUE TO THE POTENTIAL FOR FALSELY ELEVATED RESULTS. ALKALINE PHOSPHATASE S/P/B 101 45 - 115 U/L 11/26/2024 5:03 PM [facility] AST 52(H) 15 - 37 U/L 11/26/2024 5:03 PM [facility] ALT 68(H) 16 - 63 U/L 11/26/2024 5:03 PM [facility] TOTAL PROTEIN S/P/B 6.8 6.4 - 8.2 G/DL 11/26/2024 5:03 PM [facility] ALBUMIN S/P/B 3.2(L) 3.4 - 5.0 G/DL 11/26/2024 5:03 PM [facility] ANION GAP 9.7 5.0 - 15.0 MMOL/L 11/26/2024 5:03 PM [facility] OSMOLALITY (CALC) 291 MOSM/KG 025 5:03 PM [facility] Comment:REFERENCE RANGE NOT ESTABLISHED GFR ESTIMATE 89(L) >89 ML/MIN/1. 73 M2 11/26/2024 5:03 PM [facility] GFR NOTES GFR REFERENCE S: 11/26/2024 5:03 PM [facility] Comment: THE ESTIMATED GFR IS CALCULATED [...] FAILURE: <15 ml/min/1.73 m2 11/26/2024 4:39 PM JOB RECRUITER us Randee Lowe MD LABORATORY Final Resul t [facility] [address] [place] [address], * (ABNORMAL) CBC W/DIFF AUTOMATED (11/26/2024 4:39 PM JOB RECRUITER) WBC 4.73 4.00 - 10.80 x10'3/uL 11/26/2024 4:44 PM JOB RECRUITER [facility] RBC 3.46(L) 4.50 - 6.10 x10'6/uL 11/26/2024 4:44 PM [facility] HGB 9.1(L) 13.0 - 18.0 G/DL 11/26/2024 4:44 PM [facility] HCT 29.1(L) 37.0 - 52.0 % 11/26/2024 4:44 PM [facility] MCV 84.1 78.0 - 100.0 FL 11/26/2024 4:44 PM [facility] MCH 26.3(L) 27.0 - 31.0 PG 11/26/2024 4:44 PM [facility] MCHC 31.3(L) 33.0 - 36.0 G/DL 11/26/2024 4:44 PM [facility] RDW 17.8(H) 11.5 - 14.5 % 11/26/2024 4:44 PM [facility] PLT 241 150 - 350 x10'3/uL 11/26/2024 4:44 PM [facility] MPV 9.7 7.4 - 10.4 FL 11/26/2024 4:44 PM [facility] CBC COMMENT NORMAL REFERENCE RANGE NOT ESTABLISHED FOR THE PROPORTIONAL LEUKOCYTE DIFFERENTIAL. 11/26/2024 4:44 PM JOB RECRUITER [facility] NEUTROPHILS % 55.4 % 11/26/2024 4:44 PM JOB RECRUITER [facility] LYMPHOCYTES % 24.3 % 11/26/2024 4:44 PM JOB RECRUITER [facility] MONOCYTES % 16.7 % 11/26/2024 4:44 PM JOB RECRUITER [facility] EOSINOPHILS % 1.9 % 11/26/2024 4:44 PM JOB RECRUITER [facility] BASOPHILS % 1.3 % 11/26/2024 4:44 PM JOB RECRUITER [facility] IMMATURE GRANS % 0.4 % 11/26/19 4:44 PM JOB RECRUITER [facility] NRBC % 0.0 % 11/26/2024 4:44 PM JOB RECRUITER [facility] ABS. NEUTROPHILS 2.62 1.60 - 8.30 x10'3/uL 11/26/2024 4:44 PM [facility] ABS. LYMPHOCYTES 1.15 0.80 - 4.70 x10'3/uL 11/26/2024 4:44 PM JOB RECRUITER [facility] ABS. MONOCYTES 0.79 0.00 - 1.50 x10'3/uL 11/26/2024 4:44 PM JOB RECRUITER [facility] ABS. EOSINOPHILS 0.09 0.00 - 0.40 x10'3/uL 11/26/2024 4:44 PM JOB RECRUITER [facility] ABS. BASOPHILS 0.06 0.00 - 0.20 x10'3/uL 11/26/2024 4:44 PM JOB RECRUITER [facility] ABS. IMMATURE GRANULOCYTES 0.02 0.00 - 0.03 x10'3/uL 11/26/2024 4:44 PM JOB RECRUITER [facility] ABS. NUCLEATED RBC'S 0.00 0.00 - 0.01 x10'3/uL 11/26/2024 4:44 PM [facility] 11/26/2024 4:39 PM JOB RECRUITER us Randee Lowe MD LABORATORY Final Resul t Performing Organization Address City/[facility]/ZIP Co de Phone Number [facility] [address] [place] [address], * TROPONIN, QUANT (11/26/2024 4:39 PM JOB RECRUITER) TROPONIN I HIGH SENSITIVITY 9 0 - 76 ng/L 11/26/2024 5:03 PM JOB RECRUITER [facility] 11/26/2024 4:39 PM JOB RECRUITER us Randee Lowe MD LABORATORY Final Resul t Performing Organization Address [facility] Co de Phone Number [address] [address], * CK (CPK) (11/26/2024 4:39 PM JOB RECRUITER) CPK 50 39 - 308 U/L 11/26/2024 5:03 PM JOB RECRUITER [facility] 11/26/2024 4:39 PM JOB RECRUITER Randee Lowe MD LABORATORY Final Resul t Performing Organization Address 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1975 Requested By: RANDEE LOWE Order Number: [id number] Reading MD: Tomi Solares Measurements Intervals Strang Rate: 82 P: 11 FL: 174 QRS: -30 QRSD: 105 T: 19 QT: 346 QTc: 406 Interpretive Statements SINUS RHYTHM BORDERLINE LEFT AXIS DEVIATION RECRUITER us Randee Lowe MD ECG ORDERABLES Final Resul t [facility] from Last 3 Months Insurance [employer] [facility] Care Teams Wood Turner Relationship Specialty Start Date End Date Gerald Coronado MD [address] [place] [address] PCP - General INTERNAL MEDICINE 07/05/16 Raymundo Weathers MD [address] [place] [address] CARDIOVASCULAR DISEASE 07/05/16
--- OUTSIDE RECORDS SUMMARY | 2025-01-28 07:34 | XMS_ITS | Clinical Summary ---
Author Organization [facility] Address [address] [facility] [place] [address] Phone Care Team Providers Care Farm Loan Inspector Name Role Phone Gerald Croonado MD Primary Care Provider [phone] Allergies No known active allergies Medications lisinopril-hyd roCHLOROthiazi de (PRINZIDE, ZESTORETIC) 20-12.5 MG Tablet Take 1 Tab by mouth daily. Active Magnesium 250 MG Tablet Take by mouth. Activ e Multiple Vitamin (MULTI-VITAMIN PO) Take by mouth. Activ e Independence-3 Fatty Acids (FISH OIL PO) Take by [...] Comments Blood Pressure 120/80 08/26/2018 3:18 PM CORPORATE HUMAN RESOURCES MANAGER Pulse 80 08/26/2018 3:18 PM CORPORATE HUMAN RESOURCES MANAGER Temperature 36.7 C (98.1 F) 08/26/2018 3:18 PM CORPORATE HUMAN RESOURCES MANAGER Respiratory Rate 18 08/26/2018 3:18 PM CORPORATE HUMAN RESOURCES MANAGER Oxygen Saturation 98% 08/26/2018 3:18 PM CORPORATE HUMAN RESOURCES MANAGER Inhaled Oxygen Concentration - - Weight 127 kg (280 lb) 08/26/2018 3:18 PM CORPORATE HUMAN RESOURCES MANAGER Height 180.3 cm (5' 11 ) 08/26/2018 3:18 PM CORPORATE HUMAN RESOURCES MANAGER Body Mass Index 39.05 08/26/2018 3:18 PM CORPORATE HUMAN RESOURCES MANAGER Plan of Treatment Health Maintenance Due [...] age to complete this topic Care Teams Farm Loan Inspector Relationship Specialty Start Date End Date Gerald Coronado MD [address] [place] [address] PCP - General Internal Medicine 07/04/16
--- OUTSIDE RECORDS SUMMARY | 2025-01-28 07:34 | XMS_ITS | Clinical Summary ---
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 11/14/2024 10:01 PM [facility] 11/14/2024 10:07 PM [facility] Carlos Mueller MD LAB - CHEMISTRY OR DERABLES [facility] [address] [place] [address], [facility] [phone] * (ABNORMAL) ALCOHOL ETHYL BLOOD (11/14/2024 10:01 PM [facility]) Ethanol (mg/dL) 209(H) <10 mg/dL 10:37 PM [facility] Ethanol Calculated (g/dL) 0.209(H) <=0.010 g/dL 11/14/2024 10:37 PM [facility] Blood BLOOD SPECIMEN / Unknown Venipuncture / Unknown 11/14/2024 10:01 PM [facility] 11/14/2024 10:07 PM [facility] - 11/14/2024 10:37 PM LOG DECKMAN Ethanol Interp <10: None Detected. Depression of HOME CARE RN: >100 mg/dl Potentially Critical: >250 mg/dl Potentially [...] Mueller MD LAB - CHEMISTRY OR DERABLES [facility] [address] [place] [address], [facility] [phone] from Last 3 Months Advance Directives * Full Code (Latest Code Status on File) Date Activated Date Inactivated Comments 02/13/2018 8:46 PM 02/15/2018 1:20 PM Care Teams Esthetician Facialist Relationship Specialty Start Date End Date Gerald Coronado MD [address] [place], [place] [id number] PCP - General 06/21/21
--- OUTSIDE RECORDS SUMMARY | 2025-01-28 07:34 | XMS_ITS | Encounter Summary ---
Author Organization [facility] Address [address] [place] [address] Care Team Providers Care Cryptographic Clerk Name Role Phone Gerald Coronado MD Primary Care Provider [phone] Reason for Referral * Procedure (Routine) - Open Specialty Diagnoses / Procedures Referred By Contchad t Referred To Contact Gastroenterology Diagnoses Bariatric surgery status Gastrojejunal ulcer with hemorrhage [place] [address] [facility] [address] [place] [address] Referral ID Status Reason Start Date Expiration Date Visits Re quested Visits Authorized [id number] Open 01/27/2025 01/27/2026 1 1 Reason for Visit * Reason Comments Post-Op Encounter Details Date Type Department Care Team (Latest Contact Info) Description 01/27/2025 1:20 PM CDT Office Visit [facility] [address] [place] [address] [place] [address] [facility] [address] [place] [address] Gastrojejunal ulcer with hemorrhage (Primary Dx); Bariatric surgery status; Intestinal malabsorption, unspecified type (HCC) Social History [...] F) 01/27/2025 2:07 PM CDT Respiratory Rate - - Oxygen Saturation 96% 01/27/2025 2:07 PM CDT Inhaled Oxygen Concentration - - Weight 128.9 kg (284 lb 3.2 oz) 01/27/2025 2:07 PM CDT Height 177.8 cm (5' 10 ) 01/27/2025 2:07 PM CDT Body Mass Index 40.78 01/27/2025 2:07 PM CDT documented in this encounter Functional [...] No 02/13/2018 documented as of this encounter Progress Notes * Buster Garg MD - 01/27/2025 2:26 PM CDT Bariatric Surgery Clinic Note Jorge Cotter Previous Procedure: Laparoscopic Cortez en Y gastric bypass 2. Laparoscopic adhesiolysis, 30 min (Neli) Date of Procedure: 02/13/2018 Initial Weight: 310 Last Weight: 284 Todays Weight: Weight: 258 lb 12.8 oz (117.4 kg); Body mass index is 37.13 kg/(m^2). Total Weight Loss: 26 IBW: 180 Chief complaint: Post hospital follow up GI bleed Gastrojejunal ulcer Subjective: Pt is here for follow up to GJ ulcer noted on recent admission at [facility] Pt has been admitted twice in the last 5 months - Sep and December Pt has required blood transfusion with both admissions Pt underwent EGD with bleeding control with both admissions and noted to have bleeding GJ ulcer Pt is currently managing with PPI daily Denies any preceeding epigastric abdominal pain or nausea Pt reports daily alcohol use and likely etiology. Has abstained and sober since last admission in december Denies tobacco use, nsaids or steroids Pt has been taking oral iron supplements Since discharge has denied melanotic stools or hematemesis Denies dysphagia Weight has been stable Past Medical History: Diagnosis Date Anesthesia complication difficulty waking Anxiety when flying HTN (hypertension) Kidney stones Migraines Sleep apnea CPAP Past Surgical History: Procedure Laterality Date ADJ GASTRIC BAND & SUBCU PORT, LAP REMOVAL 10/03/2017 ADJUSTABLE GASTRIC BAND, LAP PLACEMENT 2009 Dr. Lindquist ADJUSTABLE GASTRIC BAND, LAP REMOVAL 10/03/2017 LAPAROSCOPIC GASTRIC BAND REMOVAL Cholecystectomy [phone] ENDOSCOPY, UPPER 09/20/2017 EGD WITH DILATION Gastric Bypass 02/13/2018 WITH EGD Gastric Bypass N/A 02/13/2018 N/A; LAPAROSCOPIC GASTRIC BYPASS AND INTROPERATIVE ENDO Lithotripsy x2 Tonsillectomy 2003 Current Outpatient Medications on File Prior to Visit Medication Sig Dispense Refill ALPRAZolam (XANAX) 0.25 MG tablet Take 0.25 mg by mouth as needed (Only takes when flying) 2 magnesium 500 MG tablet Take 500 mg by mouth once daily Multiple Vitamin (MULTI VITAMIN PO) Take 1 tablet by mouth once daily Bartlett-3 Fatty Acids (FISH OIL PO) Take 1,000 mg by mouth once daily pantoprazole EC (PROTONIX) 40 MG tablet Take 40 mg by mouth once daily pyridoxine (VITAMIN B-6) 100 MG tablet Take 100 mg by mouth once daily Verapamil HCl CR 360 MG Take 360 mg by mouth once daily 6 No current facility-administered medications on file prior to visit. Data Vitals: 01/27/25 1407 BP: 134/96 Pulse: 77 Temp: 97.4 ??F (36.3 ??C) SpO2: 96% Weight: 128.9 kg (284 lb 3.2 oz) Height: 1.778 m (5' 10 ) Review of Systems: HEENT: Denies headaches, vision or auditory changes Cardiovascular: Denies chest pain, orthopnea or palpitations Respiratory: Denies cough, hemoptysis Gastrointestinal: Denies abdominal pain, no melena or hematemesis Genitourinary: denies hematuria, dysuria Musculoskeletal: denies muscle weakness Endocrine: Denies diabetes mellitus or thyroid issues Allergic / Immuno: Normal Neuro / Psych: denies depression, SI/SA Physical Examination: Constitutional: well-developed, well-nourished, and in no distress Head: Normocephalic and atraumatic. Eyes: EOM are normal. No scleral icterus. Neck: No tracheal deviation present. Pulmonary/Chest: Effort normal. No stridor. No respiratory distress. Abdominal: Soft. Non tender, non distended, no masses Musculoskeletal: Normal range of motion. Exhibits no tenderness. Neurological: He is alert. GCS score is 15. Skin: Skin is warm. No erythema. Psychiatric: Mood and affect normal. Assessment/Plan: Pt s/p LRYGB with hx of recent multiple GJ ulcer and GI bleeds here for f/u 1. Gastrojejunal ulcer - rx carafate for 8 weeks - rx cytotec for 4 weeks - increase ppi to bid for 6 months - schedule for EGD 2. Iron deficiency anemia/ GI bleed - cont with daily iron supplement - schedule for iron infusion 3. Morbid obesity - hx of LRYGB - pt interested in revision - will discuss following EGD 4. Intestinal malabsorption - bariatric vitamin daily - nutritional labs ordered Buster Garg MD documented in this encounter Plan of Treatment Upcoming Encounters Date Type Department Care Team (Late st Contact Info) Description 01/27/2026 12:00 PM CDT Office Visit [facility] [address] [facility] [address] [place] [address] Jamila Boyd APRN-SILL WORKER [address] [facility] [address] [place] [address] Scheduled Orders Name Type Priority Associated Diagnoses Orde r Schedule EGD GI Routine Bariatric surgery status Gastrojejunal ulcer with hemorrhage 1 Occurrences starting 01/27/2025 until 01/27/2026 CBC WITH DIFFERENTIAL Lab Routine Bariatric surgery status Gastrojejunal ulcer with hemorrhage Intestinal malabsorption, unspecified type (HCC) Ordered: 01/27/2025 COMPREHENSIVE METABOLIC PANEL Lab Routine Bariatric surgery status Gastrojejunal ulcer with hemorrhage Intestinal malabsorption, unspecified type (HCC) Ordered: 01/27/2025 COPPER BLOOD Lab Routine Bariatric surgery status Gastrojejunal ulcer with hemorrhage Intestinal malabsorption, unspecified type (HCC) Ordered: 01/27/2025 FERRITIN Lab Routine Bariatric surgery status Gastrojejunal ulcer with hemorrhage Intestinal malabsorption, unspecified type (HCC) Ordered: 01/27/2025 IRON + TIBC PANEL Lab Routine Bariatric surgery status Gastrojejunal ulcer with hemorrhage Intestinal malabsorption, unspecified type (HCC) Ordered: 01/27/2025 PREALBUMIN Lab Routine Bariatric surgery status Gastrojejunal ulcer with hemorrhage Intestinal malabsorption, unspecified type (HCC) Ordered: 01/27/2025 VITAMIN A Lab Routine Bariatric surgery status Gastrojejunal ulcer with hemorrhage Intestinal malabsorption, unspecified type (HCC) Ordered: 01/27/2025 VITAMIN B1 Lab Routine Bariatric surgery status Gastrojejunal ulcer with hemorrhage Intestinal malabsorption, unspecified type (HCC) Ordered: 01/27/2025 VITAMIN B12 Lab Routine Bariatric surgery status Gastrojejunal ulcer with hemorrhage Intestinal malabsorption, unspecified type (HCC) Ordered: 01/27/2025 ZINC BLOOD Lab Routine Bariatric surgery status Gastrojejunal ulcer with hemorrhage Intestinal malabsorption, unspecified type (HCC) Ordered: 01/27/2025 VITAMIN K1 Lab Routine Bariatric surgery status Gastrojejunal ulcer with hemorrhage Intestinal malabsorption, unspecified type (HCC) Ordered: 01/27/2025 VITAMIN D 25-HYDROXY Lab Routine Bariatric surgery status Gastrojejunal ulcer with hemorrhage Intestinal malabsorption, unspecified type (HCC) Ordered: 01/27/2025 VITAMIN E Lab Routine Bariatric surgery status Gastrojejunal ulcer with hemorrhage Intestinal malabsorption, unspecified type (HCC) Ordered: 01/27/2025 documented as of this encounter Visit Diagnoses Diagnosis Gastrojejunal ulcer with hemorrhage- Primary Chronic or unspecified gastrojejunal ulcer with hemorrhage, without mention of obstruction Bariatric surgery status Intestinal malabsorption, unspecified type (HCC) documented in this encounter Care Teams Cryptographic Clerk Relationship Specialty Start Date End Date Gerald Coronado MD [address] [place] [id number] PCP - General 06/21/21 documented as of this encounter
--- OUTSIDE RECORDS SUMMARY | 2025-01-28 07:34 | XMS_ITS | Encounter Summary ---
Author Organization [facility] Address [address] [place] [address] Phone Care Team Providers Care Gaming Cage Worker Name Role Phone Gerald Coronado MD Primary Care Provider [phone] Osmar Shaikh MD Unavailable [phone] Reason for Visit * Reason Comments Medication Refill Encounter Details Date Type Department Care Team (Late st Contact Info) Description 07/29/2020 Refill [facility] - Neurology - [place] [address] [place] [phone] Osmar Shaikh MD [address] [place] [phone] Medication Refill Social History Tobacco Use Types [...] on filedocumented in this encounter Care Teams Gaming Cage Worker Relationship Specialty Start Date End Date Gerald Coronado MD [address] [place] [address] PCP - General Internal Medicine 07/04/16 Osmar Shaikh MD [address] [place] [address] Consulting Physician Neurology 07/04/16 09/07/24 documented as of this encounter
[2025-01-28 08:16] LABS: Hematocrit 34.1 % (40.0-54.0); Hemoglobin 10.3 g/dL (14.0-18.0); Mean Corpuscular HGB Conc 30.2 g/dL (32-36); Mean Corpuscular Hemoglobin 26.8 pg (27.0-31.0); Mean Corpuscular Volume 88.8 fL (78.0-102.0); Mean Platelet Volume 10.6 fl (8.7-11.0); Platelet Count Result 334 K/mm3 (150-420); Red Blood Count 3.84 M/mm3 (4.70-6.10); Red Cell Distribution Width 16.3 % (11.6-14.4); White Blood Count 8.8 K/mm3 (4.8-10.8)
[2025-01-28 08:40] LABS: Hemoglobin A1C 5.1 % (<5.7)
[2025-01-28 09:13] LABS: Alanine Aminotransferase 37 U/L (16-63); Albumin Level 3.6 g/dL (3.4-5.0); Alkaline Phosphatase 139 U/L (46-116); Anion Gap 9 mmol/L (4-12); Aspartate Amino Transferase 24 U/L (15-37); Bilirubin Direct 0.2 mg/dL (0-0.2); Bilirubin,Total 0.6 mg/dL (0.00-1.00); Blood Urea Nitrogen 15 mg/dL (7-18); Calcium 9.2 mg/dL (8.5-10.1); Carbon Dioxide 27 mmol/L (21-32); Chloride 106 mmol/L (98-108); Cholesterol 163 mg/dL (0-200); Estimated Glomerular Filt Rate > 60; Glucose 94 mg/dL (70-99); HDL Direct 61 mg/dL (40-60); LDL Cholesterol Calculated 95 mg/dL (<130); Osmolality Calculated 294 mOsm/kg (285-295); Potassium 4.5 mmol/L (3.5-5.1); Sodium 142 mmol/L (136-145); Triglycerides 34 mg/dL (0-150)
== END 2025-01-28 07:27 | disposition home or self-care (01) ==
LOC: CHSLAB 07:31
PROVIDERS: PCP Internal Medicine
DX: K92.2 Gastrointestinal hemorrhage, unspecified (principal); Z79.899 Other long term (current) drug therapy
CPT/HCPCS: 36415; 80053; 80061; 82248; 83036; 84443; 85027

== ENCOUNTER 2025-02-27 08:07 | Outpatient (CLI) | payer OTHER, SELFPAY ==
--- OUTSIDE RECORDS SUMMARY | 2025-02-27 08:16 | XMS_ITS | Encounter Summary ---
Author Organization [facility] Address [address] [place] [address] Phone Care Team Providers Care Diversity Specialist Name Role Phone Gerald Coronado MD Primary Care Provider Osmar Shaikh MD Unavailable [phone] Reason for Visit * Reason Comments Medication Refill Encounter Details Date Type Department Care Team (Late st Contact Info) Description 07/29/2020 Refill [facility] - Neurology - [place] [address] [place] [phone] Osmar Shaikh MD [address] [place] [phone] Medication Refill Social History Tobacco Use Types [...] on filedocumented in this encounter Care Teams Diversity Specialist Relationship Specialty Start Date End Date Gerald Coronado MD [address] [place] [address] PCP - General Internal Medicine 07/04/16 Osmar Shaikh MD [address] [place] [address] Consulting Physician Neurology 07/04/16 09/07/24 documented as of this encounter
--- OUTSIDE RECORDS SUMMARY | 2025-02-27 08:16 | XMS_ITS ---
[place] ED EGD FLEX TRANSORAL DX 02/13/2025 7:20 AM CDT EGD Routine 02/13/2025 6:54 AM CDT Bariatric surgery status Gastrojejunal ulcer with hemorrhage BASIC METABOLIC PANEL (CALCIUM TOTAL) STAT 11/14/2024 10:01 PM CASKET ASSEMBLER METAL from Last 3 Months or Most Recently Relevant to Health Maintenance Results * HELICOBACTER PYLORI UREASE (STL) (02/13/2025 7:58 AM CDT) Helicobacter pylori Urease Initial Negative Negative 02/14/2025 10:41 AM CDT [facility] Helicobacter pylori Urease Final Negative Negative 02/14/2025 10:41 AM CDT [facility] Microbiology GASTRIC ANTRAL BIOPSY SPECIMEN / Unknown Collection / Unknown 02/13/2025 7:58 AM CDT 02/13/2025 1:44 PM CDT us Buster Garg MD LAB - MICROBIOLOGY ORDERABLES Final Result [facility] [address] [place] [address] * EGD (02/13/2025 6:54 AM CDT) Report Endoscopy POC _ Patient Name: Jorge Molina Procedure Date: 02/13/2025 6:54 AM Date of : 1975 Admit Type: Outpatient Age: 49 Gender: Male Attending MD: Buster Garg MD, _ Procedure: Upper GI endoscopy Indications: Recent gastrointestinal bleeding, Assessment following Cortez-en-Y gastrojejunostomy Providers: Buster Garg MD (Doctor) Referring MD: Gerald Coronado MD (Referring MD) Medicines: Propofol per Anesthesia Complications: No immediate complications. _ Estimated Blood Loss: Estimated blood loss: none. Procedure: Pre-Anesthesia Assessment: - Prior to the procedure, a History and Physical was performed, and patient medications and allergies were reviewed. The patient's tolerance of previous anesthesia was also reviewed. The risks and benefits of the procedure and the sedation options and risks were discussed with the patient. All questions were answered, and informed consent was obtained. Prior Anticoagulants: The patient has taken no anticoagulant or antiplatelet agents. ASA Grade Assessment: II - A patient with mild systemic disease. After reviewing the risks and benefits, the patient was deemed in satisfactory condition to undergo the procedure. After obtaining informed consent, the endoscope was passed under direct vision. Throughout the procedure, the patient's blood pressure, pulse, and oxygen saturations were monitored continuously. The Endoscope was introduced through the mouth, and advanced to the jejunum. The upper GI endoscopy was accomplished without difficulty. The patient tolerated the procedure well. Findings: The examined esophagus was normal. Evidence of a gastric bypass was found. A gastric pouch with a 4 cm length from the GE junction to the gastrojejunal anastomosis was found containing non erosive mucosa, fundus/gastric dilation and stoma dilation. The staple line appeared intact. The gastrojejunal anastomosis was characterized by healthy appearing mucosa dilated. This was traversed. Biopsies were taken with a cold forceps for Helicobacter pylori testing using CLOtest. The examined jejunum was normal. _ Impression: - Normal esophagus. - Gastric bypass with a pouch 4 cm in length and intact staple line. Gastrojejunal anastomosis characterized by healthy appearing mucosa dilated. Biopsied. - Normal examined jejunum. Recommendation: - Await pathology results. - Discharge patient to home. - Resume regular diet. - Continue present medications. Procedure Code(s): --- Professional --- 18136, Esophagogastroduoden oscopy, flexible, transoral; with biopsy, single or multiple --- Technical --- 66742, Esophagogastroduoden oscopy, flexible, transoral; with biopsy, single or multiple Diagnosis Code(s): --- Professional --- K92.2, Gastrointestinal hemorrhage, unspecified Z98.0, Intestinal bypass and anastomosis status Z09, Encounter for follow-up examination after completed treatment for conditions other than malignant neoplasm --- Technical --- K92.2, Gastrointestinal hemorrhage, unspecified Z98.0, Intestinal bypass and anastomosis status Z09, Encounter for follow-up examination after completed treatment for conditions other than malignant neoplasm CPT copyright 2020 [employer]. All rights reserved. The codes documented in this report are preliminary and upon traverse rod assembler review may be revised to meet current compliance requirements. Buster Garg MD 02/13/2025 8:06:50 AM Number of Addenda: 0 Note Initiated On: 02/13/2025 6:54 AM [facility] 02/13/2025 6:54 AM CDT Narrative Procedure Note Buster Garg MD - 02/13/2025 8:07 AM CDT PLAN: Ok to halt carafate Cont wthi PPI daily Diet as tolerated F/u in the office to discuss revision - VT/LLRY us Buster Garg MD GI PROCEDURE ORDERABLES Edite d Result - Final [facility] [place] [address] * (ABNORMAL) BASIC METABOLIC PANEL (CALCIUM TOTAL) (11/14/2024 10:01 PM [facility]) BUN 12 7 - 26 mg/dL 11/14/2024 10:37 PM [facility] Creatinine 1.24(H) 0.71 - 1.16 mg/dL 11/14/2024 10:37 PM [facility] Sodium 142 136 - 145 mmol/L 11/14/2024 10:37 PM [facility] Potassium 4.9(H) 3.5 - 4.5 mmol/L 11/14/2024 10:37 PM [facility] Chloride 105 98 - 107 mmol/L 11/14/2024 10:37 PM [facility] CO2 20(L) 22 - 29 mmol/L 11/14/2024 10:37 PM [facility] Glucose 119(H) 70 - 99 mg/dL 11/14/2024 10:37 PM [facility] Calcium 8.6 8.4 - 10.2 mg/dL 11/14/2024 10:37 PM [facility] Anion Gap 17(H) 6 - 16 11/14/2024 10:37 PM [facility] BUN/Creatinine Ratio 10 7 - 23 11/14/2024 10:37 PM [facility] Osmolality Calculated 295 275 - 295 mOsm/kg 11/14/2024 10:37 PM [facility] eGFR by CKD-EPI 72(L) >=90 mL/min/1.7 3 m2 11/14/2024 10:37 PM [facility] Blood BLOOD SPECIMEN / Unknown Venipuncture / Unknown 11/14/2024 10:01 PM CASKET ASSEMBLER METAL 11/14/2024 10:07 PM [facility] us Carlos Mueller MD LAB - CHEMISTRY ORDERABLES Final Result [facility] [address] [place] [address], [facility] [phone] from Last 3 Months or Most Recently Relevant to Health Maintenance Insurance [employer] [facility] Address: [address] [phone] SELF PAY NO INSURANCE Member Subscriber Plan / Payer (Ef fective for All Dates) Name:Fabio Molinaothy Giovana Member ID:Not on file Relation to Subscriber:Not on file Name:ALFAAMITAJORGE Giovana Subscriber ID:Not on file (Home) Address: [address] [place] [id number] Payer ID:Not on file Group ID:Not on file Type:Self Pay Address: [place], [place] [facility] Address: [address] [place] [address] SELF PAY NO INSURANCE Member Subscriber Plan / Payer (Ef fective for All Dates) Name:Jorge Molina Member ID:Not on file Relation to Subscriber:Not on file Name:ALFANIKOLAYJORGE LAWLER Subscriber ID:Not on file Address: [address] [place], [place] [id number] Payer ID:Not on file Group ID:Not on file Type:Self Pay Address: [place] [facility] Address: [address] [place] [address] SELF PAY NO INSURANCE Member Subscriber Plan / Payer (Ef fective for All Dates) Name:MaggiealexandroJorge lawler Member ID:Not on file Relation to Subscriber:Not on file Name:TRACYJORGE Subscriber ID:Not on file Address: [address] [place], [place] [id number] Payer ID:Not on file Group ID:Not on file Type:Self Pay Address: [place], [place] SELF PAY NO INSURANCE Member Subscriber Plan / Payer (Ef fective for All Dates) Name:Jorge Molina Member ID:Not on file Relation to Subscriber:Not on file Name:JORGE MOLINA Subscriber ID:Not on file Address: [address] [place] [address] Payer ID:Not on file Group ID:Not on file Type:Self Pay Address: [place], [place] Advance Directives * Full Code (Latest Code Status on File) Date Activated Date Inactivated Comments 02/13/2018 8:46 PM 02/15/2018 1:20 PM Care Teams Global Regulatory Lead Relationship Specialty Start Date End Date Gerald Coronado MD [address] [place] [address] PCP - General 06/21/21
--- OUTSIDE RECORDS SUMMARY | 2025-02-27 08:16 | XMS_ITS | CONTINUITY OF CARE DOCUMENT ---
Author Name mirtha shannon Address Unknown Organization [facility] Address [address] [place] [address] [address] [place] [address] Phone [phone] Care Team Providers Care Upper Inspector Name Role Phone Kamaljit THOMPSON, Clary Unavailable [phone] INSURANCE PROVIDERS Payer name Policy type / Coverage type [place] [employer] party ID [facility] Other [id number]
--- OUTSIDE RECORDS SUMMARY | 2025-02-27 08:16 | XMS_ITS | Clinical Summary ---
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 Not on file Not on file Last Filed Vital Signs Vital Sign Reading Time Taken Comments Blood Pressure 158/117 11/26/2024 6:30 PM CURATOR OF COLLECTIONS Pulse 78 11/26/2024 6:30 PM CURATOR OF COLLECTIONS Temperature 36.8 C (98.3 F) 11/26/2024 4:24 PM CURATOR OF COLLECTIONS Respiratory Rate 15 11/26/2024 6:30 PM CURATOR OF COLLECTIONS Oxygen Saturation 100% 11/26/2024 6:30 PM CURATOR OF COLLECTIONS Inhaled Oxygen Concentration - - Weight 122.5 kg (270 lb) 11/26/2024 3:45 PM CURATOR OF COLLECTIONS Height 177.8 cm (5' 10 ) 11/26/2024 3:45 PM CURATOR OF COLLECTIONS Body Mass Index 38.74 11/26/2024 3:45 PM CURATOR OF COLLECTIONS Plan of Treatment Health Maintenance Due Date Last Done Comments Colorectal Cancer Screening Colonoscopy (10 Years) 1977 Annual Physical 1980 Hepatitis C 1995 Hepatitis B Vaccines (1 of 3 - 19+ 3-dose series) 1996 COVID-19 Vaccine (3 - 2023-2 5 season) 2024 02/11/2021, 01/14/2021 DTaP, Tdap [...] 5 Years) and At-Risk Patients (6 to 49 Years) Aged Out No longer eligible b ased on patient's age to complete this topic RSV Immunizations Under 20 Months Aged Out No longer eligible b ased on patient's age to complete this topic Insurance A[employer]NA [employer] OPEN ACCESS [facility] Care Teams Switchboard And Control Room Operator Relationship Specialty Start Date End Date Gerald Coronado MD [address] [place] [id number] PCP - General INTERNAL MEDICINE 07/05/16 Raymundo Weathers MD [address] [place] [address] CARDIOVASCULAR DISEASE 07/05/16
--- OUTSIDE RECORDS SUMMARY | 2025-02-27 08:16 | XMS_ITS | Clinical Summary ---
Author Organization [facility] Address [address] [facility], [place] [address] Phone Care Team Providers Care Fire Crew Specialist Name Role Phone Gerald Coronado MD Primary Care Provider [phone] Allergies No known active allergies Medications lisinopril-hyd roCHLOROthiazi de (PRINZIDE, ZESTORETIC) 20-12.5 MG Tablet Take 1 Tab by mouth daily. Active Magnesium 250 MG Tablet Take by mouth. Activ e Multiple Vitamin (MULTI-VITAMIN PO) Take by mouth. Activ e [place]-3 Fatty Acids (FISH OIL PO) Take by [...] Comments Blood Pressure 120/80 08/26/2018 3:18 PM STEAM PLANT CONTROL ROOM OPERATOR Pulse 80 08/26/2018 3:18 PM STEAM PLANT CONTROL ROOM OPERATOR Temperature 36.7 C (98.1 F) 08/26/2018 3:18 PM STEAM PLANT CONTROL ROOM OPERATOR Respiratory Rate 18 08/26/2018 3:18 PM STEAM PLANT CONTROL ROOM OPERATOR Oxygen Saturation 98% 08/26/2018 3:18 PM STEAM PLANT CONTROL ROOM OPERATOR Inhaled Oxygen Concentration - - Weight 127 kg (280 lb) 08/26/2018 3:18 PM STEAM PLANT CONTROL ROOM OPERATOR Height 180.3 cm (5' 11 ) 08/26/2018 3:18 PM STEAM PLANT CONTROL ROOM OPERATOR Body Mass Index 39.05 08/26/2018 3:18 PM STEAM PLANT CONTROL ROOM OPERATOR Plan of Treatment Health Maintenance Due [...] age to complete this topic Care Teams Fire Crew Specialist Relationship Specialty Start Date End Date Gerald Coronado MD [address] [place] [address] PCP - General Internal Medicine 07/04/16
[2025-02-27 09:04] LABS: Basophils Absolute Auto 0.04 K/mm3 (0.00-0.10); Basophils Percent Auto 0.5 % (0.0-1.0); Eosinophils Absolute Auto 0.44 K/mm3 (0.02-0.50); Eosinophils Percent Auto 5.2 % (1.0-6.0); Hematocrit 37.9 % (40.0-54.0); Hemoglobin 11.5 g/dL (14.0-18.0); Immature Granulocyte Absolute 0.03 K/mm3 (0.00-0.00); Immature Granulocyte Percent A 0.4 % (0.0-0.0); Lymphocytes Absolute Auto 1.85 K/mm3 (1.10-4.50); Lymphocytes Percent Auto 21.8 % (18.0-42.0); Mean Corpuscular HGB Conc 30.3 g/dL (32-36); Mean Corpuscular Hemoglobin 26.2 pg (27.0-31.0); Mean Corpuscular Volume 86.3 fL (78.0-102.0); Mean Platelet Volume 11.2 fl (8.7-11.0); Monocytes Absolute Auto 0.53 K/mm3 (0.10-0.90); Monocytes Percent Auto 6.2 % (2.0-11.0); Neutrophils Percent Auto 65.9 % (50.0-70.0); Platelet Count Result 256 K/mm3 (150-420); Red Blood Count 4.39 M/mm3 (4.70-6.10); Red Cell Distribution Width 15.5 % (11.6-14.4); White Blood Count 8.5 K/mm3 (4.8-10.8)
[2025-02-27 09:47] LABS: Alanine Aminotransferase 26 U/L (16-63); Albumin Level 3.7 g/dL (3.4-5.0); Alkaline Phosphatase 114 U/L (46-116); Anion Gap 4 mmol/L (4-12); Aspartate Amino Transferase 17 U/L (15-37); Bilirubin,Total 0.5 mg/dL (0.00-1.00); Blood Urea Nitrogen 17 mg/dL (7-18); Calcium 8.9 mg/dL (8.5-10.1); Carbon Dioxide 31 mmol/L (21-32); Chloride 104 mmol/L (98-108); Estimated Glomerular Filt Rate > 60; Glucose 93 mg/dL (70-99); Iron 33 ug/dL (65-175); Osmolality Calculated 289 mOsm/kg (285-295); Percent Iron Saturation 9 % (12-57); Sodium 139 mmol/L (136-145); Total Protein 6.9 g/dL (6.4-8.2); Vitamin B12 661 pg/mL (193-986)
[2025-02-27 10:55] LABS: Ferritin 8.31 ng/mL (17.9-464)
[2025-03-02 12:43] LABS: Prealbumin 22 mg/dL (21-43)
[2025-03-02 18:29] LABS: Zinc 74 mcg/dL (60-130)
[2025-03-03 01:24] LABS: Vitamin D 25 Hydroxy 44 ng/mL (30-100)
[2025-03-03 10:03] LABS: Alpha-Tocopherol 7.4 mg/L (5.7-19.9); Beta-Gamma Tocopherol <1.0 mg/L (<4.4); Vitamin A 51 mcg/dL (38-98)
[2025-03-03 21:54] LABS: Vitamin B1 17 nmol/L (8-30)
== END 2025-02-27 08:08 | disposition home or self-care (01) ==
LOC: CHSLAB 08:10
PROVIDERS: PCP Internal Medicine; Visit Provider Internal Medicine Gastroenterology
DX: D64.9 Anemia, unspecified (principal); K28.4 Chronic or unspecified gastrojejunal ulcer with hemorrhage; K90.9 Intestinal malabsorption, unspecified; Z98.84 Bariatric surgery status
CPT/HCPCS: 36415; 80053; 82306; 82525; 82607; 82728; 83540; 83550; 84134; 84425; 84446; 84590; 84597; 84630; 85025

== ENCOUNTER 2025-07-03 13:47 | Emergency (ER) | payer BC, SELFPAY ==
[2025-07-03 13:49] VITALS: BP 120/81; PULSE 82; RESP 16; TEMP 36.6; O2SAT 100
--- NOTE | 2025-07-03 13:56 | ED.UPPEXIN ---
HPI - Extremity Injury (Upper) General Chief Complaint: Wound/Laceration Stated Complaint: cut left thumb Time Seen by Provider: 07/03/25 13:55 Source: patient Mode of arrival: ambulatory Limitations: no limitations History of Present Illness HPI narrative: 50-year-old here with a complains of cut to his left thumb. Patient states that he was working on his spine accidentally cut himself. Patient stated it was bleeding profusely at and the time it got injured home by the time he got to the ER no active bleeding Related Data Home Medications ?Medication ?Instructions ?Recorded ?Confirmed ?Last Taken ?Type verapamil 360 mg 24 hr 360 mg PO DAILY 04/28/21 07/03/25 01/08/25 History capsule,extended release olmesartan 5 mg tablet 40 mg PO DAILY 10/24/23 07/03/25 01/08/25 History prazosin 1 mg capsule 1 mg PO HS 07/14/24 07/03/25 01/08/25 History desvenlafaxine succinate 100 mg 125 mg PO HS 09/22/24 07/03/25 01/08/25 History tablet,extended release 24 hr hydroxyzine pamoate 50 mg capsule 50 mg PO HS 09/22/24 07/03/25 01/08/25 History trazodone 100 mg tablet 100 mg PO HS 09/22/24 07/03/25 01/08/25 History naltrexone 50 mg tablet 50 mg PO DAILY 01/09/25 07/03/25 01/08/25 History Allergies Allergy/AdvReac Type Severity Reaction Status Date / Time No Known Allergies Allergy Verified 07/03/25 13:55 Review of Systems Review of Systems: All systems reviewed & are unremarkable except as noted in HPI and below Constitutional: Constitutional: Reports no additional constitutional complaints Eyes: Eyes: Reports no additional eye complaints ENT: Reports system reviewed and no additional complaints, except as documented Cardiovascular: Cardiovascular: Reports no additional cardiovascular complaints Respiratory: Respiratory: Reports no additional respiratory complaints Gastrointestinal: Gastrointestinal: Reports no additional gastrointestinal complaints Musculoskeletal: Musculoskeletal: Reports as per HPI Integumentary/Breasts: Skin/Breast: Reports system reviewed and no additional complaints, except as docu PMFSH Past Medical History Medical History PTSD (post-traumatic stress disorder) Alcoholism in recovery Colon cancer screening Urolithiasis JAMES (obstructive sleep apnea) Obesity, morbid, BMI 40.0-49.9 Hypertension Hematemesis Nausea & vomiting Surgical History Surgical History Hx of tonsillectomy Gastric bypass status for obesity Family History Family History Mother Pulmonary embolism Cardiac arrest Father Pulmonary embolism Cardiac arrest Social History Social History Smoking status: Never smoker Alcohol intake: former Substance use: never Substance use type: does not use Last use: 12/11/24 Do You Feel Safe in your Home?: Yes Lack of Transportation: No Lack of Food: Never True Current Housing: I Have Housing Concerned About Future Housing: No Difficulty Paying Gas/Electric Bills: No Difficulty Paying for Meds: No Currently Unemployed: No Education: Master's Degree or Higher Difficulty w/ Childcare or Family Care: No Living arrangements: other Additional living arrangements comments: with sp Gender identity (if verbalized by the patient): Male Spiritual care concerns: No Exam Narrative: GENERAL: Well-appearing, well-nourished, and in no acute distress. HEAD: Normocephalic, atraumatic. EYES: PERRLA and EOMI. ENT: Nares clear, no rhinorrhea or epistaxis. Mucous membranes moist. NECK: Supple. CHEST: Clear to auscultation. No respiratory distress. HEART: Regular rate and rhythm. No murmur heard. Normal peripheral pulses. EXTREMITIES: Normal range of motion. No edema. a minor abrasion on the left thumb , no active bleeding SKIN: Warm, dry, no rash. NEURO: No focal deficits. Alert and oriented x3. PSYCH: Normal mood and affect. Course Course Emergency Course: no actibe bleeding , wound care advised. Vital Signs Vital signs: Vital Signs Temperature 36.6 C 07/03/25 13:49 Pulse Rate 82 07/03/25 13:49 Respiratory Rate 16 07/03/25 13:49 Blood Pressure 120/81 07/03/25 13:49 Pulse Oximetry 100 07/03/25 13:49 Oxygen Delivery Room Air 07/03/25 13:49 Temperature 36.6 C 07/03/25 13:49 Pulse Rate 82 07/03/25 13:49 Respiratory Rate 16 07/03/25 13:49 Blood Pressure 120/81 07/03/25 13:49 Pulse Oximetry 100 07/03/25 13:49 Oxygen Delivery Room Air 07/03/25 13:49 Discharge Plan Discharge Clinical Impression: Abrasion of finger, left Qualifiers: Encounter type: initial encounter Qualified Code(s): S60.419A - Abrasion of unspecified finger, initial encounter Patient Disposition: Home Condition: Stable Instructions: Abrasion (ED) Patient Language: Kuwaiti Prescriptions: No Action prazosin 1 mg capsule 1 mg PO HS hydroxyzine pamoate 50 mg capsule 50 mg PO HS trazodone 100 mg tablet 100 mg PO HS desvenlafaxine succinate 100 mg tablet extended release 24 hr 125 mg PO HS naltrexone 50 mg tablet 50 mg PO DAILY pantoprazole 40 mg Tablet,Delayed Release (Dr/Ec) 40 mg PO Q12HR Qty: 60 0RF verapamil 360 mg capsule,ext rel. pellets 24 hr 360 mg PO DAILY olmesartan 5 mg tablet 40 mg PO DAILY Follow-up/Referrals: Gerald Coronado MD [Primary Care Provider, Internal Medicine] Time of Disposition: 13:57
--- OUTSIDE RECORDS SUMMARY | 2025-07-03 14:35 | XMS_ITS | Patient Health Record ---
Author Organization [facility] Address [address] [facility] [address] [place] [address] Support Name Relationship Address Phone SANDRA MOLINA Emergency Contact Unknown [phone] NATALIE MOLINA Guarantor Unknown Allergies No Known Allergies Reason For Referral No Information Medications Medication SIG (Take, Route, Frequency, Duration) Notes Start Date End Date Status traZODone HCl 50 MG Tablet Oral; Duration: 30 days 12/11/2023 Active Ramelteon 8 MG Tablet 1 tablet at bedtim e as needed Orally Once a day; Duration: 30 days Active hydrOXYzine HCl 50 MG Tablet 1 tablet as needed Orally Once a day; Duration: 30 days Active Olmesartan Medoxomil 20 MG Tablet Oral 12/11/2023 Active Spravato (84 MG Dose) 28 MG/DEVICE Solution Therapy Pack 3 sprays in each nostril Nasally twice a week; Duration: 1 days 04/03/2024 Active Verapamil HCl 360 mg Capsule Extended Release 24 Hour Oral *Pick strength-form from [employer] for eRX* 12/11/2023 Active Pristiq 50 MG Tablet Extended Release 24 Hour 1 tablet Orally Once a day; Duration: 30 days Active Social History Sex Assigned At : Social History Observation Description Sex Assigned At Male Social History Additional Details Category Social Info Options Details Migrated Social History Migrated Social History Alcohol Intake: None 08/15/2023,Tobacco Years: Never smoker 08/15/2023 Problems Problem Type SNOMED Code ICD Code Onset Dates Problem Status W/U Status Risk Notes Problem Fear of flying (800485555) 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) 4 Active confirmed Problem Generalized anxiety disorder (74190132) Generalized anxiety disorder (F41.1) 4 Active confirmed Problem Posttraumatic stress disorder (37365757) Post-traumatic stress disorder, chronic (F43.12) 4 Active confirmed Problem Primary insomnia (7907191) Primary insomnia (F51.01) 4 Active confirmed Problem Severe recurrent major depression without psychotic features (02981915) Severe episode of recurrent major depressive disorder, without psychotic features (F33.2) Active confirmed Plan Of Treatment No Information Insurance Providers Payer Name Payer Address Payer Phone Subscriber Number Group Number Insured Name Patient Relationship to Insured Coverage Start Date Coverage End Date [place] [address] [place] [address] [id number] NATALIE MOLINA Self - patient is the insured Medical (General) History Medical History History ICD Code Problems: Chronic post-traumatic stress disorder Flying phobia Generalized anxiety disorder Mild recurrent major depression Primary insomnia , Surgical History Surgery Date(Month/Year) Removal of gallbladder (64420) 8 Gastric bypass for obesity (18385) 01/20 Tonsilectomy/adenoids 08/22/2003 Hospitalization History Reason Date(Month/Year) [facility] for [facility] Diagnostic Test Results: The patient has undergone 10 sessions of Transcranial Magnetic Stimulation (TMS) for depression with [employer], with the last treatment conducted on the previous Sunday. The patient reported using Spravato treatment, with the last administration occurring the previous year on . The patient was previously in a treatment facility for PTSD in [place], [place]. 02/2024
--- OUTSIDE RECORDS SUMMARY | 2025-07-03 14:35 | XMS_ITS | Clinical Summary ---
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 Not on file Not on file Not on file Last Filed Vital Signs Vital Sign Reading Time Taken Comments Blood Pressure 158/117 11/26/2024 6:30 PM CONTENT PRODUCER Pulse 78 11/26/2024 6:30 PM CONTENT PRODUCER Temperature 36.8 C (98.3 F) 11/26/2024 4:24 PM CONTENT PRODUCER Respiratory Rate 15 11/26/2024 6:30 PM CONTENT PRODUCER Oxygen Saturation 100% 11/26/2024 6:30 PM CONTENT PRODUCER Inhaled Oxygen Concentration - - Weight 122.5 kg (270 lb) 11/26/2024 3:45 PM CONTENT PRODUCER Height 177.8 cm (5' 10) 11/26/2024 3:45 PM CONTENT PRODUCER Body Mass Index 38.74 11/26/2024 3:45 PM CONTENT PRODUCER Plan of Treatment Health Maintenance Due Date Last Done Comments Colorectal Cancer Screening Colonoscopy (10 Years) 1977 Annual Physical 1980 Hepatitis C 1995 Hepatitis B Vaccines (1 of 3 - 19+ 3-dose series) 1996 COVID-19 Vaccine (3 - 2024-2 6 season) 2025 02/11/2021, 01/14/2021 DTaP, Tdap and Td Vaccines [...] age to complete this topic Insurance A[employer] OPEN ACCESS [facility] Care Teams Lithographic Plate Maker Relationship Specialty Start Date End Date Gerald Coronado MD [address] [place] [address] PCP - General INTERNAL MEDICINE 07/05/16 Raymundo Weathers MD [address] [place] [address] CARDIOVASCULAR DISEASE 07/05/16
--- OUTSIDE RECORDS SUMMARY | 2025-07-03 14:36 | XMS_ITS | Clinical Summary ---
Author Organization [facility] Address [address] [facility], [place] [address] Phone Care Team Providers Care Traveling Crane Operator Name Role Phone Gerald Coronado MD Primary Care Provider [phone] Allergies No known active allergies Medications lisinopril-hyd roCHLOROthiazi de (PRINZIDE, ZESTORETIC) 20-12.5 MG Tablet Take 1 Tab by mouth daily. Active Magnesium 250 MG Tablet Take by mouth. Activ e Multiple Vitamin (MULTI-VITAMIN PO) Take by mouth. Activ e [place]-3 Fatty Acids (FISH OIL PO) Take by [...] Comments Blood Pressure 120/80 08/26/2018 3:18 PM WELDING MACHINE OPERATOR/TENDER Pulse 80 08/26/2018 3:18 PM WELDING MACHINE OPERATOR/TENDER Temperature 36.7 C (98.1 F) 08/26/2018 3:18 PM WELDING MACHINE OPERATOR/TENDER Respiratory Rate 18 08/26/2018 3:18 PM WELDING MACHINE OPERATOR/TENDER Oxygen Saturation 98% 08/26/2018 3:18 PM WELDING MACHINE OPERATOR/TENDER Inhaled Oxygen Concentration - - Weight 127 kg (280 lb) 08/26/2018 3:18 PM WELDING MACHINE OPERATOR/TENDER Height 180.3 cm (5' 11) 08/26/2018 3:18 PM WELDING MACHINE OPERATOR/TENDER Body Mass Index 39.05 08/26/2018 3:18 PM WELDING MACHINE OPERATOR/TENDER Plan of Treatment Health Maintenance Due Date Last Done Comments Hepatitis C Virus (HCV) Screening 1977 Hepatitis B Immunization (1 of 3 - 19+ 3-dose series) 1996 Cologuard 2022 Colonoscopy 2022 Colorectal Cancer Screening 2022 Immunochemical Fecal Occult Blood 2022 Influenza Immunization (#1) 2025 12/0 02/2016, 09/04/2016, 09/20/2015 SARS-COV-2 Immunization ( - season) 2025 02/11/2021, 01/14/2021 Respiratory Syncytial Virus (RSV) Immunization (Adult) (1 - 1-dose 75+ series) 2052 DTaP/Tdap/Td Immunization Discontinued 09/20/2015 TdaP Immunization Completed 09/20/2015 Human Papillomavirus (HPV) Immunization Aged Out No longer eligible based on patient's age to complete this topic Meningococcal Immunization (ACWY) Aged Out No longer eligible based on patient's age to complete this topic Pneumococcal Immunization Combined Aged Out No longer eligible based on patient's age to complete this topic Rotavirus Immunization Aged Out No lo nger eligible based on patient's age to complete this topic Care Teams Traveling Crane Operator Relationship Specialty Start Date End Date Gerald Coronado MD [address] [place] [address] PCP - General Internal Medicine 07/04/16
--- OUTSIDE RECORDS SUMMARY | 2025-07-03 14:36 | XMS_ITS | Encounter Summary ---
Author Organization [facility] Address [address] [place] [address] Phone Care Team Providers Care Slot Shift Supervisor Name Role Phone Gerald Coronado MD Primary Care Provider [phone] Osmar Shaikh MD Unavailable [phone] Reason for Visit * Reason Comments Medication Refill Encounter Details Date Type Department Care Team (Late st Contact Info) Description 07/29/2020 Refill [facility] - Neurology - [place] [address] [place] [phone] Osmar Shaikh MD [address] [place] [phone] Medication Refill Social History Tobacco Use Types [...] on filedocumented in this encounter Care Teams Slot Shift Supervisor Relationship Specialty Start Date End Date Gerald Coronado MD [address] [place] [address] PCP - General Internal Medicine 07/04/16 Osmar Shaikh MD [address] [place] [address] Consulting Physician Neurology 07/04/16 09/07/24 documented as of this encounter
--- OUTSIDE RECORDS SUMMARY | 2025-07-03 14:47 | XMS_ITS | Encounter Summary ---
Author Organization [facility] Address [address] [facility] [place] [address] Care Team Providers Care Plastic Straightening Roll Operator Name Role Phone Gerald Coronado MD Primary Care Provider [phone] Encounter Details Date Type Department Care Team (Late st Contact Info) Description 05/20/2025 Results Follow-Up [facility] [address] [facility] [address] [place] [address] Jamila Boyd, PROJECT ARCHIVIST-DRYING MACHINE OPERATOR [address] [id number] Social History Tobacco Use Types Packs/Day Years [...] at Not on file Legal Sex Male 9:51 AM CDT Gender Identity Not on file Sexual Orientation Not on file documented as of this encounter Functional Status * Is person deaf or have serious hearing difficulty? Answer Date of Assessment Author No 02/13/2025 8:07 AM CDT Radha Donovan RN * Is person blind or have serious difficulty seeing? Answer Date of Assessment Author No 02/13/2025 8:07 AM Radha Garcia RN * Does person have serious difficulty walking/climbing stairs? Answer Date of Assessment Author No 02/13/2025 8:07 AM Radha Garcia RN * Does person have difficulty dressing/bathing? Answer Date of Assessment Author No 02/13/2025 8:07 AM Radha Garcia RN * Does person have difficulty doing errands alone? Answer Date of Assessment Author No 02/13/2025 8:07 AM Radha Garcia RN documented as of this encounter Mental Status * Does person have difficulty concentrating/remembering/making decisions? Answer Entry Date Author No 02/13/2025 8:07 AM Radha Garcia RN documented in this encounter Plan of Treatment Upcoming Encounters Date Type Department Care Team (Late st Contact Info) Description 01/25/2026 1:30 PM CDT Office Visit [facility] [id number] [place] [address] Jamila Boyd, PROJECT ARCHIVIST-DRYING MACHINE OPERATOR [address] [address] documented as of this encounter Visit Diagnoses Not on filedocumented in this encounter Care Teams Plastic Straightening Roll Operator Relationship Specialty Start Date End Date Gerald Coronado MD [address] [place] [address] PCP - General 06/21/21 documented as of this encounter
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
== END 2025-07-03 14:25 | disposition home or self-care (01) ==
PROVIDERS: Emergency Provider Family Medicine; PCP Internal Medicine
DX: S60.419A Abrasion of unspecified finger, initial encounter (principal); Z79.899 Other long term (current) drug therapy; I10 Essential (primary) hypertension; W45.8XXA Other foreign body or object entering through skin, initial encounter
CPT/HCPCS: 99282